=== PATIENT | female | born 1945 | race Caucasian/White ===

== ENCOUNTER → 2020-10-14 02:41 | Outpatient (CLI) | payer MEDICARE, BC, SELFPAY ==
[2020-10-14 19:43] LABS: SARS-CoV-2 RNA PCR Negative
== END ==
PROVIDERS: PCP Nurse Practitioner Adult Health; Visit Provider Internal Medicine Gastroenterology
DX: Z01.812 Encounter for preprocedural laboratory examination (principal); Z20.822 Contact with and (suspected) exposure to COVID-19
CPT/HCPCS: C9803; U0003; U0005

== ENCOUNTER 2020-10-18 03:01 | Day surgery (SDC) | payer MEDICARE, BC, SELFPAY ==
[2020-10-09 13:16] VITALS: BMI 30.6
--- NOTE | 2020-10-18 07:49 | WPDANESEPPF ---
Anes - Initial Pre Proc Eval Procedure: Operation Date: 10/18/20 10:00 Proposed Procedures p Colonoscopy - Oswaldo Leos MD Date/Time: 10/18/20 07:49 Surgeon: Oswaldo Leos MD Pre Op Diagnosis: abnormal ct scan Patient Data Age: 74 Gender: F Height: 1.63 m Weight: 80.9 kg Allergies Allergy/AdvReac Type Severity Reaction Status Date / Time povidone-iodine Allergy Intermediate HIVES Verified 10/18/20 09:11 soap Allergy Intermediate HIVES Verified 10/18/20 09:11 Home Medications Medication Instructions Recorded Confirmed Type allopurinol 300 mg PO DAILY 10/09/20 10/09/20 History amlodipine 5 mg PO DAILY 10/09/20 10/09/20 History apremilast [Otezla] 30 mg PO BID 10/09/20 10/09/20 History atenolol 100 mg PO DAILY 10/09/20 10/09/20 History hydrochlorothiazide 25 mg PO DAILY 10/09/20 10/09/20 History insulin glargine [Basaglar KwikPen 48 unit SUBCUT HS 10/09/20 10/09/20 History U-100 Insulin] insulin lispro 5 unit SUBCUT PRN 10/09/20 10/09/20 History levothyroxine [Euthyrox] 75 mcg PO DAILY 10/09/20 10/09/20 History lisinopril 40 mg PO DAILY 10/09/20 10/09/20 History meloxicam 15 mg PO DAILY 10/09/20 10/09/20 History metformin 500 mg PO BID 10/09/20 10/09/20 History potassium chloride 10 meq PO DAILY 10/09/20 10/09/20 History simvastatin 40 mg PO DAILY 10/09/20 10/09/20 History Patient hx anesthesia problems: none Family hx anesthesia problems: none PMFSH Past Medical History Medical History (Updated 10/18/20 @ 07:51 by Hunter Oliva MD) Diabetes Emphysema of lung Gout HTN (hypertension) Hypercholesterolemia Hypothyroidism Obesity Osteoarthritis Psoriasis Social History Social History Smoking packs per day: 2 Smoking cigarettes per day: 40.0 Years smoked: 30 Smoking pack-years: 60.00 Smoking status: Current every day smoker Tobacco type: cigarettes Substance use type: does not use Living arrangements: with family Gender identity (if verbalized by the patient): Female Spiritual care concerns: No Anes - Eval Final PreProcedure Day of Procedure 10/18/20 07:49 Patient weight: obese Heart: regular rate and rhythm Lungs: clear to auscultation and normal air movement Airway: Mallampati scale class II Neurological: alert and oriented Last oral intake: >/= 8 hours ASA classification: III Emergent: no Anesthetic plan: proceed Anesthesia type and monitoring: general GIVS Informed Consent: The patient's anesthetic plan and its attendant risks and benefits were discussed with the patient/family/POA. Questions were solicited and answers provided to the satisfaction of the patient/family/POA.
[2020-10-18 09:12] VITALS: BP 161/80; PULSE 65; RESP 20; TEMP 36.7; O2SAT 98
[2020-10-18 09:30] LABS: Glucose Point of Care 139 mg/dl (65-105)
[2020-10-18] MEDS: LACTATED RINGERS 1,000 ML 150 ML IV CONT (09:30)
--- NOTE | 2020-10-18 09:37 | PM.HPGS ---
History of Present Illness History of Present Illness Consent: Risks, benefits, and alternatives have been discussed and questions answered. Patient agrees to proceed with procedure. Chief complaint: abnormal ct scan Narrative: Jillian Bernal is a 74 year old female Referred for investigation of an abnormal CT scan. She has been having lower abdominal discomfort and change in bowel habits. She has chronic diarrhea when taking metformin 1500 mg per day. Since her dose was reduced she has become constipated. She has tried MiraLax, stool softeners, Dulcolax without significant success Review of Systems Review of Systems: All systems reviewed & are unremarkable except as noted in HPI and below PMFSH Past Medical History Medical History Diabetes Emphysema of lung Gout HTN (hypertension) Hypercholesterolemia Hypothyroidism Obesity Osteoarthritis Psoriasis Social History Social History Smoking packs per day: 2 Smoking cigarettes per day: 40.0 Years smoked: 30 Smoking pack-years: 60.00 Smoking status: Current every day smoker Tobacco type: cigarettes Substance use type: does not use Living arrangements: with family Gender identity (if verbalized by the patient): Female Spiritual care concerns: No Meds Home Medications and Allergies Home Medications Medication Instructions Recorded Confirmed Type allopurinol 300 mg PO DAILY 10/09/20 10/09/20 History amlodipine 5 mg PO DAILY 10/09/20 10/09/20 History apremilast [Otezla] 30 mg PO BID 10/09/20 10/09/20 History atenolol 100 mg PO DAILY 10/09/20 10/09/20 History hydrochlorothiazide 25 mg PO DAILY 10/09/20 10/09/20 History insulin glargine [Basaglar KwikPen 48 unit SUBCUT HS 10/09/20 10/09/20 History U-100 Insulin] insulin lispro 5 unit SUBCUT PRN 10/09/20 10/09/20 History levothyroxine [Euthyrox] 75 mcg PO DAILY 10/09/20 10/09/20 History lisinopril 40 mg PO DAILY 10/09/20 10/09/20 History meloxicam 15 mg PO DAILY 10/09/20 10/09/20 History metformin 500 mg PO BID 10/09/20 10/09/20 History potassium chloride 10 meq PO DAILY 10/09/20 10/09/20 History simvastatin 40 mg PO DAILY 10/09/20 10/09/20 History Allergies Allergy/AdvReac Type Severity Reaction Status Date / Time povidone-iodine Allergy Intermediate HIVES Verified 10/18/20 09:11 soap Allergy Intermediate HIVES Verified 10/18/20 09:11 Vital Signs Vital Signs - 24 hr 10/18/20 09:12 Temperature 36.7 C Pulse Rate 65 Respiratory Rate 20 Blood Pressure 161/80 H Pulse Oximetry 98 Exam Resp: Auscultation: clear to auscultation bilaterally Cardio: Rate: regular rate Rhythm: regular rhythm GI: GI Palp: Yes Soft to palpation and No Tenderness to palpation present (GI) Assessment and Plan Assessment and plan (1) Abnormal CT scan, gastrointestinal tract: Code(s): R93.3 - Abnormal findings on diagnostic imaging of other parts of digestive tract Status: Acute Assessment and Plan: Colonoscopy with possible biopsy or polypectomy or cautery or injection of substances.
[2020-10-18 10:44] VITALS: BP 146/70; PULSE 64; RESP 17; O2SAT 96
[2020-10-18 10:54] VITALS: BP 150/63; PULSE 62; RESP 28; O2SAT 99
[2020-10-18 11:04] VITALS: BP 154/62; PULSE 65; RESP 22; O2SAT 99
== END 2020-10-18 11:25 | disposition home or self-care (01) ==
PROVIDERS: PCP Nurse Practitioner Adult Health; Visit Provider Internal Medicine Gastroenterology
PROC: 0DJD8ZZ Inspection of Lower Intestinal Tract, Via Natural or Artificial Opening Endoscopic (ICD-10-PCS; CPT 45378; principal; 2020-10-18 10:00)
DX: D12.3 Benign neoplasm of transverse colon (principal); R19.4 Change in bowel habit; R10.30 Lower abdominal pain, unspecified; E11.9 Type 2 diabetes mellitus without complications; I10 Essential (primary) hypertension; E78.00 Pure hypercholesterolemia, unspecified; E03.9 Hypothyroidism, unspecified; J43.9 Emphysema, unspecified; E66.9 Obesity, unspecified; Z68.30 Body mass index [BMI] 30.0-30.9, adult; F17.210 Nicotine dependence, cigarettes, uncomplicated; Z79.84 Long term (current) use of oral hypoglycemic drugs; Z79.4 Long term (current) use of insulin
CPT/HCPCS: 45380; 82948; 88305; J2704; J7120

== ENCOUNTER 2020-12-28 15:28 | Outpatient (CLI) | payer MEDICARE, BC, SELFPAY ==
--- NOTE | ~2020-12-28 | XR_ITS ---
XR lumbar spine min 4V 12/28/2020 16:13 Indication: Psoriatic arthritis Procedure: 5 views lumbar spine Comparison: No prior studies for comparison. Findings: There is disc narrowing at L3-4, L4-5 and L5-S1. There is grade 1 degenerative spondylolist hesis at L4-5. There is mild multilevel facet hypertrophy at these levels. No acute fracture or traum atic malalignment. There is calcific density overlying the right L2 transverse process, likely renal stone. There are cholecystectomy clips. Impression: 1: Moderate lumbar spondylosis. 2: Probable right nephrolithiasis. Reviewed, dictated and finalized at location A. Impression: 1: Moderate lumbar spondylosis. 2: Probable right nephrolithiasis.
--- NOTE | ~2020-12-28 | XR_ITS ---
XR sacroiliac joints min 3V 12/28/2020 16:13 Indication: Low back pain Procedure: 3 views of the sacroiliac joints Comparison: No prior studies for comparison. Findings: Mild bilateral symmetric degenerative change of the sacroiliac joints. Moderate lower lumba r spondylosis. Sacral foramen are symmetric. Visualized pelvic rings are intact. Mild osteoarthritis of the hips. Impression: 1: Mild symmetric degenerative changes of the sacroiliac joints without ankylosis or erosions. Reviewed, dictated and finalized at location A. Impression: 1: Mild symmetric degenerative changes of the sacroiliac joints without ankylos is or erosions.
== END 2020-12-28 15:29 | disposition home or self-care (01) ==
PROVIDERS: PCP Nurse Practitioner Adult Health; Visit Provider Internal Medicine
DX: L40.50 Arthropathic psoriasis, unspecified (principal); M53.3 Sacrococcygeal disorders, not elsewhere classified; M47.896 Other spondylosis, lumbar region
CPT/HCPCS: 72110; 72202

== ENCOUNTER 2021-01-03 01:32 | Day surgery (SDC) | payer MEDICARE, BC, SELFPAY ==
[2020-12-26 10:56] VITALS: BMI 29.1
--- NOTE | 2021-01-02 16:27 | PM.HPGS ---
History of Present Illness History of Present Illness Consent: Risks, benefits, and alternatives have been discussed and questions answered. Patient agrees to proceed with procedure. Chief complaint: epigastric pain Narrative: Jillian Bernal is a 75 year old female was having epigastric pain. This began about 4 months ago. Taking pantoprazole has helped ease at, but she still has twinges of it from time to time. Review of Systems Review of Systems: All systems reviewed & are unremarkable except as noted in HPI and below PMFSH Past Medical History Medical History Diabetes Emphysema of lung Gout HTN (hypertension) Hypercholesterolemia Hypothyroidism Obesity Osteoarthritis Psoriasis Psoriatic arthritis (~2009) Surgical History Surgical History H/O left mastectomy History of knee replacement Hx of cholecystectomy Social History Social History Smoking packs per day: 1.5 Smoking cigarettes per day: 30.0 Years smoked: 30 Smoking pack-years: 45.00 Smoking status: Current every day smoker Tobacco type: cigarettes Alcohol intake: never Substance use: never Substance use type: does not use Living arrangements: alone Gender identity (if verbalized by the patient): Female Spiritual care concerns: No Meds Home Medications and Allergies Home Medications Medication Instructions Recorded Confirmed Type Alber Carlin U-100 Insulin 48 unit SUBCUT HS 10/09/20 12/26/20 History Otezla 30 mg PO BID 10/09/20 12/26/20 History amlodipine 5 mg PO DAILY 10/09/20 12/26/20 History atenolol 100 mg PO BID 10/09/20 12/26/20 History hydrochlorothiazide 25 mg PO DAILY 10/09/20 12/26/20 History insulin lispro 5 unit SUBCUT TID PRN 10/09/20 12/26/20 History levothyroxine [Euthyrox] 100 mcg PO DAILY 10/09/20 12/26/20 History lisinopril 40 mg PO DAILY 10/09/20 12/26/20 History metformin 500 mg PO BID 10/09/20 12/26/20 History potassium chloride 10 meq PO DAILY 10/09/20 12/26/20 History simvastatin 40 mg PO DAILY 10/09/20 12/26/20 History colchicine 0.6 mg PO .COMPLEX PRN 12/26/20 12/26/20 History icosapent ethyl 2 g PO BID 12/26/20 12/26/20 History omeprazole 40 mg PO DAILY 12/26/20 12/26/20 History Allergies Allergy/AdvReac Type Severity Reaction Status Date / Time povidone-iodine Allergy Intermediate HIVES Verified 01/03/21 11:43 soap Allergy Intermediate HIVES Verified 01/03/21 11:43 Exam Const: General: alert Orientation/consciousness: patient oriented x3 Resp: Auscultation: clear to auscultation bilaterally Cardio: Rhythm: regular rhythm GI: GI Palp: Yes Soft to palpation and No Tenderness to palpation present (GI) Neuro: General: patient oriented x3 Assessment and Plan Assessment and plan (1) Epigastric pain: Code(s): R10.13 - Epigastric pain Status: Acute Assessment and Plan: EGD with possible biopsy or dilatation or cautery.
[2021-01-03 11:44] VITALS: BP 173/62; PULSE 71; RESP 18; TEMP 36.1; O2SAT 97
[2021-01-03] MEDS: LACTATED RINGERS 1,000 ML 150 ML IV CONT (11:48)
--- NOTE | 2021-01-03 11:58 | WPDANESEPPF ---
Anes - Initial Pre Proc Eval Procedure: Operation Date: 01/03/21 12:30 Proposed Procedures p Esophagogastroduodenoscopy - Oswaldo Leos MD Date/Time: 01/03/21 11:58 Surgeon: Oswaldo Leos MD Pre Op Diagnosis: epigastric pain Patient Data Age: 75 Gender: F Height: 1.63 m Weight: 77.3 kg Last Vital Signs Temp 36.1 C L 01/03/21 11:44 Pulse 71 01/03/21 11:44 Resp 18 01/03/21 11:44 BP 173/62 H 01/03/21 11:44 Pulse Ox 97 01/03/21 11:44 Allergies Allergy/AdvReac Type Severity Reaction Status Date / Time povidone-iodine Allergy Intermediate HIVES Verified 01/03/21 11:43 soap Allergy Intermediate HIVES Verified 01/03/21 11:43 Home Medications Medication Instructions Recorded Confirmed Type Indigoaglnoam CrewsikPen U-100 Insulin 48 unit SUBCUT HS 10/09/20 12/26/20 History Otezla 30 mg PO BID 10/09/20 12/26/20 History amlodipine 5 mg PO DAILY 10/09/20 12/26/20 History atenolol 100 mg PO BID 10/09/20 12/26/20 History hydrochlorothiazide 25 mg PO DAILY 10/09/20 12/26/20 History insulin lispro 5 unit SUBCUT TID PRN 10/09/20 12/26/20 History levothyroxine [Euthyrox] 100 mcg PO DAILY 10/09/20 12/26/20 History lisinopril 40 mg PO DAILY 10/09/20 12/26/20 History metformin 500 mg PO BID 10/09/20 12/26/20 History potassium chloride 10 meq PO DAILY 10/09/20 12/26/20 History simvastatin 40 mg PO DAILY 10/09/20 12/26/20 History colchicine 0.6 mg PO .COMPLEX PRN 12/26/20 12/26/20 History icosapent ethyl 2 g PO BID 12/26/20 12/26/20 History omeprazole 40 mg PO DAILY 12/26/20 12/26/20 History Patient hx anesthesia problems: none Family hx anesthesia problems: none PMFSH Past Medical History Medical History Diabetes Emphysema of lung Gout HTN (hypertension) Hypercholesterolemia Hypothyroidism Obesity Osteoarthritis Psoriasis Psoriatic arthritis (~2009) Surgical History Surgical History H/O left mastectomy History of knee replacement Hx of cholecystectomy Social History Social History Smoking packs per day: 1.5 Smoking cigarettes per day: 30.0 Years smoked: 30 Smoking pack-years: 45.00 Smoking status: Current every day smoker Tobacco type: cigarettes Alcohol intake: never Substance use: never Substance use type: does not use Living arrangements: alone Gender identity (if verbalized by the patient): Female Spiritual care concerns: No Anes - Eval Final PreProcedure Day of Procedure 01/03/21 11:58 Patient weight: overweight Heart: regular rate and rhythm Lungs: clear to auscultation and normal air movement Airway: Mallampati scale class II Neurological: alert and oriented Last oral intake: >/= 8 hours ASA classification: III Emergent: no Anesthetic plan: proceed Anesthesia type and monitoring: general GIVS Informed Consent: The patient's anesthetic plan and its attendant risks and benefits were discussed with the patient/family/POA. Questions were solicited and answers provided to the satisfaction of the patient/family/POA.
[2021-01-03 12:10] LABS: Glucose Point of Care 93 mg/dl (65-105)
[2021-01-03 12:52] VITALS: BP 103/41; PULSE 68; RESP 22; O2SAT 94
[2021-01-03 13:02] VITALS: BP 140/65; PULSE 68; RESP 22; O2SAT 96
[2021-01-03 13:12] VITALS: BP 137/81; PULSE 66; RESP 20; O2SAT 98
--- NOTE | 2021-01-03 13:14 | SUR.PHASEII ---
PT'S BLOOD SUGAR 77, PT ASSYMPTOMATIC, PT GIVEN A SODA AT THIS TIME AND STATES SHE WILL EAT SOON SHE LEAVES THE HOSPITAL
[2021-01-03 13:39] LABS: Glucose Point of Care 77 mg/dl (65-105)
== END 2021-01-03 13:28 | disposition home or self-care (01) ==
PROVIDERS: PCP Nurse Practitioner Adult Health; Visit Provider Internal Medicine Gastroenterology
PROC: 0DJ08ZZ Inspection of Upper Intestinal Tract, Via Natural or Artificial Opening Endoscopic (ICD-10-PCS; CPT 43235; principal; 2021-01-03 12:30)
DX: K29.70 Gastritis, unspecified, without bleeding (principal); I10 Essential (primary) hypertension; E78.00 Pure hypercholesterolemia, unspecified; E11.9 Type 2 diabetes mellitus without complications; E03.9 Hypothyroidism, unspecified; J43.9 Emphysema, unspecified; M10.9 Gout, unspecified; L40.50 Arthropathic psoriasis, unspecified; L40.9 Psoriasis, unspecified; M19.90 Unspecified osteoarthritis, unspecified site; Z79.4 Long term (current) use of insulin; Z79.84 Long term (current) use of oral hypoglycemic drugs; E66.9 Obesity, unspecified; Z68.29 Body mass index [BMI] 29.0-29.9, adult; F17.210 Nicotine dependence, cigarettes, uncomplicated
CPT/HCPCS: 43235; 82948; J2704; J7120

== ENCOUNTER 2021-01-17 15:32 | Outpatient (CLI) | payer MEDICARE, BC, SELFPAY ==
[2021-01-17 16:07] LABS: Uric Acid 6.2 mg/dL (2.5-7.5)
[2021-01-17 21:01] LABS: Rheumatoid Factor < 8.6 IU/ML (<12)
[2021-01-20 23:10] LABS: Anti Cyclic Citrullinated Pept <16 Units (<20)
[2021-01-21 01:14] LABS: NIL 0.09 IU/mL; Quantiferon TB Plus, 1T NEGATIVE (NEGATIVE); TB1-NIL <0.00 IU/mL; TB2-NIL <0.00 IU/mL
== END 2021-01-17 15:33 | disposition home or self-care (01) ==
PROVIDERS: PCP Nurse Practitioner Adult Health; Visit Provider Internal Medicine
DX: L40.50 Arthropathic psoriasis, unspecified (principal); M19.90 Unspecified osteoarthritis, unspecified site
CPT/HCPCS: 36415; 84550; 86200; 86430; 86480

== ENCOUNTER 2021-05-15 10:19 | Outpatient (CLI) | payer MEDICARE, BC, SELFPAY ==
[2021-05-15 10:56] LABS: Anion Gap 4 mmol/L (8-16); Blood Urea Nitrogen 24 mg/dL (7-17); Calcium 9.1 mg/dL (8.4-10.2); Carbon Dioxide 29 mmol/L (22-30); Chloride 104 mmol/L (98-107); Estimated Glomerular Filt Rate 32; Glucose 118 mg/dL (65-110); Sodium 137 mmol/L (137-145)
[2021-05-15 11:04] LABS: NT Pro B Type Natriuretic Pept 5340 pg/mL (5-100)
== END 2021-05-15 10:20 | disposition home or self-care (01) ==
PROVIDERS: PCP Nurse Practitioner Adult Health; Visit Provider Nurse Practitioner Adult Health
DX: E03.9 Hypothyroidism, unspecified (principal); R60.0 Localized edema; I11.9 Hypertensive heart disease without heart failure
CPT/HCPCS: 36415; 80048; 83880; 84443

== ENCOUNTER 2021-05-24 09:38 | Outpatient (CLI) | payer MEDICARE, BC, SELFPAY ==
[2021-05-24 10:22] LABS: Anion Gap 5 mmol/L (8-16); Blood Urea Nitrogen 38 mg/dL (7-17); Calcium 9.3 mg/dL (8.4-10.2); Carbon Dioxide 26 mmol/L (22-30); Chloride 102 mmol/L (98-107); Estimated Glomerular Filt Rate 24; Glucose 123 mg/dL (65-110); Potassium 4.8 mmol/L (3.4-5.0); Sodium 133 mmol/L (137-145)
== END 2021-05-24 09:39 | disposition home or self-care (01) ==
PROVIDERS: PCP Nurse Practitioner Adult Health
DX: N18.30 Chronic kidney disease, stage 3 unspecified (principal)
CPT/HCPCS: 36415; 80048

== ENCOUNTER 2021-07-09 11:42 | Outpatient (CLI) | payer MEDICARE, BC, SELFPAY ==
--- NOTE | ~2021-07-09 | US_ITS ---
EXAMINATION: US renal BI EXAM DATE: 07/09/2021 12:18 INDICATION: Stage 3b Chronic Kidney Disease . TECHNIQUE: Multiple grayscale and Doppler images of the kidneys were obtained (by a technologist who performed the scan) and subsequently reviewed. Correlation is made to MR abdomen 05/20/2013. FINDINGS: Incidental liver lesion measuring 3.2 x 2.7 x 2.0 cm. This is probably the same lesion repo rted on an MRI from 2012. Indeterminate imaging characteristics by ultrasound, but probably relativel y stable in size compared to that time which would favor benign histology. Right kidney: There is normal contour and echogenicity. It measures 10.4 x 4.1 x 4.5 centimeters. T here are no focal renal lesions identified. There is no hydronephrosis. Left kidney: There is normal contour and echogenicity. It measures 11.0 x 3.9 x 5.4 centimeters. Th ere are no focal renal lesions identified. There is no hydronephrosis. Bladder unremarkable. IMPRESSION: 1. Sonographically unremarkable kidneys. 2. Right liver lobe lesion, see above. Reviewed, dictated and finalized at location B. [employer]
[2021-07-09 13:23] LABS: Albumin Level 3.6 g/dL (3.5-5.1); Anion Gap 5 mmol/L (8-16); Blood Urea Nitrogen 42 mg/dL (7-17); Carbon Dioxide 24 mmol/L (22-30); Chloride 105 mmol/L (98-107); Estimated Glomerular Filt Rate 24; Glucose 159 mg/dL (65-110); Phosphorus 4.5 mg/dL (2.5-4.5); Potassium 4.1 mmol/L (3.4-5.0); Sodium 134 mmol/L (137-145)
[2021-07-09 13:28] LABS: Creatinine Urine 60.4 mg/dL
[2021-07-09 13:29] LABS: Eosinophil Urine None Seen % (None Seen)
[2021-07-09 13:30] LABS: Sodium Urine Random 51 meq/L
[2021-07-09 13:44] LABS: Complement C3 110 mg/dL (88-165)
[2021-07-09 18:11] LABS: Total Protein Urine Random 291 mg/dL; Ur Ttl Prot Creatinine Ratio 4.82 mg/mg (0-0.20)
[2021-07-11 20:12] LABS: Anti Glomerular Basement Memb <1.0 AI (<1.0)
[2021-07-12 08:16] LABS: Creatinine, Random Urine 54 mg/dL (20-275); Total Protein/Creatinine Ratio 3556 mg/g creat (21-161)
[2021-07-12 17:55] LABS: Albumin 3.2 g/dL (3.8-4.8); Alpha 1 Globulin 0.4 g/dL (0.2-0.3); Alpha 2 Globulin 0.9 g/dL (0.5-0.9); Beta 1 Globulin 0.4 g/dL (0.4-0.6); Gamma Globulin 1.1 g/dL (0.8-1.7); Protein, Total 6.3 g/dL (6.1-8.1)
[2021-07-14 20:24] LABS: ANCA Screen Negative (Negative)
== END 2021-07-09 11:43 | disposition home or self-care (01) ==
PROVIDERS: PCP Nurse Practitioner Adult Health; Visit Provider Internal Medicine Nephrology
DX: I12.9 Hypertensive chronic kidney disease with stage 1 through stage 4 chronic kidney disease, or unspecified chronic kidney disease (principal); N18.32 Chronic kidney disease, stage 3b; E11.29 Type 2 diabetes mellitus with other diabetic kidney complication; R80.8 Other proteinuria
CPT/HCPCS: 36415; 76775; 80069; 82570; 83520; 84155; 84156; 84165; 84166; 84300; 85999; 86036; 86038; 86039; 86160; 86225

== ENCOUNTER 2021-07-25 17:45 | Inpatient (IN) | payer MEDICARE, BC, SELFPAY ==
--- NOTE | ~2021-07-25 | XR_ITS ---
EXAMINATION: XR chest 1V portable EXAM DATE: 07/25/2021 18:10 INDICATION: SOB, CHF, Upper Ext Swelling, HTN, emphysema. TECHNIQUE: Portable AP frontal chest x-ray was obtained. Comparison is made to prior examination from 04/16/2013. FINDINGS: Mild cardiomegaly. There is ill-defined bilateral mid and lower lung zone airspace disease, could be mild pulmonary edema or developing viral pneumonia. Small left pleural effusion. No pneumot horax. There are bony degenerative changes. IMPRESSION: Cardiomegaly and ill-defined bilateral edema or viral pneumonia. Small left effusion. Reviewed, dictated and finalized at location G. OPRACTOR SOLE PRACTITIONER IMPRESSION: Cardiomegaly and ill-defined bilateral edema or viral pneumonia. S mall left effusion.
--- NOTE | ~2021-07-25 | US_ITS ---
EXAMINATION: US venous doppler [facility] DATE: 07/26/2021 16:43 INDICATION: Lower limb swelling TECHNIQUE: Grayscale ultrasound images without and with compression and Doppler ultrasound images of the bilateral lower extremity veins were obtained. COMPARISON: None. FINDINGS: The visualized portions of right common femoral vein, profunda (deep) femoral vein, femoral vein, pop liteal vein, posterior tibial veins, peroneal veins, gastrocnemius vein and greater saphenous vein ou tflow are patent. The visualized portions of left common femoral vein, profunda femoral vein, femoral vein, popliteal v ein, posterior tibial veins, peroneal veins, gastrocnemius vein and greater saphenous vein outflow ar e patent. IMPRESSION: 1. No deep venous thrombosis in either lower limb. Reviewed, dictated and finalized at location A. T SALES REPRESENTATIVE
--- NOTE | ~2021-07-25 | US_ITS ---
EXAMINATION: US abdomen limited DATE: 07/26/2021 16:42 INDICATION: Abdominal distention TECHNIQUE: Multiple grayscale and Doppler ultrasound images of the abdomen were obtained. COMPARISON: MRI dated 05/20/2013 FINDINGS: The pancreatic head and body are normal in appearance. The pancreatic tail is not visualized. Liver has normal echogenicity and contour, with a smooth surface. 4.0 cm hypoechoic lesion in the right hep atic lobe adjacent to the right kidney which appears to correspond in location to a smaller 2.3 cm in determinate rim enhancing mass on the prior MRI. No other hepatic lesions identified. No intrahepatic biliary duct dilation suspected. Portal venous flow was seen in the hepatopetal, normal direction an d has normal Doppler waveform. Small amount of perihepatic ascites. There is increased echogenicity a t the right kidney consistent with medical renal disease. No hydronephrosis. The gallbladder is not v isualized and reportedly surgically absent. The common bile duct measures 4 mm diameter which is norm al. IMPRESSION: 1. Indeterminate 4 cm lesion in the right hepatic lobe most likely benign given that has been present since 2012 however given the interval growth and nonspecific imaging features on the current and melquiades or study would recommend repeat pre and postcontrast MRI. 2. Small amount of perihepatic ascites. Reviewed, dictated and finalized at location A. ACTORY MIXER IMPRESSION: 1. Indeterminate 4 cm lesion in the right hepatic lobe most likely benign given that has been present since 2012 however given the interval growth and nonspec ific imaging features on the current and prior study would recommend repeat pre and postcontrast MRI. 2. Small amount of perihepatic ascites.
--- NOTE | ~2021-07-25 | XR_ITS ---
EXAMINATION: XR chest 2V DATE: 07/31/2021 13:09 INDICATION: Congestive heart failure. TECHNIQUE: Frontal and lateral views of the chest were obtained. COMPARISON: Chest single view 07/25/2021, chest CT 05/06/2013 FINDINGS: There is a diffuse interstitial pattern, consistent mild pulmonary edema. There is a tiny l eft pleural effusion. No pneumothorax. Cardiomegaly is noted. Surgical clips in the right upper quadr ant are likely from cholecystectomy. There are changes of left mastectomy. IMPRESSION: 1. Mild pulmonary edema with tiny left pleural effusion. 2. Cardiomegaly. Reviewed, dictated and finalized at location A. PMENT SPECIALIST
[2021-07-25 18:00] VITALS: BP 150/72; PULSE 70; RESP 14; TEMP 36.8; O2SAT 99
--- NOTE | 2021-07-25 18:01 | ECG_ITS ---
Measurements Intervals [place] Rate: 65 P: 30 ID: [id number] QRS: 40 QRSD: 81 T: 18 QT: 416 QTc: 435 Interpretive Statements SINUS RHYTHM BASELINE ARTIFACT- I, II, AVR NORMAL ECG Electronically Signed On 07-25-2021 20:06:39 SURGICAL ASSISTANT by Sammy Brizuela D.O.
[2021-07-25 18:15] VITALS: O2SAT 100
[2021-07-25 18:22] VITALS: BP 142/74; PULSE 67; RESP 20; O2SAT 99
[2021-07-25 18:26] LABS: Basophils Percent Auto 0.3 % (0.2-1.2); Eosinophils Absolute Auto 0.2 K/mm3 (0-0.3); Eosinophils Percent Auto 1.9 % (0-4.4); Hematocrit 30.3 % (37.0-47.0); Hemoglobin 9.2 g/dL (12.0-15.0); Immature Granulocyte Absolute 0.04 K/mm3 (0.00-0.031); Immature Granulocyte Percent A 0.5 % (0-0.5); Lymphocytes Absolute Auto 1.62 K/mm3 (0.9-3.2); Lymphocytes Percent Auto 18.8 % (18.3-44.2); Mean Corpuscular HGB Conc 30.4 g/dl (32-36); Mean Corpuscular Hemoglobin 28.6 pg (26-34); Mean Corpuscular Volume 94.1 fl (80-100); Mean Platelet Volume 9.5 fl (7.4-10.4); Monocytes Absolute Auto 0.5 K/mm3 (0.1-0.6); Monocytes Percent Auto 5.6 % (2.6-8.5); Neutrophils Absolute Auto 6.3 K/mm3 (1.3-6.7); Neutrophils Percent Auto 72.9 % (45.5-73.1); Platelet Count Result 203 k/mm3 (150-375); Red Blood Count 3.22 M/mm3 (4.2-5.4); Red Cell Distribution Width 16.1 % (11.5-14.5); White Blood Count 8.6 K/mm3 (4.5-10.0)
--- NOTE | 2021-07-25 18:29 | ED.SOB ---
HPI - SOB/Dyspnea General Chief Complaint: Shortness of Breath/Dyspnea Stated Complaint: Full of fluids Time Seen by Provider: 07/25/21 18:14 Source: patient Mode of arrival: ambulatory Limitations: no limitations History of Present Illness HPI Narrative: This is a 75-year-old female that presents to the emergency department for shortness of breath. Worsening over the last couple of weeks. Associated with lower extremity edema. Reports history of recent diagnosis of CHF. She takes 20 mg of Lasix daily. Was instructed by her welt wheeler to double her dose on Friday, Friday and Friday. She has been doing this without relief. Denies fever, cough, or chest pain. Related Data Home Medications Medication Instructions Recorded Confirmed amlodipine 07/25/21 apremilast [Otezla] mg PO 07/25/21 atenolol 07/25/21 furosemide 07/25/21 hydralazine 07/25/21 icosapent ethyl g PO 07/25/21 insulin glargine [Basaglar KwikPen SUBCUT 07/25/21 U-100 Insulin] lancets [OneTouch Delica Plus 07/25/21 07/25/21 Lancet] levothyroxine [Euthyrox] 07/25/21 lisinopril 07/25/21 meloxicam 07/25/21 metformin mg PO 07/25/21 07/25/21 omeprazole 07/25/21 potassium chloride meq PO 07/25/21 simvastatin mg 07/25/21 Allergies Allergy/AdvReac Type Severity Reaction Status Date / Time povidone-iodine Allergy Intermediate HIVES Verified 07/25/21 18:22 soap Allergy Intermediate HIVES Verified 07/25/21 18:22 Review of Systems Review of Systems: CONSTITUTIONAL: Denies fever CARDIOVASCULAR: Reports edema. Denies chest pain RESPIRATORY: Reports cough and dyspnea. All systems reviewed & are unremarkable except as noted in HPI and below PMFSH Past Medical History Medical History Diabetes Emphysema of lung Gout HTN (hypertension) Hypercholesterolemia Hypothyroidism Obesity Osteoarthritis Psoriasis Psoriatic arthritis (~2009) Surgical History Surgical History H/O left mastectomy History of knee replacement Hx of cholecystectomy Social History Social History Smoking packs per day: 1.5 Smoking cigarettes per day: 30.0 Years smoked: 30 Smoking pack-years: 45.00 Smoking status: Current every day smoker Tobacco type: cigarettes Alcohol intake: never Substance use: never Substance use type: does not use Gender identity (if verbalized by the patient): Female Spiritual care concerns: No Exam Narrative: GENERAL: Well-appearing, well-nourished, and in no acute distress. HEAD: Normocephalic, atraumatic. EYES: EOMI. ENT: Mucous membranes moist. Oropharynx without tonsillar hypertrophy exudate or other lesions. CHEST: Rales in the bilateral lung bases. No respiratory distress. No wheezes or rhonchi HEART: Regular rate and rhythm. No murmur heard. Normal peripheral pulses. EXTREMITIES: Normal range of motion. 2+ pitting edema to the bilateral lower extremities. Normal DP pulses SKIN: Warm, dry, no rash. NEURO: No focal deficits. Alert and oriented x3. PSYCH: Normal mood and affect Course Vital Signs Vital signs: Vital Signs Temperature 98.3 F 07/25/21 18:00 Pulse Rate 70 07/25/21 18:00 Respiratory Rate 14 07/25/21 18:00 Blood Pressure 150/72 H 07/25/21 18:00 Pulse Oximetry 99 07/25/21 18:00 Temperature 98.3 F 07/25/21 18:00 Pulse Rate 67 07/25/21 18:22 Respiratory Rate 20 07/25/21 18:22 Blood Pressure 142/74 H 07/25/21 18:22 Pulse Oximetry 99 07/25/21 18:22 MDM - SOB/Dyspnea Lab Data Attestation: I reviewed the patient's lab results. Result diagrams: 07/25/21 18:19 07/25/21 18:19 Labs: Lab Results 07/25/21 07/25/21 07/25/21 Range/Units 18:19 18:19 18:19 WBC 8.6 (4.5-10.0) K/mm3 RBC 3.22 L (4.2-5.4) M/mm3 Hgb 9.2 L (12.0-15.0) g/dL Hct 30.3
[2021-07-25 18:36] LABS: Prothrombin Time 13.2 Seconds (11.1-14.7)
[2021-07-25 18:37] LABS: Partial Thromboplastin Time 26.9 SECONDS (22.3-36.8)
[2021-07-25 18:47] LABS: Alanine Aminotransferase 19 U/L (4-35); Alkaline Phosphatase 131 U/L (38-126); Anion Gap 7 mmol/L (8-16); Aspartate Amino Transferase 28 U/L (14-36); Bilirubin,Total 0.7 mg/dL (0.2-1.3); Blood Urea Nitrogen 33 mg/dL (7-17); Calcium 9.4 mg/dL (8.4-10.2); Carbon Dioxide 25 mmol/L (22-30); Chloride 102 mmol/L (98-107); Estimated CRCL calculation 30 ml/min; Estimated Glomerular Filt Rate 29; Glucose 82 mg/dL (65-110); Sodium 134 mmol/L (137-145)
[2021-07-25 18:59] LABS: NT Pro B Type Natriuretic Pept 4730 pg/mL (5-100); Troponin I < 0.012 ng/mL (0.000-0.034)
[2021-07-25] MEDS: FUROSEMIDE INJ 40 MG/4 ML VIAL IV PUSH (18:59)
[2021-07-25 19:49] VITALS: BP 157/63; PULSE 67; RESP 19; O2SAT 96
--- NOTE | 2021-07-25 20:22 | PM.IMHP ---
H&P: HPI History of Present Illness Date/Time: 07/25/21 20:22 Chief Complaint: Shortness of breath Narrative: 75 years old female with past medical history of chronic renal failure stage 4 proteinuria hypertension diabetes psoriatic arthritis positive JODI presented to the hospital shortness of breath worsening with activity patient denies chest pain patient also complained of lower extremity swelling worsening gradually patient was seen by her pyrotechnist who recommended increased dose of Lasix but no improvement in shortness of breath or swelling patient was found to have probable CHF exacerbation pulmonary edema was admitted to the hospital for further evaluation and treatment also COVID-19 testing is pending as chest x-ray was probable pulmonary edema cannot rule out viral pneumonia. Review of Systems Review of Systems: All systems reviewed & are unremarkable except as noted in HPI and below PMFSH Past Medical History Medical History Diabetes Emphysema of lung Gout HTN (hypertension) Hypercholesterolemia Hypothyroidism Obesity Osteoarthritis Psoriasis Psoriatic arthritis (~2009) Surgical History Surgical History H/O left mastectomy History of knee replacement Hx of cholecystectomy Social History Social History Smoking packs per day: 1.5 Smoking cigarettes per day: 30.0 Years smoked: 30 Smoking pack-years: 45.00 Smoking status: Current every day smoker Tobacco type: cigarettes Alcohol intake: never Substance use: never Substance use type: does not use Gender identity (if verbalized by the patient): Female Spiritual care concerns: No Meds Home Medications and Allergies Home Medications Medication Instructions Recorded Confirmed Type amlodipine 07/25/21 History apremilast [Otezla] mg PO 07/25/21 History atenolol 07/25/21 History furosemide 07/25/21 History hydralazine 07/25/21 History icosapent ethyl g PO 07/25/21 History insulin glargine [Basaglar KwikPen SUBCUT 07/25/21 History U-100 Insulin] lancets [OneTouch Delica Plus 07/25/21 07/25/21 History Lancet] levothyroxine [Euthyrox] 02/23/22 History lisinopril 07/25/21 History meloxicam 07/25/21 History metformin mg PO 07/25/21 07/25/21 History omeprazole 07/25/21 History potassium chloride meq PO 07/25/21 History simvastatin mg 07/25/21 History Allergies Allergy/AdvReac Type Severity Reaction Status Date / Time povidone-iodine Allergy Intermediate HIVES Verified 07/25/21 18:22 soap Allergy Intermediate HIVES Verified 07/25/21 18:22 Vital Signs Vital Signs - 24 hr 07/25/21 18:00 07/25/21 18:15 07/25/21 18:22 Temperature 98.3 F Pulse Rate 70 67 Respiratory Rate 14 20 Blood Pressure 150/72 H 142/74 H Pulse Oximetry 99 100 99 07/25/21 19:49 Temperature Pulse Rate 67 Respiratory Rate 19 Blood Pressure 157/63 H Pulse Oximetry 96 Exam Const: General: in distress HENMT: Mouth: Yes moist mucous membranes Eyes: General: appearance normal, both eyes and all related structures Neck: Neck: supple Resp: Auscultation: rales, wheezes and diminished lung sounds Cardio: Rate: regular rate Rhythm: regular rhythm GI: GI Palp: Yes Soft to palpation Skin: General skin exam: normal color Neuro: Speech: normal speech Motor exam (neuro): Normal motor muscle tone present throughout Psych: Mental Status: mental status grossly normal H&P: Results Labs Labs: Short CBC 07/25/21 Range/Units 18:19 WBC 8.6 (4.5-10.0) K/mm3 Hgb 9.2 L (12.0-15.0) g/dL Hct 30.3 L (37.0-47.0) % Plt Count 203 (150-375) k/mm3 [facility] 07/25/21 18:19 Sodium 134 L Potassium 5.0 Chloride 102 Carbon Dioxide 25 BUN 33 H Creatinine 1.70 H Glucose 82 Calcium 9.4 Cardiac Enzymes 0
--- NOTE | 2021-07-25 20:23 | ED.SOB ---
HPI - SOB/Dyspnea General Chief Complaint: Shortness of Breath/Dyspnea Stated Complaint: Full of fluids Time Seen by Provider: 07/25/21 18:14 Source: patient Mode of arrival: ambulatory Limitations: no limitations Related Data Home Medications Medication Instructions Recorded Confirmed amlodipine 07/25/21 apremilast [Otezla] mg PO 07/25/21 atenolol 07/25/21 furosemide 07/25/21 hydralazine 07/25/21 icosapent ethyl g PO 07/25/21 insulin glargine [Basaglar KwikPen SUBCUT 07/25/21 U-100 Insulin] lancets [OneTouch Delica Plus 07/25/21 07/25/21 Lancet] levothyroxine [Euthyrox] 07/25/21 lisinopril 07/25/21 meloxicam 07/25/21 metformin mg PO 07/25/21 07/25/21 omeprazole 07/25/21 potassium chloride meq PO 07/25/21 simvastatin mg 07/25/21 Allergies Allergy/AdvReac Type Severity Reaction Status Date / Time povidone-iodine Allergy Intermediate HIVES Verified 07/25/21 18:22 soap Allergy Intermediate HIVES Verified 07/25/21 18:22 [facility] Past Medical History Medical History Diabetes Emphysema of lung Gout HTN (hypertension) Hypercholesterolemia Hypothyroidism Obesity Osteoarthritis Psoriasis Psoriatic arthritis (~2009) Surgical History Surgical History H/O left mastectomy History of knee replacement Hx of cholecystectomy Social History Social History Smoking packs per day: 1.5 Smoking cigarettes per day: 30.0 Years smoked: 30 Smoking pack-years: 45.00 Smoking status: Current every day smoker Tobacco type: cigarettes Alcohol intake: never Substance use: never Substance use type: does not use Gender identity (if verbalized by the patient): Female Spiritual care concerns: No Course Vital Signs Vital signs: Vital Signs Temperature 98.3 F 07/25/21 18:00 Pulse Rate 70 07/25/21 18:00 Respiratory Rate 14 07/25/21 18:00 Blood Pressure 150/72 H 07/25/21 18:00 Pulse Oximetry 99 07/25/21 18:00 Temperature 98.3 F 07/25/21 18:00 Pulse Rate 67 07/25/21 19:49 Respiratory Rate 19 07/25/21 19:49 Blood Pressure 157/63 H 07/25/21 19:49 Pulse Oximetry 96 07/25/21 19:49 MDM - SOB/Dyspnea Lab Data Result diagrams: 07/25/21 18:19 07/25/21 18:19 Labs: Lab Results 07/25/21 07/25/21 07/25/21 Range/Units 18:19 18:19 18:19 WBC 8.6 (4.5-10.0) K/mm3 RBC 3.22 L (4.2-5.4) M/mm3 Hgb 9.2 L (12.0-15.0) g/dL Hct 30.3 L (37.0-47.0) % MCV 94.1 (80-100) fl MCH 28.6 (26-34) pg MCHC 30.4 L (32-36) g/dl RDW 16.1 H (11.5-14.5) % Plt Count 203 (150-375) k/mm3 MPV 9.5 (7.4-10.4) fl Immature Gran % (Auto) 0.5 (0-0.5) % Neut % (Auto) 72.9 (45.5-73.1) % Lymph % (Auto) 18.8 (18.3-44.2) % [place] % (Auto) 5.6 (2.6-8.5) % Eos % (Auto) 1.9 (0-4.4) % Baso % (Auto) 0.3 (0.2-1.2) % Lymph # (Auto) 1.62 (0.9-3.2) K/mm3 [place] # (Auto) 0.5 (0.1-0.6) K/mm3 Eos # (Auto) 0.2 (0-0.3) K/mm3 Baso # (Auto) 0.0 (0.0-0.1) K/mm3 Abs Immat Gran (auto) 0.04 H (0.00-0.031) K/mm3 Absolute Neuts (auto) 6.3 (1.3-6.7) K/mm3 Absolute Nucleated RBC 0.0 (0.0-0.012) K/mm3 Nucleated RBC % 0.0 (0.0-0.2) % PT 13.2 (11.1-14.7) Seconds INR 1.0 APTT 26.9 (22.3-36.8) SECONDS Sodium 134 L (137-145) mmol/L Potassium 5.0 (3.4-5.0) mmol/L Chloride 102 (98-107) mmol/L Carbon Dioxide 25 (22-30) mmol/L Anion Gap 7 L (8-16) mmol/L BUN 33 H (7-17) mg/dL Creatinine 1.70 H (0.7-1.0) mg/dL Estim Creat Clear Calc 30 ml/min Estimated GFR 29 L (59 - ) Glucose 82 (65-110) mg/dL Calcium 9.4 (8.4-10.2) mg/dL Total Bilirubin 0.7 (0.2-1.3) mg/dL AST 28 (14-36) U/L ALT 19 (4-35) U/L Alkaline Phosphatase 131 H (38-126)
--- NOTE | 2021-07-25 20:26 | ED.SOB ---
HPI - SOB/Dyspnea General Chief Complaint: Shortness of Breath/Dyspnea <Jennifer Mandel PA-C - Last Filed: 07/25/21 20:49> Stated Complaint: Full of fluids <Jennifer Mandel PA-C - Last Filed: 07/25/21 20:49> Time Seen by Provider: 07/25/21 18:14 <Jennifer Mandel PA-C - Last Filed: 07/25/21 20:49> Source: patient <AIDEE Khan Last Filed: 07/25/21 20:49> Mode of arrival: ambulatory <Jennifer Mandel PA-C - Last Filed: 07/25/21 20:49> Limitations: no limitations <Jennifer Mandel PA-C - Last Filed: 07/25/21 20:49> History of Present Illness HPI Narrative: This is a 75-year-old female that presents to the emergency department for worsening shortness of breath. Ongoing over the last couple of weeks. Associated with lower extremity edema. Reports her relish blender, Dr. Godinez told her to increase her Lasix to 40 mg on Friday, Friday and Friday. She has been doing this without relief. Denies fever, cough, or chest pain. <Jennifer Mandel PA-C - Last Filed: 07/25/21 20:49> Related Data Home Medications: Home Medications Medication Instructions Recorded Confirmed amlodipine 07/25/21 apremilast [Otezla] mg PO 07/25/21 atenolol 07/25/21 furosemide 07/25/21 hydralazine 07/25/21 icosapent ethyl g PO 07/25/21 insulin glargine [Basaglar KwikPen SUBCUT 07/25/21 U-100 Insulin] lancets [OneTouch Delica Plus 07/25/21 07/25/21 Lancet] levothyroxine [Euthyrox] 07/25/21 lisinopril 07/25/21 meloxicam 07/25/21 metformin mg PO 07/25/21 07/25/21 omeprazole 07/25/21 potassium chloride meq PO 07/25/21 simvastatin mg 07/25/21 <AIDEE Khan Last Filed: 07/25/21 20:49> Allergies/Adverse Reactions: Allergies Allergy/AdvReac Type Severity Reaction Status Date / Time povidone-iodine Allergy Intermediate HIVES Verified 07/25/21 18:22 soap Allergy Intermediate HIVES Verified 07/25/21 18:22 <Jennifer Mandel PA-C - Last Filed: 07/25/21 20:49> Review of Systems Review of Systems: CONSTITUTIONAL: Denies fever CARDIOVASCULAR: Reports edema. Denies chest pain RESPIRATORY: Reports dyspnea. Denies cough <AIDEE Khan Last Filed: 07/25/21 20:49> All systems reviewed & are unremarkable except as noted in HPI and below <Jennifer Mandel PA-C - Last Filed: 07/25/21 20:49> PMFSH Past Medical History Medical History: Medical History Diabetes Emphysema of lung Gout HTN (hypertension) Hypercholesterolemia Hypothyroidism Obesity Osteoarthritis Psoriasis Psoriatic arthritis (~2009) <AIDEE Khan Last Filed: 07/25/21 20:49> Surgical History Surgical History: Surgical History H/O left mastectomy History of knee replacement Hx of cholecystectomy <AIDEE Khan Last Filed: 07/25/21 20:49> Social History Social History: Social History Smoking packs per day: 1.5 Smoking cigarettes per day: 30.0 Years smoked: 30 Smoking pack-years: 45.00 Smoking status: Current every day smoker Tobacco type: cigarettes Alcohol intake: never Substance use: never Substance use type: does not use Gender identity (if verbalized by the patient): Female Spiritual care concerns: No <AIDEE Khan Last Filed: 07/25/21 20:49> Exam Narrative: GENERAL: Well-appearing, well-nourished, and in no acute distress. HEAD: Normocephalic, atraumatic. EYES: EOMI. ENT: Mucous membranes moist. Oropharynx without tonsillar hypertrophy exudate or other lesions. CHEST: Rales present in the bilateral lower lobes. No respiratory distress. No wheezes or rhonchi HEART: Regular rate and rhythm. No murmur heard. Normal peripheral pulses. EXTREMITIES: Normal range of motion. 2+ pitting edema to the bilateral lower e
[2021-07-25 20:31] LABS: SARS-CoV-2 RNA PCR Negative
[2021-07-25 20:47] LABS: Magnesium 2.1 mg/dL (1.6-2.3); Phosphorus 4.5 mg/dL (2.5-4.5)
[2021-07-25 20:50] VITALS: BP 151/79; PULSE 83; RESP 20; TEMP 36.9; O2SAT 95
[2021-07-25 21:04] LABS: Hemoglobin A1C 5.4 % (<5.7)
[2021-07-25 22:50] VITALS: BP 139/65; PULSE 63; RESP 18; TEMP 36.6; O2SAT 94; BMI 33.3
[2021-07-26] VITALS (10 sets, daily range): BP systolic 148–156; BP diastolic 59–67; PULSE 58–69; RESP 18; TEMP 35.9–36.7; O2SAT 92–93
--- NOTE | 2021-07-26 | ECHO_ITS ---
Patient Info Name: Jillian Bernal Age: 75 years : 1945 Gender: Female Ht: 64 in Wt: 205 lbs BSA: 2.09 m2 HR: 54 bpm BP: 145 / 67 mmHg Technical Quality: Good Exam Date: 07/26/2021 9:31 AM Exam Location: [facility] Pulmonary Exam Room: [facility] Patient Status: Inpatient Admit Date: 07/25/2021 Staff Ordering Physician: Thad Daily M.A., MD Therapy Coordinator: Stephanie Louis RDCS Attending Provider: Thad Daily M.A., MD Referring Physician: Regan SAHNI; Exam Type: CA echo doppler color flow Study Info Indications - chf Complete two-dimensional, color flow and Doppler transthoracic echocardiogram is performed. Summary 1. Complete two-dimensional, color flow and Doppler transthoracic echocardiogram is performed. 2. Left ventricular systolic function is normal, estimated at 60-65%. 3. There is mildly increased left ventricular wall thickness. 4. The left ventricular diastolic function is grade II diastolic dysfunction. 5. E/e' 33.0 is elevated. 6. Left atrial chamber dimension is moderately enlarged. 7. There is mild aortic valve stenosis with a peak velocity of 223 cm/s, mean gradient of 12 mmHg, and aortic valve area of 1.9 cm2. 8. There is moderate aortic valve calcification. 9. There is mild mitral valve regurgitation. 10. There is moderate mitral valve calcification. 11. There is mild tricuspid valve regurgitation. 12. No pulmonary hypertension, estimated pulmonary arterial systolic pressure is 33 mmHg. 13. There is trace pulmonic regurgitation. Left Ventricle Left ventricular chamber dimension is normal. Left ventricular systolic function is normal, estimated at 60-65%. There is mildly increased left ventricular wall thickness. Left ventricular septal wall motion is normal. The left ventricular diastolic function is grade II diastolic dysfunction. E/e' 33.0 is elevated. Right Ventricle Right ventricular chamber dimension is normal. Right ventricular systolic function is normal. Left Atria Left atrial chamber dimension is moderately enlarged. Right Atria Right atrial chamber dimension is normal. Atrial Septum Intact interatrial septum visualized by color flow imaging. Aortic Valve The aortic valve is trileaflet. There is mild aortic valve stenosis with a peak velocity of 223 cm/s, mean gradient of 12 mmHg, and aortic valve area of 1.9 cm2. There is no aortic valve regurgitation. There is moderate aortic valve calcification. Pulmonic Valve The pulmonic valve is normal. There is no pulmonic valve stenosis. There is trace pulmonic regurgitation. Mitral Valve The mitral valve has normal leaflets. There is no mitral valve stenosis. There is mild mitral valve regurgitation. There is moderate mitral valve calcification. Tricuspid Valve The tricuspid valve leaflets are normal. There is no significant tricuspid valve stenosis. There is mild tricuspid valve regurgitation. No pulmonary hypertension, estimated pulmonary arterial systolic pressure is 33 mmHg. Pericardium/Pleural The pericardium appears normal. There is no pericardial effusion. Inferior Vena Cava Normal inferior vena cava with >50% collapse upon inspiration consistent with normal right atrial pressure, 5 mmHg. Aorta The aortic root size at the sinus of Valsalva is normal. The prox ascending aorta size is normal. Left Ventricular Outflow Tract Name
[2021-07-26] MEDS: HEPARIN SODIUM 5,000 UNITS/ML VIAL 5000 UNITS SUB-Q ×3 (00:01→20:27)
[2021-07-26] MEDS: PANTOPRAZOLE 40 MG TABLET PO ×3 (00:05→20:27)
[2021-07-26 03:52] LABS: Glucose Point of Care 70 mg/dl (65-105)
[2021-07-26 06:55] LABS: Basophils Percent Auto 0.6 % (0.2-1.2); Eosinophils Absolute Auto 0.1 K/mm3 (0-0.3); Eosinophils Percent Auto 1.8 % (0-4.4); Hematocrit 29.3 % (37.0-47.0); Immature Granulocyte Absolute 0.01 K/mm3 (0.00-0.031); Immature Granulocyte Percent A 0.1 % (0-0.5); Lymphocytes Percent Auto 23.5 % (18.3-44.2); Mean Corpuscular HGB Conc 30.7 g/dl (32-36); Mean Corpuscular Hemoglobin 29.2 pg (26-34); Mean Corpuscular Volume 95.1 fl (80-100); Mean Platelet Volume 10.1 fl (7.4-10.4); Monocytes Absolute Auto 0.5 K/mm3 (0.1-0.6); Monocytes Percent Auto 6.6 % (2.6-8.5); Neutrophils Absolute Auto 4.6 K/mm3 (1.3-6.7); Neutrophils Percent Auto 67.4 % (45.5-73.1); Platelet Count Result 176 k/mm3 (150-375); Red Blood Count 3.08 M/mm3 (4.2-5.4); Red Cell Distribution Width 16.2 % (11.5-14.5); White Blood Count 6.8 K/mm3 (4.5-10.0)
[2021-07-26 07:22] LABS: Alanine Aminotransferase 19 U/L (4-35); Albumin Level 3.7 g/dL (3.5-5.1); Alkaline Phosphatase 115 U/L (38-126); Anion Gap 6 mmol/L (8-16); Aspartate Amino Transferase 32 U/L (14-36); Bilirubin,Total 0.6 mg/dL (0.2-1.3); Blood Urea Nitrogen 33 mg/dL (7-17); Calcium 8.8 mg/dL (8.4-10.2); Carbon Dioxide 26 mmol/L (22-30); Chloride 104 mmol/L (98-107); Estimated CRCL calculation 26 ml/min; Estimated Glomerular Filt Rate 26; Glucose 56 mg/dL (65-110); Potassium 4.5 mmol/L (3.4-5.0); Sodium 136 mmol/L (137-145)
--- NOTE | 2021-07-26 07:53 | PC.NURSE ---
0730 Serum glucose 56 . Piatt juice, milk and morena crackers given, pt asymptomatic.
[2021-07-26 08:14] LABS: Glucose Point of Care 55 mg/dl (65-105)
[2021-07-26] MEDS: FUROSEMIDE INJ 40 MG/4 ML VIAL IV PUSH (08:24)
--- NOTE | 2021-07-26 10:58 | P.CDI_ITS ---
CDI Query Clarification Request -07/25 Diagnosis CHF exacerbation documented, Associated with pulmonary edema and pleural effusion Please clarify if CHF: * Acute on Chronic * Acute * Chronic * Other * Unable to determine * Dyastolic * Systolic <Alix Mattson - Last Filed: 07/26/21 11:15> Provider Comments Congestive heart failure acute on chronic diastolic <Pedro Dsouza MD - Last Filed: 07/26/21 16:15>
--- NOTE | 2021-07-26 10:58 | WPDCDIQUERY2 ---
CDI Query Clarification Request -07/25 Diagnosis CHF exacerbation documented, Associated with pulmonary edema and pleural effusion Please clarify if CHF: Acute on Chronic Acute Chronic Other Unable to determine Dyastolic Systolic <Alix Mattson - Last Filed: 07/26/21 11:15> Provider Comments Congestive heart failure acute on chronic diastolic <Pedro Dsouza MD - Last Filed: 07/26/21 16:15>
[2021-07-26] MEDS: atenoloL 50 MG TABLET 100 MG BY MOUTH ×2 (11:17→20:27)
[2021-07-26 11:35] LABS: Glucose Point of Care 158 mg/dl (65-105)
[2021-07-26 12:07] LABS: Glucose Point of Care 74 mg/dl (65-105)
[2021-07-26 12:07] LABS: Glucose Point of Care 148 mg/dl (65-105)
[2021-07-26 12:07] LABS: Glucose Point of Care 64 mg/dl (65-105)
--- NOTE | 2021-07-26 13:05 | PM.CNNEP ---
Assessment and Plan Assessment and plan (1) Chronic kidney disease, stage IV (severe): Code(s): N18.4 - Chronic kidney disease, stage 4 (severe) Status: Chronic Assessment and Plan: secondary to hypertension, diabetes, vascular disease in association with her ongoing smoking and age-related change in the last few months, creatinine has been running 1.6 - 2.0mg/dl (2) CHF exacerbation: Code(s): I50.9 - Heart failure, unspecified Status: Acute Assessment and Plan: presumably diastolic given recent and previous Echo edema/swelling further complicated by proteinuria agree with IV diuresis this may be a situation where we have to accept a higher creatinine to acheive euvolemia follow I/Os, daily weights, edema, and respiratory status (3) Nephrotic range proteinuria: Code(s): R80.9 - Proteinuria, unspecified Status: Acute Assessment and Plan: as noted by outpatient evaluation surprisingly, relatively albumin relatively stable serologies only significant for positive JODI (but dsDNA-ab and complements okay) -- related to psoriatic arthritis(?) probably secondary to diabetes consider renal biopsy at a later date for definitive diagnosis... (4) HTN (hypertension): Code(s): I10 - Essential (primary) hypertension Status: Chronic Assessment and Plan: elevated at this time follow trend with IV diuresis (5) Anemia: Code(s): D64.9 - Anemia, unspecified Status: Acute Assessment and Plan: likely related to CKD and acute illness check iron studies follow trend of H/H (6) Diabetes: Code(s): E11.9 - Type 2 diabetes mellitus without complications Status: Chronic Assessment and Plan: follow accuchecks glycemic control Will continue to follow. History of Present Illness Reason for Consult Consult date: 07/26/21 Reason for consult: chronic renal failure Chief Complaint Chief complaint: chf History of Present Illness Narrative: The patient is a 75-year-old female with a past medical history as outlined below who presented to [facility] emergency room with complaints of shortness of breath. The patient states that her shortness of breath has been slowly worsening over the past several weeks. Initially, the shortness of breath was only with exertional activities but as the days went by, it seemed that her shortness of breath was becoming even apparent with just simple activities and even at rest. Associated with her shortness of breath was increasing lower extremity swelling /edema. When I saw her in the office a few weeks ago, I increased her diuretic therapy in an effort to compensate for these issues but apparently this did not seem to help. Workup and evaluation in the emergency room demonstrated the patient to be hemodynamically stable but it seems clear that she was in mild respiratory distress. A chest x-ray demonstrated probable CHF exacerbation with associated pulmonary edema. Routine blood test demonstrated labs consistent with a known history of chronic kidney disease and her creatinine was actually somewhat better than when I saw her in the office. Given these constellation of symptoms and her laboratory on imaging findings, she was admitted to the hospital for further evaluation and therapy Since her admission, despite IV diuretic therapy, she has not had a significant response to this and she feels that her lower extremity edema and breathing have actually worsened since she has been admitted. The patient is well known to have CHF and was actually hospitalized a few months ago for the same thing at [facility]. During that stay, she was aggressively diuresed with IV Lasix and although her creatinine is worsened just a bit, her fluid status improved significantly and by the time of discharge, her respiratory status as well as her swelling edema had almost complete
--- NOTE | 2021-07-26 15:35 | PM.IMPN ---
Progress Note: A&P Assessment and Plan (1) Psoriatic arthritis: Onset Date: ~2009 Code(s): L40.50 - Arthropathic psoriasis, unspecified Status: Acute Assessment and Plan: Continue medication (2) Hypothyroidism: Code(s): E03.9 - Hypothyroidism, unspecified Status: Acute Assessment and Plan: Continue levothyroxine Recheck TSH 7.3 in May (3) Diabetes: Code(s): E11.9 - Type 2 diabetes mellitus without complications Status: Chronic Assessment and Plan: Patient on Basaglar taking 48 units at bedtime Decreased to 30 units Added insulin sliding scale DC metformin while inpatient Hypoglycemic this morning. Will hold Lantus Continue only on sliding scale for now (4) Gout: Code(s): M10.9 - Gout, unspecified Status: Acute Assessment and Plan: Stable (5) HTN (hypertension): Code(s): I10 - Essential (primary) hypertension Status: Chronic Assessment and Plan: Continue atenolol Not optimal, on diuresis will continue to monitor (6) Hypercholesterolemia: Code(s): E78.00 - Pure hypercholesterolemia, unspecified Status: Acute Assessment and Plan: Resume statin (7) CHF exacerbation: Code(s): I50.9 - Heart failure, unspecified Status: Acute Assessment and Plan: Associated with pulmonary edema and pleural effusion elevated BNP at 4730 troponin negative EKG with no acute ST-T changes Bilateral lower extremity edema Chest x-ray with cardiomegaly and ill-defined bilateral edema with small left pleural effusion Echo 07/26/2021 EF 60-65% mildly increased left ventricular wall thickness, grade 2 diastolic dysfunction, left atrium moderately enlarged, mild aortic valve stenosis, moderate aortic valve calcification, trace pulmonary regurgitation and tricuspid regurgitation mild mitral valve regurgitation, normal pulmonary pressure Suggestive of diastolic heart failure On Lasix 40 mg IV b.i.d. this is been switched to Bumex by a box tender and also given a dose of metolazone. Will get ultrasound duplex to rule out DVT the this sounds like was performed back in May and is reported to be negative at [facility] Will also order ultrasound liver possibility of developing Ross and subsequent for hypertension however noted have normal albumin level (8) Chronic renal failure: Code(s): N18.9 - Chronic kidney disease, unspecified Status: Acute Assessment and Plan: Chronic renal failure stage 3 baseline creatinine around 1.6-2 with proteinuria patient has positive JODI Life Skills Specialist consulted Monitor renal function with diuresis SI joint x-rays with mild symmetric degenerative changes of the sacroiliac joint without ankylosis or erosions Renal ultrasound with no hydronephrosis Additional Plan # anemia iron profile ferritin ordered, likely anemia of chronic disease due to underlying chronic kidney disease # incidental her right liver lobe lesion dates back to MRI in 2013 reduced stable in size favoring benign histology # DVT prophylaxis on heparin subQ Subjective Date/time seen: 07/26/21 15:35 Interval history: HPI:75 years old female with past medical history of chronic renal failure stage 4 proteinuria hypertension diabetes psoriatic arthritis positive JODI presented to the hospital shortness of breath worsening with activity patient denies chest pain patient also complained of lower extremity swelling worsening gradually patient was seen by her box tender who recommended increased dose of Lasix but no improvement in shortness of breath or swelling patient was found to have probable CHF exacerbation pulmonary edema was admitted to the hospital for further evaluation and treatment also COVID-19 testing is pending as chest x-ray was probable pulmonary edema cannot rule out viral pneumonia. 07/26/2021 feels about the same. Is still short of breath and leg swelling did not urinate as much
[2021-07-26 17:30] LABS: Uric Acid 8.2 mg/dL (2.5-7.5)
[2021-07-26] MEDS: BUMETANIDE INJ 2.5 MG/10 ML VIAL 1.5 MG IV PUSH (17:36)
[2021-07-26] MEDS: metOLazone 2.5 MG TABLET PO (17:37)
[2021-07-26 18:08] LABS: Hemoglobin A1C 5.5 % (<5.7)
[2021-07-26 18:23] LABS: Hepatitis B Surface Antigen Negative (Negative)
[2021-07-26 18:29] LABS: HAV RESULT Negative (Negative); Hepatitis B Core IgM Result Negative (Negative)
[2021-07-26 18:31] LABS: HIV 1/2 Ab P24 Ag Result Negative (Negative)
[2021-07-26 18:40] LABS: Glucose Point of Care 122 mg/dl (65-105)
[2021-07-26 18:41] LABS: Hepatitis C Virus Antibody Negative (Negative)
[2021-07-26 19:09] LABS: Creatinine Urine 25.6 mg/dL; Total Protein Urine Random 119 mg/dL; Ur Ttl Prot Creatinine Ratio 4.65 mg/mg (0-0.20)
[2021-07-26 19:10] LABS: Sodium Urine Random 70 meq/L
[2021-07-26 19:30] LABS: Free T4 Free Thyroxine Reflex 1.23 ng/dL (0.78-2.19)
[2021-07-26 20:34] LABS: Glucose Point of Care 145 mg/dl (65-105)
[2021-07-26 20:44] LABS: Total Triiodothyronine (T3) 0.76 NG/ML (0.97-1.69)
[2021-07-27] VITALS (10 sets, daily range): BP systolic 118–164; BP diastolic 52–96; PULSE 52–68; RESP 16–20; TEMP 36.5–36.6; O2SAT 92–100
[2021-07-27 06:45] LABS: Hematocrit 27.3 % (37.0-47.0); Hemoglobin 8.5 g/dL (12.0-15.0); Mean Corpuscular HGB Conc 31.1 g/dl (32-36); Mean Corpuscular Volume 93.2 fl (80-100); Platelet Count Result 157 k/mm3 (150-375); Red Blood Count 2.93 M/mm3 (4.2-5.4); White Blood Count 5.5 K/mm3 (4.5-10.0)
[2021-07-27 06:53] LABS: Alanine Aminotransferase 19 U/L (4-35); Albumin Level 3.5 g/dL (3.5-5.1); Alkaline Phosphatase 106 U/L (38-126); Anion Gap 6 mmol/L (8-16); Aspartate Amino Transferase 31 U/L (14-36); Bilirubin,Total 0.7 mg/dL (0.2-1.3); Blood Urea Nitrogen 39 mg/dL (7-17); Calcium 8.6 mg/dL (8.4-10.2); Carbon Dioxide 26 mmol/L (22-30); Chloride 103 mmol/L (98-107); Estimated CRCL calculation 24 ml/min; Estimated Glomerular Filt Rate 24; Glucose 103 mg/dL (65-110); Potassium 3.9 mmol/L (3.4-5.0); Sodium 135 mmol/L (137-145)
[2021-07-27 06:54] LABS: Albumin Level 3.5 g/dL (3.5-5.1); Anion Gap 8 mmol/L (8-16); Blood Urea Nitrogen 38 mg/dL (7-17); Calcium 8.5 mg/dL (8.4-10.2); Carbon Dioxide 26 mmol/L (22-30); Chloride 103 mmol/L (98-107); Estimated CRCL calculation 24 ml/min; Estimated Glomerular Filt Rate 24; Glucose 104 mg/dL (65-110); Phosphorus 5.5 mg/dL (2.5-4.5); Potassium 3.8 mmol/L (3.4-5.0); Sodium 137 mmol/L (137-145)
[2021-07-27 07:06] LABS: Iron 42 ug/dL (37-170)
[2021-07-27 07:16] LABS: Percent Iron Saturation 13 % (20-50)
[2021-07-27] MEDS: PANTOPRAZOLE 40 MG TABLET PO ×2 (08:08→20:45)
[2021-07-27] MEDS: atenoloL 50 MG TABLET 100 MG BY MOUTH ×2 (08:08→20:45)
[2021-07-27] MEDS: BUMETANIDE INJ 2.5 MG/10 ML VIAL 1.5 MG IV PUSH ×2 (08:09→17:07)
[2021-07-27] MEDS: HEPARIN SODIUM 5,000 UNITS/ML VIAL 5000 UNITS SUB-Q ×2 (08:10→20:45)
[2021-07-27 08:12] LABS: Glucose Point of Care 104 mg/dl (65-105)
[2021-07-27] MEDS: metOLazone 2.5 MG TABLET PO (08:15)
--- NOTE | 2021-07-27 11:23 | P.PNNP_ITS ---
Progress Note: A&P Assessment and Plan (1) Chronic kidney disease, stage IV (severe): Code(s): N18.4 - Chronic kidney disease, stage 4 (severe) Status: Chronic Assessment and Plan: * secondary to hypertension, diabetes, vascular disease in association with her ongoing smoking and age-related change * in the last few months, creatinine has been running 1.6 - 2.0mg/dl (2) CHF exacerbation: Code(s): I50.9 - Heart failure, unspecified Status: Acute Assessment and Plan: * presumably diastolic given recent and previous Echo * edema/swelling further complicated by proteinuria * agree with IV diuresis * this may be a situation where we have to accept a higher creatinine to acheive euvolemia * follow I/Os, daily weights, edema, and respiratory status (3) Nephrotic range proteinuria: Code(s): R80.9 - Proteinuria, unspecified Status: Acute Assessment and Plan: * as noted by outpatient evaluation * surprisingly, albumin relatively stable * serologies only significant for positive JODI (but dsDNA-ab and complements okay) -- related to psoriatic arthritis(?) * probably secondary to diabetes * consider renal biopsy at a later date for definitive diagnosis... (4) HTN (hypertension): Code(s): I10 - Essential (primary) hypertension Status: Chronic Assessment and Plan: * elevated at this time * follow trend with IV diuresis (5) Anemia: Code(s): D64.9 - Anemia, unspecified Status: Acute Assessment and Plan: * likely related to CKD and acute illness * anemia studies suggest iron deficiency - start IV venofer while hospitalized * follow trend of H/H (6) Diabetes: Code(s): E11.9 - Type 2 diabetes mellitus without complications Status: Chronic Assessment and Plan: * follow accuchecks * glycemic control Will continue to follow. Subjective Date/time seen: 07/27/21 11:23 Seems to be doing a bit better; better urine output/diuresis with bumex + metolazone in the last 24 hours; HUSSAIN-wraps in place for LE edema as well; no acute distress voiced; no issues/events overnight or this AM. Exam Narrative: General: WD/WN female in NAD Heart: normal S1 and S2; no rub Lungs: decreased at bases Abdomen: soft, nontender, nondistended, positive bowel sounds Extremities: no cyanosis or clubbing; 2+ edema Skin: warm and dry Objective Data Vital Signs Vital Signs: Vital Signs Temp Pulse Resp BP Pulse Ox 07/27/21 08:08 68 07/27/21 08:00 52 L 07/27/21 05:52 36.6 C 59 L 20 150/52 H 92 07/27/21 04:00 57 L 07/27/21 00:00 64 07/26/21 22:00 36.7 C 60 18 148/59 H 93 07/26/21 20:27 68 07/26/21 20:00 60 07/26/21 16:00 66 07/26/21 14:00 35.9 C L 67 18 156/67 H 92 07/26/21 12:00 68 Intake/Output Intake/Output: Intake & Output 07/24/21 07/25/21 07/26/21 07/27/21 23:59 23:59 23:59 23:59 Intake Total 1060 390 Output Total 1200 800 Balance -140 -410 Meds/Results Medications: Active Medications Generic Name Dose Route Start Last Admin Trade Name Freq PRN Reason Stop Dose Admin Al Hydrox/Mg Hydrox/Simethicone 30 ml 0
--- NOTE | 2021-07-27 11:23 | PM.PNNEP ---
Progress Note: A&P Assessment and Plan (1) Chronic kidney disease, stage IV (severe): Code(s): N18.4 - Chronic kidney disease, stage 4 (severe) Status: Chronic Assessment and Plan: secondary to hypertension, diabetes, vascular disease in association with her ongoing smoking and age-related change in the last few months, creatinine has been running 1.6 - 2.0mg/dl (2) CHF exacerbation: Code(s): I50.9 - Heart failure, unspecified Status: Acute Assessment and Plan: presumably diastolic given recent and previous Echo edema/swelling further complicated by proteinuria agree with IV diuresis this may be a situation where we have to accept a higher creatinine to acheive euvolemia follow I/Os, daily weights, edema, and respiratory status (3) Nephrotic range proteinuria: Code(s): R80.9 - Proteinuria, unspecified Status: Acute Assessment and Plan: as noted by outpatient evaluation surprisingly, albumin relatively stable serologies only significant for positive JODI (but dsDNA-ab and complements okay) -- related to psoriatic arthritis(?) probably secondary to diabetes consider renal biopsy at a later date for definitive diagnosis... (4) HTN (hypertension): Code(s): I10 - Essential (primary) hypertension Status: Chronic Assessment and Plan: elevated at this time follow trend with IV diuresis (5) Anemia: Code(s): D64.9 - Anemia, unspecified Status: Acute Assessment and Plan: likely related to CKD and acute illness anemia studies suggest iron deficiency - start IV venofer while hospitalized follow trend of H/H (6) Diabetes: Code(s): E11.9 - Type 2 diabetes mellitus without complications Status: Chronic Assessment and Plan: follow accuchecks glycemic control Will continue to follow. Subjective Date/time seen: 07/27/21 11:23 Seems to be doing a bit better; better urine output/diuresis with bumex + metolazone in the last 24 hours; HUSSAIN-wraps in place for LE edema as well; no acute distress voiced; no issues/events overnight or this AM. Exam Narrative: General: WD/WN female in NAD Heart: normal S1 and S2; no rub Lungs: decreased at bases Abdomen: soft, nontender, nondistended, positive bowel sounds Extremities: no cyanosis or clubbing; 2+ edema Skin: warm and dry Objective Data Vital Signs Vital Signs: Vital Signs Temp Pulse Resp BP Pulse Ox 07/27/21 08:08 68 07/27/21 08:00 52 L 07/27/21 05:52 36.6 C 59 L 20 150/52 H 92 07/27/21 04:00 57 L 07/27/21 00:00 64 07/26/21 22:00 36.7 C 60 18 148/59 H 93 07/26/21 20:27 68 07/26/21 20:00 60 07/26/21 16:00 66 07/26/21 14:00 35.9 C L 67 18 156/67 H 92 07/26/21 12:00 68 Intake/Output Intake/Output: Intake & Output 07/24/21 07/25/21 07/26/21 07/27/21 23:59 23:59 23:59 23:59 Intake Total 1060 390 Output Total 1200 800 Balance -140 -410 Meds/Results Medications: Active Medications Generic Name Dose Route Start Last Admin Trade Name Freq PRN Reason Stop Dose Admin Al Hydrox/Mg Hydrox/Simethicone 30 ml 07/25/21 20:15 Mag Hydrox/Al Hydrox/Simeth 30 Ml Udc PO QID PRN Dyspepsia Atenolol 100 mg 07/26/21 09:00 07/27/21 08:08 Atenolol 50 Mg Tablet BY MOUTH 100 mg Q12HR GUNNAR Administration Bumetanide 1.5 mg 07/26/21 17:00 07/27/21 08:09 Bumetanide Inj 2.5 Mg/10 Ml Vial IV PUSH 1.5 mg BID GUNNAR Administration Dextrose 12.5 gm 07/25/21 20:17 Dextrose 50% 25 Gm/50 Ml Syringe IV PUSH PRN PRN Hypoglycemia Protocol Glucagon 1 mg 07/25/21 20:17 Glucagon For Inj 1 Mg Vial IM PRN PRN Hypoglycemia Protocol Glucose 15 gm 07/25/21 20:17 Glucose Oral Gel 15 Gm Of Glucse In 37.5 Gm Tube PO PRN PRN Hypoglycemia Protocol Heparin Sodium (Porcine) 5,000 uni
[2021-07-27 11:37] LABS: Glucose Point of Care 141 mg/dl (65-105)
--- NOTE | 2021-07-27 16:17 | PM.IMPN ---
Progress Note: A&P Assessment and Plan (1) Psoriatic arthritis: Onset Date: ~2009 Code(s): L40.50 - Arthropathic psoriasis, unspecified Status: Acute Assessment and Plan: Continue medication (2) Hypothyroidism: Code(s): E03.9 - Hypothyroidism, unspecified Status: Acute Assessment and Plan: Continue levothyroxine Recheck TSH 7.3 in May Repeat here is 10 likely also due to poor absorption Increase his levothyroxine to 175 mcg daily she used to be on 150 mg daily at home (3) Diabetes: Code(s): E11.9 - Type 2 diabetes mellitus without complications Status: Chronic Assessment and Plan: Patient on Basaglar taking 48 units at bedtime Decreased to 30 units Added insulin sliding scale DC metformin while inpatient Hypoglycemic 07/26/2021. Will hold Lantus Continue only on sliding scale for now Accu-Cheks at goal no further hypoglycemia noted (4) Gout: Code(s): M10.9 - Gout, unspecified Status: Acute Assessment and Plan: Stable Uric acid elevated 8.2 Start allopurinol (5) HTN (hypertension): Code(s): I10 - Essential (primary) hypertension Status: Chronic Assessment and Plan: Continue atenolol Not optimal, on diuresis will continue to monitor Improved with diuresis (6) Hypercholesterolemia: Code(s): E78.00 - Pure hypercholesterolemia, unspecified Status: Acute Assessment and Plan: Rosuvastatin (7) CHF exacerbation: Code(s): I50.9 - Heart failure, unspecified Status: Acute Assessment and Plan: Associated with pulmonary edema and pleural effusion elevated BNP at 4730 troponin negative EKG with no acute ST-T changes Bilateral lower extremity edema Chest x-ray with cardiomegaly and ill-defined bilateral edema with small left pleural effusion Echo 07/26/2021 EF 60-65% mildly increased left ventricular wall thickness, grade 2 diastolic dysfunction, left atrium moderately enlarged, mild aortic valve stenosis, moderate aortic valve calcification, trace pulmonary regurgitation and tricuspid regurgitation mild mitral valve regurgitation, normal pulmonary pressure Suggestive of diastolic heart failure Started On Lasix 40 mg IV b.i.d. this is been switched to Bumex by a [employer] airspace control officer and also given a dose of metolazone. Venous duplex ultrasound negative for DVT Ultrasound of abdomen with indeterminate 4 cm lesion in the right hepatic lobe likely benign as it was present in the past imaging with small amount of perihepatic ascites (8) Chronic renal failure: Code(s): N18.9 - Chronic kidney disease, unspecified Status: Acute Assessment and Plan: Chronic renal failure stage 3 baseline creatinine around 1.6-2 with proteinuria patient has positive JODI Tractor Driver consulted Monitor renal function with diuresis SI joint x-rays with mild symmetric degenerative changes of the sacroiliac joint without ankylosis or erosions Renal ultrasound with no hydronephrosis Additional Plan # anemia iron profile ferritin ordered, likely anemia of chronic disease due to underlying chronic kidney disease ferritin low normal # incidental her right liver lobe lesion dates back to MRI in 2012 reduced stable in size favoring benign histology repeat ultrasound with stable size liver lobe lesion # DVT prophylaxis on heparin subQ Subjective Date/time seen: 07/27/21 16:17 Interval history: HPI:75 years old female with past medical history of chronic renal failure stage 4 proteinuria hypertension diabetes psoriatic arthritis positive JODI presented to the hospital shortness of breath worsening with activity patient denies chest pain patient also complained of lower extremity swelling worsening gradually patient was seen by her [employer] airspace control officer who recommended increased dose of Lasix but no improvement in shortness of breath or swelling patient was found to have probable CHF exacerbation pulmonary edema was admitted to the
[2021-07-27 16:44] LABS: Glucose Point of Care 204 mg/dl (65-105)
[2021-07-27] MEDS: OMEGA 3 POLYUNSAT FATTY ACIDS 1 GM CAP PO (17:07)
[2021-07-27] MEDS: hydrALAZINE HCL 50 MG TABLET 100 MG PO ×2 (17:07→20:43)
[2021-07-27] MEDS: INSULIN ASPART (*BKC) 100 UNITS/ML SUB-Q (17:08)
[2021-07-27] MEDS: SIMVASTATIN 20 MG TABLET 40 MG PO (20:44)
[2021-07-27 22:50] LABS: Glucose Point of Care 199 mg/dl (65-105)
[2021-07-28] VITALS (8 sets, daily range): BP systolic 141–161; BP diastolic 46–75; PULSE 53–72; RESP 14–16; TEMP 36.6–36.9; O2SAT 91–97
[2021-07-28 06:30] LABS: Basophils Percent Auto 0.3 % (0.2-1.2); Eosinophils Absolute Auto 0.1 K/mm3 (0-0.3); Eosinophils Percent Auto 2.3 % (0-4.4); Hematocrit 25.7 % (37.0-47.0); Hemoglobin 8.1 g/dL (12.0-15.0); Immature Granulocyte Absolute 0.01 K/mm3 (0.00-0.031); Immature Granulocyte Percent A 0.2 % (0-0.5); Lymphocytes Percent Auto 23.1 % (18.3-44.2); Mean Corpuscular HGB Conc 31.5 g/dl (32-36); Mean Corpuscular Hemoglobin 28.9 pg (26-34); Mean Corpuscular Volume 91.8 fl (80-100); Mean Platelet Volume 10.3 fl (7.4-10.4); Monocytes Absolute Auto 0.5 K/mm3 (0.1-0.6); Monocytes Percent Auto 7.9 % (2.6-8.5); Neutrophils Percent Auto 66.2 % (45.5-73.1); Platelet Count Result 159 k/mm3 (150-375); Red Cell Distribution Width 15.8 % (11.5-14.5); White Blood Count 6.1 K/mm3 (4.5-10.0)
[2021-07-28] MEDS: hydrALAZINE HCL 50 MG TABLET 100 MG PO ×3 (06:40→20:49)
[2021-07-28] MEDS: LEVOTHYROXINE SODIUM 100 MCG, LEVOTHYROXINE SODIUM 75 MCG 175 MCG PO (06:41)
[2021-07-28 06:44] LABS: Alanine Aminotransferase 18 U/L (4-35); Albumin Level 3.4 g/dL (3.5-5.1); Alkaline Phosphatase 104 U/L (38-126); Anion Gap 5 mmol/L (8-16); Aspartate Amino Transferase 24 U/L (14-36); Bilirubin,Total 0.4 mg/dL (0.2-1.3); Blood Urea Nitrogen 42 mg/dL (7-17); Calcium 8.5 mg/dL (8.4-10.2); Carbon Dioxide 30 mmol/L (22-30); Chloride 101 mmol/L (98-107); Estimated CRCL calculation 21 ml/min; Estimated Glomerular Filt Rate 21; Glucose 136 mg/dL (65-110); Phosphorus 4.5 mg/dL (2.5-4.5); Potassium 3.5 mmol/L (3.4-5.0); Sodium 136 mmol/L (137-145)
[2021-07-28 08:15] LABS: Glucose Point of Care 142 mg/dl (65-105)
[2021-07-28] MEDS: OMEGA 3 POLYUNSAT FATTY ACIDS 1 GM CAP PO ×2 (08:22→17:06)
[2021-07-28] MEDS: PANTOPRAZOLE 40 MG TABLET PO ×2 (08:22→20:59)
[2021-07-28] MEDS: metOLazone 2.5 MG TABLET PO (08:23)
[2021-07-28] MEDS: POTASSIUM CHLORIDE 10 MEQ TABLET.ER PO (08:23)
[2021-07-28] MEDS: atenoloL 50 MG TABLET 100 MG BY MOUTH ×2 (08:23→20:49)
[2021-07-28] MEDS: HEPARIN SODIUM 5,000 UNITS/ML VIAL 5000 UNITS SUB-Q ×2 (08:28→20:48)
[2021-07-28] MEDS: BUMETANIDE INJ 2.5 MG/10 ML VIAL 1.5 MG IV PUSH ×2 (08:28→17:05)
[2021-07-28] MEDS: IRON SUCROSE COMPLEX 100 MG in SODIUM CHLORIDE 0.9% IV 50 ML 220 MG IVPB (08:29)
--- NOTE | 2021-07-28 10:34 | PM.IMPN ---
Progress Note: A&P Assessment and Plan (1) Psoriatic arthritis: Onset Date: ~2009 Code(s): L40.50 - Arthropathic psoriasis, unspecified Status: Acute Assessment and Plan: Continue medication (2) Hypothyroidism: Code(s): E03.9 - Hypothyroidism, unspecified Status: Acute Assessment and Plan: Continue levothyroxine Recheck TSH 7.3 in May Repeat here is 10 likely also due to poor absorption Increase his levothyroxine to 175 mcg daily she used to be on 150 mg daily at home (3) Diabetes: Code(s): E11.9 - Type 2 diabetes mellitus without complications Status: Chronic Assessment and Plan: Patient on Basaglar taking 48 units at bedtime Decreased to 30 units Added insulin sliding scale DC metformin while inpatient Hypoglycemic 07/26/2021. Will hold Lantus Continue only on sliding scale for now Accu-Cheks at goal no further hypoglycemia noted (4) Gout: Code(s): M10.9 - Gout, unspecified Status: Acute Assessment and Plan: Stable Uric acid elevated 8.2 Start allopurinol (5) HTN (hypertension): Code(s): I10 - Essential (primary) hypertension Status: Chronic Assessment and Plan: Continue atenolol Not optimal, on diuresis will continue to monitor Improved with diuresis (6) Hypercholesterolemia: Code(s): E78.00 - Pure hypercholesterolemia, unspecified Status: Acute Assessment and Plan: Rosuvastatin (7) CHF exacerbation: Code(s): I50.9 - Heart failure, unspecified Status: Acute Assessment and Plan: Associated with pulmonary edema and pleural effusion elevated BNP at 4730 troponin negative EKG with no acute ST-T changes Bilateral lower extremity edema Chest x-ray with cardiomegaly and ill-defined bilateral edema with small left pleural effusion Echo 07/26/2021 EF 60-65% mildly increased left ventricular wall thickness, grade 2 diastolic dysfunction, left atrium moderately enlarged, mild aortic valve stenosis, moderate aortic valve calcification, trace pulmonary regurgitation and tricuspid regurgitation mild mitral valve regurgitation, normal pulmonary pressure Suggestive of diastolic heart failure Started On Lasix 40 mg IV b.i.d. this is been switched to Bumex by a bar captain and also given a dose of metolazone. Venous duplex ultrasound negative for DVT Ultrasound of abdomen with indeterminate 4 cm lesion in the right hepatic lobe likely benign as it was present in the past imaging with small amount of perihepatic ascites Renal function slightly up but may need higher renal function to get euvolemic. Still clinically hypervolemic continue diuresis and further adjustment of diuretics per bar captain (8) Chronic renal failure: Code(s): N18.9 - Chronic kidney disease, unspecified Status: Acute Assessment and Plan: Chronic renal failure stage 3 baseline creatinine around 1.6-2 with proteinuria patient has positive JODI Dairy Products Maker consulted Monitor renal function with diuresis SI joint x-rays with mild symmetric degenerative changes of the sacroiliac joint without ankylosis or erosions Renal ultrasound with no hydronephrosis Additional Plan # anemia iron profile ferritin ordered, likely anemia of chronic disease due to underlying chronic kidney disease ferritin low normal # incidental her right liver lobe lesion dates back to MRI in 2012 reduced stable in size favoring benign histology repeat ultrasound with stable size liver lobe lesion # DVT prophylaxis on heparin subQ Subjective Date/time seen: 07/28/21 10:34 Interval history: HPI:75 years old female with past medical history of chronic renal failure stage 4 proteinuria hypertension diabetes psoriatic arthritis positive JODI presented to the hospital shortness of breath worsening with activity patient denies chest pain patient also complained of lower extremity swelling worsening gradually patient was seen by her bar captain who
--- NOTE | 2021-07-28 10:35 | PHAR ---
Otezla 30mg tablets home medication identified in pharmacy and returned to ed surg unit
[2021-07-28 12:26] LABS: Glucose Point of Care 155 mg/dl (65-105)
--- NOTE | 2021-07-28 12:47 | PM.PNNEP ---
Progress Note: A&P Assessment and Plan (1) Chronic kidney disease, stage IV (severe): Code(s): N18.4 - Chronic kidney disease, stage 4 (severe) Status: Chronic Assessment and Plan: secondary to hypertension, diabetes, vascular disease in association with her ongoing smoking and age-related change in the last few months, creatinine has been running 1.6 - 2.0mg/dl rising creatinine due to/secondary to diuresis (2) CHF exacerbation: Code(s): I50.9 - Heart failure, unspecified Status: Acute Assessment and Plan: presumably diastolic given recent and previous Echo edema/swelling further complicated by nephrotic range proteinuria continue with IV diuresis this may be a situation where we have to accept a higher creatinine to achieve euvolemia follow I/Os, daily weights, edema, and respiratory status (3) Nephrotic range proteinuria: Code(s): R80.9 - Proteinuria, unspecified Status: Acute Assessment and Plan: as noted by outpatient evaluation surprisingly, albumin relatively stable serologies only significant for positive JODI (but dsDNA-ab and complements okay) -- related to psoriatic arthritis(?) probably secondary to diabetes consider renal biopsy at a later date for definitive diagnosis... (4) HTN (hypertension): Code(s): I10 - Essential (primary) hypertension Status: Chronic Assessment and Plan: elevated but doing a bit better follow trend with IV diuresis (5) Anemia: Code(s): D64.9 - Anemia, unspecified Status: Acute Assessment and Plan: likely related to CKD and acute illness anemia studies suggest iron deficiency - IV venofer while hospitalized follow trend of H/H (6) Diabetes: Code(s): E11.9 - Type 2 diabetes mellitus without complications Status: Chronic Assessment and Plan: follow accuchecks glycemic control Will continue to follow. Subjective Date/time seen: 07/28/21 12:47 Better diuresis in the last 24 - 48 hours with current medication regimen; however, still having issues with orthopnea and dyspnea on exertion; no acute distress noted; no events overnight or earlier this AM. Exam Narrative: General: WD/WN female in NAD Heart: normal S1 and S2; no rub Lungs: decreased at bases Abdomen: soft, nontender, nondistended, positive bowel sounds Extremities: no cyanosis or clubbing; 2+ edema Skin: warm and intact Objective Data Vital Signs Vital Signs: Vital Signs Temp Pulse Resp BP Pulse Ox 07/28/21 12:00 59 L 07/28/21 08:25 72 07/28/21 06:00 36.6 C 60 16 152/75 H 91 07/28/21 04:00 61 07/28/21 00:00 61 07/27/21 21:54 36.5 C 61 16 164/96 H 100 07/27/21 20:05 61 16 100 07/27/21 16:00 60 Intake/Output Intake/Output: Intake & Output 07/25/21 07/26/21 07/27/21 07/28/21 23:59 23:59 23:59 23:59 Intake Total 1060 1620 829.8 Output Total 1200 2800 2150 Balance -140 -1180 -1320.2 Meds/Results Medications: Active Medications Generic Name Dose Route Start Last Admin Trade Name Freq PRN Reason Stop Dose Admin Al Hydrox/Mg Hydrox/Simethicone 30 ml 07/25/21 20:15 Mag Hydrox/Al Hydrox/Simeth 30 Ml Udc PO QID PRN Dyspepsia Atenolol 100 mg 07/26/21 09:00 07/28/21 08:23 Atenolol 50 Mg Tablet BY MOUTH 100 mg Q12HR GUNNAR Administration Bumetanide 1.5 mg 07/26/21 17:00 07/28/21 08:28 Bumetanide Inj 2.5 Mg/10 Ml Vial IV PUSH 1.5 mg BID GUNNRA Administration Dextrose 12.5 gm 07/25/21 20:17 Dextrose 50% 25 Gm/50 Ml Syringe IV PUSH PRN PRN Hypoglycemia Protocol Fish Oil 1 gm 07/27/21 17:00 07/28/21 08:22 [place] 3 Polyunsat Fatty Acids 1 Gm Cap PO 1 gm BID GUNNAR Administration Glucagon 1 mg 07/25/21 20:17 Glucagon For Inj 1 Mg Vial IM PRN PRN Hypoglycemia Protocol Glucose 15 gm 07/25/21 20:17 Glucose O
--- NOTE | 2021-07-28 12:47 | P.PNNP_ITS ---
Progress Note: A&P Assessment and Plan (1) Chronic kidney disease, stage IV (severe): Code(s): N18.4 - Chronic kidney disease, stage 4 (severe) Status: Chronic Assessment and Plan: * secondary to hypertension, diabetes, vascular disease in association with her ongoing smoking and age-related change * in the last few months, creatinine has been running 1.6 - 2.0mg/dl * rising creatinine due to/secondary to diuresis (2) CHF exacerbation: Code(s): I50.9 - Heart failure, unspecified Status: Acute Assessment and Plan: * presumably diastolic given recent and previous Echo * edema/swelling further complicated by nephrotic range proteinuria * continue with IV diuresis * this may be a situation where we have to accept a higher creatinine to achieve euvolemia * follow I/Os, daily weights, edema, and respiratory status (3) Nephrotic range proteinuria: Code(s): R80.9 - Proteinuria, unspecified Status: Acute Assessment and Plan: * as noted by outpatient evaluation * surprisingly, albumin relatively stable * serologies only significant for positive JODI (but dsDNA-ab and complements okay) -- related to psoriatic arthritis(?) * probably secondary to diabetes * consider renal biopsy at a later date for definitive diagnosis... (4) HTN (hypertension): Code(s): I10 - Essential (primary) hypertension Status: Chronic Assessment and Plan: * elevated but doing a bit better * follow trend with IV diuresis (5) Anemia: Code(s): D64.9 - Anemia, unspecified Status: Acute Assessment and Plan: * likely related to CKD and acute illness * anemia studies suggest iron deficiency - IV venofer while hospitalized * follow trend of H/H (6) Diabetes: Code(s): E11.9 - Type 2 diabetes mellitus without complications Status: Chronic Assessment and Plan: * follow accuchecks * glycemic control Will continue to follow. Subjective Date/time seen: 07/28/21 12:47 Better diuresis in the last 24 - 48 hours with current medication regimen; however, still having issues with orthopnea and dyspnea on exertion; no acute distress noted; no events overnight or earlier this AM. Exam Narrative: General: WD/WN female in NAD Heart: normal S1 and S2; no rub Lungs: decreased at bases Abdomen: soft, nontender, nondistended, positive bowel sounds Extremities: no cyanosis or clubbing; 2+ edema Skin: warm and intact Objective Data Vital Signs Vital Signs: Vital Signs Temp Pulse Resp BP Pulse Ox 07/28/21 12:00 59 L 07/28/21 08:25 72 07/28/21 06:00 36.6 C 60 16 152/75 H 91 07/28/21 04:00 61 07/28/21 00:00 61 07/27/21 21:54 36.5 C 61 16 164/96 H 100 07/27/21 20:05 61 16 100 07/27/21 16:00 60 Intake/Output Intake/Output: Intake & Output 07/25/21 07/26/21 07/27/21 07/28/21 23:59 23:59 23:59 23:59 Intake Total 1060 1620 829.8 Output Total 1200 2800 2150 Balance -140 -1180 -1320.2 Meds/Results Medications: Active Medications Generic Name Dose Route Start Last Admin Trade Name Freq PRN Reason Stop Dose Admin Al Hydrox/Mg Hydrox/Simethicone 30 ml 07/25/21 20:15 Ma
[2021-07-28 16:46] LABS: Glucose Point of Care 219 mg/dl (65-105)
[2021-07-28] MEDS: INSULIN ASPART (*BKC) 100 UNITS/ML SUB-Q (17:10)
[2021-07-28] MEDS: metOLazone 5 MG TABLET PO (18:20)
[2021-07-28] MEDS: SIMVASTATIN 20 MG TABLET 40 MG PO (20:49)
[2021-07-28 21:02] LABS: Glucose Point of Care 156 mg/dl (65-105)
[2021-07-29] VITALS (8 sets, daily range): BP systolic 133–156; BP diastolic 52–65; PULSE 52–66; RESP 15–18; TEMP 36.5–36.7; O2SAT 93–97
[2021-07-29] MEDS: LEVOTHYROXINE SODIUM 100 MCG, LEVOTHYROXINE SODIUM 75 MCG 175 MCG PO (05:16)
[2021-07-29] MEDS: hydrALAZINE HCL 50 MG TABLET 100 MG PO ×3 (05:16→21:53)
[2021-07-29 05:35] LABS: Basophils Percent Auto 0.3 % (0.2-1.2); Eosinophils Absolute Auto 0.1 K/mm3 (0-0.3); Eosinophils Percent Auto 1.7 % (0-4.4); Hematocrit 26.3 % (37.0-47.0); Hemoglobin 8.3 g/dL (12.0-15.0); Immature Granulocyte Absolute 0.02 K/mm3 (0.00-0.031); Immature Granulocyte Percent A 0.3 % (0-0.5); Lymphocytes Absolute Auto 1.28 K/mm3 (0.9-3.2); Lymphocytes Percent Auto 21.5 % (18.3-44.2); Mean Corpuscular HGB Conc 31.6 g/dl (32-36); Mean Corpuscular Hemoglobin 28.5 pg (26-34); Mean Corpuscular Volume 90.4 fl (80-100); Mean Platelet Volume 9.2 fl (7.4-10.4); Monocytes Absolute Auto 0.4 K/mm3 (0.1-0.6); Monocytes Percent Auto 6.7 % (2.6-8.5); Neutrophils Absolute Auto 4.1 K/mm3 (1.3-6.7); Neutrophils Percent Auto 69.5 % (45.5-73.1); Platelet Count Result 150 k/mm3 (150-375); Red Blood Count 2.91 M/mm3 (4.2-5.4); Red Cell Distribution Width 15.9 % (11.5-14.5); White Blood Count 5.9 K/mm3 (4.5-10.0)
[2021-07-29 05:47] LABS: Alanine Aminotransferase 19 U/L (4-35); Albumin Level 3.6 g/dL (3.5-5.1); Alkaline Phosphatase 101 U/L (38-126); Anion Gap 5 mmol/L (8-16); Aspartate Amino Transferase 23 U/L (14-36); Bilirubin,Total 0.6 mg/dL (0.2-1.3); Blood Urea Nitrogen 41 mg/dL (7-17); Calcium 8.7 mg/dL (8.4-10.2); Carbon Dioxide 32 mmol/L (22-30); Chloride 99 mmol/L (98-107); Estimated CRCL calculation 21 ml/min; Estimated Glomerular Filt Rate 21; Glucose 138 mg/dL (65-110); Magnesium 1.9 mg/dL (1.6-2.3); Phosphorus 4.3 mg/dL (2.5-4.5); Potassium 3.5 mmol/L (3.4-5.0); Sodium 136 mmol/L (137-145)
[2021-07-29] MEDS: POTASSIUM CHLORIDE 10 MEQ TABLET.ER PO (08:07)
[2021-07-29 08:47] LABS: Glucose Point of Care 127 mg/dl (65-105)
[2021-07-29] MEDS: atenoloL 50 MG TABLET 100 MG BY MOUTH ×2 (08:56→20:19)
[2021-07-29] MEDS: metOLazone 2.5 MG TABLET PO (08:58)
[2021-07-29] MEDS: OMEGA 3 POLYUNSAT FATTY ACIDS 1 GM CAP PO ×2 (08:58→17:13)
[2021-07-29] MEDS: PANTOPRAZOLE 40 MG TABLET PO ×2 (08:59→20:16)
[2021-07-29] MEDS: HEPARIN SODIUM 5,000 UNITS/ML VIAL 5000 UNITS SUB-Q ×2 (08:59→20:14)
[2021-07-29] MEDS: BUMETANIDE INJ 2.5 MG/10 ML VIAL 2 MG IV PUSH ×3 (09:03→17:15)
[2021-07-29] MEDS: IRON SUCROSE COMPLEX 100 MG in SODIUM CHLORIDE 0.9% IV 50 ML 200 MG IVPB (09:06)
[2021-07-29 12:06] LABS: Glucose Point of Care 158 mg/dl (65-105)
--- NOTE | 2021-07-29 12:29 | P.PNNP_ITS ---
Progress Note: A&P Assessment and Plan (1) Chronic kidney disease, stage IV (severe): Code(s): N18.4 - Chronic kidney disease, stage 4 (severe) Status: Chronic Assessment and Plan: * secondary to hypertension, diabetes, vascular disease in association with her ongoing smoking and age-related change * in the last few months, creatinine has been running 1.6 - 2.0mg/dl * rising creatinine due to/secondary to diuresis (2) CHF exacerbation: Code(s): I50.9 - Heart failure, unspecified Status: Acute Assessment and Plan: * presumably diastolic given recent and previous Echo * edema/swelling further complicated by nephrotic range proteinuria * continue with IV diuresis - perhaps switch to oral diuretics in the next day or so * this may be a situation where we have to accept a higher creatinine in order to achieve/maintain euvolemia * follow I/Os, daily weights, edema, and respiratory status (3) Nephrotic range proteinuria: Code(s): R80.9 - Proteinuria, unspecified Status: Acute Assessment and Plan: * as noted by outpatient evaluation * surprisingly, albumin relatively stable * serologies only significant for positive JODI (but dsDNA-ab and complements okay) -- related to psoriatic arthritis(?) * probably secondary to diabetes * consider renal biopsy at a later date for definitive diagnosis... (4) HTN (hypertension): Code(s): I10 - Essential (primary) hypertension Status: Chronic Assessment and Plan: * elevated but doing a bit better * follow trend with IV diuresis (5) Anemia: Code(s): D64.9 - Anemia, unspecified Status: Acute Assessment and Plan: * likely related to CKD and acute illness * anemia studies suggest iron deficiency - IV venofer while hospitalized * follow trend of H/H (6) Diabetes: Code(s): E11.9 - Type 2 diabetes mellitus without complications Status: Chronic Assessment and Plan: * follow accuchecks * glycemic control Will continue to follow. Subjective Date/time seen: 07/29/21 12:29 Appears to be slowly improving with ongoing diuresis -- was sleeping flat in bed in no apparent distress prior to me waking her up; about 4L negative since admission; breathing and swelling/edema appear to be improving in general; no issues/events overnight or earlier this morning. Exam Narrative: General: WD/WN female in NAD Heart: normal S1 and S2; no rub Lungs: decreased at bases Abdomen: soft, nontender, nondistended, positive bowel sounds Extremities: no cyanosis or clubbing; 1+ edema Skin: no rash or nodules Objective Data Vital Signs Vital Signs: Vital Signs Temp Pulse Resp BP Pulse Ox 07/29/21 12:00 56 L 07/29/21 08:56 56 L 07/29/21 08:00 52 L 07/29/21 05:42 36.7 C 58 L 15 143/52 H 96 07/28/21 22:00 36.6 C 58 L 16 141/46 H 96 07/28/21 16:00 53 L Intake/Output Intake/Output: Intake & Output 07/26/21 07/27/21 07/28/21 07/29/21 23:59 23:59 23:59 23:59 Intake Total 1060 1620 829.8 695 Output Total 1200 2800 2150 2200 Balance -140 -1180 -1320.2 -1505 Meds/Results Medications: Active Medications Generic Name Dose Route Start Last Admin Trade Name [place] PRN Reas
--- NOTE | 2021-07-29 12:29 | PM.PNNEP ---
Progress Note: A&P Assessment and Plan (1) Chronic kidney disease, stage IV (severe): Code(s): N18.4 - Chronic kidney disease, stage 4 (severe) Status: Chronic Assessment and Plan: secondary to hypertension, diabetes, vascular disease in association with her ongoing smoking and age-related change in the last few months, creatinine has been running 1.6 - 2.0mg/dl rising creatinine due to/secondary to diuresis (2) CHF exacerbation: Code(s): I50.9 - Heart failure, unspecified Status: Acute Assessment and Plan: presumably diastolic given recent and previous Echo edema/swelling further complicated by nephrotic range proteinuria continue with IV diuresis - perhaps switch to oral diuretics in the next day or so this may be a situation where we have to accept a higher creatinine in order to achieve/maintain euvolemia follow I/Os, daily weights, edema, and respiratory status (3) Nephrotic range proteinuria: Code(s): R80.9 - Proteinuria, unspecified Status: Acute Assessment and Plan: as noted by outpatient evaluation surprisingly, albumin relatively stable serologies only significant for positive JODI (but dsDNA-ab and complements okay) -- related to psoriatic arthritis(?) probably secondary to diabetes consider renal biopsy at a later date for definitive diagnosis... (4) HTN (hypertension): Code(s): I10 - Essential (primary) hypertension Status: Chronic Assessment and Plan: elevated but doing a bit better follow trend with IV diuresis (5) Anemia: Code(s): D64.9 - Anemia, unspecified Status: Acute Assessment and Plan: likely related to CKD and acute illness anemia studies suggest iron deficiency - IV venofer while hospitalized follow trend of H/H (6) Diabetes: Code(s): E11.9 - Type 2 diabetes mellitus without complications Status: Chronic Assessment and Plan: follow accuchecks glycemic control Will continue to follow. Subjective Date/time seen: 07/29/21 12:29 Appears to be slowly improving with ongoing diuresis -- was sleeping flat in bed in no apparent distress prior to me waking her up; about 4L negative since admission; breathing and swelling/edema appear to be improving in general; no issues/events overnight or earlier this morning. Exam Narrative: General: WD/WN female in NAD Heart: normal S1 and S2; no rub Lungs: decreased at bases Abdomen: soft, nontender, nondistended, positive bowel sounds Extremities: no cyanosis or clubbing; 1+ edema Skin: no rash or nodules Objective Data Vital Signs Vital Signs: Vital Signs Temp Pulse Resp BP Pulse Ox 07/29/21 12:00 56 L 07/29/21 08:56 56 L 07/29/21 08:00 52 L 07/29/21 05:42 36.7 C 58 L 15 143/52 H 96 07/28/21 22:00 36.6 C 58 L 16 141/46 H 96 07/28/21 16:00 53 L Intake/Output Intake/Output: Intake & Output 07/26/21 07/27/21 07/28/21 07/29/21 23:59 23:59 23:59 23:59 Intake Total 1060 1620 829.8 695 Output Total 1200 2800 2150 2200 Balance -140 -1180 -1320.2 -1505 Meds/Results Medications: Active Medications Generic Name Dose Route Start Last Admin Trade Name Freq PRN Reason Stop Dose Admin Al Hydrox/Mg Hydrox/Simethicone 30 ml 07/25/21 20:15 Mag Hydrox/Al Hydrox/Simeth 30 Ml Udc PO QID PRN Dyspepsia Atenolol 100 mg 07/26/21 09:00 07/29/21 08:56 Atenolol 50 Mg Tablet BY MOUTH 100 mg Q12HR GUNNAR Administration Bumetanide 2 mg 07/29/21 09:00 07/29/21 09:03 Bumetanide Inj 2.5 Mg/10 Ml Vial IV PUSH 2 mg BID GUNNAR Administration Dextrose 12.5 gm 07/25/21 20:17 Dextrose 50% 25 Gm/50 Ml Syringe IV PUSH PRN PRN Hypoglycemia Protocol Fish Oil 1 gm 07/27/21 17:00 07/29/21 08:58 [place] 3 Polyunsat Fatty Acids 1 Gm Cap PO 1 gm BID GUNNAR Administration Glucagon 1 mg 07/25/21 20:17 Glucagon Fo
--- NOTE | 2021-07-29 15:31 | PM.IMPN ---
Progress Note: A&P Assessment and Plan (1) Psoriatic arthritis: Onset Date: ~2009 Code(s): L40.50 - Arthropathic psoriasis, unspecified Status: Acute Assessment and Plan: Continue medication (2) Hypothyroidism: Code(s): E03.9 - Hypothyroidism, unspecified Status: Acute Assessment and Plan: Continue levothyroxine Recheck TSH 7.3 in May Repeat here is 10 likely also due to poor absorption Increase his levothyroxine to 175 mcg daily she used to be on 150 mg daily at home (3) Diabetes: Code(s): E11.9 - Type 2 diabetes mellitus without complications Status: Chronic Assessment and Plan: Patient on Basaglar taking 48 units at bedtime Decreased to 30 units Added insulin sliding scale DC metformin while inpatient Hypoglycemic 07/26/2021. Will hold Lantus Continue only on sliding scale for now Accu-Cheks at goal no further hypoglycemia noted (4) Gout: Code(s): M10.9 - Gout, unspecified Status: Acute Assessment and Plan: Stable Uric acid elevated 8.2 Start allopurinol (5) HTN (hypertension): Code(s): I10 - Essential (primary) hypertension Status: Chronic Assessment and Plan: Continue atenolol Not optimal, on diuresis will continue to monitor Improved with diuresis (6) Hypercholesterolemia: Code(s): E78.00 - Pure hypercholesterolemia, unspecified Status: Acute Assessment and Plan: Rosuvastatin (7) CHF exacerbation: Code(s): I50.9 - Heart failure, unspecified Status: Acute Assessment and Plan: Associated with pulmonary edema and pleural effusion elevated BNP at 4730 troponin negative EKG with no acute ST-T changes Bilateral lower extremity edema Chest x-ray with cardiomegaly and ill-defined bilateral edema with small left pleural effusion Echo 07/26/2021 EF 60-65% mildly increased left ventricular wall thickness, grade 2 diastolic dysfunction, left atrium moderately enlarged, mild aortic valve stenosis, moderate aortic valve calcification, trace pulmonary regurgitation and tricuspid regurgitation mild mitral valve regurgitation, normal pulmonary pressure Suggestive of diastolic heart failure Started On Lasix 40 mg IV b.i.d. this is been switched to Bumex by a soap mixer and also given a dose of metolazone. Venous duplex ultrasound negative for DVT Ultrasound of abdomen with indeterminate 4 cm lesion in the right hepatic lobe likely benign as it was present in the past imaging with small amount of perihepatic ascites Renal function slightly up but may need higher renal function to get euvolemic. Still clinically hypervolemic continue diuresis and further adjustment of diuretics per soap mixer Renal function stable making good amount urine still hyper volume bob on evaluation but improving (8) Chronic renal failure: Code(s): N18.9 - Chronic kidney disease, unspecified Status: Acute Assessment and Plan: Chronic renal failure stage 3 baseline creatinine around 1.6-2 with proteinuria patient has positive JODI [employer] consulted Monitor renal function with diuresis SI joint x-rays with mild symmetric degenerative changes of the sacroiliac joint without ankylosis or erosions Renal ultrasound with no hydronephrosis Additional Plan # anemia iron profile ferritin ordered, likely anemia of chronic disease due to underlying chronic kidney disease ferritin low normal # incidental her right liver lobe lesion dates back to MRI in 2012 reduced stable in size favoring benign histology repeat ultrasound with stable size liver lobe lesion # DVT prophylaxis on heparin subQ Subjective Date/time seen: 07/29/21 15:32 Interval history: HPI:75 years old female with past medical history of chronic renal failure stage 4 proteinuria hypertension diabetes psoriatic arthritis positive JODI presented to the hospital shortness of breath worsening with activity patient denies chest pain patient also
[2021-07-29 16:46] LABS: Glucose Point of Care 179 mg/dl (65-105)
[2021-07-29] MEDS: SIMVASTATIN 20 MG TABLET 40 MG PO (20:15)
[2021-07-29] MEDS: allopurinoL 100 MG TABLET PO (20:17)
[2021-07-30] VITALS (9 sets, daily range): BP systolic 130–138; BP diastolic 50–74; PULSE 53–77; RESP 16–18; TEMP 35.6–36.8; O2SAT 95–96
[2021-07-30] MEDS: hydrALAZINE HCL 50 MG TABLET 100 MG PO ×3 (05:25→20:29)
[2021-07-30] MEDS: LEVOTHYROXINE SODIUM 100 MCG, LEVOTHYROXINE SODIUM 75 MCG 175 MCG PO (05:26)
[2021-07-30 06:08] LABS: Basophils Percent Auto 0.3 % (0.2-1.2); Eosinophils Absolute Auto 0.1 K/mm3 (0-0.3); Eosinophils Percent Auto 1.9 % (0-4.4); Hematocrit 26.7 % (37.0-47.0); Hemoglobin 8.4 g/dL (12.0-15.0); Immature Granulocyte Absolute 0.02 K/mm3 (0.00-0.031); Immature Granulocyte Percent A 0.3 % (0-0.5); Lymphocytes Absolute Auto 1.51 K/mm3 (0.9-3.2); Lymphocytes Percent Auto 25.6 % (18.3-44.2); Mean Corpuscular HGB Conc 31.5 g/dl (32-36); Mean Corpuscular Volume 92.1 fl (80-100); Mean Platelet Volume 10.2 fl (7.4-10.4); Monocytes Absolute Auto 0.5 K/mm3 (0.1-0.6); Monocytes Percent Auto 8.1 % (2.6-8.5); Neutrophils Absolute Auto 3.8 K/mm3 (1.3-6.7); Neutrophils Percent Auto 63.8 % (45.5-73.1); Platelet Count Result 161 k/mm3 (150-375); Red Cell Distribution Width 16.2 % (11.5-14.5); White Blood Count 5.9 K/mm3 (4.5-10.0)
[2021-07-30 06:19] LABS: Albumin Level 3.6 g/dL (3.5-5.1); Anion Gap 4 mmol/L (8-16); Blood Urea Nitrogen 44 mg/dL (7-17); Calcium 8.5 mg/dL (8.4-10.2); Carbon Dioxide 33 mmol/L (22-30); Chloride 98 mmol/L (98-107); Estimated CRCL calculation 21 ml/min; Estimated Glomerular Filt Rate 21; Glucose 128 mg/dL (65-110); Phosphorus 4.3 mg/dL (2.5-4.5); Potassium 3.2 mmol/L (3.4-5.0); Sodium 135 mmol/L (137-145)
--- NOTE | 2021-07-30 08:07 | P.PNNP_ITS ---
Progress Note: A&P Assessment and Plan (1) Chronic kidney disease, stage IV (severe): Code(s): N18.4 - Chronic kidney disease, stage 4 (severe) Status: Chronic Assessment and Plan: * secondary to hypertension, diabetes, vascular disease in association with her ongoing smoking and age-related change * in the last few months, creatinine has been running 1.6 - 2.0mg/dl * She will probably need chronic diuretics. Her new baseline may be around 2.3 where it is now. (2) CHF exacerbation: Code(s): I50.9 - Heart failure, unspecified Status: Acute Assessment and Plan: * presumably diastolic given recent and previous Echo * Pulmonary edema most likely due to the diastolic dysfunction. * edema/swelling further contributed to by her nephrotic syndrome. * agree with IV diuresis * Made 4+L yesterday. * Lungs sound pretty good. She is off oxygen. Her swelling is much better. Will switch to oral diuretics. (3) Nephrotic range proteinuria: Code(s): R80.9 - Proteinuria, unspecified Status: Acute Assessment and Plan: * as noted by outpatient evaluation * surprisingly, relatively albumin relatively stable * serologies only significant for positive JODI (but dsDNA-ab and complements okay) -- related to psoriatic arthritis(?) * probably secondary to diabetes * consider renal biopsy at a later date for definitive diagnosis. * this can be done as an outpatient through Dr rogers's office. (4) HTN (hypertension): Code(s): I10 - Essential (primary) hypertension Status: Chronic Assessment and Plan: * elevated at this time * follow trend with IV diuresis (5) Anemia: Code(s): D64.9 - Anemia, unspecified Status: Acute Assessment and Plan: * likely related to CKD and acute illness * Iron studies low. * On Venofer 100mg daily. Will increase [id number]. * Check CBC in the morning (6) Diabetes: Code(s): E11.9 - Type 2 diabetes mellitus without complications Status: Chronic Assessment and Plan: * On Accu-Cheks and sliding-scale insulin per hospitalist. Subjective Date/time seen: 07/30/21 08:07 Interval history: Jillian is feeling better today. Hungry for breakfast. No shortness of breath. Swelling has improved. Review of Systems Cardiovascular: Cardiovascular: Reports no additional cardiovascular complaint s Respiratory: Respiratory: Reports no additional respiratory complaints Gastrointestinal: Gastrointestinal: Reports no additional gastrointestinal complaints Genitourinary: Genitourinary: Reports no additional female genitourinary complaints Exam Narrative: General: WD/WN female in NAD Heart: normal S1 and S2; no rub or gallop Lungs: decreased at bases Abdomen: soft, nontender, nondistended, positive bowel sounds Extremities: 1+ edema. She has Dante wraps on. Skin: no rash Objective Data Vital Signs Vital Signs: Vital Signs - 24 hr 07/29/21 08:56 07/29/21 12:00 07/29/21 14:00 Temperature 36.5 C Pulse Rate 56 L 56 L 55 L Respiratory Rate 18 Blood Pressure 156/65 H Pulse Oximetry 93 07/29/21 16:00 07/29/21 20:00 07/29/21 20:19 Temperature 36.7 C Pulse Rate 58 L 65 66 Respiratory Rate 16 Blood Pressure 133/59 L Pulse Oximetry 97
--- NOTE | 2021-07-30 08:07 | PM.PNNEP ---
Progress Note: A&P Assessment and Plan (1) Chronic kidney disease, stage IV (severe): Code(s): N18.4 - Chronic kidney disease, stage 4 (severe) Status: Chronic Assessment and Plan: secondary to hypertension, diabetes, vascular disease in association with her ongoing smoking and age-related change in the last few months, creatinine has been running 1.6 - 2.0mg/dl She will probably need chronic diuretics. Her new baseline may be around 2.3 where it is now. (2) CHF exacerbation: Code(s): I50.9 - Heart failure, unspecified Status: Acute Assessment and Plan: presumably diastolic given recent and previous Echo Pulmonary edema most likely due to the diastolic dysfunction. edema/swelling further contributed to by her nephrotic syndrome. agree with IV diuresis Made 4+L yesterday. Lungs sound pretty good. She is off oxygen. Her swelling is much better. Will switch to oral diuretics. (3) Nephrotic range proteinuria: Code(s): R80.9 - Proteinuria, unspecified Status: Acute Assessment and Plan: as noted by outpatient evaluation surprisingly, relatively albumin relatively stable serologies only significant for positive JODI (but dsDNA-ab and complements okay) -- related to psoriatic arthritis(?) probably secondary to diabetes consider renal biopsy at a later date for definitive diagnosis. this can be done as an outpatient through Dr rogers's office. (4) HTN (hypertension): Code(s): I10 - Essential (primary) hypertension Status: Chronic Assessment and Plan: elevated at this time follow trend with IV diuresis (5) Anemia: Code(s): D64.9 - Anemia, unspecified Status: Acute Assessment and Plan: likely related to CKD and acute illness Iron studies low. On Venofer 100mg daily. Will increase [id number]. Check CBC in the morning (6) Diabetes: Code(s): E11.9 - Type 2 diabetes mellitus without complications Status: Chronic Assessment and Plan: On Accu-Cheks and sliding-scale insulin per hospitalist. Subjective Date/time seen: 07/30/21 08:07 Interval history: Jillian is feeling better today. Hungry for breakfast. No shortness of breath. Swelling has improved. Review of Systems Cardiovascular: Cardiovascular: Reports no additional cardiovascular complaints Respiratory: Respiratory: Reports no additional respiratory complaints Gastrointestinal: Gastrointestinal: Reports no additional gastrointestinal complaints Genitourinary: Genitourinary: Reports no additional female genitourinary complaints Exam Narrative: General: WD/WN female in NAD Heart: normal S1 and S2; no rub or gallop Lungs: decreased at bases Abdomen: soft, nontender, nondistended, positive bowel sounds Extremities: 1+ edema. She has Dante wraps on. Skin: no rash Objective Data Vital Signs Vital Signs: Vital Signs - 24 hr 07/29/21 08:56 07/29/21 12:00 07/29/21 14:00 Temperature 36.5 C Pulse Rate 56 L 56 L 55 L Respiratory Rate 18 Blood Pressure 156/65 H Pulse Oximetry 93 07/29/21 16:00 07/29/21 20:00 07/29/21 20:19 Temperature 36.7 C Pulse Rate 58 L 65 66 Respiratory Rate 16 Blood Pressure 133/59 L Pulse Oximetry 97 07/30/21 00:00 07/30/21 04:00 07/30/21 04:20 Temperature 36.8 C Pulse Rate 60 53 L 62 Respiratory Rate 16 Blood Pressure 130/50 L Pulse Oximetry 95 Intake/Output Intake/Output: Intake & Output 07/27/21 07/28/21 07/29/21 07/30/21 23:59 23:59 23:59 23:59 Intake Total 1620 829.8 1575 50 Output Total 2800 2150 4100 1200 Balance -1180 -1320.2 -2045 -1150 Meds/Results Medications: Active Medications Generic Name Dose Route Start Last Admin Trade Name Freq PRN Reason Stop Dose Admin Al Hydrox/Mg Hydrox/Simethicone 30 ml 07/25/21 20:15 Mag Hydrox/Al Hydrox/Simeth 30 Ml Udc PO QID PRN Dyspepsia Allopurinol 100 mg
[2021-07-30] MEDS: POTASSIUM CHLORIDE 10 MEQ TABLET.ER PO (08:20)
[2021-07-30 08:25] LABS: Glucose Point of Care 143 mg/dl (65-105)
[2021-07-30] MEDS: atenoloL 50 MG TABLET 100 MG BY MOUTH ×2 (09:06→20:29)
[2021-07-30] MEDS: metOLazone 2.5 MG TABLET PO (09:08)
[2021-07-30] MEDS: OMEGA 3 POLYUNSAT FATTY ACIDS 1 GM CAP PO ×2 (09:08→17:25)
[2021-07-30] MEDS: PANTOPRAZOLE 40 MG TABLET PO ×2 (09:08→20:29)
[2021-07-30] MEDS: HEPARIN SODIUM 5,000 UNITS/ML VIAL 5000 UNITS SUB-Q ×2 (09:09→20:28)
[2021-07-30] MEDS: FUROSEMIDE 40 MG TABLET PO ×2 (09:43→17:25)
[2021-07-30] MEDS: POTASSIUM CHLORIDE 20 MEQ TABLET 40 MEQ PO (09:44)
[2021-07-30 11:26] LABS: Glucose Point of Care 187 mg/dl (65-105)
--- NOTE | 2021-07-30 12:03 | PM.IMPN ---
Progress Note: A&P Assessment and Plan (1) Psoriatic arthritis: Onset Date: ~2009 Code(s): L40.50 - Arthropathic psoriasis, unspecified Status: Acute Assessment and Plan: Continue medication (2) Hypothyroidism: Code(s): E03.9 - Hypothyroidism, unspecified Status: Acute Assessment and Plan: Continue levothyroxine Recheck TSH 7.3 in May Repeat here is 10 likely also due to poor absorption Increase his levothyroxine to 175 mcg daily she used to be on 150 mg daily at home (3) Diabetes: Code(s): E11.9 - Type 2 diabetes mellitus without complications Status: Chronic Assessment and Plan: Patient on Basaglar taking 48 units at bedtime Decreased to 30 units Added insulin sliding scale DC metformin while inpatient Hypoglycemic 07/26/2021. Will hold Lantus Continue only on sliding scale for now Accu-Cheks at goal no further hypoglycemia noted (4) Gout: Code(s): M10.9 - Gout, unspecified Status: Acute Assessment and Plan: Stable Uric acid elevated 8.2 Started allopurinol (5) HTN (hypertension): Code(s): I10 - Essential (primary) hypertension Status: Chronic Assessment and Plan: Continue atenolol Not optimal, on diuresis will continue to monitor Improved with diuresis (6) Hypercholesterolemia: Code(s): E78.00 - Pure hypercholesterolemia, unspecified Status: Acute Assessment and Plan: Rosuvastatin (7) CHF exacerbation: Code(s): I50.9 - Heart failure, unspecified Status: Acute Assessment and Plan: Associated with pulmonary edema and pleural effusion elevated BNP at 4730 troponin negative EKG with no acute ST-T changes Bilateral lower extremity edema Chest x-ray with cardiomegaly and ill-defined bilateral edema with small left pleural effusion Echo 07/26/2021 EF 60-65% mildly increased left ventricular wall thickness, grade 2 diastolic dysfunction, left atrium moderately enlarged, mild aortic valve stenosis, moderate aortic valve calcification, trace pulmonary regurgitation and tricuspid regurgitation mild mitral valve regurgitation, normal pulmonary pressure Suggestive of diastolic heart failure Started On Lasix 40 mg IV b.i.d. this is been switched to Bumex by a insole channeler and also given a dose of metolazone. Venous duplex ultrasound negative for DVT Ultrasound of abdomen with indeterminate 4 cm lesion in the right hepatic lobe likely benign as it was present in the past imaging with small amount of perihepatic ascites Renal function slightly up but may need higher renal function to get euvolemic. Still clinically hypervolemic continue diuresis and further adjustment of diuretics per insole channeler Renal function stable making good amount urine still hyper volemic on evaluation but improving Replace potassium Diuresis change to oral monitor on oral (8) Chronic renal failure: Code(s): N18.9 - Chronic kidney disease, unspecified Status: Acute Assessment and Plan: Chronic renal failure stage 3 baseline creatinine around 1.6-2 with proteinuria patient has positive JODI [employer] consulted Monitor renal function with diuresis SI joint x-rays with mild symmetric degenerative changes of the sacroiliac joint without ankylosis or erosions Renal ultrasound with no hydronephrosis Additional Plan # anemia iron profile ferritin ordered, likely anemia of chronic disease due to underlying chronic kidney disease ferritin low normal # incidental her right liver lobe lesion dates back to MRI in 2012 reduced stable in size favoring benign histology repeat ultrasound with stable size liver lobe lesion # DVT prophylaxis on heparin subQ Subjective Date/time seen: 07/30/21 12:03 Interval history: HPI:75 years old female with past medical history of chronic renal failure stage 4 proteinuria hypertension diabetes psoriatic arthritis positive JODI presented to the hospital shortness of breath wo
[2021-07-30 16:30] LABS: Glucose Point of Care 158 mg/dl (65-105)
[2021-07-30 20:22] LABS: Glucose Point of Care 202 mg/dl (65-105)
[2021-07-30] MEDS: SIMVASTATIN 20 MG TABLET 40 MG PO (20:30)
[2021-07-31 05:52] LABS: Hematocrit 26.7 % (37.0-47.0); Hemoglobin 8.3 g/dL (12.0-15.0); Mean Corpuscular HGB Conc 31.1 g/dl (32-36); Mean Corpuscular Hemoglobin 29.1 pg (26-34); Mean Corpuscular Volume 93.7 fl (80-100); Mean Platelet Volume 10.3 fl (7.4-10.4); Platelet Count Result 148 k/mm3 (150-375); Red Blood Count 2.85 M/mm3 (4.2-5.4); Red Cell Distribution Width 16.6 % (11.5-14.5); White Blood Count 5.6 K/mm3 (4.5-10.0)
[2021-07-31] MEDS: LEVOTHYROXINE SODIUM 100 MCG, LEVOTHYROXINE SODIUM 75 MCG 175 MCG PO (05:53)
[2021-07-31] MEDS: hydrALAZINE HCL 50 MG TABLET 100 MG PO ×3 (05:55→20:52)
[2021-07-31 06:03] LABS: Albumin Level 3.7 g/dL (3.5-5.1); Anion Gap 7 mmol/L (8-16); Blood Urea Nitrogen 45 mg/dL (7-17); Calcium 8.5 mg/dL (8.4-10.2); Carbon Dioxide 34 mmol/L (22-30); Chloride 96 mmol/L (98-107); Estimated CRCL calculation 20 ml/min; Estimated Glomerular Filt Rate 20; Glucose 155 mg/dL (65-110); Potassium 3.4 mmol/L (3.4-5.0); Sodium 137 mmol/L (137-145)
[2021-07-31 06:46] VITALS: BP 170/68; PULSE 55; RESP 17; TEMP 36.6; O2SAT 94
[2021-07-31] MEDS: allopurinoL 100 MG TABLET PO (08:36)
[2021-07-31] MEDS: POTASSIUM CHLORIDE 10 MEQ TABLET.ER PO (08:36)
[2021-07-31 08:37] VITALS: PULSE 60
[2021-07-31] MEDS: atenoloL 50 MG TABLET 100 MG BY MOUTH ×2 (08:37→20:48)
[2021-07-31] MEDS: FUROSEMIDE 40 MG TABLET PO ×2 (08:38→17:22)
[2021-07-31] MEDS: HEPARIN SODIUM 5,000 UNITS/ML VIAL 5000 UNITS SUB-Q ×2 (08:39→20:50)
[2021-07-31] MEDS: metOLazone 2.5 MG TABLET PO (08:40)
[2021-07-31] MEDS: PANTOPRAZOLE 40 MG TABLET PO ×2 (08:40→20:52)
[2021-07-31] MEDS: OMEGA 3 POLYUNSAT FATTY ACIDS 1 GM CAP PO ×2 (08:40→17:21)
[2021-07-31 08:46] LABS: Glucose Point of Care 141 mg/dl (65-105)
[2021-07-31] MEDS: IRON SUCROSE COMPLEX 200 MG in SODIUM CHLORIDE 0.9% IV 50 ML 220 MG IVPB (09:30)
[2021-07-31] MEDS: POTASSIUM CHLORIDE 20 MEQ PACKET (FOR LIQUID) 40 MEQ PO (09:31)
--- NOTE | 2021-07-31 10:41 | P.PNNP_ITS ---
Progress Note: A&P Assessment and Plan (1) Chronic kidney disease, stage IV (severe): Code(s): N18.4 - Chronic kidney disease, stage 4 (severe) Status: Chronic Assessment and Plan: * secondary to hypertension, diabetes, vascular disease in association with her ongoing smoking and age-related change * in the last few months, creatinine has been running 1.6 - 2.0mg/dl * may be at a new baseline. (2) CHF exacerbation: Code(s): I50.9 - Heart failure, unspecified Status: Acute Assessment and Plan: * presumably diastolic given recent and previous Echo * Pulmonary edema most likely due to the diastolic dysfunction. * edema/swelling further contributed to by her nephrotic syndrome. * Shortness of breath is better and swelling is better. * She is on no oxygen. * She is on oral diuretics. (3) Nephrotic range proteinuria: Code(s): R80.9 - Proteinuria, unspecified Status: Acute Assessment and Plan: * as noted by outpatient evaluation * surprisingly, relatively albumin relatively stable * serologies only significant for positive JODI (but dsDNA-ab and complements okay) -- related to psoriatic arthritis(?) * probably secondary to diabetes * Renal biopsy down the line. (4) HTN (hypertension): Code(s): I10 - Essential (primary) hypertension Status: Chronic Assessment and Plan: * elevated at this time * follow trend with IV diuresis (5) Anemia: Code(s): D64.9 - Anemia, unspecified Status: Acute Assessment and Plan: * likely related to CKD and acute illness * Iron studies low. * On Venofer 200mg daily * hemoglobin stable in the mid 8s * Check CBC in the morning (6) Diabetes: Code(s): E11.9 - Type 2 diabetes mellitus without complications Status: Chronic Assessment and Plan: * On Accu-Cheks and sliding-scale insulin per hospitalist. Subjective Date/time seen: 07/31/21 10:41 Interval history: Jillian feels better today. She is in good spirits. She is sitting up in bed. Swelling is much better than on admission. Breathing is normal Review of Systems Cardiovascular: Cardiovascular: Reports no additional cardiovascular complaints Respiratory: Respiratory: Reports no additional respiratory complaints Gastrointestinal: Gastrointestinal: Reports no additional gastrointestinal complaints Genitourinary: Genitourinary: Reports no additional female genitourinary complaints Exam Narrative: WDWN in NAD skin no rash or subcu nodules head ncat lungs clear cor reg no rub or gallop abd BS+ nontender and soft ext no edema. Objective Data Vital Signs Vital Signs: Vital Signs - 24 hr 07/30/21 12:00 07/30/21 13:57 07/30/21 20:29 Temperature 35.6 C L Pulse Rate 62 58 L 60 Respiratory Rate 18 Blood Pressure 131/50 L Pulse Oximetry 96 07/30/21 22:34 07/31/21 06:46 07/31/21 08:37 Temperature 36.8 C 36.6 C Pulse Rate 77 55 L 60 Respiratory Rate 18 17 Blood Pressure 138/74 170/68 H Pulse Oximetry 96 94 Intake/Output Intake/Output: Intake & Output 07/28/21 07/29/21 07/30/21 07/31/21 23:59 23:59 23:59 23:59 Intake Total 829.8 1575 1410 500 Output Total 2150 4100
--- NOTE | 2021-07-31 10:41 | PM.PNNEP ---
Progress Note: A&P Assessment and Plan (1) Chronic kidney disease, stage IV (severe): Code(s): N18.4 - Chronic kidney disease, stage 4 (severe) Status: Chronic Assessment and Plan: secondary to hypertension, diabetes, vascular disease in association with her ongoing smoking and age-related change in the last few months, creatinine has been running 1.6 - 2.0mg/dl may be at a new baseline. (2) CHF exacerbation: Code(s): I50.9 - Heart failure, unspecified Status: Acute Assessment and Plan: presumably diastolic given recent and previous Echo Pulmonary edema most likely due to the diastolic dysfunction. edema/swelling further contributed to by her nephrotic syndrome. Shortness of breath is better and swelling is better. She is on no oxygen. She is on oral diuretics. (3) Nephrotic range proteinuria: Code(s): R80.9 - Proteinuria, unspecified Status: Acute Assessment and Plan: as noted by outpatient evaluation surprisingly, relatively albumin relatively stable serologies only significant for positive JODI (but dsDNA-ab and complements okay) -- related to psoriatic arthritis(?) probably secondary to diabetes Renal biopsy down the line. (4) HTN (hypertension): Code(s): I10 - Essential (primary) hypertension Status: Chronic Assessment and Plan: elevated at this time follow trend with IV diuresis (5) Anemia: Code(s): D64.9 - Anemia, unspecified Status: Acute Assessment and Plan: likely related to CKD and acute illness Iron studies low. On Venofer 200mg daily hemoglobin stable in the mid 8s Check CBC in the morning (6) Diabetes: Code(s): E11.9 - Type 2 diabetes mellitus without complications Status: Chronic Assessment and Plan: On Accu-Cheks and sliding-scale insulin per hospitalist. Subjective Date/time seen: 07/31/21 10:41 Interval history: Jillian feels better today. She is in good spirits. She is sitting up in bed. Swelling is much better than on admission. Breathing is normal Review of Systems Cardiovascular: Cardiovascular: Reports no additional cardiovascular complaints Respiratory: Respiratory: Reports no additional respiratory complaints Gastrointestinal: Gastrointestinal: Reports no additional gastrointestinal complaints Genitourinary: Genitourinary: Reports no additional female genitourinary complaints Exam Narrative: WDWN in NAD skin no rash or subcu nodules head ncat lungs clear cor reg no rub or gallop abd BS+ nontender and soft ext no edema. Objective Data Vital Signs Vital Signs: Vital Signs - 24 hr 07/30/21 12:00 07/30/21 13:57 07/30/21 20:29 Temperature 35.6 C L Pulse Rate 62 58 L 60 Respiratory Rate 18 Blood Pressure 131/50 L Pulse Oximetry 96 07/30/21 22:34 07/31/21 06:46 07/31/21 08:37 Temperature 36.8 C 36.6 C Pulse Rate 77 55 L 60 Respiratory Rate 18 17 Blood Pressure 138/74 170/68 H Pulse Oximetry 96 94 Intake/Output Intake/Output: Intake & Output 07/28/21 07/29/21 07/30/21 07/31/21 23:59 23:59 23:59 23:59 Intake Total 829.8 1575 1410 500 Output Total 2150 4100 2600 500 Balance -1320.2 -2525 -1190 0 Meds/Results Medications: Active Medications Generic Name Dose Route Start Last Admin Trade Name Freq PRN Reason Stop Dose Admin Al Hydrox/Mg Hydrox/Simethicone 30 ml 07/25/21 20:15 Mag Hydrox/Al Hydrox/Simeth 30 Ml Udc PO QID PRN Dyspepsia Allopurinol 100 mg 07/30/21 08:00 07/31/21 08:36 Allopurinol 100 Mg Tablet PO 100 mg DAILY@0800 GUNNAR Administration Atenolol 100 mg 07/26/21 09:00 07/31/21 08:37 Atenolol 50 Mg Tablet BY MOUTH 100 mg Q12HR GUNNAR Administration Dextrose 12.5 gm 07/25/21 20:17 Dextrose 50% 25 Gm/50 Ml Syringe IV PUSH PRN PRN Hypoglycemia Protocol Fish Oil 1 gm 07/27/21 17:00 07/31/21 08:40 Ome
[2021-07-31 12:07] LABS: Glucose Point of Care 161 mg/dl (65-105)
[2021-07-31 14:00] VITALS: BP 147/64; PULSE 57; RESP 16; TEMP 35.6; O2SAT 96
--- NOTE | 2021-07-31 15:39 | PM.IMPN ---
Progress Note: A&P Assessment and Plan (1) Psoriatic arthritis: Onset Date: ~2009 Code(s): L40.50 - Arthropathic psoriasis, unspecified Status: Acute Assessment and Plan: Continue medication (2) Hypothyroidism: Code(s): E03.9 - Hypothyroidism, unspecified Status: Acute Assessment and Plan: Continue levothyroxine Recheck TSH 7.3 in May Repeat here is 10 likely also due to poor absorption Increase his levothyroxine to 175 mcg daily she used to be on 150 mg daily at home (3) Diabetes: Code(s): E11.9 - Type 2 diabetes mellitus without complications Status: Chronic Assessment and Plan: Patient on Basaglar taking 48 units at bedtime Decreased to 30 units Added insulin sliding scale DC metformin while inpatient Hypoglycemic 07/26/2021. Will hold Lantus Continue only on sliding scale for now Accu-Cheks at goal no further hypoglycemia noted (4) Gout: Code(s): M10.9 - Gout, unspecified Status: Acute Assessment and Plan: Stable Uric acid elevated 8.2 Started allopurinol (5) HTN (hypertension): Code(s): I10 - Essential (primary) hypertension Status: Chronic Assessment and Plan: Continue atenolol Not optimal, on diuresis will continue to monitor Improved with diuresis (6) Hypercholesterolemia: Code(s): E78.00 - Pure hypercholesterolemia, unspecified Status: Acute Assessment and Plan: Rosuvastatin (7) CHF exacerbation: Code(s): I50.9 - Heart failure, unspecified Status: Acute Assessment and Plan: Associated with pulmonary edema and pleural effusion elevated BNP at 4730 troponin negative EKG with no acute ST-T changes Bilateral lower extremity edema Chest x-ray with cardiomegaly and ill-defined bilateral edema with small left pleural effusion Echo 07/26/2021 EF 60-65% mildly increased left ventricular wall thickness, grade 2 diastolic dysfunction, left atrium moderately enlarged, mild aortic valve stenosis, moderate aortic valve calcification, trace pulmonary regurgitation and tricuspid regurgitation mild mitral valve regurgitation, normal pulmonary pressure Suggestive of diastolic heart failure Started On Lasix 40 mg IV b.i.d. this is been switched to Bumex by a material control specialist and also given a dose of metolazone. Venous duplex ultrasound negative for DVT Ultrasound of abdomen with indeterminate 4 cm lesion in the right hepatic lobe likely benign as it was present in the past imaging with small amount of perihepatic ascites Renal function slightly up but may need higher renal function to get euvolemic. Still clinically hypervolemic continue diuresis and further adjustment of diuretics per material control specialist Renal function stable making good amount urine still hyper volemic on evaluation but improving Replace potassium Diuresis change to oral monitor on oral (8) Chronic renal failure: Code(s): N18.9 - Chronic kidney disease, unspecified Status: Acute Assessment and Plan: Chronic renal failure stage 3 baseline creatinine around 1.6-2 with proteinuria patient has positive JODI [employer] consulted Monitor renal function with diuresis SI joint x-rays with mild symmetric degenerative changes of the sacroiliac joint without ankylosis or erosions Renal ultrasound with no hydronephrosis Additional Plan # anemia iron profile ferritin ordered, likely anemia of chronic disease due to underlying chronic kidney disease ferritin low normal # incidental her right liver lobe lesion dates back to MRI in 2012 reduced stable in size favoring benign histology repeat ultrasound with stable size liver lobe lesion # DVT prophylaxis on heparin subQ Subjective Date/time seen: 07/31/21 15:39 07/31/2021 interval history: 75-year-old female presented with shortness of breath with elevated BNP secondary to acute on chronic diastolic congestive heart failure patient is being gently diurese it patient also has
[2021-07-31 16:47] LABS: Glucose Point of Care 156 mg/dl (65-105)
[2021-07-31 20:20] VITALS: PULSE 58; RESP 16; O2SAT 97
[2021-07-31 20:48] VITALS: PULSE 60
[2021-07-31] MEDS: SIMVASTATIN 20 MG TABLET 40 MG PO (20:50)
[2021-07-31 22:00] VITALS: BP 167/60; PULSE 58; RESP 16; TEMP 36.3; O2SAT 97
[2021-08-01 00:01] LABS: Chloride Rand Ur 92 mmol/L (32-290); Chloride/Creatinine Rand Ur 354 (38-318); Creatinine Random Urine 26 mg/dL (20-275)
[2021-08-01 00:53] LABS: Glucose Point of Care 185 mg/dl (65-105)
[2021-08-01 06:00] VITALS: BP 154/52; PULSE 57; RESP 16; TEMP 36.6; O2SAT 96
[2021-08-01] MEDS: hydrALAZINE HCL 50 MG TABLET 100 MG PO ×2 (06:09→14:47)
[2021-08-01] MEDS: LEVOTHYROXINE SODIUM 100 MCG, LEVOTHYROXINE SODIUM 75 MCG 175 MCG PO (06:10)
[2021-08-01 06:19] LABS: Albumin Level 3.7 g/dL (3.5-5.1); Anion Gap 7 mmol/L (8-16); Blood Urea Nitrogen 40 mg/dL (7-17); Calcium 8.7 mg/dL (8.4-10.2); Carbon Dioxide 34 mmol/L (22-30); Chloride 97 mmol/L (98-107); Estimated CRCL calculation 20 ml/min; Estimated Glomerular Filt Rate 20; Glucose 133 mg/dL (65-110); Phosphorus 4.5 mg/dL (2.5-4.5); Potassium 3.8 mmol/L (3.4-5.0); Sodium 138 mmol/L (137-145)
[2021-08-01 07:54] LABS: Glucose Point of Care 127 mg/dl (65-105)
[2021-08-01 08:00] VITALS: O2SAT 95
--- NOTE | 2021-08-01 08:29 | PCNWS ---
Weekly nutritional screen. Patient is tolerating current diet with adequate intake. No weight loss reported. No nutritional needs at this time.
[2021-08-01 08:49] VITALS: PULSE 60
[2021-08-01] MEDS: allopurinoL 100 MG TABLET PO (08:49)
[2021-08-01] MEDS: PANTOPRAZOLE 40 MG TABLET PO (08:49)
[2021-08-01] MEDS: atenoloL 50 MG TABLET 100 MG BY MOUTH (08:49)
[2021-08-01] MEDS: metOLazone 2.5 MG TABLET PO (08:49)
[2021-08-01] MEDS: FUROSEMIDE 40 MG TABLET PO ×2 (08:50→16:41)
[2021-08-01] MEDS: POTASSIUM CHLORIDE 10 MEQ TABLET.ER PO (08:50)
[2021-08-01] MEDS: OMEGA 3 POLYUNSAT FATTY ACIDS 1 GM CAP PO ×2 (08:50→16:41)
[2021-08-01] MEDS: HEPARIN SODIUM 5,000 UNITS/ML VIAL 5000 UNITS SUB-Q (08:51)
[2021-08-01] MEDS: IRON SUCROSE COMPLEX 200 MG in SODIUM CHLORIDE 0.9% IV 50 ML 220 MG IVPB (08:54)
--- NOTE | 2021-08-01 09:06 | P.PNNP_ITS ---
Progress Note: A&P Assessment and Plan (1) Chronic kidney disease, stage IV (severe): Code(s): N18.4 - Chronic kidney disease, stage 4 (severe) Status: Chronic Assessment and Plan: * secondary to hypertension, diabetes, vascular disease in association with her ongoing smoking and age-related change * in the last few months, creatinine has been running 1.6 - 2.0mg/dl * may be at a new baseline of 2.4. (2) CHF exacerbation: Code(s): I50.9 - Heart failure, unspecified Status: Acute Assessment and Plan: * presumably diastolic given recent and previous Echo * Pulmonary edema most likely due to the diastolic dysfunction. * edema/swelling further contributed to by her nephrotic syndrome. * Shortness of breath is better and swelling is better. * She is on no oxygen. * Intake/output is negative. * chest x-ray shows mild pulmonary edema. * She is on oral diuretics. Will continue these. (3) Nephrotic range proteinuria: Code(s): R80.9 - Proteinuria, unspecified Status: Acute Assessment and Plan: * as noted by outpatient evaluation * surprisingly, relatively albumin relatively stable * serologies only significant for positive JODI (but dsDNA-ab and complements okay) -- related to psoriatic arthritis(?) * probably secondary to diabetes * Renal biopsy down the line. (4) HTN (hypertension): Code(s): I10 - Essential (primary) hypertension Status: Chronic Assessment and Plan: * elevated at this time * follow trend with IV diuresis (5) Anemia: Code(s): D64.9 - Anemia, unspecified Status: Acute Assessment and Plan: * likely related to CKD and acute illness * Iron studies low. * On Venofer 200mg daily * hemoglobin stable in the mid 8s * Hemoglobin 8.3. (6) Diabetes: Code(s): E11.9 - Type 2 diabetes mellitus without complications Status: Chronic Assessment and Plan: * On Accu-Cheks and sliding-scale insulin per hospitalist. Subjective Date/time seen: 08/01/21 09:06 Interval history: Jillian feels better today. eating okay. Swelling is still fine. Breathing is normal Exam Narrative: WDWN in NAD skin no rash or subcu nodules head ncat lungs clear bilaterally cor reg no rub or gallop abd BS+ nontender and soft ext trace to1+ edema and no cyanosis. Objective Data Vital Signs Vital Signs: Vital Signs - 24 hr 07/31/21 14:00 07/31/21 20:20 07/31/21 20:48 Temperature 35.6 C L Pulse Rate 57 L 58 L 60 Respiratory Rate 16 16 Blood Pressure 147/64 H Pulse Oximetry 96 97 07/31/21 22:00 08/01/21 06:00 08/01/21 08:49 Temperature 36.3 C L 36.6 C Pulse Rate 58 L 57 L 60 Respiratory Rate 16 16 Blood Pressure 167/60 H 154/52 H Pulse Oximetry 97 96 Intake/Output Intake/Output: Intake & Output 07/29/21 07/30/21 07/31/21 08/01/21 23:59 23:59 23:59 23:59 Intake Total 1575 1410 1540 300 Output Total 4100 2600 1999 Balance -1015 -1190 -460 300 Meds/Results Medications: Active Medications Generic Name Dose Route Start Last Admin Trade Name Freq PRN Reason Stop Dose Admin Al Hydrox/Mg Hydrox/Simethicone 30 ml 07/25/21 20:15
--- NOTE | 2021-08-01 09:06 | PM.PNNEP ---
Progress Note: A&P Assessment and Plan (1) Chronic kidney disease, stage IV (severe): Code(s): N18.4 - Chronic kidney disease, stage 4 (severe) Status: Chronic Assessment and Plan: secondary to hypertension, diabetes, vascular disease in association with her ongoing smoking and age-related change in the last few months, creatinine has been running 1.6 - 2.0mg/dl may be at a new baseline of 2.4. (2) CHF exacerbation: Code(s): I50.9 - Heart failure, unspecified Status: Acute Assessment and Plan: presumably diastolic given recent and previous Echo Pulmonary edema most likely due to the diastolic dysfunction. edema/swelling further contributed to by her nephrotic syndrome. Shortness of breath is better and swelling is better. She is on no oxygen. Intake/output is negative. chest x-ray shows mild pulmonary edema. She is on oral diuretics. Will continue these. (3) Nephrotic range proteinuria: Code(s): R80.9 - Proteinuria, unspecified Status: Acute Assessment and Plan: as noted by outpatient evaluation surprisingly, relatively albumin relatively stable serologies only significant for positive JODI (but dsDNA-ab and complements okay) -- related to psoriatic arthritis(?) probably secondary to diabetes Renal biopsy down the line. (4) HTN (hypertension): Code(s): I10 - Essential (primary) hypertension Status: Chronic Assessment and Plan: elevated at this time follow trend with IV diuresis (5) Anemia: Code(s): D64.9 - Anemia, unspecified Status: Acute Assessment and Plan: likely related to CKD and acute illness Iron studies low. On Venofer 200mg daily hemoglobin stable in the mid 8s Hemoglobin 8.3. (6) Diabetes: Code(s): E11.9 - Type 2 diabetes mellitus without complications Status: Chronic Assessment and Plan: On Accu-Cheks and sliding-scale insulin per hospitalist. Subjective Date/time seen: 08/01/21 09:06 Interval history: Jillian feels better today. eating okay. Swelling is still fine. Breathing is normal Exam Narrative: WDWN in NAD skin no rash or subcu nodules head ncat lungs clear bilaterally cor reg no rub or gallop abd BS+ nontender and soft ext trace to1+ edema and no cyanosis. Objective Data Vital Signs Vital Signs: Vital Signs - 24 hr 07/31/21 14:00 03/01/22 20:20 07/31/21 20:48 Temperature 35.6 C L Pulse Rate 57 L 58 L 60 Respiratory Rate 16 16 Blood Pressure 147/64 H Pulse Oximetry 96 97 07/31/21 22:00 08/01/21 06:00 08/01/21 08:49 Temperature 36.3 C L 36.6 C Pulse Rate 58 L 57 L 60 Respiratory Rate 16 16 Blood Pressure 167/60 H 154/52 H Pulse Oximetry 97 96 Intake/Output Intake/Output: Intake & Output 07/29/21 07/30/21 07/31/21 08/01/21 23:59 23:59 23:59 23:59 Intake Total 1575 1410 1540 300 Output Total 4100 2600 1999 Balance -5910 -9990 -743 300 Meds/Results Medications: Active Medications Generic Name Dose Route Start Last Admin Trade Name Freq PRN Reason Stop Dose Admin Al Hydrox/Mg Hydrox/Simethicone 30 ml 07/25/21 20:15 Mag Hydrox/Al Hydrox/Simeth 30 Ml Udc PO QID PRN Dyspepsia Allopurinol 100 mg 07/30/21 08:00 08/01/21 08:49 Allopurinol 100 Mg Tablet PO 100 mg DAILY@0800 GUNNAR Administration Atenolol 100 mg 07/26/21 09:00 08/01/21 08:49 Atenolol 50 Mg Tablet BY MOUTH 100 mg Q12HR GUNNAR Administration Dextrose 12.5 gm 07/25/21 20:17 Dextrose 50% 25 Gm/50 Ml Syringe IV PUSH PRN PRN Hypoglycemia Protocol Fish Oil 1 gm 07/27/21 17:00 08/01/21 08:50 [place] 3 Polyunsat Fatty Acids 1 Gm Cap PO 1 gm BID GUNNAR Administration Furosemide 40 mg 07/30/21 09:00 08/01/21 08:50 Furosemide 40 Mg Tablet PO 40 mg BID GUNNAR Administration Glucagon 1 mg 07/25/21 20:17 Glucagon For Inj 1 Mg Vial IM
[2021-08-01 11:56] LABS: Glucose Point of Care 153 mg/dl (65-105)
[2021-08-01 14:00] VITALS: BP 145/61; PULSE 58; RESP 14; TEMP 36.2; O2SAT 93
--- NOTE | 2021-08-01 15:23 | PM.DS ---
DS: Admitting Diagnosis Discharge Date 08/01/2021 Admitting Diagnosis Shortness of breath DS: Discharge Diagnosis Discharge Diagnosis (1) Psoriatic arthritis: Onset Date: ~2009 Code(s): L40.50 - Arthropathic psoriasis, unspecified Status: Acute Assessment and Plan: Continue medication (2) Hypothyroidism: Code(s): E03.9 - Hypothyroidism, unspecified Status: Acute Assessment and Plan: Continue levothyroxine Recheck TSH 7.3 in May Repeat here is 10 likely also due to poor absorption Increase his levothyroxine to 175 mcg daily she used to be on 150 mg daily at home (3) Diabetes: Code(s): E11.9 - Type 2 diabetes mellitus without complications Status: Chronic Assessment and Plan: Patient on Basaglar taking 48 units at bedtime Decreased to 30 units Added insulin sliding scale DC metformin while inpatient Hypoglycemic 07/26/2021. Will hold Lantus Continue only on sliding scale for now Accu-Cheks at goal no further hypoglycemia noted (4) Gout: Code(s): M10.9 - Gout, unspecified Status: Acute Assessment and Plan: Stable Uric acid elevated 8.2 Started allopurinol (5) HTN (hypertension): Code(s): I10 - Essential (primary) hypertension Status: Chronic Assessment and Plan: Continue atenolol Not optimal, on diuresis will continue to monitor Improved with diuresis (6) Hypercholesterolemia: Code(s): E78.00 - Pure hypercholesterolemia, unspecified Status: Acute Assessment and Plan: Rosuvastatin (7) CHF exacerbation: Code(s): I50.9 - Heart failure, unspecified Status: Acute Assessment and Plan: Associated with pulmonary edema and pleural effusion elevated BNP at 4730 troponin negative EKG with no acute ST-T changes Bilateral lower extremity edema Chest x-ray with cardiomegaly and ill-defined bilateral edema with small left pleural effusion Echo 07/26/2021 EF 60-65% mildly increased left ventricular wall thickness, grade 2 diastolic dysfunction, left atrium moderately enlarged, mild aortic valve stenosis, moderate aortic valve calcification, trace pulmonary regurgitation and tricuspid regurgitation mild mitral valve regurgitation, normal pulmonary pressure Suggestive of diastolic heart failure Started On Lasix 40 mg IV b.i.d. this is been switched to Bumex by a seo professional and also given a dose of metolazone. Venous duplex ultrasound negative for DVT Ultrasound of abdomen with indeterminate 4 cm lesion in the right hepatic lobe likely benign as it was present in the past imaging with small amount of perihepatic ascites Renal function slightly up but may need higher renal function to get euvolemic. Still clinically hypervolemic continue diuresis and further adjustment of diuretics per seo professional Renal function stable making good amount urine still hyper volemic on evaluation but improving Replace potassium Diuresis change to oral monitor on oral (8) Chronic renal failure: Code(s): N18.9 - Chronic kidney disease, unspecified Status: Acute Assessment and Plan: Chronic renal failure stage 3 baseline creatinine around 1.6-2 with proteinuria patient has positive JODI Compliance Examiner consulted Monitor renal function with diuresis SI joint x-rays with mild symmetric degenerative changes of the sacroiliac joint without ankylosis or erosions Renal ultrasound with no hydronephrosis DS: Summary Hospital Course Reason for hospitalization: Chief Complaint: Shortness of breath Narrative: 75 years old female with past medical history of chronic renal failure stage 4 proteinuria hypertension diabetes psoriatic arthritis positive JODI presented to the hospital shortness of breath worsening with activity patient denies chest pain patient also complained of lower extremity swelling worsening gradually patient was seen by her seo professional who recommended increased dose of Lasix but no improvement
[2021-08-01 16:58] LABS: Glucose Point of Care 171 mg/dl (65-105)
== END 2021-08-01 17:11 | disposition home or self-care (01) | DRG 291 ==
LOC: ANHED 20:45 → ANH3MEDSUR 07-26 00:04
PROVIDERS: Emergency Medicine; Internal Medicine; Internal Medicine Nephrology; Physician Assistant; Admitting Provider Internal Medicine; Emergency Provider Emergency Medicine; PCP Nurse Practitioner Adult Health; Visit Provider Family Medicine
DX: I13.0 Hypertensive heart and chronic kidney disease with heart failure and stage 1 through stage 4 chronic kidney disease, or unspecified chronic kidney disease (principal); I50.33 Acute on chronic diastolic (congestive) heart failure; N18.4 Chronic kidney disease, stage 4 (severe); E11.22 Type 2 diabetes mellitus with diabetic chronic kidney disease; L40.50 Arthropathic psoriasis, unspecified; E03.9 Hypothyroidism, unspecified; M10.9 Gout, unspecified; Z20.822 Contact with and (suspected) exposure to COVID-19; K76.9 Liver disease, unspecified; E78.00 Pure hypercholesterolemia, unspecified; D63.1 Anemia in chronic kidney disease; E11.21 Type 2 diabetes mellitus with diabetic nephropathy; J43.9 Emphysema, unspecified; R80.8 Other proteinuria; M19.90 Unspecified osteoarthritis, unspecified site; F17.210 Nicotine dependence, cigarettes, uncomplicated; Z96.659 Presence of unspecified artificial knee joint; Z90.49 Acquired absence of other specified parts of digestive tract
CPT/HCPCS: 36415; 71045; 71046; 76705; 80053; 80069; 80074; 81050; 82436; 82570; 82728; 82948; 83036; 83540; 83550; 83735; 83880; 84100; 84156; 84300; 84439; 84443; 84480; 84484; 84550; 85025; 85027; 85610; 85730; 86703; 93005; 93306; 93970; 96374; 99285; A9270; C9803; G0432; J1644; J1756; J1815; J1940; U0003; U0005

== ENCOUNTER 2021-11-23 14:50 | Outpatient (CLI) | payer MEDICARE, BC, SELFPAY ==
[2021-11-23 16:09] LABS: Albumin Level 4.1 g/dL (3.5-5.1); Anion Gap 8 mmol/L (8-16); Blood Urea Nitrogen 67 mg/dL (7-17); Calcium 9.7 mg/dL (8.4-10.2); Carbon Dioxide 28 mmol/L (22-30); Chloride 99 mmol/L (98-107); Estimated Glomerular Filt Rate 21; Glucose 115 mg/dL (65-110); Phosphorus 5.7 mg/dL (2.5-4.5); Potassium 3.5 mmol/L (3.4-5.0); Sodium 135 mmol/L (137-145); Uric Acid 9.5 mg/dL (2.5-7.5)
[2021-11-23 16:49] LABS: Creatinine Urine 72.4 mg/dL
[2021-11-23 17:47] LABS: Total Protein Urine Random 371 mg/dL; Ur Ttl Prot Creatinine Ratio 5.12 mg/mg (0-0.20)
== END 2021-11-23 14:51 | disposition home or self-care (01) ==
LOC: ANHLAB 14:53
PROVIDERS: PCP Nurse Practitioner Adult Health; Visit Provider Internal Medicine Nephrology
DX: I12.9 Hypertensive chronic kidney disease with stage 1 through stage 4 chronic kidney disease, or unspecified chronic kidney disease (principal); N18.4 Chronic kidney disease, stage 4 (severe); E11.29 Type 2 diabetes mellitus with other diabetic kidney complication; R80.8 Other proteinuria
CPT/HCPCS: 36415; 80069; 82570; 84156; 84550

== ENCOUNTER 2022-03-06 11:53 | Outpatient (CLI) | payer MEDICARE, BC, SELFPAY ==
[2022-03-06 12:42] LABS: Albumin Level 4.3 g/dL (3.5-5.1); Anion Gap 12 mmol/L (8-16); Blood Urea Nitrogen 82 mg/dL (7-17); Calcium 9.5 mg/dL (8.4-10.2); Carbon Dioxide 30 mmol/L (22-30); Chloride 90 mmol/L (98-107); Estimated Glomerular Filt Rate 16; Glucose 300 mg/dL (65-110); Phosphorus 5.9 mg/dL (2.5-4.5); Potassium 3.3 mmol/L (3.4-5.0); Sodium 132 mmol/L (137-145); Uric Acid 8.6 mg/dL (2.5-7.5)
[2022-03-06 13:15] LABS: Creatinine Urine 36.8 mg/dL; Total Protein Urine Random 115 mg/dL; Ur Ttl Prot Creatinine Ratio 3.13 mg/mg (0-0.20)
[2022-03-06 13:24] LABS: Vitamin D 25 Hydroxy 53.8 ng/mL
[2022-03-06 17:04] LABS: Parathyroid Intact 57.2 pg/mL (7.5-53.5)
== END 2022-03-06 11:54 | disposition home or self-care (01) ==
LOC: ANHLAB 11:55
PROVIDERS: PCP Nurse Practitioner Adult Health; Visit Provider Internal Medicine Nephrology
DX: I12.9 Hypertensive chronic kidney disease with stage 1 through stage 4 chronic kidney disease, or unspecified chronic kidney disease (principal); N18.4 Chronic kidney disease, stage 4 (severe); E11.29 Type 2 diabetes mellitus with other diabetic kidney complication; R80.8 Other proteinuria
CPT/HCPCS: 36415; 80069; 82306; 82570; 83970; 84156; 84550

== ENCOUNTER 2022-05-08 20:34 | Inpatient (IN) | payer MEDICARE, BC, SELFPAY ==
[2022-05-08] VITALS (10 sets, daily range): BP systolic 122–155; BP diastolic 71–92; PULSE 73–76; RESP 13–20; TEMP 36.7; O2SAT 96–100
--- NOTE | ~2022-05-08 | XR_ITS ---
EXAMINATION: XR sm bowel follow through DATE: 05/11/2022 11:47 INDICATION: Distended abdomen. Abnormal CT scan. TECHNIQUE: Curator Herbarium radiograph(s) of the abdomen was/were obtained. Oral contrast was administered, and sequential radiographs of the abdomen were obtained until oral contrast was noted to be in the proxi mal colon. COMPARISON: CT dated 05/09/2022 FINDINGS: Transit time from the stomach to proximal colon was approximately 2-3 hours. There is normal caliber and mucosal fold pattern throughout the small bowel. IMPRESSION: 1. Small bowel appears normal with normal transit time to the colon of 2-3 hours. 2. Persistent distention of the contrast-filled stomach which could be due to either gastroparesis or potentially a partial obstruction at the gastric outlet. Could consider further evaluation with the [facility] endoscopy, upper gastrointestinal series or gastric emptying study. Reviewed, dictated and finalized at location A. T SUPERVISOR IMPRESSION: 1. Small bowel appears normal with normal transit time to the colon of 2-3 hour s. 2. Persistent distention of the contrast-filled stomach which could be due to e ither gastroparesis or potentially a partial obstruction at the gastric outlet. Could consider further evaluation with either endoscopy, upper gastrointestina l series or gastric emptying study.
--- NOTE | ~2022-05-08 | XR_ITS ---
EXAMINATION: XR chest 2V Exam Date/Time: 05/08/2022 22:30 BOARDMARKER HISTORY: leukocytosis Comparison: 07/31/2021. RESULT: Lines, tubes, and devices: None. Lungs and pleura: Diffuse reticulonodular opacities with bronchovascular interstitial thickening. Cardiomediastinal silhouette: Stable. Other: No acute osseous or upper abdominal finding. IMPRESSION: Pulmonary opacities may represent bronchiolitis, as can be seen with atypical infection, asthma, aspi ration, and small airways disease. Reviewed, dictated and finalized at location K. DMARKER IMPRESSION: Pulmonary opacities may represent bronchiolitis, as can be seen with atypical i nfection, asthma, aspiration, and small airways disease.
--- NOTE | ~2022-05-08 | CT_ITS ---
EXAMINATION: CT abdomen pelvis wo con DATE: 05/09/2022 10:34 INDICATION: Nausea and vomiting TECHNIQUE: Computed tomography (CT) of the abdomen and pelvis was performed without intravenous contr ast. Automated exposure control and iterative reconstruction technique were employed. Exam dose: 345 .99 mGy-cm total exam DLP. COMPARISON: None. FINDINGS: The lung bases are clear of consolidation. Coronary artery calcification. Mitral annulus calcification. Cardiomegaly. No pericardial or pleural effusion. Status post left mastectomy. Status post cholecystectomy. No bile duct dilatation. At least 2.5 cm ill-defined area of hypoattenuation in the posterior right hepatic lobe (series 3 dany ges 50-56) is noted. Approximately 2.5 x 3.2 x 4 cm hyperechoic lesion of the right hepatic lobe was demonstrated in similar position on July 26, 2021 ultrasound examination. This may be a hemangiom a. Consider further evaluation with hepatic MRI. No other hepatic space-occupying mass lesion is dete cted. No pancreatic mass lesion or calcification or pancreatic duct dilatation. Normal splenic size. Chronic left adrenal approximately 2.2 x 3.3 cm low-attenuation mass with fluid attenuation, slightly increased from approximately 2.1 x 3 cm measurement on 05/20/2013. This is likely a stable left adre nal adenoma. Right adrenal gland is unremarkable. No renal mass lesion is noted on this limited noncontrast examination. No urinary tract calculus or h ydroureteronephrosis. There is a Wang catheter within the evacuated urinary bladder. Retroverted fredy mitul. There is atherosclerotic calcification of the abdominal aorta and at the origins of the celiac and stephens perior mesenteric and renal arteries. No abdominal aortic aneurysm. Calcification of the iliac and fe moral arteries. No intraperitoneal or retroperitoneal or pelvic adenopathy or ascites. Diverticulosis of the sigmoid colon; no CT evidence of diverticulitis. There is a prominent amount of fecal material in the colon. No bowel obstruction is detected. No intraperitoneal free air. Severe degenerative disc disease at L4-5. Moderate degenerative disease at L5-S1. Degenerative spurring of the lower thoracic and lumbar spine. Diffuse osteopenia. No suspicious osteolytic or osteoblastic lesions. IMPRESSION: Posterior right hepatic ill-defined hypoattenuating lesion, with finding at this locatio n dating back to 05/20/2013 MRI examination, with hyperechoic lesion noted at this location on 022 abdominal ultrasound examination. This may be a hemangioma. Consider further evaluation with repe at hepatic MR examination. Status post left mastectomy Probable chronic left adrenal adenoma measuring approximately 2.2 x 3.3 cm currently Diverticulosis sigmoid colon Reviewed, dictated and finalized at Location A. Reviewed, dictated and finalized at location B. [facility] [employer] IMPRESSION: Posterior right hepatic ill-defined hypoattenuating lesion, with f inding at this location dating back to 05/20/2013 MRI examination, with hyperec hoic lesion noted at this location on 07/22/2021 abdominal ultrasound examinatio n. This may be a hemangioma. Consider further evaluation with repeat hepatic MR examination. Status post left mastectomy Probable chronic left adrenal adenoma measuring approximately 2.2 x 3.3 cm curr ently Diverticulosis sigmoid colon
--- NOTE | ~2022-05-08 | US_ITS ---
EXAMINATION: US renal BI DATE: 05/10/2022 09:52 INDICATION: Acute kidney injury. TECHNIQUE: Multiple ultrasound grayscale images of the kidneys were obtained. COMPARISON: CT abdomen and pelvis 05/09/2022 FINDINGS: The right kidney measures 9.7 x 4.7 x 5.1 cm. The left kidney measures 9.6 x 4.6 x 5.2 cm. The kidney s demonstrate normal parenchymal echogenicity. There is no hydronephrosis. The bladder is decompresse d by a Wang catheter. IMPRESSION: 1. Normal kidneys. No hydronephrosis. Reviewed, dictated and finalized at location E. DEVELOPER
--- NOTE | ~2022-05-08 | MR_ITS ---
EXAMINATION: MR abdomen wo/w con DATE: 05/10/2022 13:44 INDICATION: Liver mass. TECHNIQUE: Magnetic resonance imaging (MRI) of the abdomen was performed without and with 13 mL Multi Joaquim intravenous contrast. COMPARISON: CT abdomen and pelvis 05/09/2022, MRI 05/20/2013 FINDINGS: In the right hepatic lobe, there is a 2.3 x 1.0 cm cyst. The gallbladder is absent. The stomach is ma rkedly distended. There is incomplete pancreas divisum. The spleen and right adrenal gland are normal . There is a 3.8 cm mass in left adrenal gland containing microscopic fat, consistent with an adenoma . There are cysts in the kidneys measuring up to 12 mm on the left. The small and large bowel are nor mal in caliber. IMPRESSION: 1. Chronic 2.3 cm benign cyst in the liver. 2. Markedly distended stomach. If there is clinical concern for gastric outlet obstruction, consisten t endoscopy or an upper gastrointestinal series. Reviewed, dictated and finalized at location E. CUTTER IMPRESSION: 1. Chronic 2.3 cm benign cyst in the liver. 2. Markedly distended stomach. If there is clinical concern for gastric outlet obstruction, consistent endoscopy or an upper gastrointestinal series.
[2022-05-08 21:49] LABS: Basophils Absolute Auto 0.1 K/mm3 (0.0-0.1); Basophils Percent Auto 0.3 % (0.2-1.2); Eosinophils Absolute Auto 0.1 K/mm3 (0-0.3); Eosinophils Percent Auto 0.8 % (0-4.4); Hematocrit 39.2 % (37.0-47.0); Immature Granulocyte Absolute 0.06 K/mm3 (0.00-0.031); Immature Granulocyte Percent A 0.4 % (0-0.5); Lymphocytes Absolute Auto 4.57 K/mm3 (0.9-3.2); Lymphocytes Percent Auto 31.2 % (18.3-44.2); Mean Corpuscular HGB Conc 33.2 g/dl (32-36); Mean Corpuscular Hemoglobin 31.3 pg (26-34); Mean Corpuscular Volume 94.5 fl (80-100); Mean Platelet Volume 11.1 fl (7.4-10.4); Monocytes Absolute Auto 1.1 K/mm3 (0.1-0.6); Monocytes Percent Auto 7.5 % (2.6-8.5); Neutrophils Absolute Auto 8.7 K/mm3 (1.3-6.7); Neutrophils Percent Auto 59.8 % (45.5-73.1); Platelet Count Result 241 k/mm3 (150-375); Red Blood Count 4.15 M/mm3 (4.2-5.4); Red Cell Distribution Width 14.1 % (11.5-14.5); White Blood Count 14.6 K/mm3 (4.5-10.0)
[2022-05-08 21:50] LABS: Alanine Aminotransferase 23 U/L (6-35); Albumin Level 4.5 g/dL (3.5-5.1); Alkaline Phosphatase 91 U/L (38-126); Anion Gap 11 mmol/L (8-16); Aspartate Amino Transferase 39 U/L (14-36); Bilirubin,Total 0.6 mg/dL (0.2-1.3); Blood Urea Nitrogen 99 mg/dL (7-17); Calcium 13.5 mg/dL (8.4-10.2); Carbon Dioxide 38 mmol/L (22-30); Chloride 80 mmol/L (98-107); Estimated CRCL calculation 8 ml/min; Estimated Glomerular Filt Rate 9; Glucose 110 mg/dL (65-110); Lipase 338 U/L (23-300); Sodium 129 mmol/L (137-145)
--- NOTE | 2022-05-08 22:24 | ECG_ITS ---
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
[2022-05-08 22:42] LABS: Appearance Urine Clear (Clear); Bilirubin Urine Negative (Negative); Blood Urine Negative (Negative); Color Urine Yellow (Yellow); Glucose Urine UA Negative (Negative); Ketones Urine Negative (Negative); Leukocyte Esterase Ur Negative LEU/UL (Negative); Nitrate Urine Negative (Negative); Protein Urine 3+ mg/dL (Negative); Specific Grav Ur 1.015 (1.001-1.035); Urobilinogen Urine 0.2 mg/dL (<2.0); pH Urine 5.5 (5.0-9.0)
[2022-05-08] MEDS: POTASSIUM CHLORIDE 20 MEQ TABLET PO (22:47)
[2022-05-08 22:49] LABS: Bacteria Urine Trace /hpf; Mucus Urine Rare /lpf; Squamous Epithelial Cell Urine Moderate /hpf (Few)
[2022-05-08 22:50] LABS: Magnesium 3.3 mg/dL (1.6-2.3); Phosphorus 6.5 mg/dL (2.5-4.5)
[2022-05-08] MEDS: SODIUM CHLORIDE 0.9% IV 1,000 ML 999 ML IV CONT (23:02)
--- NOTE | 2022-05-08 23:05 | ED.GENADULT ---
HPI - General Adult General Chief complaint: Recheck/Abnormal Lab/Rx <Jennifer Hogan PA-C - Last Filed: 05/09/22 02:12> Stated complaint: abnormal labs <Jennifer Hogan PA-C - Last Filed: 05/09/22 02:12> Time Seen by Provider: 05/08/22 22:23 <Jennifer Hogan PA-C - Last Filed: 05/09/22 02:12> History of Present Illness HPI narrative: 76-year-old female with a history of CHF, CKD here for evaluation of a elevated white count on labs done by her primary care doctor. Patient states that she saw her primary last week for evaluation of nausea, vomiting, abdominal pain and constipation. She had labs drawn and was told to come to the ED because her white count was elevated. She is unsure what her white count was. Currently, she is complaining of constipation over the past 4 days, but has no other symptoms. She denies abdominal pain, continued vomiting, confusion, weakness or seizures. No history of elevated calcium. <Jennifer Hogan PA-C - Last Filed: 05/09/22 02:12> Related Data Home medications: Home Medications Medication Instructions Recorded Confirmed apremilast 30 mg tablet (Otezla) 30 mg PO BID 07/25/21 05/09/22 atenolol 100 mg tablet 100 mg PO BID 07/25/21 05/09/22 hydralazine 100 mg tablet 100 mg PO TID 07/25/21 05/09/22 icosapent ethyl 1 gram capsule 1 g PO BID 07/25/21 05/09/22 insulin glargine 100 unit/mL (3 48 unit subcut HS 07/25/21 05/09/22 mL) subcutaneous pen (Basaglar KwikPen U-100 Insulin) potassium chloride 10 mEq 10 meq PO DAILY 07/25/21 05/09/22 tablet,extended release(part/cryst) simvastatin 40 mg tablet 40 mg PO HS 07/25/21 05/09/22 allopurinol 100 mg tablet 100 mg PO DAILY 05/09/22 05/09/22 levothyroxine 175 mcg tablet 150 mcg PO DAILY@0630 05/09/22 05/09/22 (Synthroid) semaglutide 0.25 mg or 0.5 mg (2 0.5 mg subcut WEEKLY 05/09/22 05/09/22 mg/1.5 mL) subcutaneous pen injector (Ozempic) <Jennifer Hogan PA-C - Last Filed: 05/09/22 02:12> Allergies/adverse reactions: Allergies Allergy/AdvReac Type Severity Reaction Status Date / Time povidone-iodine Allergy Intermediate HIVES Verified 07/25/21 18:22 soap Allergy Intermediate HIVES Verified 07/25/21 18:22 <Jennifer Hogan PA-C - Last Filed: 05/09/22 02:12> Review of Systems Review of Systems: Gen: Denies fevers or chills Eyes: Denies eye pain or visual change ENT: Denies congestion Respiratory: Denies shortness of breath or cough CV: Denies chest pain or palpitations GI: Reports constipation. Denies abdominal pain nausea, emesis or diarrhea : denies burning, urgency, frequency or hematuria Musculoskeletal: Denies back pain or muscle pain Neuro: Denies numbness, tingling, weakness or focal weakness Skin: Denies rash Except as documented, all other systems reviewed and negative <Jennifer Hogan PA-C - Last Filed: 05/09/22 02:12> [facility] Past Medical History Medical History: Medical History Diabetes Emphysema of lung Gout HTN (hypertension) Hypercholesterolemia Hypothyroidism Obesity Osteoarthritis Psoriasis Psoriatic arthritis (~2009) <Jennifer Hogan PA-C - Last Filed: 05/09/22 02:12> Surgical History Surgical History: Surgical History H/O left mastectomy History of knee replacement Hx of cholecystectomy <AIDEE Colindres Last Filed: 05/09/22 02:12> Family History Family History: Family History Father Lung cancer Mother Ovarian cancer <AIDEE Colindres Last Filed: 05/09/22 02:12> Social History Social History: Social History Smoking packs per day: 1 Smoking cigarettes per day: 20.0 Years smoked: 35 Smoking pack-years: 35.00 Smoking status: Curr
[2022-05-08 23:10] LABS: Add Urine Microscopic? YES
[2022-05-08 23:40] LABS: Influenza A QL RT-PCR Negative (Negative); Influenza B QL RT-PCR Negative (Negative); SARS-CoV-2 RNA PCR Negative
[2022-05-09] VITALS (19 sets, daily range): BP systolic 100–127; BP diastolic 50–59; PULSE 69–84; RESP 13–25; TEMP 36.5–36.6; O2SAT 93–100; BMI 25.2
--- NOTE | 2022-05-09 | ECHO_ITS ---
Patient Info Name: Jillian Bernal Age: 76 years : 1945 Gender: Female Ht: 64 in Wt: 147 lbs BSA: 1.75 m2 HR: 78 bpm BP: 110 / 50 mmHg Heart Rhythm: Sinus Rhythm Technical Quality: Good Exam Date: 05/09/2022 2:23 PM Exam Location: [facility] Room: 332 Patient Status: Inpatient Admit Date: 05/09/2022 Staff Ordering Physician: Pinky Mayers MD Broom Man: Stephanie Louis RDCS Attending Provider: Pinky Mayers MD Referring Physician: Riana CASTANON; Exam Type: CA echo doppler color flow Study Info Indications - murmur renal failure Complete two-dimensional, color flow and Doppler transthoracic echocardiogram is performed. Summary 1. Complete two-dimensional, color flow and Doppler transthoracic echocardiogram is performed. 2. Left ventricular hypertrophy with hyperdynamic systolic function and grade 1 diastolic noncompliance. 3. Left atrial enlargement. 4. Calcified mitral valve annulus. 5. Mild aortic valve stenosis and apparently bicuspid aortic valve which was previously reported as tricuspid. 6. Compared to echocardiogram from July of this year no change other than I believe the aortic valve was bicuspid. Left Ventricle Left ventricular chamber dimension is normal. Left ventricular systolic function is hyperdynamic, estimated at >70%. There is moderate concentric increased left ventricular wall thickness. The left ventricular diastolic function is grade I diastolic dysfunction. Right Ventricle Right ventricular chamber dimension is normal. Left Atria Left atrial chamber dimension is moderately enlarged. Right Atria Right atrial chamber dimension is normal. Aortic Valve The aortic valve is bicuspid. There is mild aortic valve sclerosis. There is mild aortic valve stenosis with a peak velocity of 229 cm/s, mean gradient of 12 mmHg, and aortic valve area of 1.7 cm2. Pulmonic Valve The pulmonic valve is normal. There is trace pulmonic regurgitation. Mitral Valve The mitral valve has normal leaflets. The mitral valve annulus is moderately calcified. Tricuspid Valve The tricuspid valve leaflets are normal. Pericardium/Pleural The pericardium appears normal. Aorta The aortic root size at the sinus of Valsalva is normal. Left Ventricular Outflow Tract Name Value Normal LVOT 2D LVOT Diameter 2.0 cm LVOT Doppler LVOT Peak Gradient 6 mmHg LVOT Mean Gradient 3 mmHg LVOT VTI 24 cm LVOT VTI/AV VTI Ratio 0.6 LVOT Stroke Volume 74 ml LVOT CO 16.3 l/min LVOT CI 9.3 l/min/m2 Pulmonic Valve Name Value Normal PV Doppler PV Peak Gradient 3 mmHg
--- NOTE | 2022-05-09 00:29 | PM.IMHP ---
H&P: HPI History of Present Illness Date/Time: 05/09/22 00:29 Chief Complaint: abnormal lab work Narrative: This is a 76-year-old female with past medical history significant for chronic kidney disease, hypertension, insulin-dependent diabetes mellitus, hypothyroidism, dyslipidemia. patient was sent to the emergency room after lab work from the doctor's office came back abnormal patient had been in to visit her primary care physician after having several days of nausea and vomiting with constipation denies any body aches and pains denies fevers, rigors, chills. preliminary workup was significant basic metabolic profile creatinine of 4.8, BUN 99, sodium 129, bicarb 38, chloride 80 potassium 3, calcium 13 phosphorus 6.5, magnesium 3.3 CBC showed a WBC count of 14,000 urinalysis showed 10-15 WBCs present. A chest x-ray was reported as: IMPRESSION: Pulmonary opacities may represent bronchiolitis, as can be seen with atypical infection, asthma, aspiration, and small airways disease. Review of Systems Review of Systems: nausea, vomiting, constipation Constitutional: Constitutional: Denies chills and Denies fever(s) Eyes: Eyes: Denies change in vision ENT: Denies dysphagia and Denies odynophagia Cardiovascular: Cardiovascular: Denies chest pain, Denies irregular heart rhythm, Denies leg edema and Denies palpitations Respiratory: Respiratory: Denies cough and Denies dyspnea Gastrointestinal: Gastrointestinal: Denies abdominal pain, Reports constipation, Reports nausea and Reports vomiting Genitourinary: Genitourinary: Denies dysuria Musculoskeletal: Musculoskeletal: Denies myalgias, Denies arthralgias and Denies muscle cramps Integumentary/Breasts: Skin/Breast: Denies rash Neurologic: Denies focal weakness and Denies Sensory deficit (Neuro) Psychiatric: Psychiatric: Reports no additional psychiatric complaints and Reports as per HPI Endocrine: Endocrine: Denies cold intolerance, Denies flushing, Denies heat intolerance, Denies polyphagia, Denies polydipsia and Denies palpitations Hematologic/Lymphatic: Hematologic/Lymphatic: Reports no additional hematologic/lymphatic complaints and Reports as per HPI Allergic/Immunologic: Allergic/Immunologic: Reports no additional allergic/immunologic complaints and Reports as per HPI [facility] Past Medical History Medical History Diabetes Emphysema of lung Gout HTN (hypertension) Hypercholesterolemia Hypothyroidism Obesity Osteoarthritis Psoriasis Psoriatic arthritis (~2009) Surgical History Surgical History H/O left mastectomy History of knee replacement Hx of cholecystectomy Family History Family History (Updated 05/09/22 @ 02:39 by Enrico Bates RN) Father Lung cancer Mother Ovarian cancer Social History Social History Smoking packs per day: 1 Smoking cigarettes per day: 20.0 Years smoked: 35 Smoking pack-years: 35.00 Smoking status: Current every day smoker Tobacco type: cigarettes Alcohol intake: never Substance use: never Substance use type: does not use Lack of Transportation: No Lack of Food: Never True Current Housing: I Have Housing Concerned About Future Housing: No Difficulty Paying Gas/Electric Bills: No Difficulty Paying for Meds: No Currently Unemployed: No Education: Bachelor's Degree Difficulty w/ Childcare or Family Care: No Gender identity (if verbalized by the patient): Female Spiritual care concerns: No Meds Home Medications and Allergies Home Medications Medication Instructions Recorded Confirmed Type apremilast 30 mg tablet (Otezla) 30 mg PO BID 07/25/21 05/09/22 History atenolol 100 mg tablet 100 mg PO BID 07/25/21 05/09/22 History hydralazine 100 mg tablet 100 mg PO TID 07/25/21 05/09/22 History
[2022-05-09 01:06] LABS: Alkaline Phosphatase 75 U/L (38-126)
[2022-05-09] MEDS: SODIUM CHLORIDE 0.9% IV 1,000 ML 999 ML IV CONT (01:32)
[2022-05-09] MEDS: SODIUM CHLORIDE 0.9% IV 1,000 ML 75 ML IV CONT (02:54)
[2022-05-09 04:41] LABS: Anion Gap 6 mmol/L (8-16); Blood Urea Nitrogen 93 mg/dL (7-17); Calcium 11.6 mg/dL (8.4-10.2); Carbon Dioxide 33 mmol/L (22-30); Chloride 88 mmol/L (98-107); Estimated CRCL calculation 10 ml/min; Estimated Glomerular Filt Rate 11; Glucose 69 mg/dL (65-110); Potassium 2.6 mmol/L (3.4-5.0); Sodium 127 mmol/L (137-145)
[2022-05-09] MEDS: POTASSIUM CHLORIDE 20 MEQ PACKET (FOR LIQUID) 40 MEQ PO (05:35)
[2022-05-09] MEDS: LEVOTHYROXINE SODIUM 150 MCG TABLET PO (05:47)
[2022-05-09] MEDS: allopurinoL 100 MG TABLET PO (09:13)
[2022-05-09] MEDS: atenoloL 50 MG TABLET 100 MG PO ×2 (09:13→20:57)
[2022-05-09] MEDS: hydrALAZINE HCL 50 MG TABLET 100 MG PO ×2 (09:14→16:54)
--- NOTE | 2022-05-09 15:53 | PM.CNNEP ---
Assessment and Plan Assessment and plan (1) Acute kidney injury superimposed on CKD: Code(s): N17.9 - Acute kidney failure, unspecified; N18.9 - Chronic kidney disease, unspecified Status: Acute Assessment and Plan: the patient has chronic kidney disease. Her baseline GFR runs around 20 and so is stage IV. Most likely this is due to diabetes and hypertension. There are other causes can do this, however. Will check serology in immunofixation. the patient has acute kidney injury. Her baseline creatinine runs around 2.3-2.9. He was generally 2.3 in till a couple of months ago when 1 time it was 2.9. Some not sure if that was an acute issue or if that was a new baseline. The current creatinine is much higher than either 1. By history, And exam she looks like she might be dehydrated. Her numbers have improved giving her IV fluids. She had CT which ruled out obstruction. I doubt if she has rhabdo, GN, or interstitial nephritis Will check urine electrolytes and CPK. (2) Hypercalcemia: Code(s): E83.52 - Hypercalcemia Status: Acute Assessment and Plan: Patient's calcium was high. She says she has never had this before. It is not persistently high and so I doubt if there is some long-term issues such as cancer. It might be high just because of her dehydration. Will check a PTH. (3) Nausea and vomiting: Code(s): R11.2 - Nausea with vomiting, unspecified Status: Acute Assessment and Plan: Patient's symptoms are better. (4) Anemia: Code(s): D64.9 - Anemia, unspecified Status: Acute Assessment and Plan: Her hemoglobin is 13 this admission. I assume this is due to dehydration as well. Her baseline hemoglobin is more between 8 and 10. This will probably drop as we hydrate. (5) Emphysema of lung: Code(s): J43.9 - Emphysema, unspecified Status: Acute Assessment and Plan: the patient should stop smoking. History of Present Illness Reason for Consult Consult date: 05/09/22 Chief Complaint Chief complaint: hypercalcemia, EDE History of Present Illness Narrative: Jillian is a very pleasant 76-year-old lady who has multiple medical problems including chronic kidney disease with a creatinine in the 2s, hypertension, diabetes, hypothyroidism, hyperlipidemia, and she currently smokes. Patient also has history of the gout, psoriasis, and osteoarthritis. Patient came in the hospital because of abnormal blood work. She said she was well until about Friday when she developed weakness, nausea, constipation, poor appetite, poor intake. This continued to worsen over the next few days. She did get some blood work done in the meantime her creatinine was elevated which is what prompted the visit to the ER. She was evaluated in the ER and found to have a creatinine of 3.9 and a calcium of 13.5 she was. She was admitted and given IV fluids. Both numbers are improving. Renal consultation was requested. She denies any bloody urine, foamy urine, bladder infections, or pain with urination. She has a kidney stone she has known about for a long time and has been stable. She has never passed a stone. She denies a history of pancreatitis. The patient has had breast cancer twice she had a lumpectomy with radiation stat therapy the 1st time an a mastectomy and radiation therapy the 2nd time, both on the left side. The last episode was 11 years ago. She has never had any evidence of recurrence since then. She does not take nonsteroidal anti-inflammatory agents. Her blood pressure and sugars have been under good control. She smokes more than a pack a day Review of Systems Constitutional: Constitutional: Reports no additional constitutional complaints Eyes: Eyes: Reports no additional eye complaints ENT: Reports system reviewed and no additional complaints, except as documented Cardiovascular: C
--- NOTE | 2022-05-09 15:58 | PM.IMPN ---
Progress Note: A&P Assessment and Plan (1) Acute kidney injury superimposed on CKD: Code(s): N17.9 - Acute kidney failure, unspecified; N18.9 - Chronic kidney disease, unspecified Status: Acute Assessment and Plan: patient with nausea and vomiting on diuretics at home will be holding Lasix and metolazone renal ultrasound in a.m. Wang in Strict input and output nephrology consult echocardiogram in a.m. IV fluids daily BMP suspect pre renal 05/09/2022 interval history: 76-year-old female with acute on chronic kidney disease patient seen and creatinine is worsened, her serum creatinine on 03/06 was 2.9 upon arrival patient Scr was 4.8 patient being gently hydrated a creatinine is trending down currently today is 3.90. patient be seen by Nephrology and further recommendation to follow, patient denies any abdominal pain nausea or vomiting fever or chills. (2) Hypercalcemia: Code(s): E83.52 - Hypercalcemia Status: Acute Assessment and Plan: PTH in progress 1.25 D hydroxy vitamin 5 in progress urine calcium in progress receiving IV fluids measure calcium 13.5 corrected calcium for albumin is 12.2 (3) Hypothyroidism: Code(s): E03.9 - Hypothyroidism, unspecified Status: Acute Assessment and Plan: continue levothyroxine (4) Diabetes: Code(s): E11.9 - Type 2 diabetes mellitus without complications Status: Chronic Assessment and Plan: will hold of sent PICC will hold all Rubi continue Lantus post prandial (5) Gout: Code(s): M10.9 - Gout, unspecified Status: Acute Assessment and Plan: continue allopurinol (6) Nausea and vomiting: Code(s): R11.2 - Nausea with vomiting, unspecified Status: Acute Assessment and Plan: will hold Ozempic will obtain CT of abdomen and pelvis Subjective Date/time seen: 05/09/22 15:58 ?abnormal lab work HPI- Narrative: ?This is a 76-year-old female with past medical history significant for chronic kidney disease, hypertension, insulin-dependent diabetes mellitus, hypothyroidism, dyslipidemia. patient was sent to the emergency room after lab work from the doctor's office came back abnormal patient had been in to visit? her primary care physician after having several days of nausea and vomiting with constipation denies any body aches and pains denies fevers, rigors, chills. preliminary workup was significant basic metabolic profile creatinine of 4.8, BUN 99, sodium 129, bicarb 38, chloride 80 potassium 3, calcium 13 phosphorus 6.5, magnesium 3.3 CBC showed a WBC count of 14,000? urinalysis showed 10-15 WBCs present. 05/09/2022 interval history: 76-year-old female with acute on chronic kidney disease patient seen and creatinine is worsened, her serum creatinine on 03/06 was 2.9 upon arrival patient Scr was 4.8 patient being gently hydrated a creatinine is trending down currently today is 3.90. patient be seen by Nephrology and further recommendation to follow, patient denies any abdominal pain nausea or vomiting fever or chills. Review of Systems Review of Systems: nausea, vomiting, constipation Constitutional: Constitutional: Denies chills and Denies fever(s) Exam Narrative: Patient is comfortable, NAD HEENT: eyes are clear and none icteric LUNGS: normal respiratory effort ABD: distended Lower extremities: no edema SKIN: nonjaundiced Neuro: grossly intact. Objective Data Vital Signs Vital Signs: Vital Signs - 24 hr 05/08/22 20:36 05/09/22 01:04 05/08/22 22:26 Temperature 98.0 F Pulse Rate 76 78 75 Respiratory Rate 14 15 Blood Pressure 122/71 Pulse Oximetry 100 100 Oxygen Delivery Room Air 05/08/22 22:27 05/08/22 22:30 05/08/22 22:31 Temperature Pulse Rate 74 75 73 Respiratory Rate 15 20 15 Blood Pressure 155/78 H 139/74 Pulse Oximetry 100 99 99 Oxygen Delivery 05/08/22 22:56 05/08/22 23:00 05/08/22 23
[2022-05-09] MEDS: cefTRIAXone 2 GM in SODIUM CHLORIDE 0.9% IV 100 ML 200 ML IVPB (16:56)
[2022-05-09 18:05] LABS: Creatinine Urine 59.7 mg/dL; Total Protein Urine Random 68 mg/dL; Ur Ttl Prot Creatinine Ratio 1.14 mg/mg (0-0.20)
[2022-05-09 18:10] LABS: Sodium Urine Random 33 meq/L
[2022-05-09 19:16] LABS: Glucose Point of Care 183 mg/dl (65-105)
[2022-05-09 19:19] LABS: Albumin Level 3.6 g/dL (3.5-5.1); Anion Gap 9 mmol/L (8-16); Blood Urea Nitrogen 92 mg/dL (7-17); Calcium 11.3 mg/dL (8.4-10.2); Carbon Dioxide 35 mmol/L (22-30); Chloride 88 mmol/L (98-107); Creatine Kinase 42 U/L (30-135); Estimated CRCL calculation 10 ml/min; Estimated Glomerular Filt Rate 11; Glucose 197 mg/dL (65-110); Phosphorus 4.6 mg/dL (2.5-4.5); Potassium 3.1 mmol/L (3.4-5.0); Sodium 132 mmol/L (137-145); Uric Acid 7.2 mg/dL (2.5-7.5)
[2022-05-09 19:25] LABS: Complement C3 94 mg/dL (88-165)
[2022-05-09 19:42] LABS: Erythrocyte Sedimentation Rate 113 mm/hr (0-20)
[2022-05-09 20:42] LABS: Glucose Point of Care 219 mg/dl (65-105)
[2022-05-09] MEDS: INSULIN GLARGINE (*BKC) 100 UNITS/ML 48 UNITS SUB-Q (20:54)
[2022-05-10] VITALS (11 sets, daily range): BP systolic 125–136; BP diastolic 57–70; PULSE 67–86; RESP 16; TEMP 35.7–36.2; O2SAT 97–100; BMI 25.2
[2022-05-10] MEDS: cefTRIAXone 2 GM in SODIUM CHLORIDE 0.9% IV 100 ML 200 ML IVPB ×2 (05:53→18:30)
[2022-05-10] MEDS: LEVOTHYROXINE SODIUM 150 MCG TABLET PO (05:54)
[2022-05-10 07:05] LABS: Hematocrit 32.3 % (37.0-47.0); Hemoglobin 10.5 g/dL (12.0-15.0); Mean Corpuscular HGB Conc 32.5 g/dl (32-36); Mean Corpuscular Hemoglobin 31.4 pg (26-34); Mean Corpuscular Volume 96.7 fl (80-100); Mean Platelet Volume 11.1 fl (7.4-10.4); Platelet Count Result 132 k/mm3 (150-375); Red Blood Count 3.34 M/mm3 (4.2-5.4); White Blood Count 8.7 K/mm3 (4.5-10.0)
[2022-05-10 07:22] LABS: Albumin Level 3.3 g/dL (3.5-5.1); Anion Gap 8 mmol/L (8-16); Blood Urea Nitrogen 88 mg/dL (7-17); Calcium 10.8 mg/dL (8.4-10.2); Carbon Dioxide 27 mmol/L (22-30); Chloride 94 mmol/L (98-107); Estimated CRCL calculation 13 ml/min; Estimated Glomerular Filt Rate 15; Glucose 79 mg/dL (65-110); Magnesium 2.7 mg/dL (1.6-2.3); Phosphorus 4.5 mg/dL (2.5-4.5); Potassium 3.1 mmol/L (3.4-5.0); Sodium 129 mmol/L (137-145)
[2022-05-10 08:36] LABS: Glucose Point of Care 91 mg/dl (65-105)
[2022-05-10] MEDS: hydrALAZINE HCL 50 MG TABLET 100 MG PO ×2 (10:33→18:14)
[2022-05-10] MEDS: atenoloL 50 MG TABLET 100 MG PO ×2 (10:33→21:09)
[2022-05-10] MEDS: POTASSIUM CHLORIDE 20 MEQ PACKET (FOR LIQUID) 40 MEQ PO (10:33)
[2022-05-10] MEDS: allopurinoL 100 MG TABLET PO (10:34)
[2022-05-10 12:11] LABS: Glucose Point of Care 112 mg/dl (65-105)
--- NOTE | 2022-05-10 15:36 | PM.IMPN ---
Progress Note: A&P Assessment and Plan (1) Acute kidney injury superimposed on CKD: Code(s): N17.9 - Acute kidney failure, unspecified; N18.9 - Chronic kidney disease, unspecified Status: Acute Assessment and Plan: patient with nausea and vomiting on diuretics at home will be holding Lasix and metolazone renal ultrasound in a.m. Wang in Strict input and output nephrology consult echocardiogram in a.m. IV fluids daily BMP suspect pre renal 05/10/2022 interval history: 76-year-old female with acute on chronic kidney disease patient seen by primary care and creatinine was worsened, her serum creatinine on 03/06 was 2.9 upon arrival patient Scr was 4.8 patient being gently hydrated a creatinine is trending down currently today is 3.10. patient renal ultrasound is essentially normal, patient be seen by Nephrology and further recommendation to follow, patient denies any abdominal pain nausea or vomiting fever or chills. (2) Hypercalcemia: Code(s): E83.52 - Hypercalcemia Status: Acute Assessment and Plan: PTH in progress 1.25 D hydroxy vitamin 5 in progress urine calcium in progress receiving IV fluids measure calcium 13.5 corrected calcium for albumin is 12.2 (3) Hypothyroidism: Code(s): E03.9 - Hypothyroidism, unspecified Status: Acute Assessment and Plan: continue levothyroxine (4) Diabetes: Code(s): E11.9 - Type 2 diabetes mellitus without complications Status: Chronic Assessment and Plan: will hold of sent PICC will hold all Rubi continue Lantus post prandial (5) Gout: Code(s): M10.9 - Gout, unspecified Status: Acute Assessment and Plan: continue allopurinol (6) Nausea and vomiting: Code(s): R11.2 - Nausea with vomiting, unspecified Status: Acute Assessment and Plan: will hold Ozempic will obtain CT of abdomen and pelvis Subjective Date/time seen: 05/10/22 15:36 05/10/2022 interval history: 76-year-old female with acute on chronic kidney disease patient seen by primary care and creatinine was worsened, her serum creatinine on 03/06 was 2.9 upon arrival patient Scr was 4.8 patient being gently hydrated a creatinine is trending down currently today is 3.10. patient renal ultrasound is essentially normal, patient be seen by Nephrology and further recommendation to follow, patient denies any abdominal pain nausea or vomiting fever or chills. Review of Systems Constitutional: Constitutional: Denies chills and Denies fever(s) Exam Narrative: Patient is comfortable, NAD HEENT: eyes are clear and none icteric LUNGS: normal respiratory effort ABD: distended Lower extremities: no edema SKIN: nonjaundiced Neuro: grossly intact. Objective Data Vital Signs Vital Signs: Vital Signs - 24 hr 05/09/22 16:00 05/09/22 20:57 05/09/22 20:00 Temperature Pulse Rate 81 81 81 Respiratory Rate 17 Blood Pressure Pulse Oximetry 93 Oxygen Delivery Room Air 05/09/22 22:00 05/09/22 20:00 05/10/22 00:00 Temperature 98 F Pulse Rate 83 79 82 Respiratory Rate 18 Blood Pressure 127/54 L Pulse Oximetry 98 Oxygen Delivery 05/10/22 04:00 05/10/22 06:00 05/10/22 10:33 Temperature 97.1 F L Pulse Rate 67 69 74 Respiratory Rate 16 Blood Pressure 136/64 Pulse Oximetry 97 Oxygen Delivery 05/10/22 08:00 05/10/22 10:33 05/10/22 14:00 Temperature 96.9 F L Pulse Rate 82 Respiratory Rate 16 Blood Pressure 125/57 L 134/67 Pulse Oximetry 97 Oxygen Delivery Room Air Intake/Output Intake/Output: Intake & Output 05/07/22 05/08/22 05/09/22 05/10/22 23:59 23:59 23:59 23:59 Intake Total 2870 370 Output Total 400 1050 Balance 2470 -680 Meds/Results Medications: Active Medications Generic Name Dose Route Start Last Admin Trade Name Freq PRN Reason Stop Dose Admin Allopurinol 100 mg 05/09/22 09:00
[2022-05-10 16:34] LABS: Glucose Point of Care 179 mg/dl (65-105)
--- NOTE | 2022-05-10 17:03 | PM.PNNEP ---
Progress Note: A&P Assessment and Plan (1) Acute kidney injury superimposed on CKD: Code(s): N17.9 - Acute kidney failure, unspecified; N18.9 - Chronic kidney disease, unspecified Status: Acute Assessment and Plan: the patient has chronic kidney disease. Her baseline GFR runs around 20 and so is stage IV. Most likely this is due to diabetes and hypertension. There are other causes can do this, however. JODI was positive but ANCA, DNA, and GBM were negative in July. Repeat JODI pending Renal sonogram is normal MRI shows benign liver cyst and a markedly distended stomach. the patient has acute kidney injury. Her baseline creatinine runs around 2.3-2.9. He was generally 2.3 in till a couple of months ago when one time it was 2.9. her creatinine is improving with hydration. Still above baseline. Continue IV fluids (2) Hypercalcemia: Code(s): E83.52 - Hypercalcemia Status: Acute Assessment and Plan: Patient's calcium was high. this is improving with IV fluid. PTH is pending (3) Nausea and vomiting: Code(s): R11.2 - Nausea with vomiting, unspecified Status: Acute Assessment and Plan: Patient's symptoms are better. enlarged stomach on MRI is noted. Consider GI consult question (4) Anemia: Code(s): D64.9 - Anemia, unspecified Status: Acute Assessment and Plan: Her hemoglobin is 13 this admission. I assume this is due to dehydration as well. Her baseline hemoglobin is more between 8 and 10. This will probably drop as we hydrate. (5) Emphysema of lung: Code(s): J43.9 - Emphysema, unspecified Status: Acute Assessment and Plan: the patient should stop smoking. Subjective Date/time seen: 05/10/22 17:03 Interval history: Jillian is feeling better today. No more diarrhea. She is a little urpy but no more vomiting. Review of Systems Cardiovascular: Cardiovascular: Reports no additional cardiovascular complaints Respiratory: Respiratory: Reports no additional respiratory complaints Gastrointestinal: Gastrointestinal: Reports no additional gastrointestinal complaints Genitourinary: Genitourinary: Reports no additional female genitourinary complaints Exam Narrative: WDWN in NAD skin no rash head ncat lungs clear cor reg no rub abd BS+ nontender and soft ext no edema. Objective Data Vital Signs Vital Signs: Vital Signs - 24 hr 05/09/22 20:57 05/09/22 20:00 05/09/22 22:00 Temperature 98 F Pulse Rate 81 81 83 Respiratory Rate 17 18 Blood Pressure 127/54 L Pulse Oximetry 93 98 Oxygen Delivery Room Air 05/09/22 20:00 05/10/22 00:00 05/10/22 04:00 Temperature Pulse Rate 79 82 67 Respiratory Rate Blood Pressure Pulse Oximetry Oxygen Delivery 05/10/22 06:00 05/10/22 10:33 05/10/22 08:00 Temperature 97.1 F L Pulse Rate 69 74 Respiratory Rate 16 Blood Pressure 136/64 Pulse Oximetry 97 Oxygen Delivery Room Air 05/10/22 10:33 05/10/22 14:00 05/10/22 08:00 Temperature 96.9 F L Pulse Rate 82 71 Respiratory Rate 16 Blood Pressure 125/57 L 134/67 Pulse Oximetry 97 Oxygen Delivery Intake/Output Intake/Output: Intake & Output 05/07/22 05/08/22 05/09/22 05/10/22 23:59 23:59 23:59 23:59 Intake Total 2870 370 Output Total 400 1050 Balance 2470 -680 Meds/Results Medications: Active Medications Generic Name Dose Route Start Last Admin Trade Name Freq PRN Reason Stop Dose Admin Allopurinol 100 mg 05/09/22 09:00 05/10/22 10:34 Allopurinol 100 Mg Tablet PO 100 mg DAILY GUNNAR Administration Atenolol 100 mg 05/09/22 09:00 05/10/22 10:33 Atenolol 50 Mg Tablet PO 100 mg Q12HR GUNNAR Administration Dextrose 12.5 gm 05/09/22 18:07 Dextrose 50% 25 Gm/50 Ml Syringe IV PUSH PRN PRN Hypoglycemia Protocol Glucagon 1 mg 05/09/22 18:07
[2022-05-10] MEDS: PANTOPRAZOLE SODIUM IV 40 MG VIAL IV PUSH (18:16)
[2022-05-10] MEDS: INSULIN GLARGINE (*BKC) 100 UNITS/ML 48 UNITS SUB-Q (21:12)
[2022-05-10 21:19] LABS: Glucose Point of Care 137 mg/dl (65-105)
[2022-05-11] VITALS (8 sets, daily range): BP systolic 129–145; BP diastolic 57–70; PULSE 64–88; RESP 16–20; TEMP 35.8–36.7; O2SAT 99–100
[2022-05-11] MEDS: cefTRIAXone 2 GM in SODIUM CHLORIDE 0.9% IV 100 ML 200 ML IVPB ×2 (06:15→17:32)
[2022-05-11] MEDS: LEVOTHYROXINE SODIUM 150 MCG TABLET PO (06:15)
[2022-05-11 07:50] LABS: Hematocrit 31.6 % (37.0-47.0); Hemoglobin 10.2 g/dL (12.0-15.0); Mean Corpuscular HGB Conc 32.3 g/dl (32-36); Mean Corpuscular Hemoglobin 30.6 pg (26-34); Mean Corpuscular Volume 94.9 fl (80-100); Mean Platelet Volume 10.8 fl (7.4-10.4); Platelet Count Result 128 k/mm3 (150-375); Red Blood Count 3.33 M/mm3 (4.2-5.4); Red Cell Distribution Width 13.8 % (11.5-14.5)
[2022-05-11 08:13] LABS: Albumin Level 3.4 g/dL (3.5-5.1); Anion Gap 7 mmol/L (8-16); Blood Urea Nitrogen 70 mg/dL (7-17); Calcium 10.6 mg/dL (8.4-10.2); Carbon Dioxide 27 mmol/L (22-30); Chloride 98 mmol/L (98-107); Estimated CRCL calculation 14 ml/min; Estimated Glomerular Filt Rate 17; Glucose 57 mg/dL (65-110); Magnesium 2.3 mg/dL (1.6-2.3); Phosphorus 3.7 mg/dL (2.5-4.5); Sodium 132 mmol/L (137-145)
[2022-05-11] MEDS: GLUCOSE ORAL GEL 15 GM OF GLUCSE IN 37.5 GM TUBE PO (08:17)
[2022-05-11 09:01] LABS: Glucose Point of Care 69 mg/dl (65-105)
[2022-05-11] MEDS: atenoloL 50 MG TABLET 100 MG PO (09:53)
[2022-05-11] MEDS: hydrALAZINE HCL 50 MG TABLET 100 MG PO ×3 (09:53→17:34)
[2022-05-11] MEDS: allopurinoL 100 MG TABLET PO (09:53)
[2022-05-11] MEDS: PANTOPRAZOLE SODIUM IV 40 MG VIAL IV PUSH (09:53)
[2022-05-11 10:28] LABS: Glucose Point of Care 89 mg/dl (65-105)
--- NOTE | 2022-05-11 11:28 | PM.PNNEP ---
Progress Note: A&P Assessment and Plan (1) Acute kidney injury superimposed on CKD: Code(s): N17.9 - Acute kidney failure, unspecified; N18.9 - Chronic kidney disease, unspecified Status: Acute Assessment and Plan: the patient has chronic kidney disease. Her baseline GFR runs around 20 and so is stage IV. Most likely this is due to diabetes and hypertension. There are other causes can do this, however. JODI was positive but ANCA, DNA, and GBM were negative in July. Repeat JODI pending immunofixation are pending Renal sonogram is normal the patient has acute kidney injury. Her baseline creatinine runs around 2.3-2.9. the creatinine continues to improve slowly. Today it is 2.8 her creatinine is improving with hydration. Still above baseline. In light of her GI workup, will continue IV fluids. (2) Hypercalcemia: Code(s): E83.52 - Hypercalcemia Status: Acute Assessment and Plan: Patient's calcium was high. this is improving with IV fluid but is still high PTH is still pending (3) Nausea and vomiting: Code(s): R11.2 - Nausea with vomiting, unspecified Status: Acute Assessment and Plan: Patient's symptoms are better. enlarged stomach on MRI is noted. the upper GI with small-bowel follow-through shows a significant amount of contrast still in the stomach at 2 hours. (4) Anemia: Code(s): D64.9 - Anemia, unspecified Status: Acute Assessment and Plan: Her hemoglobin is 13 this admission. I assume this is due to dehydration as well. Her baseline hemoglobin is more between 8 and 10. Today the hemoglobin is 10.2 (5) Emphysema of lung: Code(s): J43.9 - Emphysema, unspecified Status: Acute Assessment and Plan: the patient should stop smoking. Subjective Date/time seen: 05/11/22 11:28 Interval history: Jillian is feeling better today. No more diarrhea. She is a little urpy but no more vomiting. 05/11 Oziel is feeling okay. Still a little bit of indigestion. Exam Narrative: WDWN in NAD skin no rash head ncat lungs clear bilaterally cor reg no rub abd BS+ nontender and soft ext no edema. Objective Data Vital Signs Vital Signs: Vital Signs - 24 hr 05/10/22 14:00 05/10/22 12:00 05/10/22 16:00 Temperature 96.9 F L Pulse Rate 82 76 82 Respiratory Rate 16 Blood Pressure 134/67 Pulse Oximetry 97 Oxygen Delivery 05/10/22 21:09 05/10/22 22:00 05/10/22 20:00 Temperature 96.3 F L Pulse Rate 86 83 Respiratory Rate 16 Blood Pressure 129/70 Pulse Oximetry 100 Oxygen Delivery Room Air 05/10/22 20:00 05/11/22 00:00 05/11/22 04:00 Temperature Pulse Rate 85 83 73 Respiratory Rate Blood Pressure Pulse Oximetry Oxygen Delivery 05/11/22 06:00 05/11/22 09:53 Temperature 98.1 F Pulse Rate 76 64 Respiratory Rate 16 Blood Pressure 129/57 L Pulse Oximetry 99 Oxygen Delivery Intake/Output Intake/Output: Intake & Output 05/08/22 05/09/22 05/10/22 05/11/22 23:59 23:59 23:59 23:59 Intake Total 2870 720 300 Output Total 400 1050 950 Balance 6164 -523 -298 Meds/Results Medications: Active Medications Generic Name Dose Route Start Last Admin Trade Name Freq PRN Reason Stop Dose Admin Allopurinol 100 mg 05/09/22 09:00 05/11/22 09:53 Allopurinol 100 Mg Tablet PO 100 mg DAILY GUNNAR Administration Atenolol 100 mg 05/09/22 09:00 05/11/22 09:53 Atenolol 50 Mg Tablet PO 100 mg Q12HR GUNNAR Administration Dextrose 12.5 gm 05/09/22 18:07 Dextrose 50% 25 Gm/50 Ml Syringe IV PUSH PRN PRN Hypoglycemia Protocol Glucagon 1 mg 05/09/22 18:07 Glucagon For Inj 1 Mg Vial IM PRN PRN Hypoglycemia Protocol Glucose 15 gm 05/09/22 18:07 05/11/22 08:17 Glucose Oral Gel 15 Gm Of Glucse In 37.5 Gm Tube PO 15 gm PRN PRN Administratio
[2022-05-11 12:23] LABS: Glucose Point of Care 115 mg/dl (65-105)
[2022-05-11 16:20] LABS: Glucose Point of Care 154 mg/dl (65-105)
--- NOTE | 2022-05-11 16:33 | PM.DS ---
DS: Admitting Diagnosis Discharge Date 05/11/2022 Admitting Diagnosis 76-year-old female with acute on chronic kidney disease patient seen by primary care and creatinine was worsened,? her serum creatinine on 03/06 was 2.9? upon arrival patient Scr was 4.8? patient being gently hydrated a creatinine is trending down currently today is 3.10.? patient renal ultrasound is essentially normal,? patient be seen by Nephrology and further recommendation to follow, patient denies any abdominal pain nausea or vomiting fever or chills. DS: Discharge Diagnosis Discharge Diagnosis (1) Acute kidney injury superimposed on CKD: Code(s): N17.9 - Acute kidney failure, unspecified; N18.9 - Chronic kidney disease, unspecified Status: Acute Assessment and Plan: patient with nausea and vomiting on diuretics at home will be holding Lasix and metolazone renal ultrasound in a.m. Wang in Strict input and output nephrology consult echocardiogram in a.m. IV fluids daily BMP suspect pre renal 05/10/2022 interval history: 76-year-old female with acute on chronic kidney disease patient seen by primary care and creatinine was worsened, her serum creatinine on 03/06 was 2.9 upon arrival patient Scr was 4.8 patient being gently hydrated a creatinine is trending down currently today is 3.10. patient renal ultrasound is essentially normal, patient be seen by Nephrology and further recommendation to follow, patient denies any abdominal pain nausea or vomiting fever or chills. (2) Hypercalcemia: Code(s): E83.52 - Hypercalcemia Status: Acute Assessment and Plan: PTH in progress 1.25 D hydroxy vitamin 5 in progress urine calcium in progress receiving IV fluids measure calcium 13.5 corrected calcium for albumin is 12.2 (3) Hypothyroidism: Code(s): E03.9 - Hypothyroidism, unspecified Status: Acute Assessment and Plan: continue levothyroxine (4) Diabetes: Code(s): E11.9 - Type 2 diabetes mellitus without complications Status: Chronic Assessment and Plan: will hold of sent PICC will hold all Rubi continue Lantus post prandial (5) Gout: Code(s): M10.9 - Gout, unspecified Status: Acute Assessment and Plan: continue allopurinol (6) Nausea and vomiting: Code(s): R11.2 - Nausea with vomiting, unspecified Status: Acute Assessment and Plan: will hold Ozempic will obtain CT of abdomen and pelvis DS: Summary Hospital Course Reason for hospitalization: ?abnormal lab work Narrative: ?This is a 76-year-old female with past medical history significant for chronic kidney disease, hypertension, insulin-dependent diabetes mellitus, hypothyroidism, dyslipidemia. patient was sent to the emergency room after lab work from the doctor's office came back abnormal patient had been in to visit? her primary care physician after having several days of nausea and vomiting with constipation denies any body aches and pains denies fevers, rigors, chills. preliminary workup was significant basic metabolic profile creatinine of 4.8, BUN 99, sodium 129, bicarb 38, chloride 80 potassium 3, calcium 13 phosphorus 6.5, magnesium 3.3 CBC showed a WBC count of 14,000? urinalysis showed 10-15 WBCs present. ? A chest x-ray was reported as: IMPRESSION: Pulmonary opacities may represent bronchiolitis, as can be seen with atypical infection, asthma, aspiration, and small airways disease. Hospital Course: 76-year-old female with acute on chronic kidney disease patient seen by primary care and creatinine was worsened,? her serum creatinine on 03/06 was 2.9? upon arrival patient Scr was 4.8? patient being gently hydrated a creatinine is trending down currently today is 3.10.? patient renal ultrasound is essentially normal,? patient be seen by Nephrology and further recommendation to follow, patient denies any abdominal pain nausea or vomiting fever or chills. jaguar
[2022-05-13 15:45] LABS: Calcium/Creatinine Ratio, Ur 43 mg/g creat (10-320); Urine Calcium, Random 2.7 mg/dL (***)
[2022-05-13 22:32] LABS: Vitamin D 1,25 (OH)2 Total 12 pg/mL (18-72); Vitamin D2 1,25 (OH)2 <8 pg/mL; Vitamin D3 1,25 (OH)2 12 pg/mL
[2022-05-15 18:54] LABS: Complement Total CH50 55 U/mL (31-60)
[2022-05-16 09:39] LABS: Kappa\\Lambda Light Chains 2.54 (0.26-1.65); Lambda Light Chain 50.9 mg/L (5.7-26.3)
--- NOTE | 2022-05-27 12:15 | PC.NURSE ---
Mónica, Radiographer Mammographer, called patient today about home medication (Ondansetron) that was left here. Patient stated to throw away.
== END 2022-05-11 19:05 | disposition home or self-care (01) | DRG 683 ==
LOC: ANHED 22:24 → ANH3MEDSUR 05-09 01:40
PROVIDERS: Internal Medicine Nephrology; Physician Assistant; Admitting Provider Internal Medicine; Emergency Provider Emergency Medicine; PCP Nurse Practitioner Adult Health; Visit Provider Family Medicine
DX: N17.9 Acute kidney failure, unspecified (principal); I13.2 Hypertensive heart and chronic kidney disease with heart failure and with stage 5 chronic kidney disease, or end stage renal disease; F17.210 Nicotine dependence, cigarettes, uncomplicated; D63.1 Anemia in chronic kidney disease; E78.00 Pure hypercholesterolemia, unspecified; E11.22 Type 2 diabetes mellitus with diabetic chronic kidney disease; E03.9 Hypothyroidism, unspecified; L40.9 Psoriasis, unspecified; L40.50 Arthropathic psoriasis, unspecified; I50.9 Heart failure, unspecified; J43.9 Emphysema, unspecified; N18.5 Chronic kidney disease, stage 5; N20.0 Calculus of kidney; M19.90 Unspecified osteoarthritis, unspecified site; M10.9 Gout, unspecified; Z85.3 Personal history of malignant neoplasm of breast; Z90.49 Acquired absence of other specified parts of digestive tract; Z96.659 Presence of unspecified artificial knee joint; Z79.4 Long term (current) use of insulin; Z20.822 Contact with and (suspected) exposure to COVID-19
CPT/HCPCS: 36415; 51702; 71046; 74176; 74183; 74250; 76775; 80048; 80053; 80069; 81001; 82310; 82550; 82570; 82652; 82948; 83690; 83735; 83883; 83970; 84075; 84100; 84156; 84300; 84550; 85025; 85027; 85652; 86038; 86160; 86162; 86334; 86335; 87086; 87636; 93005; 93306; 96365; 96375; 99285; A9270; A9577; C9113; G0378; J0456; J0696; J1815; J7030

== ENCOUNTER 2022-07-18 14:51 | Outpatient (CLI) | payer MEDICARE, BC, SELFPAY ==
[2022-07-18 15:18] LABS: Albumin Level 4.2 g/dL (3.5-5.1); Anion Gap 7 mmol/L (8-16); Blood Urea Nitrogen 53 mg/dL (7-17); Calcium 9.7 mg/dL (8.4-10.2); Carbon Dioxide 32 mmol/L (22-30); Chloride 98 mmol/L (98-107); Estimated Glomerular Filt Rate 15; Glucose 253 mg/dL (65-110); Phosphorus 5.5 mg/dL (2.5-4.5); Potassium 3.6 mmol/L (3.4-5.0); Sodium 137 mmol/L (137-145); Uric Acid 5.8 mg/dL (2.5-7.5)
[2022-07-18 15:54] LABS: Creatinine Urine 80.1 mg/dL; Total Protein Urine Random 162 mg/dL; Ur Ttl Prot Creatinine Ratio 2.02 mg/mg (0-0.20)
== END 2022-07-18 14:52 | disposition home or self-care (01) ==
PROVIDERS: PCP Family Medicine; Visit Provider Internal Medicine Nephrology
DX: E11.22 Type 2 diabetes mellitus with diabetic chronic kidney disease (principal); E79.0 Hyperuricemia without signs of inflammatory arthritis and tophaceous disease; I12.9 Hypertensive chronic kidney disease with stage 1 through stage 4 chronic kidney disease, or unspecified chronic kidney disease; N18.4 Chronic kidney disease, stage 4 (severe)
CPT/HCPCS: 36415; 80069; 82570; 84156; 84550

== ENCOUNTER 2022-09-26 15:59 | Outpatient (CLI) | payer MEDICARE, BC, SELFPAY ==
[2022-09-26 17:02] LABS: Albumin Level 4.2 g/dL (3.5-5.1); Anion Gap 8 mmol/L (8-16); Blood Urea Nitrogen 65 mg/dL (7-17); Calcium 10.6 mg/dL (8.4-10.2); Carbon Dioxide 34 mmol/L (22-30); Chloride 91 mmol/L (98-107); Estimated Glomerular Filt Rate 16; Glucose 223 mg/dL (65-110); Potassium 3.5 mmol/L (3.4-5.0); Sodium 133 mmol/L (137-145)
== END 2022-09-26 16:00 | disposition home or self-care (01) ==
LOC: ANHLAB 16:02
PROVIDERS: PCP Family Medicine; Visit Provider Internal Medicine Nephrology
DX: N18.4 Chronic kidney disease, stage 4 (severe) (principal)
CPT/HCPCS: 36415; 80069

== ENCOUNTER 2022-11-28 14:04 | Outpatient (CLI) | payer MEDICARE, BC, SELFPAY ==
[2022-11-28 15:17] LABS: Albumin Level 3.8 g/dL (3.5-5.1); Anion Gap 6 mmol/L (8-16); Blood Urea Nitrogen 45 mg/dL (7-17); Calcium 10.1 mg/dL (8.4-10.2); Carbon Dioxide 33 mmol/L (22-30); Chloride 99 mmol/L (98-107); Estimated Glomerular Filt Rate 16; Glucose 147 mg/dL (65-110); Phosphorus 4.3 mg/dL (2.5-4.5); Sodium 138 mmol/L (137-145)
[2022-11-28 15:27] LABS: Parathyroid Intact 15.5 pg/mL (7.5-53.5)
[2022-11-28 15:27] LABS: Creatinine Urine 66.8 mg/dL; Total Protein Urine Random 125 mg/dL; Ur Ttl Prot Creatinine Ratio 1.87 mg/mg (0-0.20)
[2022-11-28 15:37] LABS: Vitamin D 25 Hydroxy 79.4 ng/mL
== END 2022-11-28 14:05 | disposition home or self-care (01) ==
LOC: ANHASCLAB 14:10
PROVIDERS: PCP Family Medicine; Visit Provider Internal Medicine Nephrology
DX: I12.9 Hypertensive chronic kidney disease with stage 1 through stage 4 chronic kidney disease, or unspecified chronic kidney disease (principal); N18.4 Chronic kidney disease, stage 4 (severe); N25.81 Secondary hyperparathyroidism of renal origin; E55.9 Vitamin D deficiency, unspecified
CPT/HCPCS: 36415; 80069; 82306; 82570; 83970; 84156

== ENCOUNTER 2023-04-09 09:57 | Outpatient (CLI) | payer MEDICARE, BC, SELFPAY ==
[2023-04-09 10:26] LABS: Albumin Level 4.2 g/dL (3.5-5.1); Anion Gap 10 mmol/L (8-16); Blood Urea Nitrogen 39 mg/dL (7-17); Calcium 10.8 mg/dL (8.4-10.2); Carbon Dioxide 24 mmol/L (22-30); Chloride 103 mmol/L (98-107); Estimated Glomerular Filt Rate 15; Glucose 128 mg/dL (65-110); Phosphorus 4.6 mg/dL (2.5-4.5); Potassium 3.9 mmol/L (3.4-5.0); Sodium 137 mmol/L (137-145)
[2023-04-09 10:52] LABS: Creatinine Urine 39.2 mg/dL; Total Protein Urine Random 70 mg/dL; Ur Ttl Prot Creatinine Ratio 1.79 mg/mg (0-0.20)
== END 2023-04-09 09:58 | disposition home or self-care (01) ==
LOC: ANHLAB 09:59
PROVIDERS: PCP Family Medicine; Visit Provider Internal Medicine Nephrology
DX: I12.9 Hypertensive chronic kidney disease with stage 1 through stage 4 chronic kidney disease, or unspecified chronic kidney disease (principal); N18.4 Chronic kidney disease, stage 4 (severe); E11.22 Type 2 diabetes mellitus with diabetic chronic kidney disease
CPT/HCPCS: 36415; 80069; 82570; 84156

== ENCOUNTER 2023-05-06 15:26 | Outpatient (CLI) | payer MEDICARE, BC, SELFPAY ==
--- NOTE | ~2023-05-06 | US_ITS ---
EXAMINATION: US carotid duplex BI DATE: 05/06/2023 16:42 INDICATION: Other specified symptoms involving the circulatory and respiratory system. Carotid athero sclerosis. TECHNIQUE: Grayscale, color Doppler, and pulsed Doppler images of the cervical carotid arteries were obtained. The degree of vessel stenosis is placed in one of the following categories: normal, <50%, 5 0-69%, >=70% but less than near-occlusion, near-occlusion, or total occlusion. Note that percent sten osis relative to normal distal artery lumen diameter is indirectly measured from velocity measurement s as described by Dylan, et al. Radiology 2003; 229:340-346. COMPARISON: None. FINDINGS: RIGHT: The right common carotid artery (CCA) peak systolic velocity (PSV) is 51 cm/s. The right internal car otid artery (ICA) PSV is 82 cm/s. The right ICA end-diastolic velocity (EDV) is 25 cm/s. The right IC A/CCA PSV ratio is 1.6. Grayscale and color Doppler images yield an estimate of <50% diameter reducti on from plaque in the ICA. The external carotid artery (ECA) PSV is 114 cm/s. There is antegrade flow in the right vertebral artery. LEFT: The left CCA PSV is 66 cm/s. The left ICA PSV is 93 cm/s. The left ICA EDV is 29 cm/s. The left ICA/C CA PSV ratio is 1.4. Grayscale and color Doppler images yield an estimate of <50% diameter reduction from plaque in the ICA. The ECA PSV is 96 cm/s. There is antegrade flow in the left vertebral artery. Notes: normal: PSV<125 and no plaque <50%: PSV<125 (EDV<40;ICA/CCA PSV ratio<2.0; use these factors only if tandem lesions or low cardiac output or contralateral disease) 50-69%: PSV 125-230 (EDV 40-100;ratio 2.0-4.0) >=70% but less than near occlusion: PSV>230(EDV>100;ratio>4.0) near-occlusion: PSV variable; markedly narrowed lumen occlusion: absent flow on color/spectral Doppler and no lumen on grayscale IMPRESSION: 1. stenosis in the right internal carotid artery. 2. stenosis in the left internal carotid artery. Reviewed, dictated and finalized at location A. T WORKER
== END 2023-05-06 15:27 | disposition home or self-care (01) ==
PROVIDERS: PCP Family Medicine; Visit Provider Family Medicine
DX: I65.23 Occlusion and stenosis of bilateral carotid arteries (principal)
CPT/HCPCS: 93880

== ENCOUNTER 2023-09-20 11:51 | Emergency (ER) | payer MEDICARE, BC, SELFPAY ==
--- NOTE | ~2023-09-20 | XR_ITS ---
XR hand RT min 3V, XR wrist RT min 3V 09/20/2023 12:16 Indication: Right hand and wrist swelling for 3 days Procedure: 3 views right hand and 4 views right wrist Comparison: No prior studies for comparison. Findings: There is severe polyarticular osteoarthritis. No fracture or traumatic malalignment. There is osteopenia. No foreign bodies. Impression: 1: Severe polyarticular osteoarthritis. Reviewed, dictated and finalized at location A. Impression: 1: Severe polyarticular osteoarthritis. Impression: 1: Severe polyarticular osteoarthritis.
[2023-09-20 12:02] VITALS: BP 190/90; PULSE 85; RESP 16; TEMP 36.7; O2SAT 100
[2023-09-20] MEDS: predniSONE 20 MG TABLET 40 MG PO (12:12)
--- NOTE | 2023-09-20 12:36 | ED.GENADULT ---
HPI - General Adult General Chief complaint: Extremity Injury, Upper Stated complaint: hand swelling Time Seen by Provider: 09/20/23 12:00 History of Present Illness HPI narrative: Patient with history of bad arthritis not on medications due to her CKD presents here with right wrist swelling and pain, feels similar to her prior flare up, no fevers or chills, no nausea vomiting, worse with movement of the left wrist. Related Data Home Medications Medication Instructions Recorded Confirmed apremilast 30 mg tablet (Otezla) 30 mg PO BID 07/25/21 04/17/23 atenolol 100 mg tablet 100 mg PO BID 07/25/21 04/17/23 hydralazine 100 mg tablet 100 mg PO TID 07/25/21 04/17/23 icosapent ethyl 1 gram capsule 1 g PO BID 07/25/21 04/17/23 insulin glargine 100 unit/mL (3 48 unit subcut HS 07/25/21 04/17/23 mL) subcutaneous pen (Basaglar KwikPen U-100 Insulin) potassium chloride 10 mEq 10 meq PO DAILY 07/25/21 04/17/23 tablet,extended release(part/cryst) simvastatin 40 mg tablet 40 mg PO HS 07/25/21 04/17/23 levothyroxine 175 mcg tablet 150 mcg PO DAILY@0630 05/09/22 04/17/23 (Synthroid) furosemide 40 mg tablet 40 mg PO QAM 07/24/22 04/17/23 semaglutide 0.25 mg or 0.5 mg (2 1 mg subcut WEEKLY 04/17/23 04/17/23 mg/1.5 mL) subcutaneous pen injector (Ozempic) Allergies Allergy/AdvReac Type Severity Reaction Status Date / Time povidone-iodine Allergy Intermediate HIVES Verified 04/17/23 09:39 soap Allergy Intermediate HIVES Verified 04/17/23 09:39 Review of Systems Review of Systems: All systems reviewed & are unremarkable except as noted in HPI and below PMFSH Past Medical History Medical History Diabetes Emphysema of lung Gout HTN (hypertension) Hypercholesterolemia Hypothyroidism Obesity Osteoarthritis Psoriasis Psoriatic arthritis (~2009) Surgical History Surgical History H/O left mastectomy History of knee replacement Hx of cholecystectomy Family History Family History Father Lung cancer Mother Ovarian cancer Social History Social History (Updated 07/24/22 @ 11:18 by Martha Huddleston MA) Smoking packs per day: 1 Smoking cigarettes per day: 20.0 Years smoked: 35 Smoking pack-years: 35.00 Smoking status: Current every day smoker Tobacco type: cigarettes Alcohol intake: never Substance use: never Substance use type: does not use Lack of Transportation: No Lack of Food: Never True Current Housing: I Have Housing Concerned About Future Housing: No Difficulty Paying Gas/Electric Bills: No Difficulty Paying for Meds: No Currently Unemployed: No Education: Associate Degree Difficulty w/ Childcare or Family Care: No Living arrangements: alone Gender identity (if verbalized by the patient): Female Spiritual care concerns: No Exam Narrative: EXAMINATION OF ORGAN SYSTEMS/BODY AREAS: Constitutional: Vital signs per nursing GENERAL:[No acute distress, non-toxic appearing.] HEAD: Normal with no signs of head trauma. EYES: EOMI, conjunctiva normal ENT: Hearing grossly intact LUNGS: Nonlabored breathing. HEART: [Regular rate and rhythm], normal radial pulses ABD: [Soft], [nontender to palpation] EXT: Some mild tenderness and swelling to the left wrist, painless passive range of motion SKIN: [No rashes or lesions; no overlying redness/swelling.] NEURO: [Alert and oriented x 3. No gross focal sensory or strength deficits.] PSYCH: Normal affect Course Vital Signs Vital signs: Vital Signs Temperature 98.0 F 09/20/23 12:02 Pulse Rate 85 09/20/23 12:02 Respiratory Rate 16 09/20/23 12:02 Pulse Oximetry 100 09/20/23 12:02 Oxygen Delivery Room Air 09/20/23 12:02 Temperature 98.0 F 09/20/23 12:02 Pulse Rate 85 09/20/23 12:02 Respiratory Rate 16 09/20/23 12:02
[2023-09-20 12:43] VITALS: BP 188/98; PULSE 88; RESP 16; TEMP 36.6; O2SAT 100
== END 2023-09-20 12:46 | disposition home or self-care (01) ==
PROVIDERS: Emergency Provider Emergency Medicine; PCP Family Medicine
DX: M19.032 Primary osteoarthritis, left wrist (principal); M79.642 Pain in left hand; E11.22 Type 2 diabetes mellitus with diabetic chronic kidney disease; I12.9 Hypertensive chronic kidney disease with stage 1 through stage 4 chronic kidney disease, or unspecified chronic kidney disease; N18.9 Chronic kidney disease, unspecified; J43.9 Emphysema, unspecified; E78.00 Pure hypercholesterolemia, unspecified; E03.9 Hypothyroidism, unspecified; E66.9 Obesity, unspecified; Z68.24 Body mass index [BMI] 24.0-24.9, adult; L40.50 Arthropathic psoriasis, unspecified; F17.210 Nicotine dependence, cigarettes, uncomplicated; Z96.659 Presence of unspecified artificial knee joint; Z90.12 Acquired absence of left breast and nipple; Z90.49 Acquired absence of other specified parts of digestive tract; Z79.4 Long term (current) use of insulin; Z79.85 Long-term (current) use of injectable non-insulin antidiabetic drugs
CPT/HCPCS: 73110; 73130; 99283; J7512

== ENCOUNTER 2023-10-09 14:04 | Outpatient (CLI) | payer MEDICARE, BC, SELFPAY ==
[2023-10-09 14:53] LABS: Albumin Level 4.2 g/dL (3.5-5.1); Anion Gap 9 mmol/L (4-12); Blood Urea Nitrogen 48 mg/dL (7-17); Carbon Dioxide 22 mmol/L (22-30); Chloride 105 mmol/L (98-107); Estimated Glomerular Filt Rate 14; Glucose 87 mg/dL (65-110); Phosphorus 4.7 mg/dL (2.5-4.5); Potassium 4.1 mmol/L (3.4-5.0); Sodium 136 mmol/L (137-145)
[2023-10-09 15:03] LABS: Creatinine Urine 37.5 mg/dL; Total Protein Urine Random 59 mg/dL; Ur Ttl Prot Creatinine Ratio 1.57 mg/mg (0-0.20)
[2023-10-09 15:05] LABS: Parathyroid Intact 18.9 pg/mL (7.5-53.5)
== END 2023-10-09 14:05 | disposition home or self-care (01) ==
LOC: ANHLAB 14:09
PROVIDERS: Visit Provider Internal Medicine Nephrology
DX: E11.22 Type 2 diabetes mellitus with diabetic chronic kidney disease (principal); E55.9 Vitamin D deficiency, unspecified; I12.9 Hypertensive chronic kidney disease with stage 1 through stage 4 chronic kidney disease, or unspecified chronic kidney disease; N18.4 Chronic kidney disease, stage 4 (severe); N25.81 Secondary hyperparathyroidism of renal origin
CPT/HCPCS: 36415; 80069; 82306; 82570; 83970; 84156

== ENCOUNTER 2024-01-15 11:39 | Outpatient (CLI) | payer MEDICARE, BC, SELFPAY ==
[2024-01-15 11:58] LABS: Basophils Percent Auto 0.3 % (0.2-1.2); Eosinophils Absolute Auto 0.2 K/mm3 (0-0.3); Eosinophils Percent Auto 1.8 % (0-4.4); Immature Granulocyte Absolute 0.02 K/mm3 (0.00-0.031); Immature Granulocyte Percent A 0.2 % (0-0.5); Lymphocytes Absolute Auto 2.88 K/mm3 (0.9-3.2); Lymphocytes Percent Auto 29.4 % (18.3-44.2); Mean Corpuscular HGB Conc 31.4 g/dl (32-36); Mean Corpuscular Hemoglobin 30.4 pg (26-34); Mean Corpuscular Volume 96.7 fl (80-100); Mean Platelet Volume 10.5 fl (7.4-10.4); Monocytes Absolute Auto 0.7 K/mm3 (0.1-0.6); Monocytes Percent Auto 6.9 % (2.6-8.5); Neutrophils Percent Auto 61.4 % (45.5-73.1); Platelet Count Result 133 k/mm3 (150-375); Red Blood Count 3.62 M/mm3 (4.2-5.4); Red Cell Distribution Width 14.3 % (11.5-14.5); White Blood Count 9.8 K/mm3 (4.5-10.0)
[2024-01-15 12:13] LABS: Alanine Aminotransferase 17 U/L (6-35); Alkaline Phosphatase 81 U/L (38-126); Anion Gap 11 mmol/L (4-12); Aspartate Amino Transferase 28 U/L (14-36); Bilirubin,Total 0.3 mg/dL (0.2-1.3); Blood Urea Nitrogen 44 mg/dL (7-17); Calcium 9.9 mg/dL (8.4-10.2); Carbon Dioxide 26 mmol/L (22-30); Chloride 101 mmol/L (98-107); Cholesterol 116 mg/dL (0-200); Creatine Kinase 30 U/L (30-135); Estimated Glomerular Filt Rate 14; Glucose 101 mg/dL (65-110); HDL Direct 39 mg/dL; Sodium 138 mmol/L (137-145); Triglycerides 106 mg/dL (<150)
[2024-01-15 12:24] LABS: LDL Cholesterol Direct 43 mg/dL
[2024-01-15 12:42] LABS: Thyroid Stimulating Hormone < 0.015 uIU/mL (0.465-4.680)
== END 2024-01-15 11:40 | disposition home or self-care (01) ==
LOC: ANHLAB 11:44
PROVIDERS: PCP Physician Assistant; Referring Provider Internal Medicine Nephrology; Visit Provider Physician Assistant
DX: E78.5 Hyperlipidemia, unspecified (principal)
CPT/HCPCS: 36415; 80053; 80061; 82550; 84443; 85025

== ENCOUNTER 2024-02-04 09:00 | Outpatient (CLI) | payer MEDICARE, BC, SELFPAY ==
[2024-02-04 09:46] LABS: Albumin Level 4.3 g/dL (3.5-5.1); Anion Gap 11 mmol/L (4-12); Blood Urea Nitrogen 57 mg/dL (7-17); Calcium 9.8 mg/dL (8.4-10.2); Carbon Dioxide 27 mmol/L (22-30); Chloride 98 mmol/L (98-107); Estimated Glomerular Filt Rate 14; Glucose 133 mg/dL (65-110); Phosphorus 5.4 mg/dL (2.5-4.5); Potassium 4.4 mmol/L (3.4-5.0); Sodium 136 mmol/L (137-145)
[2024-02-04 09:51] LABS: Total Protein Urine Random 64 mg/dL; Ur Ttl Prot Creatinine Ratio 1.88 mg/mg (0-0.20)
== END 2024-02-04 09:01 | disposition home or self-care (01) ==
LOC: ANHLAB 09:05
PROVIDERS: PCP Physician Assistant; Visit Provider Internal Medicine Nephrology
DX: E11.22 Type 2 diabetes mellitus with diabetic chronic kidney disease (principal); I12.9 Hypertensive chronic kidney disease with stage 1 through stage 4 chronic kidney disease, or unspecified chronic kidney disease; N18.4 Chronic kidney disease, stage 4 (severe)
CPT/HCPCS: 36415; 80069; 82570; 84156

== ENCOUNTER 2024-06-16 13:25 | Outpatient (CLI) | payer MEDICARE, BC, SELFPAY ==
[2024-06-16 14:36] LABS: Anion Gap 8 mmol/L (4-12); Blood Urea Nitrogen 51 mg/dL (7-17); Calcium 9.8 mg/dL (8.4-10.2); Carbon Dioxide 25 mmol/L (22-30); Chloride 104 mmol/L (98-107); Estimated Glomerular Filt Rate 14; Glucose 109 mg/dL (65-110); Phosphorus 4.8 mg/dL (2.5-4.5); Potassium 4.3 mmol/L (3.4-5.0); Sodium 137 mmol/L (137-145)
[2024-06-16 15:28] LABS: Vitamin D 25 Hydroxy > 126.0 ng/mL
[2024-06-16 15:51] LABS: Creatinine Urine 42.7 mg/dL; Total Protein Urine Random 89 mg/dL; Ur Ttl Prot Creatinine Ratio 2.08 mg/mg (0-0.20)
== END 2024-06-16 13:26 | disposition home or self-care (01) ==
PROVIDERS: PCP Physician Assistant; Visit Provider Internal Medicine Nephrology
DX: E11.22 Type 2 diabetes mellitus with diabetic chronic kidney disease (principal); I12.9 Hypertensive chronic kidney disease with stage 1 through stage 4 chronic kidney disease, or unspecified chronic kidney disease; N18.4 Chronic kidney disease, stage 4 (severe); N25.81 Secondary hyperparathyroidism of renal origin; E55.9 Vitamin D deficiency, unspecified
CPT/HCPCS: 36415; 80069; 82306; 82570; 83970; 84156

== ENCOUNTER 2024-10-15 14:22 | Outpatient (CLI) | payer MEDICARE, BC, SELFPAY ==
--- OUTSIDE RECORDS SUMMARY | 2024-10-15 14:32 | XMS_ITS | Clinical Summary ---
Author Organization [facility] Address [address] [place] [address] Phone Care Team Providers Care Gig Tender Name Role Phone Jil Lawler MD Primary Care Provider [phone] Allergies Active Allergy Reactions Criticality Noted Date Comments Povidone-Iodine Rash Low 01/01/2011 Medications allopurinol (ZYLOPRIM) 300 mg Oral tablet Take 300 mg by mouth daily. Active Niacin-Simvastat in (SIMCOR) 500-20 mg Oral TM24 Take by mouth. Active fenofibric acid (TRILIPIX) 135 mg Oral CpDR Take 135 mg by mouth daily. Active citalopram (CELEXA) 20 mg Oral tablet Take 20 mg by mouth daily at bedtime. Active MELOXICAM ORAL Take by mouth. Active buPROPion XL 24 hour (WELLBUTRIN XL) 300 mg Oral tablet Take 300 mg by mouth daily early childhood associate. Active aspirin (BROCK) 81 mg Oral Tab Take by mouth. Active Cholecalciferol, Vitamin D3, (VITAMIN D) 2,000 unit Oral Cap Take by mouth. Active CALCIUM CITRATE (CITRACAL ORAL) Take by mouth. 630 mg Active ascorbic acid (VITAMIN C) 500 mg Oral tablet Take 500 mg by mouth daily. Active Multivit-Mineral -Iron-Lutein (CENTRUM SILVER ULTRA WOMEN'S) Oral tablet Take 1 Tab by mouth daily. Active BETA-CAROTENE,A, W-C & E/MIN (ICAPS ORAL) Take by mouth. Active cyanocobalamin (VITAMIN B-12) 1,000 mcg Oral Tab Take 1,000 mcg by mouth daily. Active omeprazole (PRILOSEC) 20 mg Oral CpDR Take 20 mg by mouth daily. Active metFORMIN (GLUCOPHAGE) 500 mg Oral tablet Take 500 mg by mouth 2 times daily with meals. Active metFORMIN ER 24 hour (GLUCOPHAGE XR) 750 mg Oral tablet Take 750 mg by mouth daily. Active pioglitazone (ACTOS) 30 mg Oral tablet Take 30 mg by mouth daily. Active Levothyroxine 100 mcg Oral Cap Take by mouth. Active atenolol (TENORMIN) 100 mg Oral tablet Take 100 mg by mouth daily. Active hydrochlorothiaz karson 25 mg Oral tablet Take 25 mg by mouth daily. Active lisinopril (PRINIVIL) 40 mg Oral tablet Take 40 mg by mouth daily. Active amLODIPine (NORVASC) 5 mg Oral tablet Take 5 mg by mouth daily. Active Active Problems Patient Care Coordination No te Formatting of this note migh t be different from the original. 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% [place] - -- had DCIS in 2005 S/p Radiation and Arimidex x 5 years S/p mastectomy and sentinel node bx 0.8cm int grade 0:1LN Stage 0 Assessment & Plan (01/14/2011 1:13 PM CDT): IOV Had DCIS in 2005 - had 5 years AI Cellulitis left CW NO RADIATION NO ANTIESTROGEN ROV 6 [facility] vanc for elulitis - sees [facility] Weds May need cefalosporin since DM and brittany mild improvemnet on keflex Reflux Bleeding ulcer Colitis Resolved Problems Problem Noted Date Diagnosed Date Resolved Date Inflammatory disease of breast 01/14/2011 05/16/2011 Family History Medical History Relation Name Comments Healthy Brother x2 Diabetes Father lung CA ag e 75y Lung Cancer Father Breast Cancer Maternal Aunt 1 ? Breast Cancer Maternal Aunt 2 ? Uterine Cancer Mother dx @ age 87; 87y pneum Cancer Sister 1 TONSIL 1 with tonsil C A Diabetes Sister 2 Ovarian Cancer Neg Hx Relation Name Status Comments Brother x2 Father Maternal Aunt 1 Maternal Aunt 2 Mother Sister 1 TONSIL Sister 2 Social History Tobacco Use Types Packs/Day Years Used Date Smoking Tobacco: Every Day Cigarettes 1 30 Smokeless Tobacco: Never Tobacco Cessation:Ready to Q uit: No; Counseling Given: No Comments:started after her divorce Alcohol Use Standard Drinks/Week Comments No 0 (1 standard drink = 0.6 oz pur e alcohol) Comments No Sex and Gender Information Value Date Recorded Sex Assigned at Not on file Legal Sex Female 6:02 AM BEAVER TRAPPER Gender Identity Not on file Sexual Orientation Not on file Occupation Industry Job Start Date Job End Date retired, [employer] Not on file Not on file Not on file Last Filed Vital Signs Vital Sign Reading Time Taken Comments Blood Pressure 133/71 05/16/2011 11:22 AM BEAVER TRAPPER Pulse 76 01/18/2011 2:53 PM CDT Temperature 36.9 C (98.5 F) 01/18/2011 2:53 PM CDT Respiratory Rate 16 01/18/2011 2:53 PM CDT Oxygen Saturation 97% 01/02/2011 7:00 AM CDT Inhaled Oxygen Concentration - - Weight 80.3 kg (177 lb) 05/16/2011 11:22 AM BEAVER TRAPPER Height 162.6 cm (5' 4 ) 05/16/2011 11:22 AM BEAVER TRAPPER Body Mass Index 30.38 05/16/2011 11:22 AM BEAVER TRAPPER Plan of Treatment Health Maintenance Due Date Last Done Comments DIABETES ANNUAL FOOT EXAM 12/23/1965 DIABETES ANNUAL RETINAL EXAM 12/23/1965 DIABETES HBA1C Q 6 MONTHS 12/23/1965 DIABETES MICROALBUMIN ANNUAL SCREEN 12/23/1965 LDL CHOLESTEROL ANNUAL 12/23/1965 ZOSTER VACCINE (1 of 2) 12/23/1997 OSTEOPOROSIS SCREENING 12/23/2012 DTAP/TDAP/TD VACCINES (2 - Tdap) 04/16/2020 04/16/20 10 RSV VACCINE (60+ or ) (1 - 1-dose 75+ series) 12/23/2022 PNEUMOCOCCAL VACCINE 50+ YEA RS (3 of 3 - PCV20 or PCV21) 12/15/2023 12/14/2018, 04/02/2007 INFLUENZA VACCINE (#1) 2024 , 04/14/2019, 04/14/2019, Additional history exists Insurance [facility] FEDERAL Advance Directives For more information, please contact: [phone] * Full Code (Latest Code Status on File) Date Activated Date Inactivated Comments 01/01/2011 11:41 AM 01/02/2011 11:39 AM * Full Code Date Activated Date Inactivated Comments 01/01/2011 8:49 AM 01/01/2011 11:41 AM Care Teams Gig Tender Relationship Specialty Start Date End Date Jil Lawler MD [address] [id number] PCP - General 05/19/15
--- OUTSIDE RECORDS SUMMARY | 2024-10-15 14:32 | XMS_ITS | Encounter Summary ---
Author Organization [facility] Address [address] [facility] [place] [address] Care Team Providers Care Peoplesoft Administrator Name Role Phone Unavailable Primary Care Provider Unavailabl e Encounter Details Date Type Department Care Team (Late st Contact Info) Description 08/19/2018 Lab Requisition [facility] Care DermPath Lab [address] [facility] [place], [place] [phone] Rosemarie Townsend MD [address] [facility] 3 [place] [address] Social History Tobacco Use Types Packs/Day Years Used Date Smoking Tobacco: Never Assessed Comments Unknown Sex and Gender Information Value Date Recorded Sex Assigned at Not on file Legal Sex Female 1:08 PM CDT Gender Identity Not on file Sexual Orientation Not on file documented as of this encounter Plan of Treatment Not on file documented as of this encounter Procedures Procedure Name Priority Date/Time Associated Diagnosis Comments DERMATOPATHOLOGY Routine 08/18/2018 12:0 0 AM CDT documented in this encounter Results * DERMATOPATHOLOGY (08/18/2018 12:00 AM CDT) Case Report Dermatopathology Report Case: [id number] Authorizing Provider: Rosemarie Townsend MD Collected: 08/18/2018 12:00 AM Pathologist: Marsha Sharp MD Received: 08/19/2018 10:13 AM Specimen: Skin, right nasal ala 9 3:52 PM CDT DERMATOPATHOLOGY LABORATORY Final Diagnosis Specimen A. SKIN, right nasal ala: BASAL CELL CARCINOMA, INFILTRATIVE PATTERN (C44.311) 9 3:52 PM CDT DERMATOPATHOLOGY LABORATORY Clinical History R/O BCC, growing, irritated, non-healing. 3:52 PM CDT DERMATOPATHOLOGY LABORATORY Gross Description Specimen A: Received is one formalin filled container labeled with the patient's name and designated right nasal ala. The specimen consists of a shave measuring 1p4y6yf. Jar 0. 3:52 PM CDT DERMATOPATHOLOGY LABORATORY Microscopic Description Specimen A. SKIN, right nasal ala: Within the dermis there are nodular aggregates of basaloid cells associated with fibromyxoid stroma and epithelial-stromal clefts. At the advancing margin of the neoplasm, there are smaller angulated nests that infiltrate the dermis. 3:52 PM CDT DERMATOPATHOLOGY LABORATORY Disclaimer An external and internal positive and negative controls are appropriate for the histochemical, immunohistochemical and immunofluorescence stain(s) in this case (if any), except where stated explicitly. The performance characteristics of the stain(s) cited in this report were developed and its performance characteristic determined by the Dermatopathology Laboratory at [facility], directed by Dr. Guille Sharp. These tests need not be, and therefore are not, approved by the [place] Food and Drug Administration. The tests are used for clinical purposes. Billing Codes Specimen Charges Stain Charges 41275 1 3:52 PM CDT DERMATOPATHOLOGY LABORATORY Embedded Images 3:52 PM CDT DERMATOPATHOLOGY LABORATORY Pathology/Cytolog y TISSUE SPECIMEN FROM SKIN / Unknown 08/18/2018 08/19/2018 10:13 AM CDT Rosemarie Townsend MD LAB - PATHOLOGY/CYTOLOGY OR DERABLES Final Result DERMATOPATHOLOGY LABORATORY [facility] - Department of Dermatology [address] [place] [address], [address] [place] [address], [facility] [phone] documented in this encounter Visit Diagnoses Not on filedocumented in this encounter
--- OUTSIDE RECORDS SUMMARY | 2024-10-15 14:32 | XMS_ITS | Clinical Summary ---
Author Organization [facility] Address [address] [place] [phone] Care Team Providers Care Salesperson Yard Goods Name Role Phone Verna Xiong NP Primary Care Provider [phone] Allergies Active Allergy Reactions Criticality Noted Date Comments Povidone-Iodine Rash Medium 01/01/2011 Medications allopurinol (ZYLOPRIM) 300 mg tabletIndicatio ns:prevention of acute gout attack Take 300 mg by mouth every morning 7 Active amLODIPine (NORVASC) 5 mg tablet Take 5 mg by mouth every morning Active atenolol (TENORMIN) 100 mg tabletIndicatio ns:hypertension Take 100 mg by mouth 2 (two) times a day 7 Active hydroCHLOROthia zide (HYDRODIURIL) 25 mg tabletIndicatio ns:hypertension Take 25 mg by mouth every morning 7 Active levothyroxine (SYNTHROID, LEVOTHROID) 150 mcg tabletIndicatio ns:hypothyroidi sm Take 150 mcg by mouth marinator before breakfast 7 Active simvastatin (ZOCOR) 40 mg tabletIndicatio ns:hyperlipidem ia Take 40 mg by mouth nightly 7 Active lisinopril (PRINIVIL,ZESTR IL) 40 mg tabletIndicatio ns:hypertension Take 40 mg by mouth every morning 7 Active meloxicam (MOBIC) 15 mg tabletIndicatio ns:Arthritis Take 15 mg by mouth every morning 7 Active KLOR-CON M10 10 mEq CR tabletIndicatio ns:hypokalemia prevention Take 10 mEq by mouth nightly 7 Active glimepiride (AMARYL) 4 mg tabletIndicatio ns:type 2 diabetes mellitus Take 4 mg by mouth 2 (two) times a day 7 Active ONETOUCH ULTRA TEST strip 7 Active metFORMIN XR (GLUCOPHAGE XR) 750 mg 24 hr tabletIndicatio ns:type 2 diabetes mellitus Take 750 mg by mouth 2 (two) times a day Active metFORMIN (GLUCOPHAGE) 500 mg tabletIndicatio ns:type 2 diabetes mellitus 500 mg daily with breakfast Pt [place] 1250 mg metformin in the am 7 Active omeprazole (PriLOSEC) 20 mg capsuleIndicati ons:Treatment of Non-Bleeding Gastric Disorder Take 20 mg by mouth every morning Active multivit-minera p-qhbp-ofdbny tabletIndicatio ns:supplement Take 1 tablet by mouth nightly Active cyanocobalamin (Vitamin B-12) 1,000 mcg tabletIndicatio ns:Prevention of Vitamin B12 Deficiency Take 1,000 mcg by mouth nightly Active cholecalciferol (VITAMIN D-3) 2,000 unit capsuleIndicati ons:Prevention of Vitamin D Deficiency Take 2,000 Units by mouth nightly Active adwaq-4y-yja-ep a-fish oil 120 mg-180 mg- 60 mg-1,200 mg capsule,delayed release(DR/EC)I ndications:hype rtriglyceridemi a Take 1 capsule by mouth 2 (two) times a day Active alogliptin 25 mg tabletIndicatio ns:type 2 diabetes mellitus Take 25 mg by mouth every morning 9 Active apremilast 30 mg tabletIndicatio ns: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 Take 30 mg by mouth 2 (two) times a day Active vitamin B complex capsuleIndicati ons:Vitamin Deficiency Prevention Take 1 capsule by mouth nightly Active ascorbic acid (ascorbic acid) 500 mg tablet,chewable Take 500 mg by mouth nightly Active insulin glargine (BASAGLAR KWIKPEN U-100 INSULIN) 100 unit/mL (3 mL) insulin pen daily Active Active Problems Problem Noted Date Diagnosed Date Smoker 02/12/2019 Basal cell carcinoma of skin of nose 10/23/2018 Overview (10/23/2018): Added automatically from request for surgery [id number] Encounter for planned postprocedural wound closu re 09/25/2018 Overview (09/25/2018): Added automatically from request for surgery [id number] Type 2 diabetes mellitus 11/26/2016 Assessment & Plan (11/26/2016 9:40 AM CDT): Hba1c was 7.8 today, indicating inadequate DM control 1800 calorie, consistent carb diet recommended 30 min daily aerobic and resistance exercise recommended Foot care discused. Prevention and treatment of hyypoglcyemia discussed. Hypercalcemia 11/26/2016 Assessment & Plan (11/26/2016 9:45 AM CDT): With suppressed PTH, indicating non PTH hypercalcemia ( paraneoplastic ? ) Will recheck serum Ca and PTH Check PTH related peptide Whole body bone scan 1.25 OH vit D Recommendations to wilda Surgical History Surgery Date Site/Laterality Comments MOHS SURGERY 08/21/2018 FOREHEAD FLAP 10/02/2018 MASTECTOMY 01/01/2011 REPLACEMENT TOTAL KNEE Bilateral REPLACEMENT TOTAL KNEE LAPAROSCOPIC CHOLECYSTECTOMY 06/02/2010 - 06/01/2011 COLONOSCOPY 06/02/2003 - 06/01/2004 UPPER GASTROINTESTINAL ENDOSCOPY 06/02/2003 - 06/01/2004 BRONCHOSCOPY 06/02/1998 - 06/01/1999 MASS EXCISION 05/02/2000 - 06/01/2000 Right MOHS SURGERY 11/03/2018 Medical History Medical History Date Comments Hypertension Type 2 diabetes mellitus (HCC) Gout Hypothyroidism Status post radiation therapy 2002 br east cancer COPD (chronic obstructive pulmonary disease) (HC C) GERD (gastroesophageal reflux disease) Smoker Breast cancer (HCC) PONV (postoperative nausea and vomiting) relieved with IV antiemetics Basal cell carcinoma Family History Medical History Relation Name Comments Hypertension Brother Diabetes Father Hypertension Father Lung cancer Father Hypertension Mother PONV Mother Thyroid disease Mother Uterine cancer Mother Vitamin D deficiency Paternal Grandfather Diabetes Paternal Grandmother Diabetes Sister 1 Heart failure Sister 1 Hypertension Sister 1 Hypertension Sister 2 Relation Name Status Comments Brother Father Maternal Grandfather Maternal Grandmother Mother (Age 87) Paternal Grandfather Paternal Grandmother Sister 1 Sister 2 Social History Tobacco Use Types Packs/Day Years Used Date Smoking Tobacco: Every Day Cigarettes Smokeless Tobacco: Never Comments:Hasn't had cigarett e since 10/20/2018 Alcohol Use Standard Drinks/Week Comments No 0 (1 standard drink = 0.6 oz pur e alcohol) Comments No Sex and Gender Information Value Date Recorded Sex Assigned at Not on file Legal Sex Female 7:38 PM CELERY TIER Gender Identity Not on file Sexual Orientation Not on file Obstetrics History Last Filed Vital Signs Vital Sign Reading Time Taken Comments Blood Pressure 165/72 11/03/2018 5:20 PM CDT Pulse 72 11/03/2018 5:20 PM CDT Temperature 36.8 C (98.2 F) 11/03/2018 5:20 PM CDT Respiratory Rate 12 11/03/2018 4:32 PM CDT Oxygen Saturation 94% 11/03/2018 5:20 PM CDT Inhaled Oxygen Concentration - - Weight 77.1 kg (170 lb) 11/03/2018 1:12 PM CDT Height 162.6 cm (5' 4 ) 11/03/2018 1:12 PM CDT Body Mass Index 29.18 11/03/2018 1:12 PM CDT Plan of Treatment Not on file Insurance MEDICARE [facility] Member Subscriber Plan / Payer (Ef fective 2009-Present) Name:Jillian Bernal Relation to Subscriber:Self Name:Jillian Bernal Payer ID:[id number] (NAIC) Group ID:[id number] Type:1,2,3 Listo Address: [address] [place] [address] MEDICARE [facility] Member Subscriber Plan / Payer ( fective 2009-Present) Name:Jillian Bernal Relation to Subscriber:Self Name:Jillian Bernal Payer ID:[id number] (NAIC) Group ID:[id number] Type:1,2,3 Listo Address: [address] [place] [address] Care Teams Salesperson Yard Goods Relationship Specialty Start Date End Date Verna Xiong NP PCP - General 11/21/16
--- OUTSIDE RECORDS SUMMARY | 2024-10-15 14:32 | XMS_ITS | Encounter Summary ---
Author Organization [facility] Address [address] [place] [address] Care Team Providers Care Tourist Agent Name Role Phone Unavailable Primary Care Provider Unavailabl e Encounter Details Date Type Department Care Team (Late st Contact Info) Description 03/13/2020 Lab Requisition [facility] DermPath Lab [address] [facility], [place] [phone] Rosemarie Townsend MD [address] [facility] 3 [place] [address] Social History Tobacco Use Types Packs/Day Years [...] Priority Date/Time Associated Diagnosis Comments DERMATOPATHOLOGY Routine 03/09/2020 12:0 0 AM CDT documented in this encounter Results * DERMATOPATHOLOGY (03/09/2020 12:00 AM CDT) Case Report Dermatopathology Report Case: [id number] Authorizing Provider: Rosemarie Townsend MD Collected: 03/09/2020 12:00 AM Ordering Location: [facility] DermPath Lab Received: 03/13/2020 11:49 AM Pathologist: Marsha Sharp MD Specimens: A) - Skin, left nlf B) - Skin, left upper arm 0 12:08 PM CDT DERMATOPATHOLOGY LABORATORY Final Diagnosis Specimen A. SKIN, left nlf: BASAL CELL CARCINOMA, INFILTRATIVE PATTERN (C44.311) Specimen B. SKIN, left upper arm: BASAL CELL CARCINOMA, NODULAR TYPE (C44.619) 0 12:08 PM T DERMATOPATHOLOGY LABORATORY Clinical History A-B: R/O BCC, irritated 0 12:08 PM CDT DERMATOPATHOLOGY LABORATORY Gross Description Specimen A: Received is one formalin filled container labeled with the patient's name and designated left nlf. The specimen consists of a shave biopsy measuring 4x3x2 mm. Jar 0. Specimen B: Received is one formalin filled container labeled with the patient's name and designated left upper arm. The specimen consists of a shave biopsy measuring 12x8x3 mm. Jar 0. 0 12:08 PM T DERMATOPATHOLOGY LABORATORY Microscopic Description Specimen A. SKIN, left nlf: Within the dermis there are nodular aggregates of basaloid cells associated with fibromyxoid stroma and epithelial-stromal clefts. At the advancing margin of the neoplasm, there are smaller angulated nests that infiltrate the dermis. Specimen B. SKIN, left upper arm: Within the dermis there are aggregates of basaloid cells with a high nuclear to cytoplasmic ratio and peripheral palisading. 0 12:08 PM CDT DERMATOPATHOLOGY LABORATORY Disclaimer An external and internal positive and negative controls are appropriate for the histochemical, immunohistochemical and immunofluorescence stain(s) in this case (if any), except where stated explicitly. The performance characteristics of the stain(s) cited in this report were developed and its performance characteristic determined by the Dermatopathology Laboratory at [facility], directed by Dr. Guille Sharp. These tests need not be, and therefore are not, approved by the [place] Food and Drug Administration. The tests are used for clinical purposes. Billing Codes Specimen Charges Stain Charges 53821 90754 1 1 0 12:08 PM CDT DERMATOPATHOLOGY LABORATORY Embedded Images 0 12:08 PM CDT DERMATOPATHOLOGY LABORATORY Pathology/Cytology TISSUE SPECIMEN FROM SKIN / Unknown 03/09/2020 03/13/2020 11:49 AM CDT Miscellaneous samples (specimen) TISSUE SPECIMEN FROM SKIN / Unknown 03/09/2020 03/13/2020 11:49 AM CDT Rosemarie Townsend MD LAB - PATHOLOGY/CYTOLOGY OR DERABLES Final Result DERMATOPATHOLOGY LABORATORY [facility] - Department of Dermatology [facility] Medicine [address] [place] [address], [address] [phone] documented in this encounter Visit Diagnoses Not on filedocumented in this encounter
--- OUTSIDE RECORDS SUMMARY | 2024-10-15 14:32 | XMS_ITS | Clinical Summary ---
Author Organization [facility] Address [address] [facility] [place] [address] Care Team Providers Care Red Hat Linux Administrator Name Role Phone Unavailable Primary Care Provider Unavailabl e Source Comments [facility],non-owned Affiliates and Associated Physician Practices is amultiple site organization consisting of ambulatory clinics and hospital sitesin [place], [place], [place] and [place]. This disclosure is being madepursuant to the Care Everywhere program and may not contain all information available regarding this patient. Last updated 18.[facility] Encounters Date Type Department Care Team Description 09/22/2024 Lab Requisition [facility] - DermPath Lab [address] [place] [phone] Rae Herrmann MD 09/02/2024 Lab Requisition [facility] - DermPath Lab [facility] [place] [address] Rae Herrmann MD 08/09/2024 Lab Requisition [facility] - DermPath Lab [address] [place] [phone] Rae Herrmann MD from Last 3 Months Social History Tobacco Use Types Packs/Day Years Used Date Smoking Tobacco: Never Assessed Comments Unknown Sex and Gender Information Value Date Recorded Sex Assigned at Not on file Legal Sex Female 1:08 PM CDT Gender Identity Not on file Sexual Orientation Not on file Plan of Treatment Health Maintenance Due Date Last Done Comments BONE DENSITY TESTING 1945 MEDICARE AWV 12 MONTHS 1945 HEPATITIS C SCREENING 12/19/1965 DTAP/TDAP/TD VACCINES (1 - Tdap) 12/23/1966 PNEUMOCOCCAL VACCINE 50+ (1 of 1 - PCV) 12/23/1997 ZOSTER VACCINE (1 of 2) 12/23/1997 Respiratory Syncytial Virus (RSV) Vaccine Pt: or over 60 yrs (1 - 1-dose 75+ series) 12/23/2022 COVID-19 VACCINE (2023-2 5 season) 2024 DEPRESSION SCREENING 06/02/2024 INFLUENZA VACCINE (Season Ended) 2025 HEPATITIS B VACCINE Aged Out No longe r eligible based on patient's age to complete this topic HIB VACCINE Aged Out No longer eligi ble based on patient's age to complete this topic HPV VACCINE Aged Out No longer eligi ble based on patient's age to complete this topic MENINGOCOCCAL (Group B) VACC INE SHARED DECISION-MAKING Aged Out No longer eligibl e based on patient's age to complete this topic MENINGOCOCCAL GROUPS A/C/Y/W VACCINE Aged Out No longer eligible b ased on patient's age to complete this topic Procedures Procedure Name Priority Date/Time Associated Diagnosis Comments DERMATOPATHOLOGY Routine 09/22/2024 2:43 PM CDT DERMATOPATHOLOGY Routine 09/02/2024 9:30 AM CDT DERMATOPATHOLOGY Routine 08/09/2024 1:31 PM CDT from Last 3 Months Results * DERMATOPATHOLOGY (09/22/2024 2:43 PM CDT) Only the most recent of3 resultswithin the time period is included. Case Report Dermatopathology Report Case: [id number] Authorizing Provider: Rae Herrmann MD Collected: 09/22/2024 02:43 PM Ordering Location: [facility] - Received: 09/24/2024 08:54 AM DermPath Lab Pathologist: Indira Huggins MD Specimen: Skin, left forearm 4:22 PM CDT DERMATOPATHOLOGY LABORATORY Final Diagnosis Specimen A. SKIN, left forearm: DERMAL SCAR RESIDUAL SQUAMOUS CELL CARCINOMA NOT IDENTIFIED (L90.5) 4:22 PM CDT DERMATOPATHOLOGY LABORATORY at 1622 CDT Clinical History BX PROVEN SCCIS 4:22 PM T DERMATOPATHOLOGY LABORATORY Gross Description Specimen A: Received is one formalin filled container labeled with the patient's name and designated left forearm.The specimen consists of an ellipse measuring 48i81d8 mm and is oriented with the suture/notch at the 12 o'clock position labeled on the requisition as notch. The 12 to 6 o'clock margin is inked green. The 6 o'clock to 12 o'clock margin is inked red. The 12 o'clock tip is submitted in cassette 1. The 6 o'clock tip is submitted in cassette 2. The remainder of the ellipse is serially sectioned and submitted in cassettes 3 -4. Jar 0. 4:22 PM T DERMATOPATHOLOGY LABORATORY Microscopic Description Specimen A. SKIN, left forearm: There are fibroblasts and collagen bundles oriented parallel to the skin surface. There are elongated blood vessels, some of which are oriented perpendicular to the skin surface. No residual squamous cell carcinoma is identified. 4:22 PM T DERMATOPATHOLOGY LABORATORY Disclaimer An external and internal positive and negative controls are appropriate for the histochemical, immunohistochemical and immunofluorescence stain(s) in this case (if any), except where stated explicitly. The performance characteristics of the stain(s) cited in this report were developed and its performance characteristic determined by the Dermatopathology Laboratory at [facility], directed by Dr. Guille Sharp. These tests need not be, and therefore are not, approved by the [place] Food and Drug Administration. The tests are used for clinical purposes. Billing Codes Specimen Charges Stain Charges 55519 1 4:22 PM CDT DERMATOPATHOLOGY LABORATORY Embedded Images 4:22 PM CDT DERMATOPATHOLOGY LABORATORY Pathology/Cytolo gy TISSUE SPECIMEN FROM SKIN / Unknown 09/22/2024 2:43 PM CDT 09/24/2024 8:54 AM CDT us Rae Herrmann MD LAB - PATHOLOGY/CYTOLOGY ORD ERABLES Final Result DERMATOPATHOLOGY LABORATORY [facility] - Department of Dermatology [address], [address] [phone] from Last 3 [address] [place] [id number] MEDICARE [facility] [address] [place] [id number] MEDICARE [facility]
--- OUTSIDE RECORDS SUMMARY | 2024-10-15 14:32 | XMS_ITS | Encounter Summary ---
Author Organization [facility] Address [address] [facility] [place] [address] Care Team Providers Care Sandblast Carver Name Role Phone Unavailable Primary Care Provider Unavailabl e Encounter Details Date Type Department Care Team (Late st Contact Info) Description 04/21/2020 Lab Requisition [facility] DermPath Lab [address] [facility] [place] [phone] Ladonna Arvizu MD [address] [place] [address] Social History Tobacco Use Types Packs/Day Years [...] Priority Date/Time Associated Diagnosis Comments DERMATOPATHOLOGY Routine 04/20/2020 12:0 0 AM FUSELAGE FRAMER documented in this encounter Results * DERMATOPATHOLOGY (04/20/2020 12:00 AM FUSELAGE FRAMER) Case Report Dermatopathology Report Case: [id number] Authorizing Provider: Ladonna Arvizu MD Collected: 04/20/2020 12:00 AM Ordering Location: [facility] DermPath Lab Received: 04/21/2020 06:53 AM Pathologist: Indira Huggins MD Specimen: Skin, left upper arm 0 1:47 PM FUSELAGE FRAMER DERMATOPATHOLOGY LABORATORY Final Diagnosis Specimen A. SKIN, left upper arm: DERMAL SCAR RESIDUAL BASAL CELL CARCINOMA NOT IDENTIFIED (L90.5) 0 1:47 PM FUSELAGE FRAMER DERMATOPATHOLOGY LABORATORY Clinical History R/O BCC, biopsy proven. 0 1:47 PM [facility] DERMATOPATHOLOGY LABORATORY Gross Description Specimen A: Received is one formalin filled container labeled with the patient's name and designated left upper arm.The specimen consists of an ellipse measuring 84w03m0ii and is oriented with the notch at the 12 o'clock position labeled on the requisition as proximal. The epidermal surface consists of a centrally located 12x9mm previous biopsy site. The 12 to 6 o'clock margin is inked green. The 6 o'clock to 12 o'clock margin is inked black. The 12 o'clock tip is submitted in cassette 1. The 6 o'clock tip is submitted in cassette 2. The remainder of the ellipse is serially sectioned and submitted in cassettes 3-4. Jar 0. 0 1:47 PM [facility] DERMATOPATHOLOGY LABORATORY Microscopic Description Specimen A. SKIN, left upper arm: There are fibroblasts and collagen bundles oriented parallel to the skin surface. There are elongated blood vessels, some of which are oriented perpendicular to the skin surface. No basal cell carcinoma is identified. 0 1:47 PM [facility] DERMATOPATHOLOGY LABORATORY Disclaimer An external and internal positive and negative controls are appropriate for the histochemical, immunohistochemical and immunofluorescence stain(s) in this case (if any), except where stated explicitly. The performance characteristics of the stain(s) cited in this report were developed and its performance characteristic determined by the Dermatopathology Laboratory at [facility], directed by Dr. Guille Sharp. These tests need not be, and therefore are not, approved by the [place] Food and Drug Administration. The tests are used for clinical purposes. Billing Codes Specimen Charges Stain Charges 93493 1 0 1:47 PM [facility] DERMATOPATHOLOGY LABORATORY Embedded Images 0 1:47 PM [facility] DERMATOPATHOLOGY LABORATORY Pathology/Cytolog y TISSUE SPECIMEN FROM SKIN / Unknown 04/20/2020 04/21/2020 6:53 AM FUSELAGE FRAMER us Ladonna Arvizu MD LAB - PATHOLOGY/CYTOLOGY ORDERA BLES Final Result DERMATOPATHOLOGY LABORATORY [facility] - Department of Dermatology [address], [address] [phone] documented in this encounter Visit Diagnoses Not on filedocumented in this encounter
--- OUTSIDE RECORDS SUMMARY | 2024-10-15 14:33 | XMS_ITS | Encounter Summary ---
Author Organization [facility] Address [address] [facility] [place] [address] Care Team Providers Care Bowling Ball Molder Name Role Phone Unavailable Primary Care Provider Unavailabl e Encounter Details Date Type Department Care Team (Late st Contact Info) Description 08/09/2024 Lab Requisition [facility] - DermPath Lab [address] [facility], [place] [address] Rae Herrmann MD [address] [facility] [address] [place] [address] Social History Tobacco Use Types Packs/Day Years [...] Priority Date/Time Associated Diagnosis Comments DERMATOPATHOLOGY Routine 08/09/2024 1:31 PM CDT documented in this encounter Results * DERMATOPATHOLOGY (08/09/2024 1:31 PM CDT) Case Report Dermatopathology Report Case: [id number] Authorizing Provider: Rae Herrmann MD Collected: 08/09/2024 01:31 PM Ordering Location: [facility] Physician [facility] - Received: 08/11/2024 07:44 AM DermPath Lab Pathologist: Marsha Sharp MD Specimens: A) - Skin, left forearm B) - Skin, left forearm medial 2:23 PM CDT DERMATOPATHOLOGY LABORATORY Final Diagnosis Specimen A. 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 SKIN, left forearm medial: SQUAMOUS CELL CARCINOMA, WELL DIFFERENTIATED (C44.629) 2:23 PM CDT DERMATOPATHOLOGY LABORATORY Clinical History A-B: R/O SCC 2:23 PM CDT DERMATOPATHOLOGY LABORATORY Gross Description Specimen A: Received is one formalin filled container labeled with the patient's name and designated left forearm. The specimen consists of a shave biopsy measuring 8x7x3 mm. Jar 0. Specimen B: Received is one formalin filled container labeled with the patient's name and designated left forearm medial. The specimen consists of a shave biopsy measuring 8x6x5 mm. Jar 0. 2:23 PM CDT DERMATOPATHOLOGY LABORATORY Microscopic Description Specimen A. SKIN, left forearm: The epidermis shows parakeratosis, full thickness disorderly maturation of keratinocytes, mitoses at different levels, and dyskeratotic cells. Specimen B. SKIN, left forearm medial: Arising in the epidermis and extending into the dermis there are irregularly shaped aggregates of keratinocytes showing evidence of premature cornification. 2:23 PM CDT DERMATOPATHOLOGY LABORATORY Disclaimer An external and internal positive and negative controls are appropriate for the histochemical, immunohistochemical and immunofluorescence stain(s) in this case (if any), except where stated explicitly. The performance characteristics of the stain(s) cited in this report were developed and its performance characteristic determined by the Dermatopathology Laboratory at [facility], directed by Dr. Guille Sharp. These tests need not be, and therefore are not, approved by the [place] Food and Drug Administration. The tests are used for clinical purposes. Billing Codes Specimen Charges Stain Charges 34922 81425 1 1 2:23 PM CDT DERMATOPATHOLOGY LABORATORY Embedded Images 2:23 PM CDT DERMATOPATHOLOGY LABORATORY Pathology/Cytology TISSUE SPECIMEN FROM SKIN / Unknown 08/09/2024 1:31 PM CDT 08/11/2024 7:44 AM CDT Miscellaneous samples (specimen) TISSUE SPECIMEN FROM SKIN / Unknown 08/09/2024 1:31 PM CDT 08/11/2024 7:44 AM CDT us Rae A Gerlach MD LAB - PATHOLOGY/CYTOLOGY ORD ERABLES Final Result DERMATOPATHOLOGY LABORATORY [facility] - Department of Dermatology [facility] [address] [place] [address], [address] [phone] documented in this encounter Visit Diagnoses Not on filedocumented in this encounter
--- OUTSIDE RECORDS SUMMARY | 2024-10-15 14:33 | XMS_ITS | Encounter Summary ---
Author Organization [facility] Address [address] [facility] [place] [address] Care Team Providers Care Program Facilitator Name Role Phone Unavailable Primary Care Provider Unavailabl e Encounter Details Date Type Department Care Team (Late st Contact Info) Description 09/22/2024 Lab Requisition [facility] - DermPath Lab [address], [facility] [place] [address] Rae Herrmann MD [address] [facility] [address] [place] [address] Social History Tobacco Use Types Packs/Day Years [...] Comments DERMATOPATHOLOGY Routine 09/22/2024 2:43 PM CDT documented in this encounter Results * DERMATOPATHOLOGY (09/22/2024 2:43 PM CDT) Case Report Dermatopathology Report Case: [id number] Authorizing Provider: Rae Herrmann MD Collected: 09/22/2024 02:43 PM Ordering Location: [facility] Physician [facility] - Received: 09/24/2024 08:54 AM DermPath Lab Pathologist: Indira Huggins MD Specimen: Skin, left forearm 4:22 PM CDT DERMATOPATHOLOGY LABORATORY Final Diagnosis Specimen A. SKIN, left forearm: DERMAL SCAR RESIDUAL SQUAMOUS CELL CARCINOMA NOT IDENTIFIED (L90.5) 4:22 PM CDT DERMATOPATHOLOGY LABORATORY at 1622 CDT Clinical History BX PROVEN SCCIS 4:22 PM CDT DERMATOPATHOLOGY LABORATORY Gross Description Specimen A: Received is one formalin filled container labeled with the patient's name and designated left forearm.The specimen consists of an ellipse measuring [id number] mm and is oriented with the suture/notch [...] cassettes 3 -4. Jar 0. 4:22 PM CDT DERMATOPATHOLOGY LABORATORY Microscopic Description Specimen A. SKIN, left forearm: There are fibroblasts and collagen bundles oriented parallel to the skin surface. There are elongated blood vessels, some of which are oriented perpendicular to the skin surface. No residual squamous cell carcinoma is identified. 4:22 PM CDT DERMATOPATHOLOGY LABORATORY Disclaimer An external and internal positive and negative controls are appropriate for the histochemical, immunohistochemical and immunofluorescence stain(s) in this case (if any), except where stated explicitly. The performance characteristics of the stain(s) cited in this report were developed and its performance characteristic determined by the Dermatopathology Laboratory at [facility], directed by Dr. Guille Sharp. These tests need not be, and therefore are not, approved by the [place] Food and Drug Administration. The tests are used for clinical purposes. Billing Codes Specimen Charges Stain Charges 16264 1 4:22 PM CDT DERMATOPATHOLOGY LABORATORY Embedded Images 4:22 PM CDT DERMATOPATHOLOGY LABORATORY Pathology/Cytolo gy TISSUE SPECIMEN FROM SKIN / Unknown 09/22/2024 2:43 PM CDT 09/24/2024 8:54 AM CDT us Rae Herrmann MD LAB - PATHOLOGY/CYTOLOGY ORD ERABLES Final Result DERMATOPATHOLOGY LABORATORY [facility] - Department of Dermatology [address], [address] Floor [place] [id number] [place] [address] documented in this encounter Visit Diagnoses Not on filedocumented in this encounter
--- OUTSIDE RECORDS SUMMARY | 2024-10-15 14:33 | XMS_ITS | CONTINUITY OF CARE DOCUMENT ---
Author Name dallas ashantijennifer Address Unknown Organization [facility] Address [address] [facility] [address] [place] [address] Phone [phone] Care Team Providers Care Window Installation Subcontractor Name Role Phone Jam Beltran MD Unavailable [phone] Jagdeep Godinez MD Unavailable MONI JAUREGUI Unavailable PROBLEMS Condition Status Date Provider Notes Carotid bruit active David Mendiola Hypertension active David Mendiola Hyperlipidemia active David Mendiola Diabetes, Type 2 active David Mendiola Diastolic dysfunction active David Gardnerr i CKD stage 4 active David Mendiola Cardiology examination active Jam Suarez ENCOUNTERS Date Type Provider Location Encounter Diag nosis - In-person encounter Office Visit Jam Beltran MD [facility] Cardiology examination - In-person encounter Office Visit Jam Beltran MD [facility] CKD stage 4 - In-person encounter Office Visit Jam Beltran MD [facility] Carotid bruitHypertensionHyp erlipidemiaDiabetes, Type 2Diastolic dysfunction VITAL SIGNS Date Observation Value Provider Body Mass Index (Ratio) 25.57 kg/m2 Kyler Guevara blood pressure, diastolic 88 mm[Hg] Jonelle Saab blood pressure, systolic 170 mm[Hg] Lesley Saab oxygen saturation, oximetry 98 % Kenisha Saab pulse rate 86 /min Kenisha Saab respiratory rate E&M 12 /min Kenisha Saab weight E&M 149 [lb_av] Kenisha Saab height E&M 64 [in_i] Kenisha Saab blood pressure, cuff size regular Jonelle enrique Saab Body Mass Index (Ratio) 25.23 kg/m2 Jaydon Gardnerri blood pressure, cuff size regular Andrae rret blood pressure, diastolic 84 mm[Hg] Andrae rret blood pressure, systolic 160 mm[Hg] Deven [facility] pulse rate 93 /min Dandre respiratory rate E&M 12 /min Dandre oxygen saturation, oximetry 99 % Dandre weight E&M 147 [lb_av] Dandre y height E&M 64 [in_i] Dandre y Body Mass Index (Ratio) 25.06 kg/m2 Jaydon melchor Maury blood pressure, diastolic 97 mm[Hg] Li nkLogic blood pressure, systolic 179 mm[Hg] Luzmaria kLogic blood pressure, cuff size regular Jose [facility] blood pressure, diastolic 97 mm[Hg] Fa [facility] blood pressure, systolic 179 mm[Hg] Samir [facility] oxygen saturation, oximetry 99 % Janet Copeland respiratory rate E&M 16 /min Janet house pulse rate 99 /min Janet Copeland weight E&M 146 [lb_av] Janet Copeland height E&M 64 [in_i] Janet Copeland ALLERGIES No Known Drug Allergies HISTORY OF MEDICATION USE Medication Status Instructions Dates Provider Indications Com ments losartan 100 mg tablet active Take 1 tablet by mouth once daily 7 Kenisha Carlin U-100 Insulin 100 unit/mL (3 mL) insulin pen active Jam Beltran MD losartan 100 mg tablet completed TAKE 1 TABLET BY MOUTH EVERY DAY 8 - 8 Jam Beltran MD Otezla 30 mg tablet active Jam Beltran MD Ozempic 1 mg/dose (4 mg/3 mL) pen injector active Jam Beltran MD levothyroxine 150 mcg tablet active TAKE 1 TABLET BY MOUTH ONCE DAILY Jam Beltran MD potassium chloride 10 mEq tablet extended release active TAKE 1 TABLET BY MOUTH ONCE DAILY Jam Beltran MD furosemide 40 mg tablet active TAKE 1 TABLET BY MOUTH TWICE DAILY Jam Beltran MD hydralazine 100 mg tablet active TAKE 1 TABLET BY MOUTH EVERY 8 HOURS Jam Beltran MD allopurinol 100 mg tablet active TAKE 1 & 1/2 (ONE & ONE-HALF) TABLETS BY MOUTH ONCE DAILY Jam Beltran MD simvastatin 40 mg tablet active TAKE 1 TABLET BY MOUTH ONCE DAILY AT BEDTIME Jam Beltran MD omeprazole 40 mg capsule,delayed release(DR/EC) active Jam Beltran MD atenolol 100 mg tablet active Jam Beltran MD SOCIAL HISTORY Date Observation Value Provider cigarette use yes Hugh Guevara smoking status Current every day smoker Shelley Guevara cigarette use yes Jam Beltran MD smoking status Current every day smoker Mandi Beltran MD cigarette use yes Janet Copeland smoking status Current every day smoker Shukri Copeland INSURANCE PROVIDERS Payer name Policy type / Coverage type [employer] red constitution party ID [facility] [id number] [place] Medicare [id number] ADVANCE DIRECTIVES Name Date DISCUSSED - NO DECISION MADE TREATMENT PLAN Date Name Performer Cardiology: I reviewed the carotid duplex images today. The velocities are within normal range. Thus, based on these velocities, I do not think pt has significant carotid stenosis that indiciates need for intervention. Hugh Guevara Cardiology: H er updated medication list for this problem includes: Losartan 100 Mg Tablet (Losartan) ..... Take 1 tablet by mouth once daily Furosemide 40 Mg Tablet (Furosemide) ..... Take 1 tablet by mouth twice daily Hydralazine 100 Mg Tablet (Hydralazine) ..... Take 1 tablet by mouth every 8 hours Atenolol 100 Mg Tablet (Atenolol) BP today: 170/88 P rior BP: 160/84 (07/30/2023) [facility] Cardiology: H er updated medication list for this problem includes: Simvastatin 40 Mg Tablet (Simvastatin) ..... Take 1 tablet by mouth once daily at bedtime [facility] Cardiology: n o SOB E cho showed normal LV function [facility] Cardiology:follows n ephrology [facility] Cardiology: T he following medications were removed from the medication list: Losartan 100 Mg Tablet (Losartan) ..... Take 1 tablet by mouth every day Her updated medication list for this problem includes: Basaglar Kwikpen U-100 Insulin 100 Unit/ml (3 Ml) Insulin Pen (Insulin glargine) Ozempic 1 Mg/dose (4 Mg/3 Ml) Pen Injector (Semaglutide) [facility] Cardiology: H er updated medication list for this problem includes: Simvastatin 40 Mg Tablet (Simvastatin) ..... Take 1 tablet by mouth once daily at bedtime [facility] Cardiology:no SOB E cho showed normal LV function [facility] Cardiology: B P today: 160/84 P rior BP: 179/97 (06/30/2023) Her updated medication list for this problem includes: Furosemide 40 Mg Tablet (Furosemide) ..... Take 1 tablet by mouth twice daily Hydralazine 100 Mg Tablet (Hydralazine) ..... Take 1 tablet by mouth every 8 hours Atenolol 100 Mg Tablet (Atenolol) [facility] Cardiology:Echo show ed normal LV function. BP still elevated. Home sleep test showed mild BRODIE. PT did not want to have RPM due to cost. She has CKD Stage IV Will check renal artery duplex, kidney US, and lab work call patient if she qualifies for CONFIDENCE or LEVER David Gardnerri Cardiology:I reviewe d the carotid duplex images today. The velocities are within normal range. Thus, based on these velocities, I do not think pt has significant carotid stenosis that indiciates need for intervention. David Lunainari Cardiology: H er updated medication list for this problem includes: Ozempic 1 Mg/dose (4 Mg/3 Ml) Pen Injector (Semaglutide) David Gardnerri Cardiology: H er updated medication list for this problem includes: Simvastatin 40 Mg Tablet (Simvastatin) ..... Take 1 tablet by mouth once daily at bedtime David Gardnerri Cardiology:start RPM B P today: 179/97 Her updated medication list for this problem includes: Furosemide 40 Mg Tablet (Furosemide) ..... Take 1 tablet by mouth twice daily Hydralazine 100 Mg Tablet (Hydralazine) ..... Take 1 tablet by mouth every 8 hours Atenolol 100 Mg Tablet (Atenolol) David Gardnerri Cardiology:Will also obtain echo and home sleep study. N o SOB David Gardnerri Cardiology:Pt was fo und to have a left carotid bruit. She had a carotid duplex done at [facility]. The report described normal carotid velocities however the conclusion states 'stenosis of carotid artery'. She does not have any sx. She will try to obtain the images from this report for us to review. Otherwise, we will obtain carotid duplex. David Mendiola Date Name RPM (remote patient monitoring) Kidney Ultrasound CRP, high sensitivit y Lipoprotein (a) LIPID PANEL PROBNP, N TERMINAL BASIC METABOLIC PANE L W/EGFR HEMOGLOBIN A1c Microalb/Creatinine Urine, Random Renal Artery Duplex Sleep Study Home Complete Echo RPM (remote patient monitoring) Carotid Duplex Bilat eral HISTORY OF PROCEDURES Procedure Date Procedure Name Provider Procedure Notes S tatus Complex e/m visit add on Jam Beltran MD completed EKG Jam Beltran MD completed
--- OUTSIDE RECORDS SUMMARY | 2024-10-15 14:33 | XMS_ITS | Encounter Summary ---
Author Organization [facility] Address [facility] [place] [address] Care Team Providers Care Incubator Machine Operator Name Role Phone Verna Xiong CARLOS Primary Care Provider [phone] Encounter Details Date Type Department Care Team (Late st Contact Info) Description 05/31/2021 Abstract [facility] [address] Shannon Rosas MA Social History Tobacco Use Types Packs/Day Years Used Date Smoking Tobacco: Every Day Cigarettes Smokeless Tobacco: Never Alcohol Use Standard Drinks/Week Comments Not Currently 0 (1 standard drink = 0.6 oz pur e alcohol) Comments Unknown Sex and Gender Information Value Date Recorded Sex Assigned at Not on file Legal Sex Female 11:57 AM PEPPER CUTTER Gender Identity Not on file Sexual Orientation Not on file COVID-19 Exposure Response Date Recorded In the last month, have you been in contact with someone who was confirmed or suspected to have Coronavirus / COVID-19? No / Unsure 05/31/2021 10:04 AM PEPPER CUTTER documented as of this encounter Functional Status * RETIRED Are you deaf or do you have serious difficulty hearing Answer Date of Assessment Author Status No 05/16/2021 2:30 PM PEPPER CUTTER Activ e * RETIRED Are you blind or do you have serious difficulty seeing, even when wearing glasses? Answer Date of Assessment Author Status No 05/16/2021 2:30 PM PEPPER CUTTER Activ e * Do you have serious difficulty walking or climbing stairs? Answer Date of Assessment Author Status No 05/16/2021 2:30 PM PEPPER CUTTER Laura Moore R N Active * Do you have difficulty dressing or bathing? Answer Date of Assessment Author Status No 05/16/2021 2:30 PM Laura Pierre R N Active * Because of a physical, mental, or emotional condition, do you have difficulty doing errands alone such as visiting a doctor's office or shopping? Answer Date of Assessment Author Status No 05/16/2021 2:30 PM Laura Pierre R N Active documented as of this encounter Mental Status * Because of a physical, mental, or emotional condition, do you have serious difficulty concentrating, remembering, or making decisions? Answer Entry Date Author Status No 05/16/2021 2:30 PM PEPPER CUTTER Laura Moore R N Active documented in this encounter Plan of Treatment Not on file documented as of this encounter Goals Goal Patient Goal Type Associated Problems Recent Progress Patient-Stated? 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 Watts RN documented as of this encounter Procedures Procedure Name Priority Date/Time Associated Diagnosis Comments BASIC METABOLIC PANEL Routine 05/24/2021 documented in this encounter Results * (ABNORMAL) BASIC METABOLIC PANEL (05/24/2021) SODIUM S/P/B 133 POTASSIUM S/P/B 4.8 CO2 26 CHLORIDE S/P/B 102 GLUCOSE 123 mg/dL CALCIUM S/P/B 9.3 BUN 38 CREATININE S/P/B 2.0(A) 0.5 - 1.0 EGFR NON-AFR. AMER. 24 <=90 05/24/2021 us Doc [facility] Abstract LABORATORY Final Result documented in this encounter Visit Diagnoses Not on filedocumented in this encounter Care Teams Incubator Machine Operator Relationship Specialty Start Date End Date Verna Xiong NP [address] [place] [id number] PCP - General NURSE PRACTITIONER 05/15/21 documented as of this encounter
--- OUTSIDE RECORDS SUMMARY | 2024-10-15 14:33 | XMS_ITS | Encounter Summary ---
Author Organization [facility] Address [address] [place] [address] Care Team Providers Care Construction Administrative Assistant Name Role Phone Unavailable Primary Care Provider Unavailabl e Encounter Details Date Type Department Care Team (Late st Contact Info) Description 09/02/2024 Lab Requisition [facility] - DermPath Lab [address] [facility], [facility] [place] [address] Rae Herrmann MD [address] [facility] [address] [place] [address] Social History Tobacco Use Types Packs/Day Years [...] Priority Date/Time Associated Diagnosis Comments DERMATOPATHOLOGY Routine 09/02/2024 9:30 AM CDT documented in this encounter Results * DERMATOPATHOLOGY (09/02/2024 9:30 AM CDT) Case Report Dermatopathology Report Case: [id number] Authorizing Provider: Rae Herrmann MD Collected: 09/02/2024 09:30 AM Ordering Location: [facility] Physician [facility] - Received: 09/03/2024 06:17 AM DermPath Lab Pathologist: Ena Arellano MD Specimen: Skin, left forearm medial 1:53 PM CDT DERMATOPATHOLOGY LABORATORY Final Diagnosis Specimen A. SKIN, left forearm medial: DERMAL SCAR RESIDUAL SQUAMOUS CELL CARCINOMA NOT IDENTIFIED (L90.5) 1:53 PM CDT DERMATOPATHOLOGY LABORATORY Clinical History Bx Proven SCC Check margins/prior biopsy 1:53 PM CDT DERMATOPATHOLOGY LABORATORY Gross Description Specimen A: Received is one formalin filled container labeled with the patient's name and designated left forearm medial.The specimen consists of an ellipse measuring [id number] mm and is oriented with the notch at [...] and submitted in cassettes 3-4. Jar 0. 1:53 PM CDT DERMATOPATHOLOGY LABORATORY Microscopic Description Specimen A. SKIN, left forearm medial: There are fibroblasts and collagen bundles oriented parallel to the skin surface. There are elongated blood vessels, some of which are oriented perpendicular to the skin surface. No residual squamous cell carcinoma is identified. 1:53 PM CDT DERMATOPATHOLOGY LABORATORY Disclaimer An external and internal positive and negative controls are appropriate for the histochemical, immunohistochemical and immunofluorescence stain(s) in this case (if any), except where stated explicitly. The performance characteristics of the stain(s) cited in this report were developed and its performance characteristic determined by the Dermatopathology Laboratory at [facility], directed by Dr. Guille Sharp. These tests need not be, and therefore are not, approved by the [place] Food and Drug Administration. The tests are used for clinical purposes. Billing Codes Specimen Charges Stain Charges 42633 1 1:53 PM CDT DERMATOPATHOLOGY LABORATORY Embedded Images 1:53 PM CDT DERMATOPATHOLOGY LABORATORY Pathology/Cytolo gy TISSUE SPECIMEN FROM SKIN / Unknown 09/02/2024 9:30 AM CDT 09/03/2024 6:17 AM CDT us Rae Herrmann MD LAB - PATHOLOGY/CYTOLOGY ORD ERABLES Final Result DERMATOPATHOLOGY LABORATORY [facility] - Department of Dermatology [address] [place] [address], [facility] [phone] documented in this encounter Visit Diagnoses Not on filedocumented in this encounter
--- OUTSIDE RECORDS SUMMARY | 2024-10-15 14:33 | XMS_ITS | Referral Summary ---
Author Organization [facility] Address [address] [place] [id number] Care Team Providers Care Vascular Specialists Name Role Phone Verna Xiong NP Primary Care Provider [phone] Allergies Active Allergy Reactions Criticality Noted Date [...] ns:hypothyroidi sm Take 150 mcg by mouth hose seamer before breakfast 7 Active simvastatin (ZOCOR) 40 [...] mg by mouth every morning Active multivit-minera d-ynqm-wzegpw tabletIndicatio ns:supplement Take 1 tablet by mouth nightly Active cyanocobalamin (Vitamin B-12) 1,000 mcg tabletIndicatio ns:Prevention of Vitamin B12 Deficiency Take 1,000 mcg by mouth nightly Active cholecalciferol (VITAMIN D-3) 2,000 unit capsuleIndicati ons:Prevention of Vitamin D Deficiency Take 2,000 Units by mouth nightly Active qmjdx-3s-smj-ep a-fish oil 120 mg-180 mg- 60 mg-1,200 [...] (10/23/2018): Added automatically from request for surgery [id number] Encounter for planned postprocedural wound closu re 09/25/2018 Overview (09/25/2018): Added automatically from request for surgery [id number] Type 2 diabetes mellitus 11/26/2016 Assessment & [...] scan 1.25 [place] vit D Recommendations to folow Social History Tobacco Use Types Packs/Day Years Used Date Smoking Tobacco: Every Day Cigarettes Smokeless Tobacco: Never Comments:Hasn't had cigarett e since 10/20/2018 Alcohol Use Standard Drinks/Week Comments No 0 (1 standard drink = 0.6 oz pur e alcohol) Comments No Sex and Gender Information Value Date Recorded Sex Assigned at Not on file Legal Sex Female 7:38 PM WELFARE INVESTIGATOR Gender Identity Not on file Sexual Orientation Not on file Last Filed Vital Signs [...] of Treatment Not on file Insurance MEDICARE [facility] MEDICARE [facility] Member Subscriber Plan / Payer ( fective 2009-) Name:Jillian Bernal Relation to Subscriber:Self Name:Jillian Bernal Payer ID:[id number] (NAIC) Group ID:[id number] Type:[employer] Address: [facility] [id number] [place] [id number] Care Teams Vascular Specialists Relationship Specialty Start Date End Date Verna Xiong NP PCP - General 11/21/16
--- OUTSIDE RECORDS SUMMARY | 2024-10-15 14:33 | XMS_ITS | Clinical Summary ---
Author Organization [facility] Address [address] [place] [phone] Phone Care Team Providers Care Client Professional Name Role Phone Verna Xiong NP Primary Care Provider [phone] Allergies Active Allergy Reactions Criticality Noted Date Comments Povidone-Iodine Rash Medium 01/01/2011 Medications amLODIPine (NORVASC) 5 MG tablet 1 Active Apremilast (Otezla) 30 MG tablet Otezla 30 mg tablet Active aspirin (ST KATE) 81 MG EC tablet daily 3 Active atenolol (TENORMIN) 100 MG tablet atenolol 100 mg tablet 7 Active hydroCHLOROthia zide (HYDRODIURIL) 25 MG tablet 1 Active Icosapent Ethyl 1 g capsule 1 Active Basaglar KwikPen 100 UNIT/ML injection 1 Active BD Pen Needle Linda 2nd Gen 32G X 4 MM misc 1 Active lisinopril (PRINIVIL) 40 MG tablet 1 Active meloxicam (MOBIC) 15 MG tablet meloxicam 15 mg tablet Take 1 tablet by mouth once daily 7 Active metFORMIN XR 500 MG 24 hr tablet 1 Active omeprazole (PriLOSEC) [address] capsule 1 Active potassium chloride (KLOR-CON M10) 10 MEQ CR tablet 1 Active simvastatin (ZOCOR) 40 MG tablet 1 Active Friend TravelerTouch Ultra test strip USE 1 STRIP TO CHECK GLUCOSE ONCE DAILY 2 Active hydrALAZINE (APRESOLINE) 100 MG tablet Take 100 mg by mouth every 8 (eight) hours 1 Active Lancets (OneTouch Delica Plus [id number]) [facility] USE 1 TO CHECK GLUCOSE ONCE DAILY 1 Active Euthyrox 150 MCG tablet TAKE 1 TABLET BY MOUTH ONCE DAILY FOR 30 DAYS 2 Active traMADol (ULTRAM) 50 MG tablet tramadol 50 mg tablet Active allopurinol (ZYLOPRIM) 100 MG tablet TAKE 1 TABLET BY MOUTH ONCE DAILY AT 8AM 2 Active Euthyrox 175 MCG tablet TAKE 1 TABLET BY MOUTH ONCE DAILY AT 6:30 AM 2 Active metOLazone (ZAROXOLYN) 2.5 MG tablet TAKE 1 TABLET BY MOUTH ONCE DAILY IN THE MORNING 2 Active furosemide (LASIX) 40 MG tablet Take 1 tablet (40 mg total) by mouth 2 (two) times a day 60 tablet 11 2 Active Active Problems Problem Noted Date Diagnosed Date Chronic kidney disease 07/10/2021 Overview (07/10/2021): Last Assessment & Plan: Stage 3 Followed by nephrology at [place] Chronic heart failure co-occ shital with normal ejection fraction 05/31/2021 Overview (07/10/2021): Last Assessment & Plan: BNP >5000 Echo revealing normal LVSF and DD grade 1. Lasix 20mg daily continued Would like to review bmp and increase lasix to 40mg daily Dyspnea on exertion 05/31/2021 Overview (07/10/2021): Last Assessment & Plan: On going since diuretics and discharge Echo reviewed Lungs CTA with mild BLE edema Could be anginal equivalent - will order nuclear stress Follow up with PFT and CT chest Reflux esophagitis 05/17/2021 Adrenal mass 05/17/2021 Arthritis 05/17/2021 Electrocardiogram abnormal 05/17/2021 Folliculitis 05/17/2021 Imaging of thyroid gland abnormal 05/17/2021 Liver mass 05/17/2021 Urinary tract infectious disease 05/17/2021 Acute congestive heart failure 05/15/2021 Osteoarthritis of knee 05/01/2021 Colitis 05/01/2021 Current tear of medial cartilage AND/OR meniscus of knee 05/01/2021 Hyperuricemia 05/01/2021 Hyperlipidemia 05/01/2021 Essential hypertension 05/01/2021 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 Overview (05/01/2021): 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% [place] - -- had DCIS in 2005 S/p Radiation and Arimidex x 5 years S/p mastectomy and sentinel node bx 0.8cm int grade 0:1LN Stage 0 Last Assessment & Plan: IOV Had DCIS in 2005 - had 5 years AI Cellulitis left CW NO RADIATION NO ANTIESTROGEN ROV 6 [facility] vanc for elulitis - sees [facility] May need cefalosporin since DM and brittany mild improvemnet on keflex Onychomycosis 05/01/2021 Pain in limb 05/01/2021 Peptic ulcer with hemorrhage 05/01/2021 Pulmonary hypertension 05/01/2021 Diabetes mellitus 05/01/2021 Hypothyroidism 05/01/2021 Other tear of medial meniscus, current injury Decreased renal function 03/06/2021 Chronic obstructive pulmonary disease 07/10/2019 Smoker 02/12/2019 Basal cell carcinoma of skin of nose 10/23/2018 Overview (05/01/2021): Added automatically from request for surgery [id number] Hypercalcemia 11/26/2016 Overview (05/01/2021): Last Assessment & Plan: With suppressed PTH, indicating non PTH hypercalcemia ( paraneoplastic ? ) Will recheck serum Ca and PTH Check PTH related peptide Whole body bone scan 1.25 [place] vit D Recommendations to folow Type 2 diabetes mellitus 11/26/2016 Overview (05/01/2021): Last Assessment & Plan: Hba1c was 7.8 today, indicating inadequate DM control 1800 calorie, consistent carb diet recommended 30 min daily aerobic and resistance exercise recommended Foot care discused. Prevention and treatment of hyypoglcyemia discussed. Immunizations Immunization Administration Dates Next Due DTaP 04/16/2010 Influenza Split High Dose Pr eservative Free IM 02/22/2021,04/14/2019,03/16/2018,04/04 Influenza TIV (IM) 04/14/2014,03/01/2013 Influenza, Injectable, Quadrivalent 04/02,03/16/2018,03/14/2017,03/28,03/27/2016 Moderna Sars-cov-2 Vaccination 09/04/2020,2020 Pneumococcal Conjugate 13-Valent 12/14/2018 Pneumococcal Polysaccharide 04/02/2007 Family History Medical History Relation Comments Stroke Brother Coronary artery disease Father Diabetes mellitus Father Hypertension Father Graves' disease Mother Hypertension Mother Uterine cancer Mother Congestive heart failure Sister Relation Status Comments Brother Father Mother Sister Social History Tobacco Use Types Packs/Day Years Used Date Smoking Tobacco: Every Day Cigarettes 2 20 Smokeless Tobacco: Never Tobacco Cessation:Ready to Q uit: No; Counseling Given: Yes Alcohol Use Standard Drinks/Week Comments Not Currently 0 (1 standard drink = 0.6 oz pur e alcohol) Comments Unknown Sex and Gender Information Value Date Recorded Sex Assigned at Not on file Legal Sex Female 1:00 PM MDT Gender Identity Not on file Sexual Orientation Not on file Last Filed Vital Signs Vital Sign Reading Time Taken Comments Blood Pressure 132/70 03/11/2022 2:50 PM CDT Pulse - - Temperature 36.4 C (97.5 F) 03/11/2022 2:50 PM CDT Respiratory Rate 18 03/11/2022 2:50 PM CDT Oxygen Saturation - - Inhaled Oxygen Concentration - - Weight 70.8 kg (156 lb) 03/11/2022 2:50 PM CDT Height 165.1 cm (5' 5 ) 03/11/2022 2:50 PM CDT Body Mass Index 25.96 03/11/2022 2:50 PM CDT Plan of Treatment Health Maintenance Due Date Last Done Comments Pneumococcal PPSV23/PCV13 65 + Years / Low and Medium Risk (3 of 3 - PCV20 or PCV21) 12/15/2023 12/14/2018, 2006 COVID-19 Vaccine (3 - season) 02/01/202409/2020, 08/13/2020 Influenza Vaccine (Season Ended) 2025 04/14/20 14, 03/01/2013 Insurance MEDICARE [facility] Care Teams Client Professional Relationship Specialty Start Date End Date Verna Xiong NP [facility] [place] [phone] PCP - General Internal Medicine 03/06/21
--- OUTSIDE RECORDS SUMMARY | 2024-10-15 14:34 | XMS_ITS | Data Portability ---
Author Organization [facility] [employer], Main Office Address [address] [place] [address] Assessment No assessment recorded. Plan of Treatment Reminders Order Date Submit Date Provider Last Modified By Organization Details Last Modified Time Details Appointments New Patient 2024 10:00A M YEIMI Padgett Not available Not available Not available Lab vitamin B12, serum 2023 024 [email or web address] Not available 06/28/2024 16:23:30 vitamin D, 25-hydrox y, total, serum 2023 024 [email or web address] Not available 06/28/2024 16:24:33 HbA1c (hemoglob in A1c), blood 2023 024 Not available 06/28/2024 15:41:54 TSH, serum or plasma 2023 024 [facility], [address] [place], [address], 06/28/2024 15:44:29 T4, free, serum 2023 024 [email or web address] [facility], [address] [place], [address], 06/28/2024 15:46:03 lipid panel, serum 2023 024 [email or web address] [facility], [address] [place], [address], 06/28/2024 16:27:09 CMP, serum or plasma 2023 024 [email or web address] [facility], [address] [place], [address], 06/28/2024 16:28:19 CK (creatine kinase), total, serum [email or web address], [address] [place], [address], 06/28/2024 16:21:07 CBC w/ auto diff [address], [address] [place], [address], 06/28/2024 16:22:20 lipid panel, serum [address], [address] [place], [address], 01/06/2024 08:02:00 CMP, serum or plasma [address], [address] [place], [address], 01/06/2024 08:02:00 CK (creatine kinase), total, serum [address], [address] [place] [address], [id number], 01/06/2024 08:02:00 CBC w/ auto diff [address], [address] [place] [address], [id number], 01/06/2024 08:02:00 TSH, serum or plasma [address], [address] [place] [address], [id number], 01/06/2024 08:02:01 Referral gynecolog ist referral - She cannot remembr her las PAP . Please call patient to schedule an appointme nt. Thank you 2023 024 [email or web address], [address], [address], [place], [address], 01/31/2024 07:48:41 Procedures None recorded. Surgeries None recorded. Imaging MAMMO, screening , digital, bilateral 2023 024 [email or web address] 56 [facility], [address], [address], [place], [address], 01/13/2024 08:50:34 Medication Orders cyclobenz aprine 10 mg tablet 2023 [facility], [address], [place], [address], 03/31/2024 10:55:05 Patient TargetsNo targets recorded. Patient Instructions Encounter Date Encounter Id Patient Instructions Last Modified By Organization Details Last Modified Time 12/30/2023 [id number] dementia rating scale-2* [email or web address] Not available 12/30/2023 15:18:37 depression screening* [email or web address] Not available 12/30/2023 15:18:43 alcohol misuse* [email or web address] Not available 12/30/2023 15:18:49 multi-dimensiona l health assessment questionnaire* [email or web address] Not available 12/30/2023 15:18:31 Personalized a lt Plan and Screening Recommendations Advance Directives - Do you have one? No Advance Directives - Do we have your advance directive on file in your health record? Primary Prevention/Interven tion (prevents or decreases the chance of common diseases from occurring) Smoking Risk: Smoker Alcohol Misuse Screening: Negative Weight: Appropriate continue your current weight loss efforts Physical activity: Need more exercise/physical activity minimum of 10-20 minutes of activity that causes mild breathlessness/day minimum of 20-30 minutes activity that causes mild breathlessness/day Nutrition: Good Average Fall Risk (screened today): Low Vaccines Pneumococcal: Ordered Recommended today Recommended today, but you have declined No further needed Influenza: Your next one in the fall of this year Chronic Disease Risks Stroke: Low Risk Intermediate Risk I have no recommendations Act thuy diagnosis, Continue current treatment plan Heart Attack: Low risk Intermediate Risk I have no recommendations Act thuy diagnosis, Continue current treatment plan Clogging of the Arteries: Low risk Intermediate Risk I have no recommendations Act thuy diagnosis, Continue current treatment plan Diabetes: Low Risk Intermediate Risk Active diagnosis, Continue current treatment plan Secondary Prevention/Interven tion (detects treatable diseases before they may cause symptoms, disability, or ) Breast Cancer Screening with mammogram: Your next mammogram: Ordered Recommended today Cervical/Uterine/Ov roshni Cancer Screening: No screening necessary Osteoporosis Screening: No screening necessary Date Screening Last Performed: 01/01/23 Colon Cancer Screening: No screening necessary No screening necessary Date Screening Last Performed: 2020 Eye Disease Screening: No Eye exam necessary Dementia Risk: Low I have no recommendations Depression Screening: Negative Not available 12/30/2023 15:18:43 06/30/2024 [id number] reviewed labs , a1c is 5.9 , cut dose of vit D in half , recheck in 2 months vit d was 110 . . she takes it otc , vit b12 over 1000 , so she can cut back on that . a little anemic , very mild ... back in 3 months. 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 Please call patient to schedule an appointment. Thank you Referring Physician: Kemal Ramirez, Family Medicine, Encounter Date: 12/30/2023 Results Created Date Observation Date Name Description Value Unit Range Abnormal Flag Note LastModifiedBy Organization Detail LastModifiedTime Result Notes None recorded. Problems Name Problem SNOMED Code Status Onset Date Resolution Date Notes Provider Name and Address Organization Details Recorded Time Electroc ardiogra m abnormal 511569503 Completed Not Available [facility] 3 08:21:59 Follicul itis 80415209 Completed Not Available [facility] 3 08:21:59 Chronic obstruct thuy pulmonar y disease 91530770 Active 2019 Not Available [facility] 3 02:35:49 Radiolog y result abnormal 859131273 Completed Not Available [facility] 3 08:21:59 Radiothe rapy follow-u p 481916111 Active Not Available [facility] 3 02:35:49 Adrenal mass 004940589 Completed Not Available [facility] 3 08:21:59 Osteoart hritis of knee 033062376 Active Not Available [facility] 3 02:35:49 Liver mass 650279196 Completed Not Available [facility] 3 08:21:59 Knee pain Completed Not Available [facility] 3 08:21:59 Type 2 diabetes mellitus without complica tion 937918994 Active Not Available [facility] 3 02:35:49 Hyperuri cemia 94977960 Active Not Available [facility] 3 02:35:49 Goiter 1853247 Active Not Available [facility] 3 02:35:49 Hyperten sive disorder 71955669 Active Not Available [facility] 3 02:35:49 Osteoart hritis 245711000 Active Not Available [facility] 3 02:35:49 Hypothyr oidism 05806302 Active Not Available [facility] 3 02:35:49 Onychomy cosis 986876876 Active Not Available [facility] 3 02:35:49 Congesti ve heart failure 40032870 Active 2020 Not Available [facility] 3 02:35:49 Imaging of thyroid gland abnormal 350848949 Active Not Available [facility] 3 02:35:49 Hyperlip idemia 90473997 Active Not Available [facility] 3 02:35:49 [facility] hyperten danish 00162814 Active Not Available [facility] 3 02:35:49 Urinary tract infectio us disease 87238215 Completed Not Available [facility] 3 08:22:00 Pulmonar y hyperten danish 57147529 Active Not Available [facility] 3 02:35:49 Decrease d renal function 58067878 Active 2020 Not Available [facility] 3 02:35:49 Smoker 47886257 Active Not Available [facility] 3 02:35:49 Hypokale beni 31931553 Active 2022 Not Available [facility] 3 02:35:49 Gastroes ophageal reflux disease 299878340 Active 2022 Not Available [facility] 3 02:35:49 Hypertri glycerid emia 499324165 Active 2022 Not Available [facility] 3 02:35:49 Carotid bruit 466952863 Active 2022 Clive Agrawal MD [address], [address], [place], [address] , [facility] [employer] 3 09:43:39 Carotid artery stenosis 38289176 Active 2022 Tressa Huddleston RN [facility], [facility] [employer] [facility] 3 12:19:17 Chronic kidney disease stage [address] Godinez is nephrolo gist ANDREA Shields [address], [address], [place], [address] , [facility] 4 10:09:48 Screenin g for malignan t neoplasm of breast Active 2023 ANDREA Shields [address], [address], [place], [address] , [facility] [employer] [facility] 4 15:10:36 Screenin g for malignan t neoplasm of cervix Active 2023 ANDREA Shields [address], [address], [place], [address] , [facility] 4 15:13:16 Adult health examinat ion Active 2023 ANDREA Shields [address], [address], [place], [address] , [facility] [employer] 4 15:18:07 At increase d risk for nutritio nal problem 806300443 Active 2023 ANDREA Shields [address], [address], [place], [address] , [facility] 4 10:50:53 Administ ration of influenz a vaccine Active 2023 ANDREA Shields [address], [facility] [address], [place], [address] , [facility] [employer] [facility] 4 10:52:28 Stiff neck 855604263 Active 2023 ANDREA Shields [address], [facility] [address], [place], [address] , [facility] 4 10:54:18 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 Please review these documents and add these problems to the patient's chart manually as needed. Problem Notes None recorded. Procedures Surgical History Date Name Laterality Status Provider Name and Address Organization Details Recorded Time 12/30/19 Medicare Wellness CPT Code, subsequent completed Carlyn Chung RN [facility] [employer] 12/29/2023 15:46:03 12/23/19 24 Chronic care management services completed Ava Arellano [facility] [employer] [facility] 12/23/2023 22:27:29 11/12/19 24 Chronic care management services completed Ava Arellano [facility] [employer] 11/12/2023 12:10:46 12/26/19 Medicare Wellness CPT Code, subsequent completed Therese Diaz RN [facility] [employer] 2022 12:46:52 Colonoscopy completed Not Available [facility] 07/31/2022 08:19:06 Cholecystectomy completed Not Available [facility] 07/31/2022 08:19:06 total knee replacement completed Not Available [facility] 07/31/2022 08:19:06 Breast Surgery completed Not Available [facility] 07/31/2022 08:19:06 Imaging Results None recorded. Procedure Notes None recorded. Medical Equipment None Reported. Allergies No known drug allergies Medications Name Sig Start Date Stop Date Status Note LastModified by Organization Details LastModified Time Prescript ion - Change 08/21 completed Not Available Not Available Not Available celecoxib 200 mg capsule 05/05 completed Not Available Not Available Not Available cyclobenz aprine 10 mg tablet Take 1 tablet every day by oral route at bedtime for 30 days. active Not Available Not Available No t Available amoxicill in 500 mg capsule active Not Available Not Available Not Available furosemid e 40 mg tablet Take 1 tablet by mouth twice daily 2024 active Not Available Not Available Not Avai lable metolazon e 2.5 mg tablet TAKE 1 TABLET BY MOUTH ONCE DAILY FOR 90 DAYS 08/21 completed Not Available Not Available Not Available metformin 500 mg tablet TAKE 1 TABLET BY MOUTH ONCE DAILY 07/14 completed Not Available Not Available Not Available Euthyrox 175 mcg tablet TAKE 1 TABLET BY MOUTH ONCE DAILY AT 6:30 AM active Not Available Not Available No t Available bupropion HCl SR 150 mg tablet,12 hr sustained -release active Not Available Not Available Not Available levothyro xine 137 mcg tablet TAKE ONE TABLET BY MOUTH ONCE DAILY active INCREASE D TO 150MCG Not Available Not Available Not Available doxycycli ne hyclate 100 mg capsule Take 1 capsule twice a day by oral route for 10 days. active Not Available Not Available No t Available BD Specialty Use [place] 30 gauge x 1/2 active Not Available Not Available Not Available azithromy mercy 250 mg tablet TAKE 2 TABLETS (500 MG) BY ORAL ROUTE ONCE DAILY FOR 1 DAY THEN 1 TABLET (250 MG) BY ORAL ROUTE ONCE DAILY FOR 4 DAYS 05/24 completed Not Available Not Available Not Available atenolol 100 mg tablet Take 1 tablet by mouth twice daily 2024 active Not Available Not Available Not Avai lable hydrocodo ne 5 mg-acetam inophen 325 mg tablet 07/20 completed Not Available Not Available Not Available meloxicam 15 mg tablet TAKE 1 TABLET BY MOUTH ONCE DAILY 05/24 completed Not Available Not Available Not Available prednison e 20 mg tablet TAKE 2 TABLETS BY MOUTH ONCE DAILY FOR 5 DAYS 12/29 completed Not Available Not Available Not Available potassium chloride ER 10 mEq tablet,ex tended release Take 1 tablet by mouth once daily active Not Available Not Available No t Available amlodipin e 5 mg tablet Take 1 tablet by mouth once daily active Not Available Not Available No t Available allopurin ol 100 mg tablet TAKE 1 & 1/2 (ONE & ONE-HALF ) TABLETS BY MOUTH ONCE DAILY active Not Available Not Available No t Available BD Precision [place] Non-Steri le 25 gauge x 1 needle active Not Available Not Available No t Available peg-elect rolyte solution 420 gram oral solution 12/14 completed Not Available Not Available Not Available omeprazol e 40 mg capsule,d elayed release TAKE 1 CAPSULE BY MOUTH ONCE DAILY active Not Available Not Available No t Available aspirin 81 mg tablet,de layed release Take 1 tablet every day by oral route as directed . 2012 active Not Available Not Available Not Avai lable tramadol 50 mg tablet Take 1 tablet every day by oral route as needed for 30 days. active Not Available Not Available No t Available triamcino lone acetonide 0.1 % topical cream APPLY A THIN LAYER TO THE AFFECTED AREA(S) TWICE DAILY active Not Available Not Available No t Available Euthyrox 100 mcg tablet Take 1 tablet by mouth once daily active Not Available Not Available No t Available simvastat in 40 mg tablet TAKE 1 TABLET BY MOUTH ONCE DAILY AT BEDTIME 2024 active Not Available Not Available Not Avai lable glimepiri de 2 mg tablet TAKE TWO TABLETS BY MOUTH ONCE DAILY active Not Available Not Available No t Available cefadroxi l 500 mg capsule 07/14 completed Not Available Not Available Not Available oxycodone -acetamin ophen 5 mg-325 mg tablet 12/14 completed Not Available Not Available Not Available ofloxacin 0.3 % ear drops INSTILL 10 DROPS (1.5 MG) INTO AFFECTED EAR(S) BY OTIC ROUTE ONCE PER DAY X 7 DAYS active Not Available Not Available No t Available citalopra m 20 mg tablet active Not Available Not Available Not Available Euthyrox 125 mcg tablet Take 1 tablet every day by oral route for 30 days. 05/15 completed Not Available Not Available Not Available Lamisil 250 mg tablet Take 1 tablet every day by oral route. 01/19 completed Not Available Not Available Not Available Euthyrox 75 mcg tablet Take 1 tablet by mouth once daily 10/08 completed Not Available Not Available Not Available hydrocodo ne 7.5 mg-acetam inophen 325 mg tablet 05/05 completed Not Available Not Available Not Available prednison e 2.5 mg tablet TAKE 2 TABLETS BY MOUTH TWICE DAILY FOR 5 DAYS THEN 1 TWICE DAILY FOR 5 DAYS THEN 1 ONCE DAILY FOR 5 DAYS THEN 1 EVERY OTHER DAY FOR 5 DOSES AND STOP 08/27 completed Not Available Not Available Not Available cephalexi n 500 mg capsule 12/14 completed Not Available Not Available Not Available hydralazi ne 100 mg tablet TAKE 1 TABLET BY MOUTH EVERY 8 HOURS 2023 active Not Available Not Available Not Avai lable metformin 1,000 mg tablet TAKE 1 TABLET BY MOUTH TWICE DAILY active Not Available Not Available No t Available triamcino lone acetonide 0.1 % topical ointment active Not Available Not Available Not Available glimepiri de 4 mg tablet Take 1 tablet every day by oral route. 07/14 completed Take 1 po bid Not Available Not Available Not Available levothyro xine 150 mcg tablet Take 1 tablet every day by oral route for 90 days. 2024 active Not Available Not Available Not Avai lable omeprazol e 20 mg capsule,d elayed release Take 1 capsule every day by oral route. 02/22 completed Not Available Not Available Not Available Euthyrox 50 mcg tablet TAKE 1 TABLET BY MOUTH ONCE DAILY FOR 30 DAYS active Not Available Not Available No t Available allopurin ol 300 mg tablet Take 1 tablet by mouth once daily active Not Available Not Available No t Available hydrochlo rothiazid e 25 mg tablet Take 1 tablet by mouth once daily 05/24 completed Not Available Not Available Not Available mometason e 0.1 % topical ointment APPLY TO THE HANDS AND FEET AT BEDTIME 03/06 completed Not Available Not Available Not Available mupirocin 2 % topical ointment 01/25 completed Not Available Not Available Not Available furosemid e 20 mg tablet Take 1 po daily active Not Available Not Available No t Available methylpre dnisolone 4 mg tablets in a dose pack Use as directed 05/24 completed Not Available Not Available Not Available colchicin e 0.6 mg tablet TAKE TWO TABLETS BY MOUTH WHEN YOU GET GOUT FLARE UP AND ONE TABLET 2 HOURS LATER. 11/11 completed Not Available Not Available Not Available lisinopri l 40 mg tablet TAKE 1 TABLET BY MOUTH ONCE DAILY 11/11 completed Not Available Not Available Not Available ondansetr on 4 mg disintegr ating tablet Place 1 tablet 3 times a day by translin gual route as needed. 08/21 completed Not Available Not Available Not Available losartan 100 mg tablet TAKE 1 TABLET BY MOUTH ONCE DAILY active Not Available Not Available No t Available metformin ER 500 mg tablet,ex tended release 24 hr TAKE 1 TABLET BY MOUTH TWICE DAILY active Not Available Not Available No t Available atenolol 50 mg tablet Take 2 tablets twice a day by oral route for 30 days. active Not Available Not Available No t Available amoxicill in 875 mg-potass ium clavulana te 125 mg tablet Take 1 tablet every 12 hours by oral route with meals. 09/08 completed Not Available Not Available Not Available trimethob enzamide 300 mg capsule active Not Available Not Available Not Available Bactrim DS 800 mg-160 mg tablet Take 1 tablet every 12 hours by oral route for 7 days. 02/25 completed Not Available Not Available Not Available Blood Glucose Test strips use 1 strip to check glucose once daily 2023 active Not Available Not Available Not Avai lable insulin lispro (U-100) 100 unit/mL subcutane ous pen INJECT 5 UNITS SUBCUTAN EOUSLY THREE TIMES DAILY WITH MEALS IF BLOOD SUGAR IS OVER 150. active Not Available Not Available No t Available moxifloxa mercy 0.5 % eye drops 01/25 completed Not Available Not Available Not Available metformin ER 750 mg tablet,ex tended release 24 hr TAKE 1 TABLET BY MOUTH TWICE DAILY 01/30 completed Not Available Not Available Not Available potassium chloride ER 10 mEq tablet,ex tended release(p art/cryst ) TAKE 1 TABLET BY MOUTH ONCE DAILY 10/07 completed Not Available Not Available Not Available bupropion HCl XL 300 mg 24 hr tablet, extended release active Not Available Not Available Not Available OneTouch UltraSoft Lancets Take 1 each every day by miscell. route for 90 days. 01/25 completed Not Available Not Available Not Available omega-3 acid ethyl esters 1 gram capsule TAKE 2 CAPSULES BY MOUTH TWICE DAILY AFTER A MEAL active Not Available Not Available No t Available ProAir HFA 90 mcg/actua tion aerosol inhaler Inhale 2 puffs every 4 hours by inhalati on route as needed. 01/25 completed Not Available Not Available Not Available OneTouch UltraMini kit 01/25 completed Not Available Not Available Not Available metformin ER 500 mg 24 hr tablet,ex tended release (gastric retention ) Take 1 tablet twice a day by oral route for 90 days. 02/22 completed Not Available Not Available Not Available Simcor 500 mg-20 mg tablet,ex tended release TAKE 1 TABLET DAILY active replaced with simvasta tin Not Available Not Available Not Available Durezol 0.05 % eye drops 03/06 completed Not Available Not Available Not Available fenofibri c acid (choline) 135 mg capsule,d elayed release 1 PO DAILY 10/02 completed Not Available Not Available Not Available Onglyza 5 mg tablet TAKE ONE TABLET BY MOUTH ONCE DAILY 01/19 completed Not Available Not Available Not Available Simcor 1,000 mg-40 mg tablet,ex tended release TAKE 1/2 TABLET DAILY active Not Available Not Available No t Available Suprep Bowel Prep Kit 17.5 gram-3.13 gram-1.6 gram oral solution active Not Available Not Available Not Available Tradjenta 5 mg tablet Take 1 tablet every day by oral route. 05/05 completed Not Available Not Available Not Available Xarelto 10 mg tablet 05/05 completed Not Available Not Available Not Available Chantix Continuin g Month Box 1 mg tablet Use as directed active Not Available Not Available No t Available Chantix Starting Month Box 0.5 mg (11)-1 mg (42) tablets in dose pack Use as directed active Not Available Not Available No t Available Vascepa 1 gram capsule TAKE 2 CAPSULES BY MOUTH TWICE DAILY 11/11 completed Not Available Not Available Not Available Ilevro 0.3 % eye drops,nel pension 03/06 completed Not Available Not Available Not Available aloglipti n 25 mg tablet TAKE 1 TABLET BY MOUTH ONCE DAILY 07/14 completed Not Available Not Available Not Available Victoza 3-James 0.6 mg/0.1 mL (18 mg/3 mL) subcutane ous pen injector Inject 0.6mg daily for 1 week, then increase to 1.2mg daily for 1 week, increase by 0.6mg weekly until at 1.8mg daily dosing active Not Available Not Available No t Available Otezla 30 mg tablet one tablet by mouth twice daily active Not Available Not Available No t Available Bydureon 2 mg/0.65 mL subcutane ous pen injector Inject subcutan eous weekly 10/07 completed Not Available Not Available Not Available Trulicity 0.75 mg/0.5 mL subcutane ous pen injector Inject 0.5 mL every week by subcutan eous route. 10/07 completed Not Available Not Available Not Available Alber SueMarcus U-100 Insulin 100 unit/mL (3 mL) subcutane ous INJECT 48 UNITS SUBCUTAN EOUSLY ONCE DAILY AT BEDTIME active Not Available Not Available No t Available Ozempic 0.25 mg or 0.5 mg (2 mg/1.5 mL) subcutane ous pen injector INJECT 0.5 MG UNDER SKIN EVERY WEEK 10/07 completed Not Available Not Available Not Available OneTouch Ultra Blue Test Strip USE 1 STRIP TO CHECK GLUCOSE ONCE DAILY active Not Available Not Available No t Available BD Linda 2nd Gen Pen Needle 32 gauge x /32 USE DIRECTED TO USE WITH VICTOZA ONCE DAILY active Not Available Not Available No t Available OneTouch Delica Plus Lancet 33 gauge USE 1 LANCETS TO CHECK GLUCOSE ONCE DAILY 2024 active Not Available Not Available Not Avai lable Fluzone High-Dose Quad (PF) 240 mcg/0.7 mL IM syringe PHARMACI ST ADMINIST ERED IMMUNIZA TION ADMINIST ERED AT TIME OF DISPENSI NG active Not Available Not Available No t Available Ozempic 1 mg/dose (4 mg/3 mL) subcutane ous pen injector Inject 1 mg every week by subcutan eous route for 84 days. 2024 active Not Available Not Available Not Avai lable Ozempic 0.25 mg or 0.5 mg (2 mg/3 mL) subcutane ous pen injector Inject 0.5 mg every week by subcutan eous route. 08/21 completed Not Available Not Available Not Available Vitals Date Recorded Body height Body mass index (BMI) Body weight Body temperature Heart rate Oxygen saturation Oxygen saturation in Arterial blood by Pulse oximetry Respiratory rate Systolic blood pressure Diastolic blood pressure Provider Name and Address Organization Details Last Updated DateTime 4 162.56 cm 24.9 kg/m2 81541.8 9 g 98.4 [degF] 88 /min 97 % 97 % 16 /min 134 mm[Hg] 72 mm[Hg] Leydi Morris RN [facility] [employer] [facility] 4 15:06:50 Date Recorded Body height Body mass index (BMI) Body weight Body temperature Heart rate Oxygen saturation Oxygen saturation in Arterial blood by Pulse oximetry Systolic blood pressure Diastolic blood pressure Provider Name and Address Organization Details Last Updated DateTime 4 162.56 cm 24.4 kg/m2 10321.1 2 g 98.2 [degF] 87 /min 97 % 97 % 110 mm[Hg] 64 mm[Hg] Leydi Morris RN [facility] [employer] [facility] 4 10:39:03 Date Recorded Body height Body mass index (BMI) Body weight Body temperature Heart rate Oxygen saturation Oxygen saturation in Arterial blood by Pulse oximetry Systolic blood pressure Diastolic blood pressure Provider Name and Address Organization Details Last Updated DateTime 5 162.56 cm 25 kg/m2 75135.1 3 g 97.7 [degF] 81 /min 97 % 97 % 145 mm[Hg] 84 mm[Hg] Sherwin Smith RN [facility] [employer] [facility] 5 09:12:40 Date Recorded Body height Body mass index (BMI) Body weight Body temperature Heart rate Oxygen saturation Oxygen saturation in Arterial blood by Pulse oximetry Systolic blood pressure Diastolic blood pressure Provider Name and Address Organization Details Last Updated DateTime 5 162.56 cm 25.4 kg/m2 97459.6 7 g 97.9 [degF] 64 /min 98 % 98 % 142 mm[Hg] [id number]|2024-10-15 14:35:00|2024-10-15 14:34:00|XMS_ITS|KEILA STATON|External Medical Summaries|[id number]|" Clinical Summary Created on: October 15, 2024 Jillian Bernal : 1945 Sex: Female Author Organization [facility] Address [address] [place] [address] Care Team Providers Care Power Bender Operator Name Role Phone Verna Xiong CARLOS Primary Care Provider [phone] Allergies Active Allergy Reactions Criticality Noted Date Comments Povidone Iodine Rash Low 01/01/2011 Medications amLODIPine 5 MG tablet Take 5 mg by mouth daily. 02/17/2021 Active Apremilast (OTEZLA) 30 MG Tab Take 30 mg by mouth 2 (two) times a day. Active atenolol 100 MG tablet Take 100 mg by mouth 2 (two) times a day. Active Cholecalciferol 50 MCG (2000 UT) Cap Take 2,000 Units by mouth daily. Active vitamin B-12 1000 MCG tablet Take 1,000 mcg by mouth daily. Active insulin glargine (BASAGLAR KWIKPEN) 100 UNIT/ML injection (PEN) Inject 48 Units into the skin every evening. 03/24/2021 Active insulin lispro, 1 Unit Dial, 100 UNIT/ML injection (PEN) Inject 5 Units into the skin 3 (three) times daily before meals. If over 150 Active levothyroxine (EUTHYROX) 125 MCG tablet Take 125 mcg by mouth daily. 03/07/2021 Active lisinopril 40 MG tablet Take 40 mg by mouth daily. 03/06/2021 Active metFORMIN ER 500 MG 24 hr tablet Take 500 mg by mouth 2 (two) times a day. 02/17/2021 Active Onyx-3 Fatty Acids (FISH OIL BURP-LESS) 1200 MG Cap Take 1 capsule by mouth 2 (two) times daily. Active omeprazole 40 MG capsule Take 40 mg by mouth daily. 03/27/2021 Active potassium chloride CR 10 MEQ tablet Take 10 mEq by mouth daily. 02/23/2021 Active simvastatin 40 MG tablet Take 40 mg by mouth every evening. 02/07/2021 Active icosapent ethyl 1 G capsule Take 2 g by mouth 2 (two) times a day. 03/05/2021 Active aspirin EC (ASPIRIN EC) 81 MG tablet Take 81 mg by mouth daily. Active hydrALAZINE 100 MG Tab Take 100 mg by mouth every 8 (eight) hours. 90 tablet 05/19/2021 Active furosemide 20 MG tablet Take 1 tablet (20 mg total) by mouth daily. 30 tablet 05/19/2021 Active Active Problems Problem Noted Date Diagnosed Date SOB (shortness of breath) on exertion 05/31/2021 Assessment & Plan (05/31/2021 12:26 PM TRAIN DISPATCHER): On going since diuretics and discharge Echo reviewed Lungs CTA with mild BLE edema Could be anginal equivalent - will order nuclear stress Follow up with PFT and CT chest Chronic heart failure with p reserved ejection fraction ([facility]) 05/31/2021 Assessment & Plan (05/31/2021 12:27 PM TRAIN DISPATCHER): BNP >5000 Echo revealing normal LVSF and DD grade 1. Lasix 20mg daily continued Would like to review bmp and increase lasix to 40mg daily Abnormal imaging of thyroid 05/17/2021 Adrenal mass ([facility]/HCC) 05/17/2021 Electrocardiogram abnormal 05/17/2021 Folliculitis 05/17/2021 High triglycerides 05/17/2021 Liver mass 05/17/2021 Arthritis 05/17/2021 Reflux 05/17/2021 Diabetes ([facility]) 05/17/2021 Goiter 05/17/2021 Urinary tract infectious disease 05/17/2021 Acute congestive heart failure ([facility] HHS/HCC) 05/15/2021 CHF (congestive heart failure) ([facility]) 05/15/2021 Chronic or unspecified pepti c ulcer, site unspecified, with hemorrhage 05/01/2021 Colitis 05/01/2021 Ductal carcinoma in situ (DCIS) of breast 2020 Overview (05/17/2021): 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% DE - -- had DCIS in 2006 S/p Radiation and Arimidex x 5 years S/p mastectomy and sentinel node bx 0.8cm int grade 0:1LN Stage 0 Last Assessment & Plan: IOV Had DCIS in 2006 - had 5 years AI Cellulitis left CW NO RADIATION NO ANTIESTROGEN ROV 6 [facility] vanc for elulitis - sees Yeim[facility] Weds May need cefalosporin since DM and brittany mild improvemnet on keflex 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% DE - -- had DCIS in 2006 S/p Radiation and Arimidex x 5 years S/p mastectomy and sentinel node bx 0.8cm int grade 0:1LN Stage 0 Last Assessment & Plan: IOV Had DCIS in 2006 - had 5 years AI Cellulitis left CW NO RADIATION NO ANTIESTROGEN ROV 6 [facility] vanc for elulitis - sees Ye[facility] Weds May need cefalosporin since DM and brittany mild improvemnet on keflex Essential hypertension 05/01/2021 Assessment & Plan (05/31/2021 12:29 PM TRAIN DISPATCHER): Blood pressure is well controlled with no changes in regimen at this time Encouraged to continue to monitor at home and log and call office with any concerns in future. Hyperuricemia 05/01/2021 Onychomycosis 05/01/2021 Other tear of medial meniscu s, current injury, unspecified knee, initial encounter 05/01/2021 Pulmonary hypertension (CMS/HCC HHS/HCC) 021 Hypothyroidism 05/01/2021 Low kidney function 03/06/2021 Chronic obstructive pulmonary disease (CMS/HCC H HS/HCC) 07/10/2019 Smoker 02/12/2019 Basal cell carcinoma of skin of nose 10/23/2018 Overview (05/17/2021): Added automatically from request for surgery [id number] Added automatically from request for surgery [id number] Encounter for planned postprocedural wound closu re 09/25/2018 Overview (05/17/2021): Added automatically from request for surgery [id number] Hypercalcemia 11/26/2016 Overview (05/17/2021): Last Assessment & Plan: With suppressed PTH, indicating non PTH hypercalcemia ( paraneoplastic ? ) Will recheck serum Ca and PTH Check PTH related peptide Whole body bone scan 1.25 OH vit D Recommendations to folow Last Assessment & Plan: With suppressed PTH, indicating non PTH hypercalcemia ( paraneoplastic ? ) Will recheck serum Ca and PTH Check PTH related peptide Whole body bone scan 1.25 OH vit D Recommendations to folow CKD (chronic kidney disease) Assessment & Plan (05/31/2021 12:29 PM TRAIN DISPATCHER): Stage 3 Followed by nephrology at [place] Resolved Problems Problem Noted Date Diagnosed Date Resolved Date Radiotherapy follow-up 05/17/202105/21 Family History Medical History Relation Comments Heart Disease Father CHF Sister Relation Status Comments Father Sister Social History Tobacco Use Types Packs/Day Years Used Date Smoking Tobacco: Every Day Cigarettes Smokeless Tobacco: Never Alcohol Use Standard Drinks/Week Comments Not Currently 0 (1 standard drink = 0.6 oz pur e alcohol) Comments Unknown Sex and Gender Information Value Date Recorded Sex Assigned at Not on file Legal Sex Female 11:57 AM TRAIN DISPATCHER Gender Identity Not on file Sexual Orientation Not on file Last Filed Vital Signs Vital Sign Reading Time Taken Comments Blood Pressure 130/60 05/31/2021 10:17 AM TRAIN DISPATCHER Pulse 68 05/31/2021 10:17 AM TRAIN DISPATCHER Temperature 37 C (98.6 F) 05/19/2021 7:45 AM TRAIN DISPATCHER Respiratory Rate 18 05/19/2021 7:45 AM TRAIN DISPATCHER Oxygen Saturation 95% 05/31/2021 10:17 AM TRAIN DISPATCHER Inhaled Oxygen Concentration - - Weight 78 kg (172 lb) 05/31/2021 10:17 AM TRAIN DISPATCHER Height 162.6 cm (5' 4 ) 05/31/2021 10:17 AM TRAIN DISPATCHER Body Mass Index 29.52 05/31/2021 10:17 AM TRAIN DISPATCHER Plan of Treatment Health Maintenance Due Date Last Done Comments Kidney Health Evaluation 1945 Hemoglobin A1C 1945 Diabetes: Retinopathy Eye Exam 12/23/1965 Hepatitis C 12/23/1965 Zoster Vaccines (1 of 2) 12/23/1997 Annual Medicare Wellness Visit 12/23/2012 Dexa Scan (General) 12/23/2012 DTaP, Tdap and Td Vaccines (2 - Tdap) 04/16/2020 04/16/2010 Lipid Panel 05/17/2022 05/17/2021 RSV Immunization or 60+ Years (1 - 1-dose 75+ series) 12/23/2022 Pneumococcal Vaccine: 50+ Years (3 of 3 - PCV20 or PCV21) 12/15/2023 12/14/2018, 04/02/2007 COVID-19 Vaccine ( season) 2024 03/28/2021, 09/04/2020, 09/04/2020, Additional history exists Meningococcal B Vaccine Aged Out No l onger eligible based on patient's age to complete this topic Meningococcal Vaccine Aged Out No claudia brennan eligible based on patient's age to complete this topic RSV Immunizations Under 20 Months Aged Out No longer eligible based on patient's age to complete this topic Goals Goal Patient Goal Type Associated Problems Recent Progress Patient-Stated? 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 Procedure Name Priority Date/Time Associated Diagnosis Comments LIPID PANEL Routine 05/17/2021 5:50 AM TRAIN DISPATCHER from Last 3 Months or Most Recently Relevant to Health Maintenance Results * (ABNORMAL) LIPID PANEL (05/17/2021 5:50 AM TRAIN DISPATCHER) CHOLESTEROL 170 <200 MG/DL 05/17/2021 2:41 PM TRAIN DISPATCHER [facility] TRIGLYCERIDES 183(H) <150 MG/DL 05/17/2021 2:41 PM TRAIN DISPATCHER [facility] HDL 33(L) >40.0 MG/DL 05/17/2021 2:41 PM TRAIN DISPATCHER [facility] LDL (CALCULATED) 100(H) <100 MG/DL 05/17/2021 2:41 PM TRAIN DISPATCHER [facility] NON HDL CHOLESTEROL 137(H) <130 MG/DL 05/17/2021 2:41 PM [facility] CHOL/HDL RATIO 5.2(H) 0.0 - 4.5 05/17/2021 2:41 PM TRAIN DISPATCHER [facility] VLDL CALCULATION 37 5 - 55 MG/DL 05/17/2021 2:41 PM TRAIN DISPATCHER [facility] LIPID INTERPRETATION 05/17/2021 2:41 PM [facility] Comment: [facility] CONCENSUS REPORT RECOMMENDATIONS: ADULT CHILD LOW RISK: CHOLESTEROL <200 <170 TRIGLYCERIDE <150 --- HDL >=60 --- LDL <100 <110 BORDERLINE: CHOLESTEROL 200-239 170-199 TRIGLYCERIDE 150-199 --- HDL 40-59 --- LDL 100-159 110-129 HIGH RISK: CHOLESTEROL >=240 >=200 TRIGLYCERIDE >=200 --- HDL <40 --- LDL >=160 >=130 05/17/2021 5:50 AM TRAIN DISPATCHER eMlania Woodward NP LABORATORY Final Result [facility] [address] [place] [address], from Last 3 Months or Most Recently Relevant to Health Maintenance Insurance MEDICARE [facility] Advance Directives * Full Code (Latest Code Status on File) Date Activated Date Inactivated Comments 05/15/2021 9:44 PM 05/19/2021 3:38 PM Care Teams Power Bender Operator Relationship Specialty Start Date End Date Verna Xiong NP [address] [place] [address] PCP - General NURSE PRACTITIONER 05/15/21 "
[2024-10-15 14:54] LABS: Albumin Level 4.2 g/dL (3.5-5.1); Anion Gap 11 mmol/L (4-12); Blood Urea Nitrogen 57 mg/dL (7-17); Calcium 9.9 mg/dL (8.4-10.2); Carbon Dioxide 24 mmol/L (22-30); Chloride 106 mmol/L (98-107); Estimated Glomerular Filt Rate 13; Glucose 105 mg/dL (65-110); Phosphorus 4.2 mg/dL (2.5-4.5); Potassium 4.2 mmol/L (3.4-5.0); Sodium 141 mmol/L (137-145)
[2024-10-15 14:55] LABS: Creatinine Urine 60.4 mg/dL; Total Protein Urine Random 129 mg/dL; Ur Ttl Prot Creatinine Ratio 2.14 mg/mg (0-0.20)
== END 2024-10-15 14:23 | disposition home or self-care (01) ==
LOC: ANHLAB 14:23
PROVIDERS: PCP Physician Assistant; Visit Provider Internal Medicine Nephrology
DX: E11.22 Type 2 diabetes mellitus with diabetic chronic kidney disease (principal); I12.0 Hypertensive chronic kidney disease with stage 5 chronic kidney disease or end stage renal disease; N18.5 Chronic kidney disease, stage 5
CPT/HCPCS: 36415; 80069; 82570; 84156

== ENCOUNTER 2025-02-14 11:09 | Outpatient (CLI) | payer MEDICARE, BC, SELFPAY ==
[2025-02-14 11:56] LABS: Total Protein Urine Random 75 mg/dL; Ur Ttl Prot Creatinine Ratio 1.32 mg/mg (0-0.20)
[2025-02-14 11:59] LABS: Albumin Level 4.0 g/dL (3.5-5.1); Anion Gap 8 mmol/L (4-12); Blood Urea Nitrogen 39 mg/dL (7-17); Calcium 10.0 mg/dL (8.4-10.2); Carbon Dioxide 23 mmol/L (22-30); Chloride 107 mmol/L (98-107); Estimated Glomerular Filt Rate 14; Glucose 99 mg/dL (65-110); Potassium 3.9 mmol/L (3.4-5.0); Sodium 138 mmol/L (137-145)
[2025-02-14 12:11] LABS: Parathyroid Intact 16.4 pg/mL (14.5-75.2)
[2025-02-14 12:16] LABS: Free T4 Free Thyroxine 2.22 ng/dL (0.78-2.19)
[2025-02-14 12:29] LABS: Thyroid Stimulating Hormone < 0.015 uIU/mL (0.465-4.680); Total Triiodothyronine (T3) 0.88 NG/ML (0.82-1.58)
--- OUTSIDE RECORDS SUMMARY | 2025-02-14 13:12 | XMS_ITS | Encounter Summary ---
Author Organization [facility] Address [address] [place] [address] Care Team Providers Care Wound Care Nurse Name Role Phone Unavailable Primary Care Provider Unavailabl e Encounter Details Date Type Department Care Team (Late st Contact Info) Description 03/13/2020 Lab Requisition [facility] DermPath Lab [address] [facility], [place] [id number] Rosemarie Townsend MD [address] [facility] 3 [place] [address] Social History Tobacco Use Types Packs/Day Years [...] AM CDT) Case Report Dermatopathology Report Case: [id number] Authorizing Provider: Rosemarie Townsend MD Collected: 03/09/2020 12:00 AM Ordering Location: [facility] DermPath Lab Received: 03/13/2020 11:49 AM Pathologist: Marsha Sharp MD Specimens: A) - Skin, left nlf B) - Skin, left upper arm 0 12:08 PM CDT DERMATOPATHOLOGY LABORATORY Final Diagnosis Specimen A. SKIN, left nlf: BASAL CELL CARCINOMA, INFILTRATIVE PATTERN (C44.311) Specimen B. SKIN, left upper arm: BASAL CELL CARCINOMA, NODULAR TYPE (C44.619) 0 12:08 PM CDT DERMATOPATHOLOGY LABORATORY at 1208 CDT Clinical History A-B: R/O BCC, irritated 0 [...] 12x8x3 mm. Jar 0. 0 12:08 PM CDT DERMATOPATHOLOGY LABORATORY Microscopic Description Specimen [...] characteristic determined by the Dermatopathology Laboratory at [facility], directed by Dr. Guille Sharp. These tests need not be, and therefore are not, approved by the [place] Food and Drug Administration. The tests are used for clinical purposes. Billing Codes Specimen Charges Stain Charges 84643 24899 1 1 0 12:08 PM CDT DERMATOPATHOLOGY LABORATORY Embedded Images 0 12:08 PM CDT DERMATOPATHOLOGY LABORATORY Pathology/Cytology TISSUE SPECIMEN FROM SKIN / Unknown 03/09/2020 03/13/2020 11:49 AM CDT Miscellaneous samples (specimen) TISSUE SPECIMEN FROM SKIN / Unknown 03/09/2020 03/13/2020 11:49 AM CDT Rosemarie Townsend MD LAB - PATHOLOGY/CYTOLOGY OR DERABLES Final Result DERMATOPATHOLOGY LABORATORY [facility] - Department of Dermatology [facility] Medicine [address] [place] [address], [address] [phone] documented in this encounter Visit Diagnoses Not on filedocumented in this encounter
--- OUTSIDE RECORDS SUMMARY | 2025-02-14 13:12 | XMS_ITS | Clinical Summary ---
Author Organization [facility] Address [address] [place] [address] Phone Care Team Providers Care Inorganic Chemist Name Role Phone Verna Xiong NP Primary Care Provider [phone] Allergies Active Allergy Reactions Criticality Noted Date [...] simvastatin (ZOCOR) 40 MG tablet 1 Active 1-800-DOCTORSuch Ultra test strip USE 1 STRIP TO CHECK GLUCOSE ONCE DAILY 2 Active hydrALAZINE (APRESOLINE) 100 MG tablet Take 100 mg by mouth every 8 (eight) hours 1 Active Lancets (OneTouch Delica Plus [id number]) [facility] USE 1 TO CHECK GLUCOSE ONCE DAILY [...] Plan: Stage 3 Followed by nephrology at [facility] Chronic heart failure co-occ shital with normal [...] (05/01/2021): 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% [place] - -- had DCIS in 2005 S/p Radiation and Arimidex x 5 years S/p mastectomy and sentinel node bx 0.8cm int grade 0:1LN Stage 0 Last Assessment & Plan: IOV Had DCIS in 2005 - had 5 years AI Cellulitis left CW NO RADIATION NO ANTIESTROGEN ROV 6 [facility] vanc for elulitis - sees [facility] Weds May need cefalosporin since DM and [...] (05/01/2021): Added automatically from request for surgery [id number] Hypercalcemia 11/26/2016 Overview (05/01/2021): Last Assessment & [...] 2:50 PM CDT Height 165.1 cm (5' 5) 03/11/2022 2:50 PM CDT Body Mass Index 25.96 03/11/2022 2:50 PM CDT Plan of Treatment Health Maintenance Due Date Last Done Comments Pneumococcal PPSV23/PCV13 65 + Years / Low and Medium Risk (3 of 3 - PCV20 or PCV21) 12/15/2023 12/14/2018, 2006 COVID-19 Vaccine (3 - season) 01/31/202509/2020, 08/13/2020 Influenza Vaccine (#1) 2025 04/14/2014, 2012 Insurance MEDICARE [facility] Care Teams Inorganic Chemist Relationship Specialty Start Date End Date Verna Xiong NP [facility] [place] [address] PCP - General Internal Medicine 03/06/21
--- OUTSIDE RECORDS SUMMARY | 2025-02-14 13:12 | XMS_ITS | Encounter Summary ---
Author Organization [facility] Address [address] [place] [address] Care Team Providers Care Polymerization Engineer Name Role Phone Unavailable Primary Care Provider Unavailabl e Encounter Details Date Type Department Care Team (Late st Contact Info) Description 09/02/2024 Lab Requisition [facility] - DermPath Lab [address] [facility], [facility] [place] [address] Rae Herrmann MD [address] [facility] 3 [place] [address] Social History Tobacco Use Types Packs/Day Years [...] AM CDT) Case Report Dermatopathology Report Case: [id number] Authorizing Provider: Rae Herrmann MD Collected: 09/02/2024 09:30 AM Ordering Location: [facility] Physician [facility] - Received: 09/03/2024 06:17 AM DermPath Lab Pathologist: Ena Arellano MD Specimen: Skin, left forearm medial 1:53 PM CDT DERMATOPATHOLOGY LABORATORY Final Diagnosis Specimen A. SKIN, left forearm medial: DERMAL SCAR RESIDUAL SQUAMOUS CELL CARCINOMA NOT IDENTIFIED (L90.5) 1:53 PM CDT DERMATOPATHOLOGY LABORATORY at 1353 CDT Clinical History Bx Proven SCC Check margins/prior biopsy 1:53 PM CDT DERMATOPATHOLOGY LABORATORY Gross Description Specimen A: Received is one formalin filled container labeled with the patient's name and designated left forearm medial.The specimen consists of an ellipse measuring [id number] mm and is oriented with the notch [...] characteristic determined by the Dermatopathology Laboratory at [facility], directed by Dr. Guille Sharp. These tests need not be, and therefore are not, approved by the [place] Food and Drug Administration. The tests are used for clinical purposes. Billing Codes Specimen Charges Stain Charges [id number] 1 1:53 PM CDT DERMATOPATHOLOGY LABORATORY Embedded Images 1:53 PM CDT DERMATOPATHOLOGY LABORATORY Pathology/Cytolo gy TISSUE SPECIMEN FROM SKIN / Unknown 09/02/2024 9:30 AM CDT 09/03/2024 6:17 AM CDT us Rae Herrmann MD LAB - PATHOLOGY/CYTOLOGY ORD ERABLES Final Result DERMATOPATHOLOGY LABORATORY [facility] - Department of Dermatology [address] [place] [address], [facility] [phone] documented in this encounter Visit Diagnoses Not on filedocumented in this encounter
--- OUTSIDE RECORDS SUMMARY | 2025-02-14 13:12 | XMS_ITS | Encounter Summary ---
Author Organization [facility] Address [address] [facility] [place] [address] Care Team Providers Care Admitting Manager Name Role Phone Unavailable Primary Care Provider Unavailabl e Encounter Details Date Type Department Care Team (Late st Contact Info) Description 08/09/2024 Lab Requisition [facility] - DermPath Lab [address] [facility], [place] [address] Rae Herrmann MD [address] [facility] [address] [place] [address] Social History Tobacco Use Types Packs/Day Years [...] PM CDT) Case Report Dermatopathology Report Case: [id number] Authorizing Provider: Rae Herrmann MD Collected: 08/09/2024 01:31 PM Ordering Location: [facility] Physician [facility] - Received: 08/11/2024 07:44 AM DermPath Lab Pathologist: Marsha Sharp MD Specimens: A) - Skin, left forearm B) - Skin, left forearm medial 2:23 PM CDT DERMATOPATHOLOGY LABORATORY Final Diagnosis Specimen A. 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 SKIN, left forearm medial: SQUAMOUS CELL CARCINOMA, WELL DIFFERENTIATED (C44.629) 2:23 PM CDT DERMATOPATHOLOGY LABORATORY at 1423 CDT Clinical History A-B: R/O SCC 2:23 PM [...] characteristic determined by the Dermatopathology Laboratory at [facility], directed by Dr. Guille Sharp. These tests need not be, and therefore are not, approved by the [place] Food and Drug Administration. The tests are used for clinical purposes. Billing Codes Specimen Charges Stain Charges 79375 16098 1 1 2:23 PM CDT DERMATOPATHOLOGY LABORATORY Embedded Images 2:23 PM CDT DERMATOPATHOLOGY LABORATORY Pathology/Cytology TISSUE SPECIMEN FROM SKIN / Unknown 08/09/2024 1:31 PM CDT 08/11/2024 7:44 AM CDT Miscellaneous samples (specimen) TISSUE SPECIMEN FROM SKIN / Unknown 08/09/2024 1:31 PM CDT 08/11/2024 7:44 AM CDT us Rae A Belknap MD LAB - PATHOLOGY/CYTOLOGY ORD ERABLES Final Result DERMATOPATHOLOGY LABORATORY [facility] - Department of Dermatology [facility] Medicine [address] [place] [address], [address] Floor [address] [phone] documented in this encounter Visit Diagnoses Not on filedocumented in this encounter
--- OUTSIDE RECORDS SUMMARY | 2025-02-14 13:12 | XMS_ITS | Encounter Summary ---
Author Organization [facility] Address [address] [facility] [place] [address] Care Team Providers Care Conveyor Feeder Name Role Phone Unavailable Primary Care Provider Unavailabl e Encounter Details Date Type Department Care Team (Late st Contact Info) Description 08/19/2018 Lab Requisition [facility] Care DermPath Lab [address] [facility], [place] [address] Rosemarie Townsend MD [address] [facility] [address] [place] [address] Social History Tobacco Use Types Packs/Day Years [...] AM CDT) Case Report Dermatopathology Report Case: [id number] Authorizing Provider: Rosemarie Townsend MD Collected: 08/18/2018 12:00 AM Pathologist: Marsha Sharp MD Received: 08/19/2018 10:13 AM Specimen: Skin, right nasal ala 9 3:52 PM CDT DERMATOPATHOLOGY LABORATORY Final Diagnosis Specimen A. SKIN, right nasal ala: BASAL CELL CARCINOMA, INFILTRATIVE PATTERN (C44.311) 9 3:52 PM CDT DERMATOPATHOLOGY LABORATORY at 1552 CDT Clinical History R/O BCC, growing, irritated, non-healing. 3:52 PM CDT DERMATOPATHOLOGY LABORATORY Gross Description Specimen A: Received is one formalin filled container labeled with the patient's name and designated right nasal ala. The specimen consists of a shave measuring [id number]. Jar 0. 3:52 PM CDT DERMATOPATHOLOGY LABORATORY [...] characteristic determined by the Dermatopathology Laboratory at [facility], directed by Dr. Guille Sharp. These tests need not be, and therefore are not, approved by the [place] Food and Drug Administration. The tests are used for clinical purposes. Billing Codes Specimen Charges Stain Charges 47963 1 3:52 PM CDT DERMATOPATHOLOGY LABORATORY Embedded Images 3:52 PM CDT DERMATOPATHOLOGY LABORATORY Pathology/Cytolog y TISSUE SPECIMEN FROM SKIN / Unknown 08/18/2018 08/19/2018 10:13 AM CDT Rosemarie Townsend MD LAB - PATHOLOGY/CYTOLOGY OR DERABLES Final Result DERMATOPATHOLOGY LABORATORY [facility] - Department of Dermatology [address] [place] [address], 5th [place] [address], [place] [phone] documented in this encounter Visit Diagnoses Not on filedocumented in this encounter
--- OUTSIDE RECORDS SUMMARY | 2025-02-14 13:12 | XMS_ITS | Encounter Summary ---
Author Organization [facility] Address [address] [place] [address] Care Team Providers Care Garment Supervisor Name Role Phone Unavailable Primary Care Provider Unavailabl e Encounter Details Date Type Department Care Team (Late st Contact Info) Description 09/22/2024 Lab Requisition [facility] - DermPath Lab [address] [facility], [facility] [address] Rae Herrmann MD [address] [facility] [address] [place] [address] Social History Tobacco Use Types Packs/Day Years [...] PM CDT) Case Report Dermatopathology Report Case: [id number] Authorizing Provider: Rae Herrmann MD Collected: 09/22/2024 02:43 PM Ordering Location: [facility]ician [facility] - Received: 09/24/2024 08:54 AM DermPath Lab [...] forearm.The specimen consists of an ellipse measuring [id number] mm and is oriented with the suture/notch [...] purposes. Billing Codes Specimen Charges Stain Charges 58094 1 4:22 PM CDT DERMATOPATHOLOGY LABORATORY Embedded Images 4:22 PM CDT DERMATOPATHOLOGY LABORATORY Pathology/Cytolo gy TISSUE SPECIMEN FROM SKIN / Unknown 09/22/2024 2:43 PM CDT 09/24/2024 8:54 AM CDT us Rae Herrmann MD LAB - PATHOLOGY/CYTOLOGY ORD ERABLES Final Result DERMATOPATHOLOGY LABORATORY [facility] - Department of Dermatology [address], [address] Floor [place] [id number] [place] [address] documented in this encounter Visit Diagnoses Not on filedocumented in this encounter
--- OUTSIDE RECORDS SUMMARY | 2025-02-14 13:12 | XMS_ITS | Clinical Summary ---
Author Organization [facility] Address [address] [place] [address] Phone Care Team Providers Care [employer] Teacher Name Role Phone Jil Lawler MD Primary Care Provider [phone] Allergies Active Allergy Reactions Criticality Noted Date [...] tablet Take 300 mg by mouth daily resaw tailer. 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 Gender Identity Not on file Sexual Orientation Not on file Occupation Industry Job Start Date Job End Date retired, [employer] Not on file Not on file Not on file Last Filed Vital Signs Vital Sign Reading Time Taken Comments Blood Pressure 133/71 05/16/2011 11:22 AM ROLLING DOWN MACHINE OPERATOR Pulse 76 01/18/2011 2:53 PM CDT Temperature 36.9 C (98.5 F) 01/18/2011 2:53 PM CDT Respiratory Rate 16 01/18/2011 2:53 PM CDT Oxygen Saturation 97% 01/02/2011 7:00 AM CDT Inhaled Oxygen Concentration - - Weight 80.3 kg (177 lb) 05/16/2011 11:22 AM ROLLING DOWN MACHINE OPERATOR Height 162.6 cm (5' 4) 05/16/2011 11:22 AM ROLLING DOWN MACHINE OPERATOR Body Mass Index 30.38 05/16/2011 11:22 AM ROLLING DOWN MACHINE OPERATOR Plan of Treatment Health Maintenance Due Date [...] , 04/14/2019, 04/14/2019, Additional history exists Insurance [facility] Advance Directives For more information, please contact: [phone] * Full Code (Latest Code Status on File) Date Activated Date Inactivated Comments 01/01/2011 11:41 AM 01/02/2011 11:39 AM * Full Code Date Activated Date Inactivated Comments 01/01/2011 8:49 AM 01/01/2011 11:41 AM Care Teams [employer] Teacher Relationship Specialty Start Date End Date Jil Lawler MD [address] [phone] PCP - General 05/19/15
--- OUTSIDE RECORDS SUMMARY | 2025-02-14 13:12 | XMS_ITS | Clinical Summary ---
Author Organization [facility] Address [address] [facility] [place] [address] Care Team Providers Care Med Spec Name Role Phone Unavailable Primary Care Provider Unavailabl e Source Comments [facility],non-owned Affiliates and Associated Physician Practices is amultiple site organization consisting of ambulatory clinics and hospital sitesin [place], [place], [place] and [place]. This disclosure is being madepursuant to the Care Everywhere program and may not contain all information available regarding this patient. Last updated 18.[facility] Social History Tobacco Use Types Packs/Day Years [...] yrs (1 - 1-dose 75+ series) 12/23/2022 DEPRESSION SCREENING 06/02/2024 COVID-19 VACCINE ( - 2023-2 5 season) 2025 INFLUENZA VACCINE (#1) 2025 HEPATITIS B VACCINE Aged Out No [...] on patient's age to complete this topic Insurance [facility]
--- OUTSIDE RECORDS SUMMARY | 2025-02-14 13:12 | XMS_ITS | Encounter Summary ---
Author Organization [facility] Address [address] [facility] [place] [address] Care Team Providers Care Clinical Specialist Vascular Name Role Phone Unavailable Primary Care Provider Unavailabl e Encounter Details Date Type Department Care Team (Late st Contact Info) Description 04/21/2020 Lab Requisition [facility] DermPath Lab [address] [facility] [place] [id number] Ladonna Arvizu MD [address] [place] [address] Social History Tobacco Use Types [...] Comments DERMATOPATHOLOGY Routine 04/20/2020 12:0 0 AM AGRICULTURAL ECONOMIST documented in this encounter Results * DERMATOPATHOLOGY (04/20/2020 12:00 AM AGRICULTURAL ECONOMIST) Case Report Dermatopathology Report Case: [id number] Authorizing Provider: Ladonna Arvizu MD Collected: 04/20/2020 12:00 AM Ordering Location: [facility] DermPath Lab Received: 04/21/2020 06:53 AM Pathologist: Indira Huggins MD Specimen: Skin, left upper arm 0 1:47 PM AGRICULTURAL ECONOMIST DERMATOPATHOLOGY LABORATORY Final Diagnosis Specimen A. SKIN, left upper arm: DERMAL SCAR RESIDUAL BASAL CELL CARCINOMA NOT IDENTIFIED (L90.5) 0 1:47 PM AGRICULTURAL ECONOMIST DERMATOPATHOLOGY LABORATORY at 1347 AGRICULTURAL ECONOMIST Clinical History R/O BCC, biopsy proven. 0 1:47 PM [facility] DERMATOPATHOLOGY LABORATORY Gross Description Specimen A: Received is one formalin filled container labeled with the patient's name and designated left upper arm.The specimen consists of an ellipse measuring [id number] and is oriented with the notch at [...] cassettes 3-4. Jar 0. 0 1:47 PM [facility] DERMATOPATHOLOGY LABORATORY Microscopic Description Specimen A. SKIN, left upper arm: There are fibroblasts and collagen bundles oriented parallel to the skin surface. There are elongated blood vessels, some of which are oriented perpendicular to the skin surface. No basal cell carcinoma is identified. 0 1:47 PM [facility] DERMATOPATHOLOGY LABORATORY Disclaimer An external and internal positive and negative controls are appropriate for the histochemical, immunohistochemical and immunofluorescence stain(s) in this case (if any), except where stated explicitly. The performance characteristics of the stain(s) cited in this report were developed and its performance characteristic determined by the Dermatopathology Laboratory at [facility], directed by Dr. Guille Sharp. These tests need not be, and therefore are not, approved by the [place] Food and Drug Administration. The tests are used for clinical purposes. Billing Codes Specimen Charges Stain Charges 80024 1 0 1:47 PM [facility] DERMATOPATHOLOGY LABORATORY Embedded Images 0 1:47 PM [facility] DERMATOPATHOLOGY LABORATORY Pathology/Cytolog y TISSUE SPECIMEN FROM SKIN / Unknown 04/20/2020 04/21/2020 6:53 AM AGRICULTURAL ECONOMIST us Ladonna Arvizu MD LAB - PATHOLOGY/CYTOLOGY ORDERA BLES Final Result DERMATOPATHOLOGY LABORATORY [facility] - Department of Dermatology [address] [phone] documented in this encounter Visit Diagnoses Not on filedocumented in this encounter
--- OUTSIDE RECORDS SUMMARY | 2025-02-14 13:12 | XMS_ITS | Clinical Summary ---
Author Organization [facility] Address [address] [place] [phone] Care Team Providers Care Wreath Inspector Name Role Phone Verna Xiong NP Primary Care Provider [phone] Allergies Active Allergy Reactions Criticality Noted Date [...] ns:hypothyroidi sm Take 150 mcg by mouth template reproduction technician before breakfast 7 Active simvastatin (ZOCOR) 40 [...] mg by mouth every morning Active multivit-minera v-ecsx-tayymq tabletIndicatio ns:supplement Take 1 tablet by mouth nightly Active cyanocobalamin (Vitamin B-12) 1,000 mcg tabletIndicatio ns:Prevention of Vitamin B12 Deficiency Take 1,000 mcg by mouth nightly Active cholecalciferol (VITAMIN D-3) 2,000 unit capsuleIndicati ons:Prevention of Vitamin D Deficiency Take 2,000 Units by mouth nightly Active uychy-2y-enw-ep a-fish oil 120 mg-180 mg- 60 mg-1,200 [...] (10/23/2018): Added automatically from request for surgery [id number] Encounter for planned postprocedural wound closu re 09/25/2018 Overview (09/25/2018): Added automatically from request for surgery [id number] Type 2 diabetes mellitus 11/26/2016 Assessment & [...] Date Comments Hypertension Type 2 diabetes mellitus Gout Hypothyroidism Status post radiation therapy 2002 br east cancer COPD (chronic obstructive pulmonary disease) GERD (gastroesophageal reflux disease) Smoker Breast cancer [...] on file Legal 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
--- OUTSIDE RECORDS SUMMARY | 2025-02-14 13:13 | XMS_ITS | Encounter Summary ---
Author Organization [facility] Address [facility] [place] [address] Care Team Providers Care Medical Device Engineer Name Role Phone Verna Xiong CARLOS Primary Care Provider [phone] Encounter Details Date Type Department Care Team (Late st Contact Info) Description 05/31/2021 Abstract [facility] [address] Shannon Rosas [place] Social History Tobacco Use Types Packs/Day Years Used Date Smoking Tobacco: Every Day Cigarettes Smokeless Tobacco: Never Alcohol Use Standard Drinks/Week Comments Not Currently 0 (1 standard drink = 0.6 oz pur e alcohol) Comments Unknown Sex and Gender Information Value Date Recorded Sex Assigned at Not on file Legal Sex Female 11:57 AM PLATER PRODUCTION Gender Identity Not on file Sexual Orientation Not on file COVID-19 Exposure Response Date Recorded In the last month, have you been in contact with someone who was confirmed or suspected to have Coronavirus / COVID-19? No / Unsure 05/31/2021 10:04 AM PLATER PRODUCTION documented as of this encounter Functional Status * RETIRED Are you deaf or do you have serious difficulty hearing Answer Date of Assessment Author Status No 05/16/2021 2:30 PM PLATER PRODUCTION Activ e * RETIRED Are you blind or do you have serious difficulty seeing, even when wearing glasses? Answer Date of Assessment Author Status No 05/16/2021 2:30 PM PLATER PRODUCTION Activ e * Do you have serious difficulty walking or climbing stairs? Answer Date of Assessment Author Status No 05/16/2021 2:30 PM PLATER PRODUCTION Laura Moore R N Active * Do [...] Date Author Status No 05/16/2021 2:30 PM PLATER PRODUCTION Laura Moore R N Active documented in [...] on filedocumented in this encounter Care Teams Medical Device Engineer Relationship Specialty Start Date End Date Verna Xiong NP [address] [place] [address] PCP - General NURSE PRACTITIONER 05/15/21 documented as of this encounter
--- OUTSIDE RECORDS SUMMARY | 2025-02-14 13:14 | XMS_ITS | Clinical Summary ---
Author Organization [facility] Address [address] [place] [address] Care Team Providers Care Blue Prints Trimmer Name Role Phone Verna Xiong CARLOS Primary Care Provider [phone] Allergies Active Allergy Reactions Criticality Noted Date [...] 2 (two) times a day. 02/17/2021 Active Donovan-3 Fatty Acids (FISH OIL BURP-LESS) 1200 MG [...] 05/31/2021 Assessment & Plan (05/31/2021 12:26 PM MARINE DESIGNER): On going since diuretics and discharge Echo reviewed Lungs CTA with mild BLE edema Could be anginal equivalent - will order nuclear stress Follow up with PFT and CT chest Chronic heart failure with p reserved ejection fraction ([facility] HHS/HCC) 05/31/2021 Assessment & Plan (05/31/2021 12:27 PM MARINE DESIGNER): BNP >5000 Echo revealing normal LVSF and DD grade 1. Lasix 20mg daily continued Would like to review bmp and increase lasix to 40mg daily Abnormal imaging of thyroid 05/17/2021 Adrenal mass ([facility]/HCC) 05/17/2021 Electrocardiogram abnormal 05/17/2021 Folliculitis 05/17/2021 High triglycerides 05/17/2021 Liver mass 05/17/2021 Arthritis 05/17/2021 Reflux 05/17/2021 Diabetes ([facility] HHS/HCC) 05/17/2021 Goiter 05/17/2021 Urinary tract infectious disease 05/17/2021 Acute congestive heart failure ([facility]CC HHS/HCC) 05/15/2021 CHF (congestive heart failure) ([facility] HHS/HCC) 05/15/2021 Chronic or unspecified pepti c ulcer, site unspecified, with hemorrhage 05/01/2021 Colitis 05/01/2021 Ductal carcinoma in situ (DCIS) of breast 2020 Overview (05/17/2021): 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% CO - -- had DCIS in 2006 S/p [...] keflex 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% CO - -- had DCIS in 2006 S/p [...] 05/01/2021 Assessment & Plan (05/31/2021 12:29 PM MARINE DESIGNER): Blood pressure is well controlled with no changes in regimen at this time Encouraged to continue to monitor at home and log and call office with any concerns in future. Hyperuricemia 05/01/2021 Onychomycosis 05/01/2021 Other tear of medial meniscu s, current injury, unspecified knee, initial encounter 05/01/2021 Pulmonary hypertension ([facility] HHS/HCC) 021 Hypothyroidism 05/01/2021 Low kidney function 03/06/2021 Chronic obstructive pulmonary disease ([facility] H HS/HCC) 07/10/2019 Smoker 02/12/2019 Basal cell carcinoma of skin of nose 10/23/2018 Overview (05/17/2021): Added automatically from request for surgery [id number] Added automatically from request for surgery [id number] Encounter for planned postprocedural wound closu re 09/25/2018 Overview (05/17/2021): Added automatically from request for surgery [id number] Hypercalcemia 11/26/2016 Overview (05/17/2021): Last Assessment & Plan: With suppressed PTH, indicating non PTH hypercalcemia ( paraneoplastic ? ) Will recheck serum Ca and PTH Check PTH related peptide Whole body bone scan 1.25 [place] vit D Recommendations to [facility] Last Assessment & Plan: With suppressed PTH, indicating non PTH hypercalcemia ( paraneoplastic ? ) Will recheck serum Ca and PTH Check PTH related peptide Whole body bone scan 1.25 [place] vit D Recommendations to [facility] CKD (chronic kidney disease) Assessment & Plan (05/31/2021 12:29 PM MARINE DESIGNER): Stage 3 Followed by nephrology at [place] Resolved Problems Problem Noted Date Diagnosed Date [...] on file Legal Sex Female 11:57 AM MARINE DESIGNER Gender Identity Not on file Sexual Orientation Not on file Last Filed Vital Signs Vital Sign Reading Time Taken Comments Blood Pressure 130/60 05/31/2021 10:17 AM MARINE DESIGNER Pulse 68 05/31/2021 10:17 AM MARINE DESIGNER Temperature 37 C (98.6 F) 05/19/2021 7:45 AM MARINE DESIGNER Respiratory Rate 18 05/19/2021 7:45 AM MARINE DESIGNER Oxygen Saturation 95% 05/31/2021 10:17 AM MARINE DESIGNER Inhaled Oxygen Concentration - - Weight 78 kg (172 lb) 05/31/2021 10:17 AM MARINE DESIGNER Height 162.6 cm (5' 4) 05/31/2021 10:17 AM MARINE DESIGNER Body Mass Index 29.52 05/31/2021 10:17 AM MARINE DESIGNER Plan of Treatment Health Maintenance Due Date [...] PCV21) 12/15/2023 12/14/2018, 04/02/2007 COVID-19 Vaccine ( - season) 2025 03/28/2021, 09/04/2020, 09/04/2020, Additional history exists Meningococcal [...] perform ADLs independently General No Loretta Watts quality control representative Procedure Name Priority Date/Time Associated Diagnosis Comments LIPID PANEL Routine 05/17/2021 5:50 AM MARINE DESIGNER from Last 3 Months or Most Recently Relevant to Health Maintenance Results * (ABNORMAL) LIPID PANEL (05/17/2021 5:50 AM MARINE DESIGNER) CHOLESTEROL 170 <200 MG/DL 05/17/2021 2:41 PM MARINE DESIGNER [facility] TRIGLYCERIDES 183(H) <150 MG/DL 05/17/2021 2:41 PM MARINE DESIGNER [facility] HDL 33(L) >40.0 MG/DL 05/17/2021 2:41 PM [facility] LDL (CALCULATED) 100(H) <100 MG/DL 05/17/2021 2:41 PM [facility] NON HDL CHOLESTEROL 137(H) <130 MG/DL 05/17/2021 2:41 PM [facility] CHOL/HDL RATIO 5.2(H) 0.0 - 4.5 05/17/2021 2:41 PM [facility] VLDL CALCULATION 37 5 - 55 MG/DL 05/17/2021 2:41 PM [facility] LIPID INTERPRETATION 05/17/2021 2:41 PM [facility] Comment: NIH CONCENSUS REPORT RECOMMENDATIONS: ADULT CHILD LOW RISK: CHOLESTEROL <200 <170 TRIGLYCERIDE <150 --- HDL >=60 --- LDL <100 <110 BORDERLINE: CHOLESTEROL 200-239 170-199 TRIGLYCERIDE 150-199 --- HDL 40-59 --- LDL 100-159 110-129 HIGH RISK: CHOLESTEROL >=240 >=200 TRIGLYCERIDE >=200 --- HDL <40 --- LDL >=160 >=130 05/17/2021 5:50 AM MARINE DESIGNER Melania Woodward NP LABORATORY Final Result [facility] [address] [place] [address], from Last 3 Months or Most Recently Relevant to Health Maintenance Insurance MEDICARE [facility] Advance Directives * Full Code (Latest Code Status on File) Date Activated Date Inactivated Comments 05/15/2021 9:44 PM 05/19/2021 3:38 PM Care Teams Blue Prints Trimmer Relationship Specialty Start Date End Date Verna Xiong NP [address] [place] [address] PCP - General NURSE PRACTITIONER 05/15/21
== END 2025-02-14 11:10 | disposition home or self-care (01) ==
PROVIDERS: Visit Provider Internal Medicine Nephrology
DX: E55.9 Vitamin D deficiency, unspecified (principal); I12.9 Hypertensive chronic kidney disease with stage 1 through stage 4 chronic kidney disease, or unspecified chronic kidney disease; N18.5 Chronic kidney disease, stage 5; E11.22 Type 2 diabetes mellitus with diabetic chronic kidney disease; N25.81 Secondary hyperparathyroidism of renal origin; E03.9 Hypothyroidism, unspecified
CPT/HCPCS: 36415; 80069; 82306; 82570; 83970; 84156; 84439; 84443; 84480

== ENCOUNTER 2025-05-28 15:50 | Emergency (ER) | payer MEDICARE, BC, SELFPAY ==
--- NOTE | ~2025-05-28 | XR_ITS ---
EXAMINATION: XR chest 2V DATE: 05/28/2025 16:36 INDICATION: Chest pain. 79-year-old female being not available TECHNIQUE: Frontal and lateral views of the chest were obtained. COMPARISON: 05/08/2022. FINDINGS: Mild/moderate cardiomegaly. Severe atherosclerotic aorta. Poorly defined enlargement of left hilum PA view compared with prior study. No effusion. IMPRESSION: 1. Severe atherosclerotic aorta. Cardiomegaly. 2. Suspect enlargement of left hilum with poorly defined margins. Further evaluation by CT is recommended to rule out neoplasm. Reviewed, dictated and finalized at location T. [employer] DEPARTMENT IMPRESSION: 1. Severe atherosclerotic aorta. Cardiomegaly. 2. Suspect enlargement of left hilum with poorly defined margins. Further evalu ation by CT is recommended to rule out neoplasm.
--- NOTE | ~2025-05-28 | CT_ITS ---
EXAMINATION:CT diagnostic chest wo con DATE: 05/28/2025 18:56 INDICATION: Follow-up of abnormal chest x-ray hilar prominence. Previous history of left breast cancer status post mastectomy. TECHNIQUE: Computed tomography (CT) of the chest was performed without intravenous contrast. Automated exposure control and iterative reconstruction technique were employed. The dose-length product (DLP) was 144.66 mGy-cm. COMPARISON: X-ray dated 05/28/2025. CT abdomen pelvis dated 05/09/2022. FINDINGS: No focal lesions on supraclavicular fossa. Mild emphysema of lungs. No focal lesions of the right lung. Evidence of left mastectomy. Masslike density of the anterior segment of left upper lobe, 3.5 cm in diameter with evidence of narrowing of left upper lobe segmental bronchus with atelectasis. This is quite concerning for possible malignancy. Possibility of changes due to previous radiation therapy to the left breast area would be in the differential diagnosis. Cardiomegaly with significant left atrial enlargement. Again mitral annulus calcification. Left adrenal mass 3.8 cm in diameter. This is unchanged from previous CT examination of 05/09/2022. Possible adrenal adenoma.. IMPRESSION: 1. Postoperative changes of left mastectomy. Emphysematous lungs. 2. Masslike density of the anterior segment of left upper lobe 3.5 cm in diameter with narrowing of left upper lobe bronchus and partial atelectasis. Possible malignancy of left lung. Differential would include possible radiation changes are left breast cancer. Further evaluation with PET/CT is recommended. 3. Cardiomegaly with left atrial enlargement and severe multivessel coronary artery calcification. Mitral annulus calcification. 4. 3.8 cm size left adrenal mass unchanged from earlier CT scan of 05/09/2022.. Possible adenoma. This will also be further evaluated. CT. Reviewed, dictated and finalized at location T. RGLASS PIPE COVERING SUPERVISOR IMPRESSION: 1. Postoperative changes of left mastectomy. Emphysematous lungs. 2. Masslike density of the anterior segment of left upper lobe 3.5 cm in diamet er with narrowing of left upper lobe bronchus and partial atelectasis. Possible malignancy of left lung. Differential would include possible radiation changes are left breast cancer. Further evaluation with PET/CT is recommended. 3. Cardiomegaly with left atrial enlargement and severe multivessel coronary ar betty calcification. Mitral annulus calcification. 4. 3.8 cm size left adrenal mass unchanged from earlier CT scan of 05/09/2022.. Possible adenoma. This will also be further evaluated. CT.
--- NOTE | 2025-05-28 15:51 | ECG_ITS ---
Test Date: 2025-05-28 16:02:57 Measurements Intervals [place] Rate: 82 P: 22 [place]: 205 QRS: 46 QRSD: 77 T: 49 QT: 371 QTc: 433 Interpretive Statements SINUS RHYTHM CONSIDER INFERIOR INFARCT, AGE INDETERMINATE BORDERLINE T WAVE ABNORMALITY- ANTERIOR LEADS BASELINE ARTIFACT- I, II, III, AVR, AVL, AVF, V2, V4-V5 ABNORMAL ECG No previous ECG available for comparison Electronically Signed On 05-28-2025 21:43:29 MESS ATTENDANT CREW by Sammy Brizuela D.O.
[2025-05-28 16:01] VITALS: BP 145/59; PULSE 84; RESP 16; TEMP 36.4; O2SAT 100
[2025-05-28 16:08] LABS: Hematocrit 35.3 % (37.0-47.0); Hemoglobin 11.3 g/dL (12.0-15.0); Immature Granulocyte Percent A 0.4 % (0-0.5); Lymphocytes Absolute Auto 3.65 K/mm3 (0.9-3.2); Mean Corpuscular HGB Conc 32.0 g/dl (32-36); Mean Corpuscular Hemoglobin 30.5 pg (26-34); Mean Corpuscular Volume 95.4 fl (80-100); Nucleated Red Blood Cells Absolute Auto 0.000 K/mm3 (0.0-0.012); Nucleated Red Blood Cells Perc 0.0 % (0.0-0.2); Platelet Count Result 183 k/mm3 (150-375); Red Blood Count 3.70 M/mm3 (4.2-5.4); White Blood Count 12.3 K/mm3 (4.5-10.0)
[2025-05-28 16:20] LABS: INR 1.0; Partial Thromboplastin Time 27.6 Seconds (22.3-36.8); Prothrombin Time 13.0 Seconds (11.1-14.7)
[2025-05-28 16:28] LABS: Alanine Aminotransferase 18 U/L (6-35); Albumin Level 4.4 g/dL (3.5-5.1); Alkaline Phosphatase 102 U/L (38-126); Anion Gap 9 mmol/L (4-12); Aspartate Amino Transferase 33 U/L (14-36); Bilirubin,Total 0.5 mg/dL (0.2-1.3); Blood Urea Nitrogen 43 mg/dL (7-17); Calcium 10.4 mg/dL (8.4-10.2); Carbon Dioxide 25 mmol/L (22-30); Chloride 104 mmol/L (98-107); Estimated CRCL calculation 11 ml/min; Estimated Glomerular Filt Rate 13; Glucose 110 mg/dL (65-110); Lipase 318 U/L (23-300); Potassium 4.0 mmol/L (3.4-5.0); Sodium 138 mmol/L (137-145); Total Protein 8.5 g/dL (6.3-8.2)
[2025-05-28 16:35] LABS: Troponin I 0.017 ng/mL (0.000-0.034)
[2025-05-28 18:03] VITALS: BP 165/81; PULSE 77; RESP 18; O2SAT 100
--- NOTE | 2025-05-28 18:22 | ED.CHESTPAIN ---
HPI - Chest Pain General Chief Complaint: Chest Pain Stated Complaint: cp Time Seen by Provider: 05/28/25 18:21 History of Present Illness HPI narrative: 79-year-old female with history of COPD presents to the emergency department 1 month of progressively worsening left-sided chest pain. It is worse with deep inspiration she denies any change in her cough denies any shortness of breath no nausea no vomiting no history of structural heart disease or coronary disease. States it is point tender on the left anterior chest wall somewhat goes into her left scapula. She denies any lateralizing weakness or paresthesias no headache no B symptoms of fevers or chills per Related Data Home Medications ?Medication ?Instructions ?Recorded ?Confirmed ?Last Taken ?Type apremilast 30 mg tablet (Otezla) 30 mg PO BID 07/25/21 02/23/25 Unknown History atenolol 100 mg tablet 100 mg PO BID 07/25/21 02/23/25 Unknown History hydralazine 100 mg tablet 100 mg PO TID 07/25/21 02/23/25 Unknown History icosapent ethyl 1 gram capsule 1 g PO BID 07/25/21 02/23/25 Unknown History insulin glargine 100 unit/mL (3 48 unit subcut HS 07/25/21 02/23/25 Unknown History mL) subcutaneous pen (Basaglar KwikPen U-100 Insulin) potassium chloride 10 mEq 10 meq PO DAILY 07/25/21 02/23/25 Unknown History tablet,extended release(part/cryst) simvastatin 40 mg tablet 40 mg PO HS 07/25/21 02/23/25 Unknown History levothyroxine 175 mcg tablet 150 mcg PO DAILY@0630 05/09/22 02/23/25 Unknown History (Synthroid) furosemide 40 mg tablet 40 mg PO QAM 07/24/22 02/23/25 Unknown History losartan 100 mg tablet 100 mg PO DAILY 10/16/23 02/23/25 Unknown History semaglutide 1 mg/dose (4 mg/3 mL) mg subcut 10/20/24 02/23/25 Unknown History subcutaneous pen injector (Ozempic) Allergies Allergy/AdvReac Type Severity Reaction Status Date / Time povidone-iodine Allergy Intermediate HIVES Verified 05/28/25 15:53 soap Allergy Intermediate HIVES Verified 05/28/25 15:53 Review of Systems Review of Systems: All systems reviewed & are unremarkable except as noted in HPI and below PMFSH Past Medical History Medical History Psoriatic arthritis (~2009) Obesity Psoriasis Hypothyroidism Diabetes Gout Osteoarthritis Emphysema of lung HTN (hypertension) Hypercholesterolemia Surgical History Surgical History Status post surgical removal of malignant neoplasm of skin History of knee replacement Hx of cholecystectomy H/O left mastectomy Family History Family History Father Lung cancer Mother Ovarian cancer Social History Social History Smoking packs per day: 1 Smoking cigarettes per day: 20.0 Years smoked: 35 Smoking pack-years: 35.00 Smoking status: Current every day smoker Tobacco type: cigarettes Alcohol intake: never Substance use: never Substance use type: does not use Lack of Transportation: No Lack of Food: Never True Current Housing: I Have Housing Concerned About Future Housing: No Difficulty Paying Gas/Electric Bills: No Difficulty Paying for Meds: No Currently Unemployed: No Education: Associate Degree Difficulty w/ Childcare or Family Care: No Living arrangements: alone Gender identity (if verbalized by the patient): Female Spiritual care concerns: No Exam Narrative: EXAMINATION OF ORGAN SYSTEMS/BODY AREAS: Constitutional: Vital signs per nursing GENERAL:[No acute distress, non-toxic appearing.] HEAD: Normal with no signs of head trauma. EYES: EOMI, conjunctiva normal ENT: Hearing grossly intact LUNGS: Nonlabored breathing. clear to auscultation bilaterally HEART: [Regular rate and rhythm] 2+ radial pulses no murmur appreciated ABD: [Soft], [nontender to palpation] no rebound or guarding EXT: Normal range of motion SKIN: [No rashes or lesions.] NEURO: [Alert. No gross focal sensory or strength deficits.] PSYCH: Normal affect Course Vital Signs Vital signs: Vital Signs Temperature 36.4 C 05/28/25 16:01 Pulse Rate 84 05/28/25 16:01 Respiratory Rate 16 05/28/25 16:01 Blood Pressure 145/59 H 05/28/25 16:01 Pulse Oximetry 100 05/28/25 16:01 Temperature 36.4 C 05/28/25 16:01 Pulse Rate 77 05/28/25 18:30 Respiratory Rate 16 05/28/25 18:30 Blood Pressure 159/77 H 05/28/25 18:30 Pulse Oximetry 97 05/28/25 18:30 Oxygen Delivery Room Air 05/28/25 18:00 [facility] Differential Diagnosis Differential Diagnosis: this is a 79-year-old female who presents emergency department with subacute atraumatic persistent chest wall pain. I do suspect this is musculoskeletal in nature given the chronicity however given her history of significant smoking getting improved to rule out a mass versus atypical presentation of ACS versus pleurisy. She is not hypoxic not tachycardic and not have any suspicion for pulmonary embolism or vascular catastrophe. We will obtain IV access EKG chest x-ray treat the patient's pain plan for evaluation after workup and treatment. Results and re-evaluation patient's chest x-ray shows abnormality. Concerning for possible neoplasm will do a CT chest without IV contrast, otherwise EKG without ischemia troponin negative. Re-evaluation 2. Patient's CT scan is concerning for lung mass of unclear etiology. Had a very jessica discussion with the patient her family given the malignancy is on the differential and she needs urgent outpatient follow-up with her primary care doctor in addition I have given referral to pulmonology. She does not want stay in the hospital which I do not think is unreasonable. otherwise I will send her home with peter Barber for pain return precautions discussed if she felt any new or concerning symptoms all questions answered discharged in fair condition. Lab Data [facility] Lab Attestation statement: I personally reviewed the patient's lab results. 05/28/25 16:00 05/28/25 16:00 Labs: Lab Results 05/28/25 Range/Units 16:00 WBC 12.3 H (4.5-10.0) K/mm3 RBC 3.70 L (4.2-5.4) M/mm3 Hgb 11.3 L (12.0-15.0) g/dL Hct 35.3 L (37.0-47.0) % MCV 95.4 (80-100) fl MCH 30.5 (26-34) pg MCHC 32.0 (32-36) g/dl RDW 14.6 H (11.5-14.5) % Plt Count 183 (150-375) k/mm3 MPV 10.1 (7.4-10.4) fl Immature Gran % (Auto) 0.4 (0-0.5) % Neut % (Auto) 62.2 (45.5-73.1) % Lymph % (Auto) 29.8 (18.3-44.2) % Rains % (Auto) 6.0 (2.6-8.5) % Eos % (Auto) 1.3 (0-4.4) % Baso % (Auto) 0.3 (0.2-1.2) % Lymph # (Auto) 3.65 H (0.9-3.2) K/mm3 Rains # (Auto) 0.7 H (0.1-0.6) K/mm3 Eos # (Auto) 0.2 (0-0.3) K/mm3 Baso # (Auto) 0.0 (0.0-0.1) K/mm3 Abs Immat Gran (auto) 0.05 H (0.00-0.031) K/mm3 Absolute Neuts (auto) 7.6 H (1.3-6.7) K/mm3 Absolute Nucleated RBC 0.000 (0.0-0.012) K/mm3 Nucleated RBC % 0.0 (0.0-0.2) % PT 13.0 (11.1-14.7) Seconds INR 1.0 APTT 27.6 (22.3-36.8) Seconds Sodium 138 (137-145) mmol/L Potassium 4.0 (3.4-5.0) mmol/L Chloride 104 (98-107) mmol/L Carbon Dioxide 25 (22-30) mmol/L Anion Gap 9 (4-12) mmol/L BUN 43 H (7-17) mg/dL Creatinine 3.33 H (0.7-1.0) mg/dL Estim Creat Clear Calc 11 ml/min Estimated GFR 13 L (59 - ) Glucose 110 (65-110) mg/dL Calcium 10.4 H (8.4-10.2) mg/dL Total Bilirubin 0.5 (0.2-1.3) mg/dL AST 33 (14-36) U/L ALT 18 (6-35) U/L Alkaline Phosphatase 102 (38-126) U/L Troponin I 0.017 (0.000-0.034) ng/mL Total Protein 8.5 H (6.3-8.2) g/dL Albumin 4.4 (3.5-5.1) g/dL Lipase 318 H (23-300) U/L Imaging Data Attestation: I personally reviewed and interpreted this imaging study as follows: My impression: Chest x-ray without pneumothorax or free air. Radiologist's impression: ITS Impressions Chest X-Ray 05/28/25 16:42 IMPRESSION: 1. Severe atherosclerotic aorta. Cardiomegaly. 2. Suspect enlargement of left hilum with poorly defined margins. Further evaluation by CT is recommended to rule out neoplasm. Chest CT 05/28/25 19:00 IMPRESSION: 1. Postoperative changes of left mastectomy. Emphysematous lungs. 2. Masslike density of the anterior segment of left upper lobe 3.5 cm in diameter with narrowing of left upper lobe bronchus and partial atelectasis. Possible malignancy of left lung. Differential would include possible radiation changes are left breast cancer. Further evaluation with PET/CT is recommended. 3. Cardiomegaly with left atrial enlargement and severe multivessel coronary artery calcification. Mitral annulus calcification. 4. 3.8 cm size left adrenal mass unchanged from earlier CT scan of 05/09/2022.. Possible adenoma. This will also be further evaluated. CT. Discharge Plan Discharge Clinical Impression: Lung mass Patient Disposition: Home Condition: Stable Instructions: Pulmonary Nodules (ED), Chest Wall Pain (ED) Additional Instructions: as we discussed you call your primary care doctor Friday to discuss follow-up for the lung mass that was found. I am also given a follow-up with pulmonology. Patient Language: Czech Prescriptions: New oxycodone-acetaminophen 5-325 mg tablet 1 tablet PO Q6H PRN (Reason: pain) Qty: 20 0RF No Action furosemide 40 mg tablet 40 mg PO QAM Ozempic 1 mg/dose (4 mg/3 mL) pen injector subcut losartan 100 mg tablet 100 mg PO DAILY levothyroxine [Synthroid] 175 mcg tablet 150 mcg PO DAILY@0630 atenolol 100 mg tablet 100 mg PO BID simvastatin 40 mg tablet 40 mg PO HS hydralazine 100 mg tablet 100 mg PO TID potassium chloride 10 mEq tablet,ER particles/crystals 10 meq PO DAILY insulin glargine [Basaglar KwikPen U-100 Insulin] 100 unit/mL (3 mL) insulin pen 48 unit SUBCUT HS icosapent ethyl 1 gram capsule 1 g PO BID Otezla 30 mg tablet 30 mg PO BID (DME) lancets [OneTouch Delica Plus Lancet] 33 gauge misc MISCELLANEOUS Qty: 100 0RF Rx Instructions: accucheck q6 allopurinol 100 mg tablet See Rx Instructions .ROUTE .COMPLEX Qty: 135 3RF Dose Instruction: TAKE 1 & 1/2 (ONE & ONE-HALF) TABLETS BY MOUTH ONCE DAILY Rx Instructions: TAKE 1 & 1/2 (ONE & ONE-HALF) TABLETS BY MOUTH ONCE DAILY Follow-up/Referrals: Edwin,Sandra Foster, CLYDE [Primary Care Provider, Unknown] - 3 Days Federico Thompson MD [Physician, Pulmonology] - 1 Week Time of Disposition: 19:33
[2025-05-28 18:30] VITALS: BP 159/77; PULSE 77; RESP 16; O2SAT 97
--- OUTSIDE RECORDS SUMMARY | 2025-05-28 19:00 | XMS_ITS | Data Portability ---
Author Organization [facility], Main Office Address [address] [place] [address] Assessment No assessment recorded. Plan of Treatment Reminders Order Date Submit Date Provider Last Modified By Organization Details Last Modified Time Details Appointments Any 2025 10:30A M YEIMI Padgett Not available Not available Not available Physical/ Annual Wellness 2025 10:00A M YEIMI Padgett Not available Not available Not available Lab TSH + free T4, serum [address], [address] [place], [address], 02/04/2025 10:46:50 T3, total, serum 2024 025 [email or web address] [facility], [address] [place], [address], 02/04/2025 10:46:51 vitamin B12, serum 2023 024 [email or web address] Not available 06/28/2024 16:23:30 vitamin D, 25-hydrox y, total, serum 2023 024 [email or web address] Not available 06/28/2024 16:24:33 HbA1c (hemoglob in A1c), blood 2023 024 Not available 06/28/2024 15:41:54 TSH, serum or plasma 2023 024 [email or web address] [facility], [address] [place], [address], 06/28/2024 15:44:29 T4, free, serum [email or web address] [place] [address], [address] [place], [address], 06/28/2024 15:46:03 lipid panel, serum 2023 024 [email or web address] [facility], [address] [place], [address], 06/28/2024 16:27:09 CMP, serum or plasma [email or web address] [place] [address], [address] [place], [address], 06/28/2024 16:28:19 CK (creatine kinase), total, serum [email or web address], [address] [place], [address], 06/28/2024 16:21:07 CBC w/ auto diff [email or web address] [place] [address], [address] [place], [address], 06/28/2024 16:22:20 Referral None recorded. Procedures None recorded. Surgeries None recorded. Imaging None recorded. Medication Orders cyclobenz aprine 10 mg tablet 2023 024 [facility], [address] [place], [address], 01/28/2025 11:38:18 Patient TargetsNo targets recorded. Patient Instructions Encounter Date Encounter Id Patient Instructions Last Modified By Organization Details Last Modified Time 06/30/2024 [id number] reviewed labs , a1c is 5.9 , [...] Easy Way to Stop Smoking by Jon crook Not available 07/03/2024 09:40:52 Reason for Referral None Reported. Results Created Date Observation Date Name Description Value Unit Range Abnormal Flag Note LastModifiedBy Organization Detail LastModifiedTime Result Notes None recorded. Problems Name Problem SNOMED Code Status Onset Date Resolution Date Notes Provider Name and Address Organization Details Recorded Time Electroc ardiogra m abnormal 331073462 Completed Not Available [facility] 3 08:21:59 Follicul itis 52207380 Completed Not Available [facility] 3 08:21:59 Radiolog y result abnormal 176821957 Completed Not Available [facility] 3 08:21:59 Radiothe rapy follow-u p 319124473 Active Not Available [facility] 3 02:35:49 Adrenal mass 657072351 Completed Not Available [facility] 3 08:21:59 Osteoart hritis of knee 285950731 Active Not Available [facility] 3 02:35:49 Liver mass 497434789 Completed Not Available [facility] 3 08:21:59 Knee pain Completed Not Available [facility] 3 08:21:59 Type 2 diabetes mellitus without complica tion 886027654 Active Not Available [facility] 3 02:35:49 Hyperuri cemia 09953762 Active Not Available [facility] 3 02:35:49 Goiter 2177813 Active Not Available [facility] 3 02:35:49 Hyperten sive disorder 52514774 Active Not Available [facility] 3 02:35:49 Osteoart hritis 779846069 Active Not Available [facility] 3 02:35:49 Hypothyr oidism 67206322 Active Not Available [facility] 3 02:35:49 Onychomy cosis 499562267 Active Not Available [facility] 3 02:35:49 Imaging of thyroid gland abnormal 184222783 Active Not Available [facility] 3 02:35:49 Hyperlip idemia 84344448 Active Not Available [facility] 3 02:35:49 [facility] hyperten danish 72000709 Active YEIMI Padgett [address], [address], [place], [address] , [facility] [employer] [facility] 5 09:09:14 Urinary tract infectio us disease 71620429 Completed Not Available [facility] 3 08:22:00 Pulmonar y hyperten danish 89956801 Active Not Available [facility] 3 02:35:49 Smoker 01315447 Active Not Available [facility] 3 02:35:49 Chronic obstruct thuy pulmonar y disease 29865970 Active 2019 Not Available [facility] 3 02:35:49 Decrease d renal function 18347584 Active 2020 Not Available [facility] 3 02:35:49 Congesti ve heart failure 71188172 Active 2020 Not Available [facility] 3 02:35:49 Hypokale beni 92958115 Active 2022 Not Available [facility] 3 02:35:49 Gastroes ophageal reflux disease 706427622 Active 2022 Not Available [facility] 3 02:35:49 Hypertri glycerid emia 167155183 Active 2022 Not Available [facility] 3 02:35:49 Carotid bruit 589167062 Active 2022 Clive Agrawal MD [address], [address], [place], [address] , [facility] [employer] [facility] 3 09:43:39 Carotid artery stenosis 04803787 Active 2022 Tressa Huddleston RN null, [facility] [employer] [facility] 3 12:19:17 Chronic kidney disease stage [address] Godinez is nephrolo gist ANDREA Shields [address], [address], [place], [address] , [facility] [employer] [facility] 4 10:09:48 Screenin g for malignan t neoplasm of breast Active 2023 ANDREA Shields [address], [address], [place], [address] , [employer] 4 15:10:36 Screenin g for malignan t neoplasm of cervix Active 2023 ANDREA Shields [address], [address], [place], [address] , [employer] 4 15:13:16 Adult health examinat ion Active 2023 ANDREA Shields [address], [address], [place], [address] , [employer] 4 15:18:07 At increase d risk for nutritio nal problem 899503338 Active 2023 ANDREA Shields [address], [place], [place], [address] , [employer] 4 10:50:53 Administ ration of influenz a vaccine Active 2023 ANDREA Shields [address], [place], [place], [address] , [employer] 4 10:52:28 Stiff neck 359333681 Active 2023 ANDREA Shields [address], [place], [place], [address] , [employer] 4 10:54:18 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 Please review these documents and add these problems to the patient's chart manually as needed. Problem Notes None recorded. Procedures Surgical History Date Name Laterality Status Provider Name and Address Organization Details Recorded Time 12/30/19 Medicare Wellness CPT Code, subsequent completed Carlyn Chung RN [facility] 12/29/2023 15:46:03 12/23/19 Chronic care management services completed Ava Arellano CCM [facility] 12/23/2023 22:27:29 11/12/19 Chronic care management services completed Ava Arellano [facility] 11/12/2023 12:10:46 12/26/19 Medicare Wellness CPT Code, subsequent completed Therese Diaz RN [facility] 2022 12:46:52 Colonoscopy completed Not Available [facility] 07/31/2022 08:19:06 Cholecystectomy completed Not Available [facility] 07/31/2022 08:19:06 total knee replacement completed Not Available [facility] 07/31/2022 08:19:06 Breast Surgery completed Edel De Anda RN [facility] 01/28/2025 11:48:58 Imaging Results None recorded. Procedure Notes None recorded. Medical Equipment None Reported. Allergies Allergen ID Allergen Name Allergen Category Reaction Reaction Severity Criticality Documentation Date Start Date Code Code System Note Provider Name and Address Organization Details Recorded Time 67700 povidone- iodine medicatio n rash Not available high 05/18/20252010 8611 RxNorm Not Available [place] - External Data Service - prod 11:10:30 Medications Name Sig Start Date Stop Date Status Note LastModified by Organization Details LastModified Time Prescript ion - Change 08/21 completed Not Available Not Available Not Available celecoxib 200 mg capsule 05/05 completed Not Available Not Available Not Available cyclobenz aprine 10 mg tablet Take 1 tablet every day by oral route at bedtime for 30 days. 01/28 completed Not Available Not Available Not Available amoxicill in 500 mg capsule active [...] Available No t Available BD Specialty Use [place] 30 gauge x 1/2 active Not Available Not Available Not Available azithromy mercy 250 mg tablet TAKE 2 TABLETS (500 MG) BY ORAL ROUTE ONCE DAILY FOR 1 DAY THEN 1 TABLET (250 MG) BY ORAL ROUTE ONCE DAILY FOR 4 DAYS 05/24 completed Not Available Not Available Not Available atenolol 100 mg tablet Take 1 tablet by mouth twice daily active Not Available Not Available No t Available hydrocodo ne 5 mg-acetam inophen 325 mg [...] chloride ER 10 mEq tablet,ex tended release TAKE 1 TABLET BY MOUTH ONCE DAILY active Not Available Not Available No t Available amlodipin e 5 mg tablet Take 1 tablet by mouth once daily active Not Available Not Available No t Available allopurin ol 100 mg tablet TAKE 1 & 1/2 (ONE & ONE-HALF ) TABLETS BY MOUTH ONCE DAILY active Not Available Not Available No t Available BD Precision [place] Non-Steri le 25 gauge x 1 needle [...] LAYER TO THE AFFECTED AREA(S) TWICE DAILY 01/28 completed Not Available Not Available Not Available Euthyrox 100 mcg tablet active Not Available Not Available Not Available simvastat in 40 mg tablet TAKE [...] 1 TABLET BY MOUTH EVERY 8 HOURS DIRECTED 2024 active Not Available Not Available Not [...] xine 150 mcg tablet Take 1 tablet by mouth daily before meals 2024 active Not Available Not Available Not [...] MEALS IF BLOOD SUGAR IS OVER 150. 01/28 completed Not Available Not Available Not Available moxifloxa mercy 0.5 % eye drops [...] completed Not Available Not Available Not Available Basaglnoam CrewsikPen U-100 Insulin 100 unit/mL (3 mL) subcutane ous INJECT 48 UNITS SUBCUTAN EOUSLY ONCE DAILY AT BEDTIME 2024 active Not [...] Available Not Avai lable Fluzone High-Dose Quad 2020-21 (PF) 240 mcg/0.7 mL IM syringe PHARMACI ST ADMINIST ERED IMMUNIZA TION ADMINIST ERED AT TIME OF DISPENSI NG active Not Available Not Available No t Available Ozempic 1 mg/dose (4 mg/3 mL) subcutane ous pen injector INJECT 1MG SUBCUTAN EOUSLY ONCE WEEKLY active Not Available Not Available No t Available Ozempic 0.25 mg or 0.5 mg (2 mg/3 mL) subcutane ous pen injector Inject 0.5 mg every week by subcutan eous route. 08/21 completed Not Available Not Available Not Available Linda 2nd Gen Pen Needle 32 gauge x 5/32 USE DIRECTED WITH VICTOZA EVERY DAY active Not Available Not Available No t Available Vitals Date Recorded Body height Body mass index (BMI) Body weight Body temperature Heart rate Oxygen saturation Systolic And Diastolic Provider Name and Address Organization Details Last Updated DateTime 5 162.56 cm 25 kg/m2 59879.1 3 g 97.7 [degF] 81 /min 97 % 145/84 mm[Hg] Sherwin Smith RN [facility] [employer] [facility] 5 09:12:40 Date Recorded Body height Body mass index (BMI) Body weight Body temperature Heart rate Oxygen saturation Systolic And Diastolic Provider Name and Address Organization Details Last Updated DateTime 5 162.56 cm 25.4 kg/m2 59567.6 7 g 97.9 [degF] 64 /min 98 % 142/78 mm[Hg] JENNIFER Beckman [facility] [employer] [facility] 5 10:27:57 Date Recorded Body height Body mass index (BMI) Body weight Body temperature Heart rate Respiratory rate Oxygen saturation Pain severity - 0-10 verbal numeric rating [Score] - Reported Systolic And Diastolic Provider Name and Address Organization Details Last Updated DateTime 5 162.56 cm 25.1 kg/m2 65145.5 9 g 97.9 [degF] 74 /min 20 /min 97 % 0 144/66 mm[Hg] Edel De Anda RN [facility] [employer] [facility] 5 11:43:02 Date Recorded Body height Body mass index (BMI) Body weight Body temperature Heart rate Oxygen saturation Systolic And Diastolic Provider Name and Address Organization Details Last Updated DateTime 4 162.56 cm 24.4 kg/m2 72098.1 2 g 98.2 [degF] 87 /min 97 % 110/64 mm[Hg] Leydi Morris RN [facility] [employer] [facility] [employer] 4 10:39:03 Social History Question Answer Notes LastModified by Organization Details LastModified Time Tobacco Smoking Status Current Every Day Smoker Not Available [facility] 07/31/2022 08:18:49 Are You Blind Or Do You Have Difficulty Seeing? Yes Glasses [email or web address] Information not available 08/22/2023 What Is Your Level Of Caffeine Consumption? Moderate Information not available 01/28/2025 In The 14 Days Before Symptom Onset, Have You Had Close Contact With A Laboratory-conf irmed COVID-19 While That Case Was Ill? No Information not available 01/28/2025 In The 14 Days Before Symptom Onset, Have You Had Close Contact With A Person Who Is Under Investigation For COVID-19 While That Person Was Ill? No Information not available 01/28/2025 Are You Deaf Or Do You Have Serious Difficulty Hearing? Yes Hearing Loss Both Information not available 08/22/2023 What Type Of Diet Are You Following? DIABETIC Information not available 08/22/2023 Which Illicit Or Recreational Drugs Have You Used? None [id number] Information not available 07/31/2022 Have There Been Any Changes To Your Family Or Social Situation? Yes Sister That Is Terminally Ill Information not available 01/28/2025 Do You Use Insect Repellent Routinely? No Information not available 01/28/2025 Where Do You Live? SingleLevelHouse Information not available 01/28/2025 Do You Have Any Pets? No Information not available 01/28/2025 What Is Your Relationship Status? [email or web address] Information not available 08/22/2023 Do You Use Your Seat Belt Or Car Seat Routinely? Yes Information not available 01/28/2025 Do You Have Smoke And Carbon Monoxide Detectors In Your Home? Yes Information not available 01/28/2025 At What Age Did You Start Smoking Tobacco? 37 [id number] Information not available 07/31/2022 Are You Passively Exposed To Smoke? Yes Information not available 01/28/2025 Are There Any Smokers In Your House? Yes Information not available 01/28/2025 Do You Use Sunscreen Routinely? No Information not available 01/28/2025 Have You Recently Traveled Abroad? No Information not available 01/28/2025 Do You Have Difficulty Walking Or Climbing Stairs? No [email or web address] Information not available 08/22/2023 Sex: Unknown Functional Status Question Answer Note LastModified by [employer] ion Details LastModified Time What is your level of alcohol consumption? None [id number] Information not available 07/31/2022 Are you currently employed? No Information not available 01/28/2025 Do you have transportation difficulties? No [email or web address] Information not available 08/22/2023 Are you able to walk independently without assistance or assistive devices? YESWOREST [email or web address] Information not available 08/22/2023 Do you have difficulty doing errands alone? No [email or web address] Information not available 08/22/2023 Are you able to care for yourself independently? No [email or web address] Information not available 08/22/2023 What is your occupation? retired [id number] Information not available 07/31/2022 Do you have difficulty dressing, bathing, grooming, or toileting? No [email or web address] Information not available 08/22/2023 What is your exercise level? Occasional [id number] Information not available 07/31/2022 Mental Status Question Answer Note LastModified by Organizat ion Details LastModified Time Do you feel stressed (tense, restless, nervous, or anxious, or unable to sleep at night)? [id number] Information not available 01/28/2025 Do you have difficulty concentrating, remembering or making decisions? No Information no t available 08/22/2023 Family History Relationship Description Onset Age of this Age Resolved Age Notes LastModified by Organization Details LastModified Time Mother Hypertensive disorder [id number] [id number] Not available 07/31/2022 08:19:08 Mother Family history of malignant neoplasm [id number].414 [id number] Not available 07/31/2022 08:19:08 Mother Malignant neoplasm of uterus MIGRATION.183 [id number] Not available 07/31/2022 08:19:08 Mother Graves' disease MIGRATION.904 [id number] Not available 07/31/2022 08:19:08 Father Hypertensive disorder [id number].238 [id number] Not available 07/31/2022 08:19:08 Father Family history of malignant neoplasm MIGRATION.946 [id number] Not available 07/31/2022 08:19:08 Father Myocardial infarction MIGRATION.255 [id number] Not available 07/31/2022 08:19:08 Father Diabetes mellitus MIGRATION.230 [id number] Not available 07/31/2022 08:19:08 Father Hypercholest erolemia MIGRATION.133 [id number] Not available 07/31/2022 08:19:09 Father Heart disease MIGRATION.543 [id number] Not available 07/31/2022 08:19:09 Paternal Grandfather Malignant neoplasm of lung MIGRATION.387 [id number] Not available 07/31/2022 08:19:09 Sister Congestive heart failure MIGRATION.941 [id number] Not available 07/31/2022 08:19:09 Sister Family history of stroke MIGRATION.660 [id number] Not available 07/31/2022 08:19:09 Brother Family history of stroke MIGRATION.695 [id number] Not available 07/31/2022 08:19:09 Medical History Condition Response THYROID DISEASE Y ARTHRITIS Y ULCERS Y DIABETES, TYPE Y SKIN PROBLEMS Y ALLERGIES/HAYFEVER Y HEARTBURN / REFLUX Y HYPERTENSION Y HIGH CHOLESTEROL / HYPERLIPIDEMIA Y CANCER: SPECIFY Y ANXIETY DISORDER Y OSTEOPOROSIS Y DEPRESSION (INCLUDING POST ) Y Gynecological History Statement/Question Response If Post Menopausal, Age at Menopause 42 Date of Last Pap Smear Date of Last Colonoscopy Most Recent Mammogram Most Recent Bone Density Obstetrics History GPAL:G 0 P 0 0 0 0 Immunizations Vaccine Type Date Status Note Provider Nam e and Address Organization Details Recorded Time Influenza, high-dose, quadrivalent, PF 0 completed Ava Arellano CCM null, [facility] 11/12/2023 12:05:30 COVID-19, mRNA, LNP-S, PF, 30 mcg/0.3 mL dose 1 [facility]12[facility] 12:05:30 COVID-19, mRNA, LNP-S, PF, 30 mcg/0.3 mL dose 1 [facility] 11/12/2023 12:05:30 COVID-19, mRNA, LNP-S, PF, 30 mcg/0.3 mL dose 1 [facility] 11/12/2023 12:05:30 Influenza, high-dose, quadrivalent, PF 3 completed Clive Agrawal MD [address] [place] [address], [address], [facility] 04/09/2023 20:31:32 Influenza, split virus, trivalent, preservative 3 completed Edel De Anda RN [facility] 01/28/2025 11:35:35 COVID-19, mRNA, LNP-S, PF, 100 mcg/0.5mL dose or 50 mcg/0.25mL dose 1 completed [facility] 11/12/2023 12:05:30 COVID-19, mRNA, LNP-S, PF, 100 mcg/0.5mL dose or 50 mcg/0.25mL dose 1 completed [facility] 11/12/2023 12:05:30 Influenza, split virus, quadrivalent, preservative 9 completed Not Available [facility] 01/15/2023 02:35:49 Influenza, split virus, quadrivalent, preservative 8 completed Not Available [facility] 01/15/2023 02:35:49 Influenza, split virus, quadrivalent, preservative 7 completed Not Available [facility] 01/15/2023 02:35:49 DTaP 0 completed Not Available [facility] 01/15/2023 02:35:50 pneumococcal polysaccharide PPV23 7 completed Not Available [facility] 01/15/2023 02:35:49 Influenza, high-dose, quadrivalent, PF 2 completed Not Available [facility] 01/15/2023 02:35:49 Influenza, high-dose, quadrivalent, PF 1 completed Not Available [facility] 01/15/2023 02:35:49 Influenza, high-dose, trivalent, PF 9 completed Not Available [facility] 01/15/2023 02:35:49 Pneumococcal conjugate PCV 13 9 completed Not Available [facility] 01/15/2023 02:35:49 Influenza, high-dose, trivalent, PF 8 completed Not Available [facility] 01/15/2023 02:35:49 Influenza, split virus, quadrivalent, preservative 6 completed Not Available [facility] 01/15/2023 02:35:49 Influenza, split virus, quadrivalent, preservative 6 completed Not Available [facility] 01/15/2023 02:35:49 Influenza, high-dose, trivalent, PF 5 completed Not Available [facility] 01/15/2023 02:35:49 Influenza, split virus, trivalent, preservative 4 completed Edel De Anda RN [facility], [facility] [employer] [facility] 01/28/2025 11:35:35 Influenza, high-dose, trivalent, PF 4 completed ANDREA Shields [address] [place] [address], [phone], [facility] Birthday Gorilla [facility] [employer] [facility] 04/26/2024 14:58:46 Past Encounters Encounter ID Performer Location Encounter Start Date Encounter Closed Date Diagnosis/Indication Diagnosis SNOMED-CT Code Diagnosis ICD10 Code Diagnosis IMO Codes Diagnosis Note [id number] [facility] [place] [address] [place] [address] 09/13/2020 00:00:00 09/13/2020 14:53:46 [id number] Clive Agrawal MD [facility] [place] [address] 11/27/2020 00:00:00 11/27/2020 12:40:36 [id number] Clive Agrawal MD [facility] [address] [place] [address] [place] [address] 02/22/2021 00:00:00 02/22/2021 12:50:18 [id number] Clive Agrawal MD [facility] [place] [address] 05/15/2021 00:00:00 05/15/2021 10:25:31 [id number] Clive Agrawal MD [facility] [address] [place] [address] [place] [address] 05/24/2021 00:00:00 05/24/2021 10:18:33 [id number] Clive Agrawal MD [facility] [address] [place] [address] [place] [address] 08/27/2021 00:00:00 08/27/2021 10:08:21 [id number] Clive Agrawal MD [facility] [address] [place] [address] [place] [address] 12/05/2021 00:00:00 12/05/2021 10:17:01 [id number] Clive Agrawal MD [facility] [address] [place] [address] [place] [address] 03/25/2022 00:00:00 03/25/2022 10:15:01 [id number] Clive Argawal MD [facility] [address] [place] [address] [place] [address] 05/08/2022 00:00:00 05/08/2022 20:36:18 [id number] Clive Agrawal MD [facility] [address] [place] [address] [place] [address] 07/09/2022 00:00:00 07/09/2022 18:51:31 [id number] Clive Agrawal MD [facility] Brendan lljamal [address] [place] [address] [place] [address] 10/07/2022 09:16:39 10/07/2022 09:42:36 Type 2 diabetes mellitus without complication [id number] E11.9 A1C was 7.9% Will increase ozempic to 1 mg weekly. [id number] Clive Agrawal MD [facility] Brendan lljamal [address] [place] [address] [place] [address] 12/25/2022 14:02:49 12/25/2022 14:32:50 Adult health examination 321304730 Z00.00 Screening for disorder [id number] Z13.9 At [facility] risk of osteoporosis 790143603 Z91.89 [id number] Clive Agrawal MD [facility] [place] [address] [place] [address] [place] [address] 01/07/2023 09:16:50 01/07/2023 09:46:38 Essential hypertension 47915121 I10 BP 220/100 Monitor BP away from here. Watch salt in diet. If continues to run high needs to let me know. Type 2 patrick betes mellitus without complication 461279600 E11.9 A1C was 6.3 % Continue same dosage of ozempic Gastroesop hageal reflux disease 903888442 K21.9 Hypertriglyceridemia 302 862254 E78.1 [id number] Clive Agrawal MD [facility] [place] [address] [place] [address] 04/09/2023 09:28:03 04/09/2023 09:55:36 Hypothyroidism 93918569 E03.9 Carotid bruit 182442343 R09.89 On left side Administra tion of influenza vaccine 60615650 Z23 [id number] Clive Agrawal MD [facility] [place] [address] [facility] [place] [address] 08/22/2023 09:30:56 08/22/2023 10:12:00 Carotid artery stenosis 35523496 I65.29 Chronic ki dney disease stage 4 163908076 N18.4 Chronic ob structive pulmonary disease 30459926 J44.9 Congestive heart failure 36988812 I50.9 Essential hypertension 06429294 I10 Gastroesop hageal reflux disease 634480312 K21.9 Goiter 4241687 E04.9 Hyperlipidemia 26322036 E78.5 Hypothyroidism 77514055 E03.9 Osteoarthritis 745846464 M19.90 Osteoarthr itis of knee 649861800 M17.9 Pulmonary hypertension 90548728 I27.20 Smoker 69931062 F17.200 Type 2 patrick betes mellitus without complication 103053507 E11.9 [id number] Tony Medina MD [facility] [place] [address] [place] [address] 11/12/2023 12:03:37 11/12/2023 12:14:11 Chronic kidney disease stage 4 893904035 N18.4 Chronic ob structive pulmonary disease 85523589 J44.9 Type 2 patrick betes mellitus without complication 766894930 E11.9 Congestive heart failure 40496411 I50.9 [id number] Tony Medina MD [facility] [place] [address] [place] [address] [address] 12/23/2023 22:23:52 02/05/2024 11:27:55 Chronic obstructive pulmonary disease 61778301 J44.9 Essential hypertension 61100879 I10 Carotid ar betty stenosis 18002359 I65.29 Hyperlipidemia 85337961 E78.5 Congestive heart failure 31128059 I50.9 [id number] Tony Medina MD [address] [place] [address] 12/30/2023 14:44:18 12/30/2023 15:17:22 Adult health examination 419727832 Z00.00 Screening for disorder 408276072 Z13.9 Screening for malignant neoplasm of breast 716679292 Z12.39 Screening for malignant neoplasm of cervix 055578246 Z12.4 Osteoarthr itis of knee 347217873 M17.9 Hyperlipidemia 21550785 E78.5 Gastroesop hageal reflux disease 058538999 K21.9 Essential hypertension 86789893 I10 [id number] Tony Medina MD [address] [place] [address] 03/31/2024 10:31:56 03/31/2024 10:56:38 Type 2 diabetes mellitus without complication 702476046 E11.9 Hypothyroidism 61763807 E03.9 Carotid ar betty stenosis 84225391 I65.29 Essential hypertension 11527111 I10 Hyperlipidemia 50778227 E78.5 At [facility] risk for nutritional problem 704514590 Z91.89 Administra tion of influenza vaccine 56102101 Z23 Stiff neck 517568657 M43 .6 Chronic ki dney disease stage 4 217717259 N18.4 Congestive heart failure 31669593 I50.9 Gastroesop hageal reflux disease 866574804 K21.9 Osteoarthritis 712695363 M19.90 Pulmonary hypertension 64150354 I27.20 [id number] Tony Medina MD [address] [address] 06/28/2024 14:18:54 07/15/2024 14:31:00 [id number] Tony Medina MD [address] [address] 06/30/2024 09:05:28 06/30/2024 09:30:38 Chronic kidney disease stage 4 778371667 N18.4 Chronic ob structive pulmonary disease 15832271 J44.9 Congestive heart failure 38998636 I50.9 Essential hypertension 87468839 I10 Gastroesop hageal reflux disease 002891745 K21.9 Hyperlipidemia 25709642 E78.5 Hypothyroidism 36856057 E03.9 Osteoarthritis 081520022 M19.90 Type 2 patrick betes mellitus without complication 674416326 E11.9 Smoker 72856834 F17.273 [id number] Tony Medina MD [address] [address] 09/30/2024 10:19:54 09/30/2024 10:53:28 Carotid artery stenosis 29153932 I65.29 Chronic ki dney disease stage 4 159908473 N18.4 Chronic ob structive pulmonary disease 84716427 J44.9 Congestive heart failure 55315290 I50.9 Essential hypertension 54278648 I10 Gastroesop hageal reflux disease 807966288 K21.9 Goiter 6451572 E04.9 Hyperlipidemia 55593189 E78.5 Hyperuricemia 21542941 E 79.0 Hypothyroidism 22636814 E03.9 Osteoarthr itis of knee 066745527 M17.9 Pulmonary hypertension 01641306 I27.20 Smoker 81444772 F17.200 Squamous c ell carcinoma of skin 786766059 C44.92 05546 [id number] Tony Medina MD [address] [address] 01/28/2025 11:26:19 01/28/2025 14:09:47 Hypothyroidism 81230429 E03.9 Last TSH low, medication was not adjusted at this time. We will recheck Hypertensive disorder 38 638566 I10 Well controlled with current meds Type 2 patrick betes mellitus without complication 258414495 E11.9 symptomati c hypoglycem ia. We will decrease Basaglar to 40 u at night and continue to monitor Goals Section Goal Description Progress Status Start Date LastModified by Organization Details LastModified Time Follow-u p Appointm ent(s) Attends referral and/or follow-up appointment(s) as per care team recommendation (s) Progressing active 2023 Ava Arellano CCM Information not available 2023 02:32:26 Food Security Reports ability to access and obtain foods to meet nutritional needs NoCsusy active 2023 Ava Arellano CCM Information not available 11/12/2023 16:42:02 Smoking Cessatio n Quits smoking NoCmiguelitoge active 2023 Ava Arellano CCM Information not available 11/12/2023 16:42:02 Blood Glucose Maintains blood glucose within target range NoCmiguelitoge active 2023 Ava Arellano CCM Information not available 11/12/2023 16:42:02 Diet Adherenc e Follows prescribed or recommended diet Progressing active 2023 Ava Arellano CCM Information not available 2023 02:32:39 Blood Pressure Maintains blood pressure goal as defined by care team NoCsusy active 2023 Ava Arellano CCM Information not available 11/12/2023 16:42:02 Effectiv e Coping Manages life events with effective coping methods NoCmiguelitoge active 2023 Ava Arellano CCM Information not available 11/12/2023 16:42:02 Medicati on Regimen Follows medication regimen as per care team recommendation (s) Progressing active 2023 Ava Arellano CCM Information not available 2023 02:32:52 Adequate Sleep Achieves adequate, well-rested sleep with minimal disruption NoCmiguelitoge active 2023 Ava Arellano CCM Information not available 11/12/2023 16:42:03 Vaccinat ion Status Remains up to date on vaccines as per care team recommendation (s) Kym active 2023 Ava Arellano CCM Information not available 11/12/2023 16:42:03 Recreati onal Activiti es Participates in recreational activities NoCmiguelitoge active 2023 Ava Arellano CCM Information not available 11/12/2023 16:42:03 Diagnost ic Testing Completes diagnostic testing as per care team recommendation (s) Kym active 2023 Ava Arellano CCM Information not available 11/12/2023 16:42:03 Hemoglob in A1C Lowers or maintains hemoglobin A1C (HbA1c) as per care team recommendation (s) [TARGET: less than or equal to 7%] [facility] active 2023 Ava Arellano CCM Information not available 11/12/2023 16:42:03 Weight Loss Decreases body weight as per care team recommendation (s) Kym active 2023 Ava Arellano CCM Information not available 11/12/2023 16:42:03 Decrease d Alcohol Consumpt ion Reports decreased alcohol consumption as per care team recommendation (s) Kym active 2023 Ava Arellano CCM Information not available 11/12/2023 16:42:03 Fall Safety Reports no recent falls and/or fall injuries NoChange active 2023 Ava Arellano CCM Information not available 11/12/2023 16:42:03 Chronic Disease Symptom Manageme nt Reports no new or worsening symptoms [facility] active 2023 Ava Arellano CCM Information not available 11/12/2023 16:42:03 Financia l Stabilit y Reports financial status and/or income meets needs [facility] active 2023 Ava Arellano CCM Information not available 11/12/2023 16:42:03 Knowledg e of Disease or Conditio n Demonstrates understanding of disease(s) or condition(s) Progressing active 2023 Ava Arellano CCM Information not available 2023 02:33:15 Activiti es of Daily Living Performs activities of daily living independently or with minimal assistance [facility] active 2023 Ava Arellano CCM Information not available 11/12/2023 16:42:03 Exercise Regularl y Follows a regular exercise regimen or instructed exercise plan as per care team recommendation (s) Kym active 2023 Ava Arellano CCM Information not available 11/12/2023 16:42:03 Chronic Conditio n Action Plan Follows action plan for any worsening of chronic condition(s) as per care team recommendation (s) Kym active 2023 Ava Arellano CCM Information not available 11/12/2023 16:42:03 Weight Pasquale rivera Exhibits stable weight with normal fluctuation NoChange active 2023 Ava Arellano CCM Information not available 11/12/2023 16:42:03 Fluid Balance Manageme nt Exhibits no signs or symptoms related to fluid imbalance NoChange active 2023 Ava Arellano CCM Information not available 11/12/2023 16:42:03 Lab Testing Completes lab testing as per care team recommendation (s) NoChange active 2023 Ava Arellano CCM Information not available 11/12/2023 16:42:03 Health Concerns Section Related Observation LastModified by Organization Detai ls LastModified Time None Recorded Concern Status LastModified by Organization Details LastModified Time Chronic kidney disease stage 4 Active Ava Arellano CCM Not Available 11/12/2023 16:3 1:46 Type 2 diabetes mellitus without complication Active Ava Arellano CCM Not Available 11/12/2023 16:3 2:10 Congestive heart failure Active Ava Arellano CCM Not Available 11/12/2023 16:3 2:18 Chronic obstructive lung disease Active Ava Arellano CCM Not Available 11/12/2023 16:3 1:54 Advance Directives Directive None Recorded Payers Insurance Date Sequence Insurance Name Policy Number Policy Fernandez Covered Member ID Fernandez Member ID Guarantor Name 01/28/2025 1 [place] Jillian Bernal [id number] Jillian Brenal 01/31/2025 2 [place] 104 Jillian Bernal [id number] Jillian Bernal Notes Date Note Type Note Provider Name and Address Organization Details Recorded Time 03/31/2024 text/html ROS as noted in the HPI stiff neck for 4 days . no trauma at all . ANDREA Shields [address], [place], [address], [employer] [facility] [employer] 04/26/2024 15:01:40 06/30/2024 text/html ROS as noted in the HPI Feeling good , no changes ANDREA Shields [address], [address], [place], [address], [employer] [facility] [employer] 07/03/2024 09:41:06 09/30/2024 text/html ROS as noted in the HPI no changes . 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 ANDREA Shields [address] [facility] [address], [place], [address], [facility] [employer] [facility] [employer] 10/06/2024 10:04:31 01/28/2025 text/html Jillian Bernal is a 79 year old female patient here today to establish care. History of hypothyroidism. She is taking levothyroxine History of hypertension. This is well controlled. Patient does check BP readings at home. These average 140s/80s.BP on arrival today is 144/66.Patient declines headaches, tinnitus, light headedness, fatigue.She does see cardiology. Type 2 diabetes mellitus. This is well controlled. Last A1C 5.9 on 06/2024The patient does check their blood glucose at home, she states she has low blood sugars and has to eat every 3 hrsThey are currently taking Basaglar 48 u HS and Ozempic 1mg weekly.Patient denies confusion, excessive urination and thirst, neuropathy, foot wounds.She does note hypoglycemia episodes, will decrease Basaglar Psoriatic arthritis, sees rheum. Taking Otezla She has chronic constipation, managed with Miralax Flu shot: OVID vaccines: x2Td: 01/28/25Pneumococcal completedShingrix recommended at pharmacyMammogram: scheduledDEXA: declinesColonoscopy: 2020, does not want do anymore YEIMI Padgett [address], [facility] [address], [place], [address], [employer] [facility] [employer] 01/28/2025 14:06:59 OBGyn Episode No OBEpisode recorded.
--- OUTSIDE RECORDS SUMMARY | 2025-05-28 19:00 | XMS_ITS | Clinical Summary ---
Author Organization [facility] utielijah Address [address] [place] [address] Phone Care Team Providers Care Master Control Engineer Name Role Phone Verna Xiong NP Primary Care Provider [phone] Allergies Active Allergy Reactions Criticality Noted Date [...] simvastatin (ZOCOR) 40 MG tablet 1 Active TicketbisTouch Ultra test strip USE 1 STRIP TO CHECK GLUCOSE ONCE DAILY 2 Active hydrALAZINE (APRESOLINE) 100 MG tablet Take 100 mg by mouth every 8 (eight) hours 1 Active Lancets (OneTouch Delica Plus [id number]) [facility] USE 1 TO CHECK GLUCOSE ONCE DAILY [...] Plan: Stage 3 Followed by nephrology at [facility] Chronic heart failure co-occ shital with normal [...] (05/01/2021): 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/p Radiation and Arimidex x 5 years S/p mastectomy and sentinel node bx 0.8cm int grade 0:1LN Stage 0 Last Assessment & Plan: IOV Had DCIS in 2005 - had 5 years AI Cellulitis left CW NO RADIATION NO ANTIESTROGEN ROV 6 motnhs vanc for elulitis - sees [facility] Weds May need cefalosporin since [...] (05/01/2021): Added automatically from request for surgery [id number] Hypercalcemia 11/26/2016 Overview (05/01/2021): Last Assessment & [...] Vaccine (#1) 2025 04/14/2014, 2012 Insurance MEDICARE [facility] Care Teams Master Control Engineer Relationship Specialty Start Date End Date Verna Xiong NP [facility] [place] [address] PCP - General Internal Medicine 03/06/21
--- OUTSIDE RECORDS SUMMARY | 2025-05-28 19:00 | XMS_ITS | Encounter Summary ---
Author Organization [facility] Address [address] [place] [address] Care Team Providers Care Documentation Liaison Name Role Phone Unavailable Primary Care Provider Unavailabl e Encounter Details Date Type Department Care Team (Late st Contact Info) Description 09/02/2024 Lab Requisition [facility] - DermPath Lab [address] [facility] [place] [address] Rae Herrmann MD [address] [facility] 3 [place] [address] Social History Tobacco Use Types Packs/Day Years [...] AM CDT) Case Report Dermatopathology Report Case: [id number] Authorizing Provider: Rae Herrmann MD Collected: 09/02/2024 09:30 AM Ordering Location: [facility]ician [facility] - Received: 09/03/2024 06:17 AM DermPath Lab [...] medial.The specimen consists of an ellipse measuring 71i65p9 mm and is oriented with the notch [...] characteristic determined by the Dermatopathology Laboratory at [facility], directed by Dr. Guille Sharp. These tests need not be, and therefore are not, approved by the [place] Food and Drug Administration. The tests are used for clinical purposes. Billing Codes Specimen Charges Stain Charges 02874 1 1:53 PM CDT DERMATOPATHOLOGY LABORATORY Embedded Images 1:53 PM CDT DERMATOPATHOLOGY LABORATORY Pathology/Cytolo gy TISSUE SPECIMEN FROM SKIN / Unknown 09/02/2024 9:30 AM CDT 09/03/2024 6:17 AM CDT us Rae Herrmann MD LAB - PATHOLOGY/CYTOLOGY ORD ERABLES Final Result DERMATOPATHOLOGY LABORATORY [facility] - Department of Dermatology [address] [place] [address], [facility] [phone] documented in this encounter Visit Diagnoses Not on filedocumented in this encounter
--- OUTSIDE RECORDS SUMMARY | 2025-05-28 19:00 | XMS_ITS | Encounter Summary ---
Author Organization [facility] Address [facility] [place] [address] Care Team Providers Care Social Media Campaign Manager Name Role Phone Verna Xiong CARLOS Primary Care Provider [phone] Encounter Details Date Type Department Care Team (Late st Contact Info) Description 05/31/2021 Abstract [facility] [address] Shannon Rosas [place] Social History Tobacco Use Types Packs/Day Years Used Date Smoking Tobacco: Every Day Cigarettes Smokeless Tobacco: Never Alcohol Use Standard Drinks/Week Comments Not Currently 0 (1 standard drink = 0.6 oz pur e alcohol) Comments Unknown Sex and Gender Information Value Date Recorded Sex Assigned at Not on file Legal Sex Female 11:57 AM PRESS OPERATOR HELPER Gender Identity Not on file Sexual Orientation Not on file COVID-19 Exposure Response Date Recorded In the last month, have you been in contact with someone who was confirmed or suspected to have Coronavirus / COVID-19? No / Unsure 05/31/2021 10:04 AM PRESS OPERATOR HELPER documented as of this encounter Functional Status * RETIRED Are you deaf or do you have serious difficulty hearing Answer Date of Assessment Author Status No 05/16/2021 2:30 PM PRESS OPERATOR HELPER Activ e * RETIRED Are you blind or do you have serious difficulty seeing, even when wearing glasses? Answer Date of Assessment Author Status No 05/16/2021 2:30 PM PRESS OPERATOR HELPER Activ e * Do you have serious difficulty walking or climbing stairs? Answer Date of Assessment Author Status No 05/16/2021 2:30 PM PRESS OPERATOR HELPER Laura Moore R N Active * Do [...] Date Author Status No 05/16/2021 2:30 PM PRESS OPERATOR HELPER Laura Moore R N Active documented in [...] on filedocumented in this encounter Care Teams Social Media Campaign Manager Relationship Specialty Start Date End Date Verna Xiong NP [address] [place] [address] PCP - General NURSE PRACTITIONER 05/15/21 documented as of this encounter
--- OUTSIDE RECORDS SUMMARY | 2025-05-28 19:00 | XMS_ITS | Encounter Summary ---
Author Organization [facility] Address [address] [facility] [place] [address] Care Team Providers Care Cleat Layer Name Role Phone Unavailable Primary Care Provider Unavailabl e Encounter Details Date Type Department Care Team (Late st Contact Info) Description 08/09/2024 Lab Requisition [facility] - DermPath Lab [address] [facility], [place] [address] Rae Herrmann MD [address] [facility] 3 [place] [address] Social History Tobacco Use Types Packs/Day Years [...] PM CDT) Case Report Dermatopathology Report Case: [id number] Authorizing Provider: Rae Herrmann MD Collected: 08/09/2024 01:31 PM Ordering Location: [facility] Physician [facility] - Received: 08/11/2024 07:44 AM DermPath Lab [...] by the Dermatopathology Laboratory at [facility], directed by Dr. Guille Sharp. These tests need not be, and therefore are not, approved by the [place] Food and Drug Administration. The tests are used for clinical purposes. Billing Codes Specimen Charges Stain Charges 06184 15457 1 1 2:23 PM CDT DERMATOPATHOLOGY LABORATORY Embedded Images 2:23 PM CDT DERMATOPATHOLOGY LABORATORY Pathology/Cytology TISSUE SPECIMEN FROM SKIN / Unknown 08/09/2024 1:31 PM CDT 08/11/2024 7:44 AM CDT Miscellaneous samples (specimen) TISSUE SPECIMEN FROM SKIN / Unknown 08/09/2024 1:31 PM CDT 08/11/2024 7:44 AM CDT us Rae A Montez MD LAB - PATHOLOGY/CYTOLOGY ORD ERABLES Final Result DERMATOPATHOLOGY LABORATORY [facility] - Department of Dermatology [facility] Medicine [address] [place] [address], [address] [phone] documented in this encounter Visit Diagnoses Not on filedocumented in this encounter
--- OUTSIDE RECORDS SUMMARY | 2025-05-28 19:00 | XMS_ITS | Encounter Summary ---
Author Organization [facility] Address [address] [facility] [place] [address] Care Team Providers Care Student Services Dean Name Role Phone Unavailable Primary Care Provider Unavailabl e Encounter Details Date Type Department Care Team (Late st Contact Info) Description 08/19/2018 Lab Requisition [facility] Care DermPath Lab [address] [facility], [place] [address] Rosemarie Townsend MD [address] [facility] 3 [place] [address] Social History Tobacco Use Types Packs/Day Years [...] AM CDT) Case Report Dermatopathology Report Case: [id number] Authorizing Provider: Rosemarie Townsend MD Collected: 08/18/2018 [...] The specimen consists of a shave measuring 3b4q8vg. Jar 0. 3:52 PM CDT DERMATOPATHOLOGY LABORATORY [...] determined by the Dermatopathology Laboratory at [facility], directed by Dr. Guille Sharp. These tests need not be, and therefore are not, approved by the [place] Food and Drug Administration. The tests are used for clinical purposes. Billing Codes Specimen Charges Stain Charges 24403 1 3:52 PM CDT DERMATOPATHOLOGY LABORATORY Embedded Images 3:52 PM CDT DERMATOPATHOLOGY LABORATORY Pathology/Cytolog y TISSUE SPECIMEN FROM SKIN / Unknown 08/18/2018 08/19/2018 10:13 AM CDT Rosemarie Townsend MD LAB - PATHOLOGY/CYTOLOGY OR DERABLES Final Result DERMATOPATHOLOGY LABORATORY [facility] - Department of Dermatology [address] [place] [address], [address] [place] [address], [facility] [phone] documented in this encounter Visit Diagnoses Not on filedocumented in this encounter
--- OUTSIDE RECORDS SUMMARY | 2025-05-28 19:00 | XMS_ITS | Clinical Summary ---
Author Organization [facility] [place] Address [address] [place] [address] Phone Care Team Providers Care Graduate Intern Name Role Phone Jil Lawler MD Primary Care Provider [phone] Allergies Active Allergy Reactions Criticality Noted Date [...] tablet Take 300 mg by mouth daily flask carrier. 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% OK [...] 6 [facility] v[facility] for elulitis - sees [facility] Weds May need cefalosporin since DM [...] on file Legal Sex Female 6:02 AM INSPECTOR BALANCE BRIDGE Gender Identity Not on file Sexual Orientation Not on file Occupation Industry Job Start Date Job End Date retired, [employer] Not on file Not on file Not on file Last Filed Vital Signs Vital Sign Reading Time Taken Comments Blood Pressure 133/71 05/16/2011 11:22 AM INSPECTOR BALANCE BRIDGE Pulse 76 01/18/2011 2:53 PM CDT Temperature 36.9 C (98.5 F) 01/18/2011 2:53 PM CDT Respiratory Rate 16 01/18/2011 2:53 PM CDT Oxygen Saturation 97% 01/02/2011 7:00 AM CDT Inhaled Oxygen Concentration - - Weight 80.3 kg (177 lb) 05/16/2011 11:22 AM INSPECTOR BALANCE BRIDGE Height 162.6 cm (5' 4) 05/16/2011 11:22 AM INSPECTOR BALANCE BRIDGE Body Mass Index 30.38 05/16/2011 11:22 AM INSPECTOR BALANCE BRIDGE Plan of Treatment Health Maintenance Due Date [...] , 04/14/2019, 04/14/2019, Additional history exists Insurance [facility] Advance Directives For more information, please contact: [phone] * Full Code (Latest Code Status on File) Date Activated Date Inactivated Comments 01/01/2011 11:41 AM 01/02/2011 11:39 AM * Full Code Date Activated Date Inactivated Comments 01/01/2011 8:49 AM 01/01/2011 11:41 AM Care Teams Graduate Intern Relationship Specialty Start Date End Date Jil Lawler MD [address] [phone] PCP - General 05/19/15
--- OUTSIDE RECORDS SUMMARY | 2025-05-28 19:00 | XMS_ITS | Clinical Summary ---
Author Organization [facility] Address [address] [place] [address] Care Team Providers Care Forest Resource Specialist Name Role Phone Verna Xiong CARLOS Primary Care Provider [phone] Allergies Active Allergy Reactions Criticality Noted Date [...] 2 (two) times a day. 02/17/2021 Active Belmond-3 Fatty Acids (FISH OIL BURP-LESS) 1200 MG [...] 05/31/2021 Assessment & Plan (05/31/2021 12:26 PM COLLEGE PRESIDENT): On going since diuretics and discharge Echo reviewed Lungs CTA with mild BLE edema Could be anginal equivalent - will order nuclear stress Follow up with PFT and CT chest Chronic heart failure with preserved ejection fr action 05/31/2021 Assessment & Plan (05/31/2021 12:27 PM COLLEGE PRESIDENT): BNP >5000 Echo revealing normal LVSF and DD grade 1. Lasix 20mg daily continued Would like to review bmp and increase lasix to 40mg daily Abnormal imaging of thyroid 05/17/2021 Adrenal mass 05/17/2021 Electrocardiogram abnormal 05/17/2021 Folliculitis 05/17/2021 High triglycerides 05/17/2021 Liver mass 05/17/2021 Arthritis 05/17/2021 Reflux 05/17/2021 Diabetes 05/17/2021 Goiter 05/17/2021 Urinary tract infectious disease 05/17/2021 Acute congestive heart failure 05/15/2021 CHF (congestive heart failure) 05/15/2021 Chronic or unspecified pepti c ulcer, site unspecified, with hemorrhage 05/01/2021 Colitis 05/01/2021 Ductal carcinoma in situ (DCIS) of breast 2020 Overview (05/17/2021): 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% [place] - -- had DCIS in 2006 S/p [...] keflex 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% [place] - -- had DCIS in 2006 S/p [...] 05/01/2021 Assessment & Plan (05/31/2021 12:29 PM COLLEGE PRESIDENT): Blood pressure is well controlled with no changes in regimen at this time Encouraged to continue to monitor at home and log and call office with any concerns in future. Hyperuricemia 05/01/2021 Onychomycosis 05/01/2021 Other tear of medial meniscu s, current injury, unspecified knee, initial encounter 05/01/2021 Pulmonary hypertension 05/01/2021 Hypothyroidism 05/01/2021 Low kidney function 03/06/2021 Chronic obstructive pulmonary disease 07/10/2019 Smoker 02/12/2019 Basal cell carcinoma of skin of nose 10/23/2018 Overview (05/17/2021): Added automatically from request for surgery [id number] Added automatically from request for surgery [id number] Encounter for planned postprocedural wound closu re 09/25/2018 Overview (05/17/2021): Added automatically from request for surgery [id number] Hypercalcemia 11/26/2016 Overview (05/17/2021): Last Assessment & [...] scan 1.25 [place] vit D Recommendations to [facility] CKD (chronic kidney disease) Assessment & Plan (05/31/2021 12:29 PM COLLEGE PRESIDENT): Stage 3 Followed by nephrology at [place] Resolved Problems Problem Noted Date Diagnosed Date [...] on file Legal Sex Female 11:57 AM COLLEGE PRESIDENT Gender Identity Not on file Sexual Orientation Not on file Last Filed Vital Signs Vital Sign Reading Time Taken Comments Blood Pressure 130/60 05/31/2021 10:17 AM COLLEGE PRESIDENT Pulse 68 05/31/2021 10:17 AM COLLEGE PRESIDENT Temperature 37 C (98.6 F) 05/19/2021 7:45 AM COLLEGE PRESIDENT Respiratory Rate 18 05/19/2021 7:45 AM COLLEGE PRESIDENT Oxygen Saturation 95% 05/31/2021 10:17 AM COLLEGE PRESIDENT Inhaled Oxygen Concentration - - Weight 78 kg (172 lb) 05/31/2021 10:17 AM COLLEGE PRESIDENT Height 162.6 cm (5' 4) 05/31/2021 10:17 AM COLLEGE PRESIDENT Body Mass Index 29.52 05/31/2021 10:17 AM COLLEGE PRESIDENT Plan of Treatment Health Maintenance Due Date [...] 12/15/2023 12/14/2018, 04/02/2007 COVID-19 Vaccine ( season) 2025 03/28/2021, 09/04/2020, 09/04/2020, Additional history exists Influenza Adult (#1) 2025 02/22/2021, 04/14/2019, 03/16/2018, Additional history exists Hepatitis A Vaccines Aged Out No long er eligible based on patient's age to complete this topic Meningococcal B Vaccine Aged Out No l [...] perform ADLs independently General No Loretta Watts medical resident Procedure Name Priority Date/Time Associated Diagnosis Comments LIPID PANEL Routine 05/17/2021 5:50 AM COLLEGE PRESIDENT from Last 3 Months or Most Recently Relevant to Health Maintenance Results * (ABNORMAL) LIPID PANEL (05/17/2021 5:50 AM COLLEGE PRESIDENT) CHOLESTEROL 170 <200 MG/DL 05/17/2021 2:41 PM COLLEGE PRESIDENT [facility] TRIGLYCERIDES 183(H) <150 MG/DL 05/17/2021 2:41 PM COLLEGE PRESIDENT [facility] HDL 33(L) >40.0 MG/DL 05/17/2021 2:41 PM [facility] LDL (CALCULATED) 100(H) <100 MG/DL 05/17/2021 2:41 PM COLLEGE PRESIDENT [facility] NON HDL CHOLESTEROL 137(H) <130 MG/DL 05/17/2021 2:41 PM [facility] CHOL/HDL RATIO 5.2(H) 0.0 - 4.5 05/17/2021 2:41 PM [facility] VLDL CALCULATION 37 5 - 55 MG/DL 05/17/2021 2:41 PM [facility] LIPID INTERPRETATION 05/17/2021 2:41 PM [facility] Comment: [facility] CONCENSUS REPORT RECOMMENDATIONS: ADULT CHILD LOW RISK: CHOLESTEROL <200 <170 TRIGLYCERIDE <150 --- HDL >=60 --- LDL <100 <110 BORDERLINE: CHOLESTEROL 200-239 170-199 TRIGLYCERIDE 150-199 --- HDL 40-59 --- LDL 100-159 110-129 HIGH RISK: CHOLESTEROL >=240 >=200 TRIGLYCERIDE >=200 --- HDL <40 --- LDL >=160 >=130 05/17/2021 5:50 AM COLLEGE PRESIDENT Melania Woodward NP LABORATORY Final Result [facility] [address] [place] [address], from Last 3 Months or Most Recently Relevant to Health Maintenance Insurance MEDICARE [facility] Advance Directives * Full Code (Latest Code Status on File) Date Activated Date Inactivated Comments 05/15/2021 9:44 PM 05/19/2021 3:38 PM Care Teams Forest Resource Specialist Relationship Specialty Start Date End Date Verna Xiong NP [address] [place] [id number] PCP - General NURSE PRACTITIONER 05/15/21
--- OUTSIDE RECORDS SUMMARY | 2025-05-28 19:00 | XMS_ITS | Encounter Summary ---
Author Organization [facility] Address [address] [facility] [place] [address] Care Team Providers Care Venetian Blind Installer Name Role Phone Unavailable Primary Care Provider Unavailabl e Encounter Details Date Type Department Care Team (Late st Contact Info) Description 09/22/2024 Lab Requisition [facility] - DermPath Lab [address] [facility] [place] [address] Rae Herrmann MD [address] [place] [address] Social History Tobacco Use Types Packs/Day Years [...] PM CDT) Case Report Dermatopathology Report Case: [id number] Authorizing Provider: Rae Herrmann MD Collected: 09/22/2024 02:43 PM Ordering Location: [facility] - Received: 09/24/2024 08:54 AM DermPath [...] forearm.The specimen consists of an ellipse measuring 20e44m9 mm and is oriented with the suture/notch [...] characteristic determined by the Dermatopathology Laboratory at [facility], directed by Dr. Guille Sharp. These tests need not be, and therefore are not, approved by the [place] Food and Drug Administration. The tests are used for clinical purposes. Billing Codes Specimen Charges Stain Charges 45453 1 4:22 PM CDT DERMATOPATHOLOGY LABORATORY Embedded Images 4:22 PM CDT DERMATOPATHOLOGY LABORATORY Pathology/Cytolo gy TISSUE SPECIMEN FROM SKIN / Unknown 09/22/2024 2:43 PM CDT 09/24/2024 8:54 AM CDT us Rae Herrmann MD LAB - PATHOLOGY/CYTOLOGY ORD ERABLES Final Result DERMATOPATHOLOGY LABORATORY [facility] - Department of Dermatology [address] [place] [id number] [place] [address] documented in this encounter Visit Diagnoses Not on filedocumented in this encounter
--- OUTSIDE RECORDS SUMMARY | 2025-05-28 19:00 | XMS_ITS | Clinical Summary ---
Author Organization [facility] Address [address] [place] [phone] Care Team Providers Care Systems Software Engineer Name Role Phone Verna Xiong NP Primary Care Provider [phone] Allergies Active Allergy Reactions Criticality Noted Date [...] ns:hypothyroidi sm Take 150 mcg by mouth aquatic director before breakfast 7 Active simvastatin (ZOCOR) 40 [...] mg by mouth every morning Active multivit-minera f-almq-bipxac tabletIndicatio ns:supplement Take 1 tablet by mouth nightly Active cyanocobalamin (Vitamin B-12) 1,000 mcg tabletIndicatio ns:Prevention of Vitamin B12 Deficiency Take 1,000 mcg by mouth nightly Active cholecalciferol (VITAMIN D-3) 2,000 unit capsuleIndicati ons:Prevention of Vitamin D Deficiency Take 2,000 Units by mouth nightly Active mysqs-5s-tge-ep a-fish oil 120 mg-180 mg- 60 mg-1,200 [...] (10/23/2018): Added automatically from request for surgery [id number] Encounter for planned postprocedural wound closu re 09/25/2018 Overview (09/25/2018): Added automatically from request for surgery [id number] Type 2 diabetes mellitus 11/26/2016 Assessment & [...] on file Legal Sex Female 7:38 PM BUTADIENE COMPRESSOR OPERATOR Gender Identity Not on file Sexual [...] of Treatment Not on file Insurance MEDICARE [facility] MEDICARE [facility] Care Teams Systems Software Engineer Relationship Specialty Start Date End Date Verna Xiong NP PCP - General 11/21/16
--- OUTSIDE RECORDS SUMMARY | 2025-05-28 19:00 | XMS_ITS | Encounter Summary ---
Author Organization [facility] Address [address] [facility] [place] [address] Care Team Providers Care Special Population Paraprofessional Name Role Phone Unavailable Primary Care Provider Unavailabl e Encounter Details Date Type Department Care Team (Late st Contact Info) Description 04/21/2020 Lab Requisition [facility] DermPath Lab [address] [facility] [place] [id number] Ladonna Arvizu MD [address] [place] [address] Social History Tobacco Use Types [...] Comments DERMATOPATHOLOGY Routine 04/20/2020 12:0 0 AM RN FORENSIC documented in this encounter Results * DERMATOPATHOLOGY (04/20/2020 12:00 AM RN FORENSIC) Case Report Dermatopathology Report Case: [id number] Authorizing Provider: Ladonna Arvizu MD Collected: 04/20/2020 12:00 AM Ordering Location: [facility] DermPath Lab Received: 04/21/2020 06:53 AM Pathologist: Indira Huggins MD Specimen: Skin, left upper arm 0 1:47 PM RN FORENSIC DERMATOPATHOLOGY LABORATORY Final Diagnosis Specimen A. SKIN, left upper arm: DERMAL SCAR RESIDUAL BASAL CELL CARCINOMA NOT IDENTIFIED (L90.5) 0 1:47 PM RN FORENSIC DERMATOPATHOLOGY LABORATORY at 1347 RN FORENSIC Clinical History R/O BCC, biopsy proven. 0 1:47 PM [facility] DERMATOPATHOLOGY LABORATORY Gross Description Specimen A: Received is one formalin filled container labeled with the patient's name and designated left upper arm.The specimen consists of an ellipse measuring 49e52v5bp and is oriented with the notch at [...] cassettes 3-4. Jar 0. 0 1:47 PM [facility] DERMATOPATHOLOGY LABORATORY Microscopic Description Specimen A. SKIN, left upper arm: There are fibroblasts and collagen bundles oriented parallel to the skin surface. There are elongated blood vessels, some of which are oriented perpendicular to the skin surface. No basal cell carcinoma is identified. 0 1:47 PM [facility] DERMATOPATHOLOGY LABORATORY Disclaimer An external and internal positive and negative controls are appropriate for the histochemical, immunohistochemical and immunofluorescence stain(s) in this case (if any), except where stated explicitly. The performance characteristics of the stain(s) cited in this report were developed and its performance characteristic determined by the Dermatopathology Laboratory at [facility], directed by Dr. Guille Sharp. These tests need not be, and therefore are not, approved by the [place] Food and Drug Administration. The tests are used for clinical purposes. Billing Codes Specimen Charges Stain Charges 74266 1 0 1:47 PM [facility] DERMATOPATHOLOGY LABORATORY Embedded Images 0 1:47 PM [facility] DERMATOPATHOLOGY LABORATORY Pathology/Cytolog y TISSUE SPECIMEN FROM SKIN / Unknown 04/20/2020 04/21/2020 6:53 AM RN FORENSIC us Ladonna Arvizu MD LAB - PATHOLOGY/CYTOLOGY ORDERA BLES Final Result DERMATOPATHOLOGY LABORATORY [facility] - Department of Dermatology [address] [phone] documented in this encounter Visit Diagnoses Not on filedocumented in this encounter
--- OUTSIDE RECORDS SUMMARY | 2025-05-28 19:00 | XMS_ITS | Encounter Summary ---
Author Organization [facility] Address [address] [facility] [place] [address] Care Team Providers Care Marine Structural Designer Name Role Phone Unavailable Primary Care Provider Unavailabl e Encounter Details Date Type Department Care Team (Late st Contact Info) Description 03/13/2020 Lab Requisition [facility] DermPath Lab [address] [facility] [place] [phone] Rosemarie Townsend MD [address] [facility] [address] [place] [address] Social History Tobacco Use Types Packs/Day Years [...] AM CDT) Case Report Dermatopathology Report Case: [id number] Authorizing Provider: Rosemarie Townsend MD Collected: 03/09/2020 12:00 AM Ordering Location: [facility] DermPath Lab Received: 03/13/2020 11:49 AM Pathologist: [...] characteristic determined by the Dermatopathology Laboratory at [facility], directed by Dr. Guille Sharp. These tests need not be, and therefore are not, approved by the [place] Food and Drug Administration. The tests are used for clinical purposes. Billing Codes Specimen Charges Stain Charges 95591 [id number] 1 1 0 12:08 PM CDT DERMATOPATHOLOGY LABORATORY Embedded Images 0 12:08 PM CDT DERMATOPATHOLOGY LABORATORY Pathology/Cytology TISSUE SPECIMEN FROM SKIN / Unknown 03/09/2020 03/13/2020 11:49 AM CDT Miscellaneous samples (specimen) TISSUE SPECIMEN FROM SKIN / Unknown 03/09/2020 03/13/2020 11:49 AM CDT Rosemarie Townsend MD LAB - PATHOLOGY/CYTOLOGY OR DERABLES Final Result DERMATOPATHOLOGY LABORATORY [facility] - Department of Dermatology [facility] [address] [place] [address], [address] [phone] documented in this encounter Visit Diagnoses Not on filedocumented in this encounter
[2025-05-28] MEDS: ACETAMINOPHEN 500 MG TABLET 1000 MG PO (19:23)
[2025-05-28] MEDS: CYCLOBENZAPRINE HCL 10 MG TABLET PO (19:24)
== END 2025-05-28 20:15 | disposition home or self-care (01) ==
PROVIDERS: Emergency Medicine; Emergency Provider Emergency Medicine
DX: R91.8 Other nonspecific abnormal finding of lung field (principal); I10 Essential (primary) hypertension; J43.9 Emphysema, unspecified; E11.9 Type 2 diabetes mellitus without complications; E78.00 Pure hypercholesterolemia, unspecified; E03.9 Hypothyroidism, unspecified; L40.9 Psoriasis, unspecified; L40.50 Arthropathic psoriasis, unspecified; M19.90 Unspecified osteoarthritis, unspecified site; Z96.659 Presence of unspecified artificial knee joint; Z85.828 Personal history of other malignant neoplasm of skin; Z90.49 Acquired absence of other specified parts of digestive tract; Z90.12 Acquired absence of left breast and nipple; F17.210 Nicotine dependence, cigarettes, uncomplicated; Z79.85 Long-term (current) use of injectable non-insulin antidiabetic drugs; Z79.899 Other long term (current) drug therapy; Z79.61 Long term (current) use of immunomodulator; E27.9 Disorder of adrenal gland, unspecified; I70.0 Atherosclerosis of aorta; I51.7 Cardiomegaly; I25.10 Atherosclerotic heart disease of native coronary artery without angina pectoris; R94.31 Abnormal electrocardiogram [ECG] [EKG]
CPT/HCPCS: 36415; 71046; 71250; 80053; 83690; 84484; 85025; 85610; 85730; 93005; 99284; A9270